=== PATIENT | female | born 1935 | race Caucasian/White ===

== ENCOUNTER → 2016-11-28 20:33 | Emergency (ER) | payer MEDICARE ==
[~2016-11-28 20:33] MED LIST: Magnesium Oxide TAB* 400 MG PO ONE; NS 0.9% 1000 ML* 1,000 ML IV SCH
[2016-11-28 21:28] LABS: Hematocrit 35 % (35-47); Hemoglobin 11.4 g/dl (12.0-16.0); Mean Corpuscular HGB Conc 33 g/dl (31-36); Mean Corpuscular Hemoglobin 29 pg (27-31); Mean Corpuscular Volume 90 fL (80-97); Mean Platelet Volume 9 um3 (7.4-10.4); Red Blood Count 3.89 10^6/ul (4.0-5.4); Red Cell Distribution Width 14 % (10.5-15); White Blood Count 6.7 10^3/ul (3.5-10.8)
[2016-11-28 21:39] LABS: ALT 11 U/L (7-52); AST 21 U/L (13-39); Albumin 3.7 g/dL (3.2-5.2); Alkaline Phosphatase 90 U/L (34-104); Anion Gap 8 mmol/L (2-11); BUN/Creatinine Ratio 13.1 (8-20); Blood Urea Nitrogen 11 mg/dL (6-24); C Reactive Protein < 1.00 mg/L (< 5.00); CO2 Carbon Dioxide 27 mmol/L (22-32); Calcium 8.7 mg/dL (8.6-10.3); Chloride 100 mmol/L (101-111); Creatine Kinase 112 U/L (10-223); EGFR African American 83.7 (>60); EGFR Non-African American 65.1 (>60); Globulin 2.8 g/dL (2-4); Glucose 109 mg/dL (70-100); Lipase 40 U/L (11.0-82.0); Magnesium 1.6 mg/dL (1.9-2.7); Potassium 3.4 mmol/L (3.5-5.0); Sodium 135 mmol/L (133-145); Total Protein 6.5 g/dL (6.4-8.9)
[2016-11-28 21:41] LABS: Troponin I 0.01 ng/mL (<0.04)
[2016-11-28 22:07] LABS: TSH (Thyroid Stimulating Horm) 0.61 mcIU/mL (0.34-5.60)
--- NOTE | 2016-11-28 22:07 | RAD ---
INDICATION: Syncopal episode COMPARISON: Most recent comparison chest x-rays dated February 09, 2013 TECHNIQUE: Single AP portable view of the chest was obtained. FINDINGS: Image quality is compromised due to the relative inferiority of a portable chest x-ray. Similar the previous chest x-ray there is mild cardiomegaly. There is faint atherosclerotic calcification overlying the arch of the aorta. The lungs are grossly clear. There is no evidence of a large pleural effusion. Visualized bones are normal for the patient's age. IMPRESSION: No radiographic evidence for acute cardiopulmonary abnormality on this portable chest x-ray.
--- NOTE | 2016-11-28 22:36 | ED ---
Yang Maya Billy, scribed for Tomás Perdomo MD on 11/28/16 at 2114 . Syncope/Near Syncope - HPI Summary HPI Summary: Patient is an 81 year-old female coming to [facility] for evaluation of a syncopal episode today while playing dominoes with her friends. She was seated at the table when her friends saw her eyes roll backwards, and then she slumped forward in her chair. Her friends tried to rouse her, but she was unresponsive for approximately 10 seconds. She denies any incidence of chest pain or palpitations. However, her friends, who are here in the ED with her tonight, state that she felt diaphoretic. Patient admits that she has not had much to each today, but she has not felt sick. Patient has an extensive cardiac history. - History Of Current Complaint Chief Complaint: EDSyncope Time Seen by Provider: 11/28/16 20:37 Hx Obtained From: Patient Onset/Duration: Sudden Onset, Resolved Timing: Seconds Context: Witnessed Activity At Onset: At Rest Associated Head Trauma: No Aggravating Factor(s): Nothing Alleviating Factor(s): Spontaneous Resolution Associated Signs And Symptoms: Diaphoresis - Allergies/Home Medications Allergies/Adverse Reactions: Allergies Allergy/AdvReac Type Severity Reaction Status Date / Time Atorvastatin [From Lipitor] Allergy Muscle Ache Verified 05/24/15 10:48 Pregabalin [From Lyrica] Allergy See Comment Verified 05/24/15 10:48 PMH/Surg Hx/FS Hx/Imm Hx Endocrine/Hematology History: Denies: Hx Diabetes Cardiovascular History: Reports: Hx Coronary Artery Disease, Hx Hypertension - ON DAILY MEDS, ; PAT BP 163/89, Hx Peripheral Vascular Disease - BILATERAL Denies: Hx Pacemaker/ICD Comment Only: Other Cardiovascular Problems/Disorders - DR PEREZ FOLLOWS GI History: Reports: Hx Irritable Bowel - Hx OF FREQUENT LOOSE BOWEL MOVEMENTS WITHOUT CONTROL History: Denies: Hx Renal Disease Musculoskeletal History: Reports: Hx Arthritis - BACK, WRISTS, FEET Denies: Hx Rheumatoid Arthritis, Hx Osteoporosis, Hx Scoliosis Sensory History: Reports: Hx Cataracts - BILATERAL, Hx Contacts or Glasses - GLASSES Denies: Hx Hearing Aid Opthamlomology History: Reports: Hx Cataracts - BILATERAL, Hx Contacts or Glasses - GLASSES Neurological History: Reports: Hx Migraine - Hx OF, NONE IN RECENT YEARS Denies: Hx Headaches Psychiatric History: Denies: Hx Panic Disorder - Surgical History Surgery Procedure, Year, and Place: 2003 LEFT LEG BYPASS/ANGIOPLASTY [facility] [place]. 1999 LUMBAR SURGERY - DECOMPRESSION [facility] [place]. BILATERAL CATARACT SURGERY Hx Anesthesia Reactions: No Infectious Disease History: No Infectious Disease History: Denies: Traveled Outside the [place] in Last 30 Days - Family History Known Family History: Positive: Cardiac Disease Family History: No family history of malignant hyperthermia and anesthesia reaction. - Social History Alcohol Use: None Substance Use Type: Reports: None Smoking Status (MU): Former Smoker Type: Cigarettes Amount Used/How Often: 1PPD 50+ YEARS Have You Smoked in the Last Year: No Review of Systems Positive: Skin Diaphoresis Negative: Palpitations, Chest Pain Positive: Syncope All Other Systems Reviewed And Are Negative: Yes Physical Exam Triage Information Reviewed: Yes Vital Signs On Initial Exam: Initial Vitals Temp Pulse Resp BP Pulse Ox 97.7 F 64 20 117/76 98 11/28/16 20:36 11/28/16 20:36 11/28/16 20:36 11/28/16 20:36 11/28/16 20:36 Vital Signs Reviewed: Yes Appearance: Positive: Well-Appearing, No Pain Distress Skin: Positive: Warm, Skin Color Reflects Adequate Perfusion, Dry Head/Face: Positive: Normal Head/Face Inspection Eyes: Positive: EOMI, JENNIFER ENT: Positive: Other - Dry oral mucosa. Neck: Positive: Supple, Nontender Respiratory/Lung Sounds: Positive: Clear to Auscultation, Breath Sounds Present Cardiovascular: Positive: RRR Abdomen Description: Positive: Nontender, Soft Musculoskeletal: Positive: Normal, Strength/ROM Intact Neurological: Positive: Normal, Sensory/Motor Intact, Alert, Oriented to Person Place, Time Psychiatric: Positive: Affect/Mood Appropriate Diagnostics - Vital Signs Vital Signs Temp Pulse Resp BP Pulse Ox 11/28/16 20:36 97.7 F 64 20 117/76 98 - Laboratory Lab Results: Lab Results 11/28/16 11/28/16 11/28/16 Range/Units 21:15 21:15 21:15 WBC 6.7 (3.5-10.8) 10^3/ul RBC 3.89 L (4.0-5.4) 10^6/ul Hgb 11.4 L (12.0-16.0) g/dl Hct 35 (35-47) % MCV 90 (80-97) fL MCH 29 (27-31) pg MCHC 33 (31-36) g/dl RDW 14 (10.5-15) % Plt Count 219 (150-450) 10^3/ul MPV 9 (7.4-10.4) um3 Neut % (Auto) 70.2 (38-83) % Lymph % (Auto) 13.2 L (25-47) % Schuyler % (Auto) 10.0 H (1-9) % Eos % (Auto) 4.2 (0-6) % Baso % (Auto) 2.4 H (0-2) % Absolute Neuts (auto) 4.7 (1.5-7.7) 10^3/ul Absolute Lymphs (auto) 0.9 L (1.0-4.8) 10^3/ul Absolute Monos (auto) 0.7 (0-0.8) 10^3/ul Absolute Eos (auto) 0.3 (0-0.6) 10^3/ul Absolute Basos (auto) 0.2 (0-0.2) 10^3/ul Absolute Nucleated RBC 0 10^3/ul Nucleated RBC % 0 INR (Anticoag Therapy) 1.01 (0.89-1.11) APTT 38.9 H (26.0-36.3) seconds Sodium 135 (133-145) mmol/L Potassium 3.4 L (3.5-5.0) mmol/L Chloride 100 L (101-111) mmol/L Carbon Dioxide 27 (22-32) mmol/L Anion Gap 8 (2-11) mmol/L BUN 11 (6-24) mg/dL Creatinine 0.84 (0.51-0.95) mg/dL Est GFR ( Amer) 83.7 (>60) Est GFR (Non-Af Amer) 65.1 (>60) BUN/Creatinine Ratio 13.1 (8-20) Glucose 109 H (70-100) mg/dL Lactic Acid (0.5-2.0) mmol/L Calcium 8.7 (8.6-10.3) mg/dL Magnesium 1.6 L (1.9-2.7) mg/dL Total Bilirubin 0.30 (0.2-1.0) mg/dL AST 21 (13-39) U/L ALT 11 (7-52) U/L Alkaline Phosphatase 90 (34-104) U/L Total Creatine Kinase 112 (10-223) U/L CK-MB (CK-2) 3.7 (0.6-6.3) ng/mL Troponin I 0.01 (<0.04) ng/mL C-Reactive Protein < 1.00 (< 5.00) mg/L B-Natriuretic Peptide ( - 100) pg/mL Total Protein 6.5 (6.4-8.9) g/dL Albumin 3.7 (3.2-5.2) g/dL Globulin 2.8 (2-4) g/dL Albumin/Globulin Ratio 1.3 (1-3) Lipase 40 (11.0-82.0) U/L TSH 0.61 (0.34-5.60) mcIU/mL 11/28/16 11/28/16 Range/Units 21:15 21:15 WBC (3.5-10.8) 10^3/ul RBC (4.0-5.4) 10^6/ul Hgb (12.0-16.0) g/dl Hct (35-47) % MCV (80-97) fL MCH (27-31) pg MCHC (31-36) g/dl RDW (10.5-15) % Plt Count (150-450) 10^3/ul MPV (7.4-10.4) um3 Neut % (Auto) (38-83) % Lymph % (Auto) (25-47) % Schuyler % (Auto) (1-9) % Eos % (Auto) (0-6) % Baso % (Auto) (0-2) % Absolute Neuts (auto) (1.5-7.7) 10^3/ul Absolute Lymphs (auto) (1.0-4.8) 10^3/ul Absolute Monos (auto) (0-0.8) 10^3/ul Absolute Eos (auto) (0-0.6) 10^3/ul Absolute Basos (auto) (0-0.2) 10^3/ul Absolute Nucleated RBC 10^3/ul Nucleated RBC % INR (Anticoag Therapy) (0.89-1.11) APTT (26.0-36.3) seconds Sodium (133-145) mmol/L Potassium (3.5-5.0) mmol/L Chloride (101-111) mmol/L Carbon Dioxide (22-32) mmol/L Anion Gap (2-11) mmol/L BUN (6-24) mg/dL Creatinine (0.51-0.95) mg/dL Est GFR ( Amer) (>60) Est GFR (Non-Af Amer) (>60) BUN/Creatinine Ratio (8-20) Glucose (70-100) mg/dL Lactic Acid 1.3 (0.5-2.0) mmol/L Calcium (8.6-10.3) mg/dL Magnesium (1.9-2.7) mg/dL Total Bilirubin (0.2-1.0) mg/dL AST (13-39) U/L ALT (7-52) U/L Alkaline Phosphatase (34-104) U/L Total Creatine Kinase (10-223) U/L CK-MB (CK-2) (0.6-6.3) ng/mL Troponin I (<0.04) ng/mL C-Reactive Protein (< 5.00) mg/L B-Natriuretic Peptide 115 H ( - 100) pg/mL Total Protein (6.4-8.9) g/dL Albumin (3.2-5.2) g/dL Globulin (2-4) g/dL Albumin/Globulin Ratio (1-3) Lipase (11.0-82.0) U/L TSH (0.34-5.60) mcIU/mL Result Diagrams: 11/28/16 21:15 11/28/16 21:15 Lab Statement: Any lab studies that have been ordered have been reviewed, and results considered in the medical decision making process. - EKG 2041 Cardiac Rate: Bradycardia - 59 bpm EKG Rhythm: Sinus Bradycardia ST Segment: Normal Ectopy: None Course/Dx Course Of Treatment: NO CRITICAL CARE TIME Assessment/Plan: WELL IN ED. DISCUSSED RESULTS WITH PATIENT/FAMILY/DR LOPEZ. PATIENT WISHES TO GO HOME. AMBULATED IN ED. SHE WILL F/U WITH DR LOPEZ WHO IS HER PMD. DISCHARGE HOME STABLE. - Diagnoses Provider Diagnoses: Syncope, Hypomagnesemia Discharge - Discharge Plan Condition: Stable Disposition: HOME Patient Education Materials: Syncope (ED), Hypomagnesemia (ED) Referrals: Jerrod Lopez MD [Primary Care Provider] - Additional Instructions: FOLLOW UP WITH YOUR DOCTOR. CALL DR LOPEZ'S OFFICE 11/30/16, TO HAVE AN OFFICE FOLLOW UP. RETURN TO THE EMERGENCY DEPARTMENT FOR ANY WORSENING OF YOUR CONDITION; YOU FEEL LIKE PASSING OUT, YOU PASS OUT, YOU FEEL ILL, CHEST PAIN, SHORTNESS OF BREATH OR QUESTIONS OR CONCERNS. The documentation as recorded by the Yang marks Billy accurately reflects the service I personally performed and the decisions made by me, Tomás Perdomo MD.
[2016-11-28 22:40] VITALS: BP 159/130
== END | disposition home or self-care (01) ==
LOC: ED 20:33
DX: R55 Syncope and collapse (principal); Z53.21 Procedure and treatment not carried out due to patient leaving prior to being seen by health care provider
CPT/HCPCS: 36415; 71010; 80053; 82550; 82553; 83605; 83690; 83735; 83880; 84443; 84484; 85025; 85610; 85730; 86140; 93005

== ENCOUNTER 2017-05-08 13:05 | Observation (INO) | payer MEDICARE ==
[2017-05-08] MEDS ORDERED: NS 0.9% 1000 ML* 1,000 ML IV ONE (13:14)
--- NOTE | 2017-05-08 13:39 | RAD ---
INDICATION: Expressive aphasia resolved. COMPARISON: There are no prior studies available for comparison. TECHNIQUE: Contiguous axial sections of the brain were obtained from the skull base to the vertex without contrast. FINDINGS: The ventricles, cisterns and sulci are enlarged consistent with age-related atrophy. There are small areas of decreased density in the subcortical and periventricular white matter suggestive of mild chronic small vessel ischemic changes. No other focal abnormality or mass effect is seen. There is no evidence for hemorrhage. No significant focal osseous abnormality is seen. The visualized portion of the paranasal sinuses and mastoid air cells appear clear. The results of this exam were called to referring clinician at 1333 hours IMPRESSION: NO EVIDENCE FOR GROSS ACUTE INFARCT, MASS EFFECT OR HEMORRHAGE.
[2017-05-08] MEDS ORDERED: Aspirin TAB* 325 MG PO ONE (13:44)
[2017-05-08 13:48] LABS: Hematocrit 33 % (35-47); Hemoglobin 10.7 g/dl (12.0-16.0); Mean Corpuscular HGB Conc 32 g/dl (31-36); Mean Corpuscular Hemoglobin 26 pg (27-31); Mean Corpuscular Volume 80 fL (80-97); Mean Platelet Volume 8 um3 (7.4-10.4); Red Blood Count 4.09 10^6/ul (4.0-5.4); Red Cell Distribution Width 16 % (10.5-15); White Blood Count 4.7 10^3/ul (3.5-10.8)
[2017-05-08 14:01] LABS: Albumin 3.9 g/dL (3.2-5.2); BUN/Creatinine Ratio 12.2 (8-20); Calcium 8.7 mg/dL (8.6-10.3); EGFR African American 85.8 (>60); EGFR Non-African American 66.7 (>60); Globulin 2.5 g/dL (2-4); HDL Cholesterol 70.3 mg/dL; Potassium 3.4 mmol/L (3.5-5.0); Total Bilirubin 0.5 mg/dL (0.2-1.0); Total Protein 6.4 g/dL (6.4-8.9)
[2017-05-08 14:02] LABS: Troponin I 0.01 ng/mL (<0.04)
--- NOTE | 2017-05-08 14:12 | RAD ---
INDICATION: Neurologic changes code [id number]. COMPARISON: Comparison is made with prior chest x-ray study from November 28, 2016. TECHNIQUE: A portable view of the chest was obtained. FINDINGS: Cardiac and mediastinal contours appear to be within normal limits. The lungs are clear. No pleural effusion is seen. IMPRESSION: NO EVIDENCE FOR ACUTE DISEASE.
[2017-05-08] MEDS ORDERED: Acetaminophen TAB* 325 MG PO PRN (15:53)
[2017-05-08] MEDS ORDERED: oxyCODONE/Acetamin 5/325 MG* TAB PO PRN (16:10)
[2017-05-08] MEDS ORDERED: tiZANidine TAB* 2 MG PO PRN (16:10)
[2017-05-08] MEDS ORDERED: Iohexol 350* (CONTRAST) 500 ML MDV IV ONE (16:25)
[2017-05-08] MEDS: Lisinopril TAB* 5 MG PO SCH (16:50)
--- NOTE | 2017-05-08 17:09 | RAD ---
INDICATION: TIA. COMPARISON: Comparison is made with a prior CT of the brain from May 08, 2017 and a prior carotid duplex ultrasound from June 30, 2016. TECHNIQUE: A CT angiogram of the head and neck was performed following intravenous injection of 80 ml of Omnipaque 350 nonionic contrast. Contiguous axial sections were obtained from the thoracic inlet through the skull vertex. Images were reconstructed in the coronal and sagittal planes and in a 3-D volume rendered format. The distal cervical internal carotid artery diameter is used as the denominator for stenosis measurement. There is motion artifact limiting the study. FINDINGS: RIGHT CAROTID: There is mild calcific plaque within the common proximal and distal internal carotid artery. No significant stenosis is present. LEFT CAROTID: There is mild calcific plaque within the left carotid bulb and distal internal carotid artery. No significant stenosis is present. VERTEBRALS: The vertebral arteries appear patent. CTA BRAIN: There is moderate calcific plaque within the petrous and cavernous portion of the internal carotid arteries. No high-grade stenosis or occlusion is seen. The anterior and middle cerebral arteries appear patent without evidence for high-grade stenosis or occlusion. The vertebral, basilar and posterior cerebral arteries appear patent without evidence for high-grade stenosis or occlusion. No gross focal perfusion abnormalities are seen. No aneurysm or vascular malformation is seen. NECK: No significant enlarged lymph nodes are seen within the neck. The thyroid, parotid and submandibular glands appear to be within normal limits. The lung apices appear clear. The sinuses are clear. IMPRESSION: 1. NO EVIDENCE FOR HEMODYNAMICALLY SIGNIFICANT CAROTID STENOSIS. 2. NO EVIDENCE FOR LARGE VESSEL INTRACRANIAL THROMBUS. 3. MILD TO MODERATE ATHEROSCLEROTIC CHANGES. CPT II Codes: 3100F
[2017-05-08] MEDS ORDERED: Magnesium Oxide TAB* 400 MG PO SCH (18:00)
[2017-05-08 18:18] LABS: Urine Bacteria Absent (Absent); Urine Bilirubin Negative (Negative); Urine Glucose Negative (Negative); Urine Nitrite Negative (Negative)
[2017-05-08] MEDS: Labetalol TAB* 200 MG PO SCH (20:18)
--- NOTE | 2017-05-08 20:50 | ED ---
Jeremias Maya Abhishek, scribed for Gian Quintero MD on 05/08/17 at 1403 . Neurological HPI - HPI Summary HPI Summary: This patient is a 82 year old M presenting to [facility] accompanied by male with a chief complaint of neurological deficit onset of noon today. The patient rates the pain 0/10 in severity. Symptoms aggravated by nothing. Symptoms alleviated by nothing. Patient reports confusion earlier this afternoon and difficulty with expressive speech for 15 to 30 minutes, funny feeling in the left frontal lobe. Patient states symptoms have been resolved. PMHx includes HTN; chronic back pain. - History of Current Complaint Chief Complaint: EDNeurologicalDeficit Stated Complaint: CONFUSION,HEADACHE Time Seen by Provider: 05/08/17 13:14 Hx Obtained From: Patient, Family/Web Retailer Onset/Duration: Sudden Onset - afternoon today., Started hours ago, Resolved Timing: Sudden Onset Headache Location: Frontal - pt states "funny feeling in the left frontal lobe" Pain Intensity: 0 Pain Scale Used: 0-10 Numeric Character: Unable To Describe, Impaired Speech - 15 to 30 minutes, Confusion Aggravating: Nothing Alleviating: Other Associated Signs and Symptoms: Positive: Confusion - Allergy/Home Medications Allergies/Adverse Reactions: Allergies Allergy/AdvReac Type Severity Reaction Status Date / Time Atorvastatin [From Lipitor] Allergy Muscle Ache Verified 04/15/17 13:48 Pregabalin [From Lyrica] Allergy See Comment Verified 04/15/17 13:48 PMH/Surg Hx/FS Hx/Imm Hx Endocrine/Hematology History: Denies: Hx Diabetes Cardiovascular History: Reports: Hx Coronary Artery Disease, Hx Hypertension - ON DAILY MEDS, Hx Peripheral Vascular Disease - BILATERAL Denies: Hx Pacemaker/ICD Comment Only: Other Cardiovascular Problems/Disorders - DR PEREZ FOLLOWS Respiratory History: Reports: Hx Pneumonia GI History: Reports: Hx Irritable Bowel - Hx OF FREQUENT LOOSE BOWEL MOVEMENTS WITHOUT CONTROL History: Denies: Hx Renal Disease Musculoskeletal History: Reports: Hx Arthritis - BACK, WRISTS, FEET Denies: Hx Rheumatoid Arthritis, Hx Osteoporosis, Hx Scoliosis Sensory History: Reports: Hx Cataracts - BILATERAL- removed, Hx Contacts or Glasses - GLASSES, 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 1999 LUMBAR SURGERY - DECOMPRESSION [facility] [place]. BILATERAL CATARACT SURGERY Hx Anesthesia Reactions: No Infectious Disease History: No Infectious Disease History: Denies: Traveled Outside the [place] in Last 30 Days - Family History Known Family History: Positive: Cardiac Disease Family History: No family history of malignant hyperthermia and anesthesia reaction. - Social History Alcohol Use: None Substance Use Type: Reports: None Smoking Status (MU): Former Smoker Type: Cigarettes Amount Used/How Often: 1PPD 50+ YEARS Have You Smoked in the Last Year: No Review of Systems Constitutional: Negative Eyes: Negative ENT: Negative Cardiovascular: Negative Respiratory: Negative Gastrointestinal: Negative Genitourinary: Negative Musculoskeletal: Negative Skin: Negative Neurological: Other - Confusion earlier this afternoon, "Funny feeling in the left frontal lobe" Positive: Slurred Speech - 15 min to 30 minutes Psychological: Normal All Other Systems Reviewed And Are Negative: Yes - Comments Additional Review of Systems Comments: Negative Fever, Chills Erythema (eyes) Sore throat Chest pain Shortness of Breath, Cough Abdominal pain, Vomiting, Nausea ~~~~~Dysuria, Hematuria Myalgia, Leg swelling Rash Dizziness Physical Exam - Summary Physical Exam Summary: Constitutional: Well-developed, Well-nourished, Alert. (-) Distressed Skin: Warm, Dry HENT: Normocephalic; Atraumatic Eyes: Conjunctiva normal Neck: Musculoskeletal ROM normal neck. (-) JVD, (-) Stridor, (-) Tracheal deviation Cardio: Rhythm regular, rate normal, Heart sounds normal; Intact distal pulses; The pedal pulses are 2+ and symmetric. Radial pulses are 2+ and symmetric. (-) Murmur Pulmonary/Chest wall: Effort normal. (-) Respiratory distress, (-) Wheezes, (-) Rales Abd: Soft, (-) Tenderness, (-) Distension, (-) Guarding, (-) Rebound Musculoskeletal: (-) Edema Lymph: (-) Cervical adenopathy Neuro: Alert, Oriented x3 Psych: Mood and affect Normal Constitutional: Well-developed, Well-nourished, Alert. (-) Distressed Skin: Warm, Dry HENT: Eyes: Conjunctiva normal Neck: Musculoskeletal ROM normal neck. (-) JVD, (-) Stridor, (-) Tracheal deviation Cardio: Rhythm regular, rate normal, Heart sounds normal; Intact distal pulses; The pedal pulses are 2+ and symmetric. Radial pulses are 2+ and symmetric. (-) Murmur Pulmonary/Chest wall: Effort normal. (-) Respiratory distress, (-) Wheezes, (-) Rales Abd: Soft. (-) Tenderness, ~(-) Distension, (-) Guarding, (-) Rebound Musculoskeletal: (-) Edema Lymph: (-) Cervical adenopathy Neuro: Alert, Oriented x3, Strength normal, Cranial nerves II-XII are grossly intact. (-) Dysmetria, (-) Nystagmus, (-) Ataxia by finger to nose testing, (-) Sensory deficit. Psych: Mood and affect Normal Triage Information Reviewed: Yes Vital Signs On Initial Exam: Initial Vitals Temp Pulse Resp BP Pulse Ox 98.1 F 75 20 176/125 100 05/08/17 13:08 05/08/17 13:08 05/08/17 13:08 05/08/17 13:08 05/08/17 13:08 Vital Signs Reviewed: Yes Diagnostics - Vital Signs Vital Signs Temp Pulse Resp BP Pulse Ox 05/08/17 13:08 98.1 F 75 20 176/125 100 - Laboratory Lab Results: Lab Results 05/08/17 05/08/17 05/08/17 Range/Units 13:29 13:34 13:34 WBC 4.7 (3.5-10.8) 10^3/ul RBC 4.09 (4.0-5.4) 10^6/ul Hgb 10.7 L (12.0-16.0) g/dl Hct 33 L (35-47) % MCV 80 (80-97) fL MCH 26 L (27-31) pg MCHC 32 (31-36) g/dl RDW 16 H (10.5-15) % Plt Count 233 (150-450) 10^3/ul MPV 8 (7.4-10.4) um3 Neut % (Auto) 56.7 (38-83) % Lymph % (Auto) 23.4 L (25-47) % Wake % (Auto) 13.5 H (1-9) % Eos % (Auto) 5.5 (0-6) % Baso % (Auto) 0.9 (0-2) % Absolute Neuts (auto) 2.7 (1.5-7.7) 10^3/ul Absolute Lymphs (auto) 1.1 (1.0-4.8) 10^3/ul Absolute Monos (auto) 0.6 (0-0.8) 10^3/ul Absolute Eos (auto) 0.3 (0-0.6) 10^3/ul Absolute Basos (auto) 0 (0-0.2) 10^3/ul Absolute Nucleated RBC 0 10^3/ul Nucleated RBC % 0 INR (Anticoag Therapy) 0.95 (0.89-1.11) APTT 41.7 H (26.0-36.3) seconds Sodium (133-145) mmol/L Potassium (3.5-5.0) mmol/L Chloride (101-111) mmol/L Carbon Dioxide (22-32) mmol/L Anion Gap (2-11) mmol/L BUN (6-24) mg/dL Creatinine (0.51-0.95) mg/dL Est GFR ( Amer) (>60) Est GFR (Non-Af Amer) (>60) BUN/Creatinine Ratio (8-20) Glucose (70-100) mg/dL POC Glucose (mg/dL) 122 H (70-100) mg/dL Lactic Acid (0.5-2.0) mmol/L Calcium (8.6-10.3) mg/dL Total Bilirubin (0.2-1.0) mg/dL AST (13-39) U/L ALT (7-52) U/L Alkaline Phosphatase (34-104) U/L Troponin I (<0.04) ng/mL Total Protein (6.4-8.9) g/dL Albumin (3.2-5.2) g/dL Globulin (2-4) g/dL Albumin/Globulin Ratio (1-3) Triglycerides mg/dL Cholesterol mg/dL LDL Cholesterol mg/dL HDL Cholesterol mg/dL Blood Type Antibody Screen 10/14/17 10/14/17 10/14/17 Range/Units 13:34 13:34 13:34 WBC (3.5-10.8) 10^3/ul RBC (4.0-5.4) 10^6/ul Hgb (12.0-16.0) g/dl Hct (35-47) % MCV (80-97) fL MCH (27-31) pg MCHC (31-36) g/dl RDW (10.5-15) % Plt Count (150-450) 10^3/ul MPV (7.4-10.4) um3 Neut % (Auto) (38-83) % Lymph % (Auto) (25-47) % Wake % (Auto) (1-9) % Eos % (Auto) (0-6) % Baso % (Auto) (0-2) % Absolute Neuts (auto) (1.5-7.7) 10^3/ul Absolute Lymphs (auto) (1.0-4.8) 10^3/ul Absolute Monos (auto) (0-0.8) 10^3/ul Absolute Eos (auto) (0-0.6) 10^3/ul Absolute Basos (auto) (0-0.2) 10^3/ul Absolute Nucleated RBC 10^3/ul Nucleated RBC % INR (Anticoag Therapy) (0.89-1.11) APTT (26.0-36.3) seconds Sodium 139 (133-145) mmol/L Potassium 3.4 L (3.5-5.0) mmol/L Chloride 104 (101-111) mmol/L Carbon Dioxide 29 (22-32) mmol/L Anion Gap 6 (2-11) mmol/L BUN 10 (6-24) mg/dL Creatinine 0.82 (0.51-0.95) mg/dL Est GFR ( Amer) 85.8 (>60) Est GFR (Non-Af Amer) 66.7 (>60) BUN/Creatinine Ratio 12.2 (8-20) Glucose 93 (70-100) mg/dL POC Glucose (mg/dL) (70-100) mg/dL Lactic Acid 1.6 (0.5-2.0) mmol/L Calcium 8.7 (8.6-10.3) mg/dL Total Bilirubin 0.50 (0.2-1.0) mg/dL AST 22 (13-39) U/L ALT 17 (7-52) U/L Alkaline Phosphatase 87 (34-104) U/L Troponin I 0.01 (<0.04) ng/mL Total Protein 6.4 (6.4-8.9) g/dL Albumin 3.9 (3.2-5.2) g/dL Globulin 2.5 (2-4) g/dL Albumin/Globulin Ratio 1.6 (1-3) Triglycerides 106 mg/dL Cholesterol 176 mg/dL LDL Cholesterol 85 mg/dL HDL Cholesterol 70.3 mg/dL Blood Type O Positive Antibody Screen Negative Result Diagrams: 05/08/17 13:34 05/08/17 13:34 Lab Statement: Any lab studies that have been ordered have been reviewed, and results considered in the medical decision making process. - CT CT Brain CT Interpretation: No Acute Changes - CT Brain reveals NO EVIDENCE FOR GROSS ACUTE INFARCT, MASS EFFECT OR HEMORRHAGE. ED physician has reviewed this radiology report and agrees. CT Interpretation Completed By: Radiologist NIH Scale - NIH Scale Level of Consciousness: Alert/Keenly Responsive Ask Patient the Month and His/Her Age: Both Correct Ask Pt to Open/Close Eyes and Spare Hand/Release Non-Paretic Hand: Both Correctly Best Gaze (Only Horizontal Eye Movement): Normal Visual Field Testing: No Visual Loss Facial Paresis-Pt to Smile & Close Eyes or Grimace Symmetry: Normal/Symmetrical Motor Function - Right Arm: No Drift-Holds 10 Seconds Motor Function - Left Arm: No Drift-Holds 10 Seconds Motor Function - Right Leg: No Drift-Holds 10 Seconds Motor Function - Left Leg: No Drift-Holds 10 Seconds Limb Ataxia-Must be out of Proportion to Weakness Present: Absent Sensory (Use Pinprick to Test Arms/Legs/Trunk/Face): Normal Best Language (Describe Picture, Name Items): No Aphasia Dysarthria (Read Several Words): Normal Extinction and Inattention: No Abnormality Total Score: 0 Course/Dx - Course Course Of Treatment: A 82 year-old (F) presents to the ED with a CC of neurological deficit in the afternoon today. Patient reports confusion earlier this afternoon and difficulty speaking for 15 to 30 minutes, funny feeling in the left frontal lobe. An EKG reveals HR of 68 bpm, Sinus rhythm, No ST, No ectopy at 1445. CXR reveals NO EVIDENCE FOR ACUTE DISEASE. CT Brain reveals NO EVIDENCE FOR GROSS ACUTE INFARCT, MASS EFFECT OR HEMORRHAGE. ED physician has reviewed this radiology report and agrees. Dx of TIA. We discussed patient care with Dr. Sanchez and Dr. Lizarraga ([id number]) and recommend full strength ASA and admit to hospital. Patient will be admitted. Pt is agreeable with this plan. - Diagnoses Provider Diagnoses: TIA (transient ischemic attack), Uncontrolled hypertension - Physician Notifications Discussed Care Of Patient With: Skyler Sanchez Discharge - Discharge Plan Condition: Good Disposition: ADMITTED TO [facility] [place] The documentation as recorded by the Jeremias marks Abhishek accurately reflects the service I personally performed and the decisions made by , Gian Quintero MD.
--- NOTE | 2017-05-08 20:54 | HP ---
CC: Jerrod Lopez MD; Drew Rogers MD * HISTORY AND PHYSICAL: DATE OF ADMISSION: 05/08/17 PRIMARY CARE PHYSICIAN: Jerrod Lopez MD RELIEF MASTER: Drew Rogers MD ATTENDING PHYSICIAN: Sergio Cano MD * (report dictated by Emma Winslow NP) . CHIEF COMPLAINT: Altered speech. HISTORY OF PRESENT ILLNESS: The patient is an 82-year-old female with past medical history significant for peripheral arterial disease, coronary artery disease, and hypertension, who had an episode starting today around 11:30 to 12 where she was speaking in phrases that did not make sense. The patient denies difficulty word finding and states that her speech was clear, yet she was speaking a string of words that was illogical. The patient states her daughter- in-law noticed this. The patient also reported a dull sensation on the left side of her head. She went home and told her son about this. At that time, she was still having difficulty saying phrases that made sense. At this point, her son recommended that she come to the emergency room for further evaluation. The patient states that her blood pressure has been running high. Her systolic pressure over the past couple of days on at least 4 occasions has been in the 170s/90 to 100s. The patient states she was recently restarted back on a very low dose of lisinopril by Dr. Rogers. She had been taken off her lisinopril historically due to a syncopal episode in November of this year. In the emergency room, a Code Montoya was called. The patient's symptoms had completely resolved and she was able to communicate logically and without difficulty. The patient had a CT of the brain that was negative and hospitalists were asked to evaluate this patient for admission. PAST MEDICAL HISTORY: Peripheral arterial disease, hypertension, coronary artery disease, spinal stenosis, depression. PAST SURGICAL HISTORY: Left renal artery bypass, left fem bypass, iliac stenting, left lower leg angioplasty, laminectomy. HOME MEDICATIONS: 1. Trazodone 200 mg oral at bedtime. 2. Percocet 1 tablet every 4 hours as needed by mouth. 3. Magnesium 400 mg oral at bedtime. 4. Pletal 50 mg oral daily. 5. Aspirin 81 mg oral daily. 6. Lovastatin 40 mg oral at bedtime. 7. Remeron 30 mg oral at bedtime. 8. Nitro patch 0.2 mg an hour daily. 9. Labetalol 200 mg oral 3 times daily. 10. Tizanidine 4 mg oral 3 times daily as needed for spasms. 11. Lisinopril 1.25 mg oral daily. ALLERGIES: ATORVASTATIN and LYRICA. FAMILY HISTORY: The patient's father from a heart attack at 45. She denies any other family history of diabetes or cancer. SOCIAL HISTORY: She smoked a pack a day for close to 50 to 60 years; she quit 10 years ago. She denies any alcohol or drug use. 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 She is . Her son, Dirk Saba, will be the surrogate decision maker in the event the patient cannot make decisions for herself. REVIEW OF SYSTEMS: I performed a 14-point review of systems. All the pertinent positives and negatives are mentioned in the history of present illness. The remaining review of systems are negative. PHYSICAL EXAMINATION GENERAL APPEARANCE: The patient is alert, pleasant, appeared to be in no apparent distress. VITAL SIGNS: Blood pressure 177/72, heart rate 70, temperature 98.1, respiratory rate 20, oxygen saturation 94%. HEAD, EYES, EARS, NOSE, and THROAT: Normocephalic/atraumatic. Pupils are equal and reactive to light. Extraocular movements were intact. NECK: Supple. There is no lymphadenopathy noted. RESPIRATORY: There was no accessory muscle use and lungs were clear to auscultation. CARDIAC: S1, S2 were crisp. There were no murmurs, rubs, or gallops heard. ABDOMEN: Soft, nontender, nondistended. There are bowel sounds x4. EXTREMITIES: There was no lower extremity edema. DP and PT pulses were 2+ and symmetric. MUSCULOSKELETAL: There is no clubbing or cyanosis noted. The patient exhibited equal strength in all extremities. NEURO: Cranial nerves II through XII were intact. The patient moves all extremities. Lower extremities were intact to light touch. PSYCH: The patient is alert and oriented x3. SKIN: There were no rashes or abnormalities seen. DIAGNOSTIC STUDIES/LAB DATA: Sodium 139, potassium 3.4, chloride 104, CO2 29, BUN 10, creatinine 0.82, glucose 93, lactic acid 1.6. Liver function tests within normal limits. Cholesterol 176, LDL 85, HDL 70. Troponin is 0.01. EKG shows sinus rhythm with a rate of 68. Chest x-ray performed today shows no evidence for acute disease. Head CT from today shows no evidence for acute infarct. IMPRESSION: This is an 82-year-old female with a past medical history of significant vascular disease as well as hypertension and spinal stenosis, who presented to the emergency room with a complaint of incomprehensible speech. The patient was placed on observation for transient ischemic attack. ASSESSMENT AND PLAN: 1. Transient ischemic attack. The patient will be placed on telemetry with q.2 hour neuro checks. I discussed the case with Neurology and the plan is for the following: CTA of the head and neck with contrast to evaluate for possible stenosis. MRI of the brain. We were unable to get an MRI of the brain. Tomorrow, we will get a repeat head CT. The patient had a recent echo at Dr. Rogers's office from 01/18/17. It shows normal ejection fraction with an enlarged left atrial cavity. We will not repeat the echo. The patient will be continued on aspirin. Fasting lipid profile will be checked in the morning as well as B12, folate, TSH, free T4, and homocysteine. Neurology will see the patient in the morning. The patient's statin will continue. 2. Hypertension. The patient's blood pressure is elevated in the emergency room and she states she did take her labetalol this morning. Lisinopril 2.5 mg will be given now and started on daily basis. This will be increased if her blood pressure remains high. Labetalol will be continued. 3. Coronary artery disease. Nitro patch as well as labetalol, statin, and aspirin will continue. 4. Peripheral arterial disease. Pletal, will continue. 5. Depression. Remeron and trazodone will continue. 6. Chronic back pain. P.r.n. oxycodone. 7. DVT prophylaxis. The patient is at moderate risk. She will have subcu heparin. 8. The patient's code status is full. TIME SPENT: Time for this admission was 60 minutes, and 30 minutes was spent with the patient discussing past medical history, medications, and events leading up to her arrival in the emergency room. Reviewed by EMMA WINSLOW NP 05/09/2017 1730 [id number]/[facility] #: [id number] DAISY
[2017-05-08] MEDS ORDERED: Mirtazapine TAB* 15 MG PO SCH (21:00)
[2017-05-08] MEDS ORDERED: traZODone TAB* 100 MG PO SCH (21:00)
[2017-05-08] MEDS ORDERED: Aspirin EC Low Dose* 81 MG TAB.EC PO SCH (21:00)
[2017-05-08] MEDS ORDERED: CMC:Lovastatin (NF) 10 MG TAB PO SCH (21:00)
[2017-05-08] MEDS: Heparin VIAL(*) 5000 UNITS/ML VIAL (FIVE THOUSAND) SUBCUT SCH (22:05)
[2017-05-09] MEDS: Heparin VIAL(*) 5000 UNITS/ML VIAL (FIVE THOUSAND) SUBCUT SCH (05:37)
[2017-05-09 05:54] LABS: HDL Cholesterol 60.5 mg/dL
[2017-05-09 06:33] LABS: TSH (Thyroid Stimulating Horm) 0.22 mcIU/mL (0.34-5.60)
[2017-05-09] MEDS: Labetalol TAB* 200 MG PO SCH (08:03)
[2017-05-09] MEDS: Lisinopril TAB* 5 MG PO SCH (08:04)
[2017-05-09] MEDS ORDERED: Nitroglycerin 0.2 MG/HR PATCH* (5 MG) TRANSDERM SCH (09:00)
[2017-05-09] MEDS ORDERED: Cilostazol TAB* 100 MG PO SCH (09:00)
--- NOTE | 2017-05-09 10:18 | RAD ---
INDICATION: TIA. COMPARISON: Comparison is made with a prior CT of the brain from May 08, 2017. TECHNIQUE: Contiguous axial sections of the brain were obtained from the skull base to the vertex without contrast. FINDINGS: The ventricles, cisterns and sulci are enlarged consistent with age-related atrophy. There are small areas of decreased density in the subcortical and periventricular white matter suggestive of mild chronic small vessel ischemic changes. There is no evidence for hemorrhage. No significant focal osseous abnormality is seen. The visualized portion of the paranasal sinuses and mastoid air cells appear clear. IMPRESSION: NO EVIDENCE FOR GROSS ACUTE INFARCT, MASS EFFECT OR HEMORRHAGE.
[2017-05-09] MEDS ORDERED: Cyanocobalamin INJ * 1,000 MCG/ML VIAL 1 ML VIAL IM ONE (11:30)
--- NOTE | 2017-05-09 12:04 | PN ---
Subjective Date of Service: 05/09/17 Interval History: Patient seen and examined at bedside. BP slightly better this AM after Lisinopril. Patient denies any further neurological symptoms. She confirms she was taking 1.25mg of lisinopril prior to admission. Family History: Unchanged from Admission Social History: Unchanged from Admission Past Medical History: Unchanged from Admission Objective Active Medications: Acetaminophen (Tylenol Tab*) 650 mg PO Q4H PRN Aspirin (Aspirin Ec Low Dose*) 81 mg PO BEDTIME TEJAS Cilostazol (Pletal Tab*) 50 mg PO DAILY TEJAS Heparin Sodium (Porcine) (Heparin Vial(*)) 5,000 units SUBCUT Q8HR TEJAS Labetalol HCl (Trandate Tab*) 200 mg PO BID TEJAS Lisinopril (Prinivil Tab*) 2.5 mg PO DAILY TEJAS Lovastatin (Mevacor (Nf)) 40 mg PO BEDTIME TEJAS Magnesium Oxide (Magox 400 Tab*) 400 mg PO QPM TEJAS Mirtazapine (Remeron Tab*) 30 mg PO BEDTIME TEJAS Nitroglycerin (Nitroglycerin 5 Mg Patch*) 1 patch TRANSDERM DAILY TEJAS Oxycodone/Acetaminophen (Percocet 5/325 Tab*) 1 tab PO Q4H PRN Tizanidine HCl (Zanaflex Tab*) 4 mg PO TID PRN Trazodone HCl (Desyrel Tab*) 200 mg PO BEDTIME [facility] 05/08/17 05/09/17 05/09/17 23:37 03:52 07:32 Temperature 97.9 F 98.5 F 98.5 F Pulse Rate 68 75 77 Respiratory 16 16 16 Rate Blood Pressure 161/65 167/76 170/73 (mmHg) O2 Sat by Pulse 95 97 98 Oximetry Appearance: laying in bed, NAD Eyes: No Scleral Icterus, PERRLA Ears/Nose/Mouth/Throat: NL Teeth, Lips, Gums, Mucous Membranes Moist Neck: NL Appearance and Movements; NL JVP Respiratory: Symmetrical Chest Expansion and Respiratory Effort, Clear to Auscultation Cardiovascular: No Edema, - - mid systolic click Extremities: No Edema Skin: No Rash or Ulcers Neurological: Alert and Oriented x 3, NL Muscle Strength and Tone Lines/Tubes/Other Access: Clean, Dry and Intact Peripheral IV Result Diagrams: 05/08/17 13:34 05/08/17 13:34 Assess/Plan/Problems-Billing Patient is an 82 y/o F w/ PMH significant for HTN, PAD, CAD who presented to the ED 05/08 w/ the c/o of speech difficulties. - Patient Problems (1) TIA (transient ischemic attack) (2) HTN (hypertension) (3) Back pain (4) PAD (peripheral artery disease) (5) CAD (coronary artery disease) (6) Depression (7) DVT prophylaxis (8) Full code status Status and Disposition: OBV. Stable to be discharged home.
[2017-05-09 13:42] VITALS: BP 166/53
[2017-05-09 13:42] LABS: Folate 8.64 ng/mL (>3.99)
--- NOTE | 2017-05-09 21:55 | CONS ---
CONSULTATION REPORT: DATE OF CONSULT: 05/09/17 CURRENT LOCATION: 439, bed 1. REASON FOR CONSULTATION: TIA like symptoms. HISTORY OF PRESENT ILLNESS: Ms. Saba is a very nice 82-year-old female with multiple stroke risk factors including coronary artery disease status post stenting, hyperlipidemia, hypertension, peripheral artery disease. She also has had bypass surgery, renal artery bypass, fem bypass, iliac stenting, and left lower leg angioplasty. She does take an aspirin at home. She has high blood pressure and has been working with her education managers regarding medication adjustments, recently was taken off of some medication and notes that her blood pressures have been elevated in the 170s over low 100s. She had a syncopal type episode and came to the hospital in November of 2016 was seen and discharged. She has had a recent echocardiogram done several months ago showed no major abnormalities. She was in her usual state of health when yesterday at around 11 o'clock, she was outside with her daughter and had trouble finding words. She states she knew it she wanted to say, but could not produce them. She denied any other symptoms at that time. No focal numbness, tingling, or weakness. No severe headache. No vision changes. No slurred speech. No facial droop. No recent fevers, chills, nausea, vomiting, or constipation. No palpitations or chest pain. No shortness of breath. This lasted for about 15 minutes and then resolved. She was brought to the ER. April Montoya was initially called, but by that time she had arrived to the hospital, her symptoms have completely resolved. I spoke with the ER doctor, he said her NIH was 0 at that time. She had a CT of the head, which was negative for any acute events. She subsequently had another CT of the head this morning, which showed no changes. She had a CT angiogram of the head and neck, which showed no evidence of carotid stenosis and no large vessel intracranial thrombosis with mild-to- moderate arthrosclerotic changes. Overnight, she has done very well. She has had no new issues. She wants to go home. She denies any symptoms at this time and feels well. PAST MEDICAL HISTORY: As above. She also has a history of spinal stenosis. PAST SURGICAL HISTORY: As above. HOME MEDICATIONS: Include: 1. Trazodone 200 mg at bedtime. 2. Percocet 1 tab every 4 hours as needed. 3. Magnesium 400 mg at bedtime. 4. Pletal 50 mg orally. 5. Aspirin 81 mg daily. 6. Lovastatin 40 mg at bedtime. 7. Remeron 30 mg at bedtime. 8. Nitro patch 0.2 mg an hour daily. 9. Labetalol 200 mg orally 3 times a day. 10. Tizanidine 4 mg 3 times a day as needed for spasms. 11. Lisinopril 1.25 mg daily. ALLERGIES: She is allergic to ATORVASTATIN and LYRICA. FAMILY HISTORY: Significant for MS in her father who at an early age of 45. SOCIAL HISTORY: She smoked, but quit about 15 years ago. She was a 50 to 60- year pack a day smoker. Denies any alcohol or drug use. She is , has multiple grandchildren and great grandchildren and lives near her family. REVIEW OF SYSTEMS: Review of systems in 14-organ systems as noted above, otherwise negative. PHYSICAL EXAM: Vital Signs: Temp of 98.5, pulse rate of 77, respiratory rate of 16, O2 sat of 98%, blood pressure 170/73, generally, she has been running in the 150s to 180s/60s to 80s overnight. In general, she is a well-nourished, well- developed female in no acute distress. She is lying in her hospital bed. She is pleasant, well dressed, well groomed. HEENT: She is normocephalic, atraumatic. Sclerae anicteric. Mucous membranes are moist. Oropharynx is clear. Nares are patent. Neck is supple. No thyromegaly. No carotid bruits. No meningismus. Chest: Clear to auscultation bilaterally. Cardiovascular is regular rate and rhythm with a 3/6 systolic ejection murmur. Abdomen is nontender, soft. Extremities: No clubbing, cyanosis, or edema. Her skin is warm and dry without lesions. Neurologic Exam: She is awake, alert and oriented x3. Her speech is fluent. There is no dysarthria. Repetition is intact. Recall of recent and remote events is intact. Vocabulary is intact. Her mood is euthymic. Affect is mood congruent. Cranial Nerves: II through XII. Pupils are equally round and reactive to light. Extraocular muscles are intact. Visual ortiz are full. Face is symmetric. Facial sensation is intact. Hearing is intact bilaterally. Tongue is midline. Palate raises symmetrically. Sternocleido-mastoid and trapezius are intact. Her motor exam is 5/5 throughout. No drift is apparent. DTRs are 1+ and symmetric in the upper and lower extremities bilaterally, equivocal Babinski. Sensation is intact in all modalities throughout with some mild paresthesias in the feet bilaterally. Lhjgpi-dz-hgej and rapid alternating movements were significant for mild bgqthy-yf-lsmj tremor, but otherwise intact. No dysdiadochokinesia or dysmetria. Gait: She has been ambulating without difficulty. DIAGNOSTIC STUDIES/LAB DATA: Lab work includes a CBC with diff with a hemoglobin of 10.7, hematocrit of 33, normal platelet count. INR of 0.95, PTT of 41.7. Her complete metabolic profile showed a potassium of 3.4 was otherwise normal. Her triglycerides of 134, cholesterol of 157, LDL of 70, HDL of 60.5, vitamin B12 of 170. TSH is 0.22, free T4 of 1.0. Imaging as above. ASSESSMENT AND PLAN: Ms. Saba is an 82-year-old female with multiple stroke risk factors, who presents to the hospital with an episode of word finding difficulties lasting approximately 15 minutes and resolved. She is currently completely nonfocal and doing much better. She has had some difficulty with hypertension in the last few weeks. Her medications have been adjusted and when she came into the hospital, she has had several days of elevated blood pressures for her in the 170s to 80s/100s. Since admission to the hospital, her blood pressures have been better, although her systolics remained high. She does take an aspirin at home and this has been continued in the hospital. At this point, her CT is negative x2. She had a recent echocardiogram showed no major abnormalities. CTA of the head and neck were both okay. I think it is okay for her to go home. She knows to return to the hospital immediately should she have any new symptoms. I will continue her on her aspirin at this point, as I suspect that this was likely more related to hypertensive urgency/ emergency and not necessarily a transient ischemic attack. Her lipids are good. LDL is 70, HDL is 60.5. She did have a very low B12 level and I would recommend supplementing this over the next several weeks. I am going to give her an injection of B12 today and I would recommend that she follow up with her primary care provider for B12 injections every week 1000 mcg for 4 weeks and then every month. This is something she can see her primary care doctor for. Her TSH was normal. I planned to see her back in 4 weeks in my clinic. She will return to the hospital with any new symptoms concerning for stroke. Thank you for the opportunity to participate in her care. [id number]/[facility] #: [id number] DAISY
--- NOTE | 2017-05-09 23:08 | DS ---
CC: Dr. Lopez; Dr. Rogers; Dr. Lizarraga * DISCHARGE SUMMARY: DATE OF ADMISSION: 05/08/17 DATE OF DISCHARGE: 05/09/17 PRIMARY CARE PROVIDER: Dr. Jerrod Lopez. SEARCH ENGINE MARKETING STRATEGIST: Dr. Rogers. ATTENDING PHYSICIAN: Dr. Sergio Cano * (report dictated by Emma Winslow NP) . PRIMARY DIAGNOSES: 1. Transient ischemic attack. 2. Uncontrolled hypertension. 3. Vitamin B12 deficiency. SECONDARY DIAGNOSES: 1. Peripheral arterial disease. 2. Coronary artery disease. 3. Spinal stenosis. 4. Depression. STUDIES WHILE IN THE HOSPITAL: 1. CT of the brain without contrast, 05/08/17. No evidence for gross or acute infarct, mass effect, or hemorrhage. 2. Chest x-ray portable, 05/08/17. No evidence for acute disease. 3. CTA of the head and neck. No evidence for hemodynamically significant carotid stenosis. No evidence for large vessel intracranial thrombus. Mild to moderate atherosclerotic changes that was 05/08/17. 4. CT of the brain without contrast, 05/09/17. No evidence for gross or acute infarct, mass effect, or hemorrhage. MEDICATIONS AT THE TIME OF DISCHARGE: Changed medication: 1. Lisinopril increased to 2.5 mg oral daily. The following medications are all medications that the patient came in on: 1. Aspirin 81 mg oral daily. 2. Remeron 30 mg oral at bedtime. 3. Nitro patch 0.2 mg per hour daily. 4. Percocet 5/325 one tablet oral every 4 hours as needed. 5. Lovastatin 40 mg oral at bedtime. 6. Trazodone 200 mg oral at bedtime. 7. Labetalol 200 mg oral twice daily. 8. Pletal 50 mg oral daily. 9. Tizanidine 4 mg oral 3 times daily as needed for spasms. 10. Magnesium 400 mg oral every evening. CONSULTATIONS WHILE IN THE HOSPITAL: Dr. Washington Lizarraga, Neurology. HISTORY OF PRESENT ILLNESS AND HOSPITAL COURSE: Ms. Saba is an 82-year-old female with past medical history significant for peripheral arterial disease, coronary artery disease, and hypertension who presented to the emergency room on 05/08/17 with the complaint of nonsensical speaking. In the emergency room, a code mireles was called. She had a negative CT of the brain. Hospitalists were asked to evaluate this patient for admission. The patient was placed on telemetry and had serial neurological checks. Her symptoms had resolved in the emergency room and she did not have any recurrence of her symptoms. There was no evidence of any arrhythmia seen on telemetry. She had a CTA of the head and neck that was negative for any hemodynamically significant stenosis. The patient had a recent echocardiogram in Dr. Rogers's office in December of 2016 which showed a normal EF and no significant valvular abnormalities. She was found to have a significantly decreased B12 level and was given an injection of vitamin B12. She was seen in consultation by Neurology. Recommendations from Neurology were to continue aspirin and statin. Her LDL was found to be less than 80 and cholesterol less than 200. In addition, Neurology recommended vitamin B12 injections. Recommendation is for these to be started by her primary care provider as an outpatient. Most likely , her episode was related to her hypertension. According to the patient, her lisinopril had gradually been decreased and then discontinued altogether when she had a syncopal episode back in November 2016. Clearly, at her last visit to Dr. Rogers's office, the plan was to start her on a very low dose of lisinopril of 1.25 mg daily. This is insufficient as her systolic even at home has been consistently greater than 170. Her lisinopril was increased to 2.5 mg oral daily. With this, her systolic is now under 170. I did not increase this any further as her diastolic pressure was in the 50s and 60s. I instructed the patient to keep track of her blood pressures on a daily basis and bring this to her followup appointment. On 05/09/17, vitals were as follows: Temperature 98.5 , heart rate 74, respiratory rate 16, blood pressure 166/52. At this point, she was stable for discharge. DISCHARGE PLANNING: The patient was discharged on a heart-healthy, low-salt diet. The patient is able to ambulate independently without assistance. The patient should follow up with her primary care provider, Dr. Lopez, within 4 to 7 days. In addition, she can also chose to follow up with her carpenter ship, who is following her blood pressure very closely. I reviewed all the instructions with the patient, she is agreeable with the discharge today. The patient should return to the hospital if she experiences any further neurological symptoms or systolic blood pressures greater than 200. This is a summarized report of complex medical history and hospital stay. For more details, please see the entire medical record. TIME SPENT: Time for discharge was 60 minutes and 30 minutes were spent with the patient discussing medications, discharge and followup instructions. CONDITION ON DISCHARGE: Stable. Reviewed by EMMA WINSLOW NP 05/12/2017 [id number] #: [id number] MTDD
== END 2017-05-09 13:35 | disposition home or self-care (01) ==
LOC: ED 13:05 → MEDTELE 15:53
PROVIDERS: ADMIT Internal Medicine; ATTEND Internal Medicine
DX: G45.9 Transient cerebral ischemic attack, unspecified (principal); I10 Essential (primary) hypertension; E53.8 Deficiency of other specified B group vitamins; I73.9 Peripheral vascular disease, unspecified; I25.10 Atherosclerotic heart disease of native coronary artery without angina pectoris; M48.00 Spinal stenosis, site unspecified; F32.9 Major depressive disorder, single episode, unspecified; I67.2 Cerebral atherosclerosis; Z79.899 Other long term (current) drug therapy; Z95.5 Presence of coronary angioplasty implant and graft; E78.5 Hyperlipidemia, unspecified; Z87.891 Personal history of nicotine dependence; M54.9 Dorsalgia, unspecified
CPT/HCPCS: 36415; 70450; 70496; 70498; 71010; 80053; 80061; 81003; 81015; 82607; 82746; 83090; 83605; 84439; 84443; 84484; 85025; 85610; 85730; 86850; 86900; 86901; 87086; 93005; 99284; A9270-GY; G0378; J1644; J3420; Q9967

== ENCOUNTER 2019-05-05 23:43 | Observation (INO) | payer MEDICARE ==
[2019-05-06] MEDS ORDERED: Nitroglycerin TAB 0.4 MG* 0.4 MG TAB SL ONE (00:04)
--- NOTE | 2019-05-06 00:05 | ED ---
Shortness of Breath - HPI Summary HPI Summary: This patient is an 84 year old female presenting to [facility] with a chief complaint of shortness of breath since this morning. She states she experienced chest discomfort earlier in the day but it has resolved. She denies pain anywhere else. She has a Hx of hypertension. - History of Current Complaint Time Seen by Provider: 05/05/19 23:46 Hx Obtained From: Patient Onset/Duration: Lasting Hours Dyspnea At: Rest - Allergy/Home Medications Allergies/Adverse Reactions: Allergies Allergy/AdvReac Type Severity Reaction Status Date / Time No Known Allergies Allergy Verified 05/06/19 02:15 Home Medications: Home Medications oxyCODONE SR TAB(*) [Oxycontin 10 mg (*)] 10 mg PO BID 05/06/19 [History Confirmed 05/06/19] PMH/Surg Hx/FS Hx/Imm Hx Endocrine/Hematology History: Reports: Other Endocrine/Hematological Disorders - anemia Denies: Hx Diabetes Cardiovascular History: Reports: Hx Coronary Artery Disease, Hx Hypercholesterolemia, Hx Hypertension - ON DAILY MEDS, Hx Peripheral Vascular Disease - BILATERAL Denies: Hx Angina, Hx Pacemaker/ICD Comment Only: Other Cardiovascular Problems/Disorders - DR PEREZ FOLLOWS Respiratory History: Reports: Hx Pneumonia Denies: Hx Asthma, Hx Chronic Obstructive Pulmonary Disease (COPD), Hx Pulmonary Embolism GI History: Reports: Hx Irritable Bowel - Hx OF FREQUENT LOOSE BOWEL MOVEMENTS WITHOUT CONTROL, Other GI Disorders - c-diff Denies: Hx Gastrointestinal Bleed History: Denies: Hx Chronic Renal Failure, Hx Renal Disease Musculoskeletal History: Reports: Hx Arthritis, Hx Back Problems Denies: Hx Rheumatoid Arthritis, Hx Osteoporosis, Hx Scoliosis Sensory History: Reports: Hx Cataracts - BILATERAL- removed, Hx Contacts or Glasses - GLASSES, 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 Denies: Hx Hearing Aid Opthamlomology History: Reports: Hx Cataracts - BILATERAL- removed, Hx Contacts or Glasses - GLASSES Neurological History: Reports: Hx Migraine, Hx Transient Ischemic Attacks (TIA) - possible 05/08/2017, Other Neuro Impairments/Disorders - PAIN CLINIC PATIENT Denies: Hx CVA, Hx Dementia, Hx Headaches, Hx Seizures, Hx Spinal Cord Injury Psychiatric History: Reports: Other Psychiatric Issues/Disorders - trazodone and remeron HS Denies: Hx Panic Disorder - Surgical History Surgery Procedure, Year, and Place: 2003 LEFT LEG BYPASS/ANGIOPLASTY [facility] [place]. 1999 LUMBAR SURGERY - DECOMPRESSION [facility] [place]. BILATERAL CATARACT SURGERY Hx Anesthesia Reactions: No Infectious Disease History: Reports: Hx Clostridium Difficile - Family History Known Family History: Positive: Cardiac Disease, Hypertension Family History: No family history of malignant hyperthermia and anesthesia reaction. - Social History Alcohol Use: None Substance Use Type: Reports: None Smoking Status (MU): Former Smoker Type: Cigarettes Amount Used/How Often: 1PPD 50+ YEARS Have You Smoked in the Last Year: No Review of Systems - ROS Summary Review of Systems Summary: Aspirin [Aspirin Adult Low Dose 81 MG] 81 mg PO QAM 05/17/15 [History Confirmed 02/08/19] Mirtazapine TAB* [Remeron TAB*] 30 mg PO BEDTIME 05/17/15 [History Confirmed ] Nitroglycerin 0.2 MG/HR PATCH* [Nitroglycerin 5 MG PATCH*] 1 patch TRANSDERM DAILY 05/17/15 [History Confirmed 02/08/19] Nitrostat 0.3 mg SL SEE INSTRUCTIONS PRN 05/17/15 [History Confirmed 02/08/19] oxyCODONE/Acetamin 5/325 MG* [Percocet 5/325 TAB*] 1 tab PO Q6H PRN 05/17/15 [ History Confirmed 02/08/19] traZODone TAB* [Desyrel TAB*] 4 - 5 tab PO BEDTIME 05/17/15 [History Confirmed 02/08/19] Labetalol TAB* [Trandate TAB*] 200 mg PO BID 12/15/16 [History Confirmed ] Magnesium Oxide 400 mg PO QPM 12/15/16 [History Confirmed 02/08/19] Lovastatin [Altoprev] 10 mg PO BEDTIME 01/27/19 [History Confirmed 02/08/19] Baclofen TAB* [Lioresal TAB*] 5 - 10 mg PO Q8H PRN 02/07/19 [History Confirmed 02/08/19] Lisinopril TAB* [Prinivil TAB 5 MG*] 2.5 mg PO DAILY 02/07/19 [History Confirmed 02/08/19] Losartan TAB* [Cozaar TAB*] 50 mg PO DAILY 02/08/19 [History Confirmed 02/08/19] Positive: Chest Pain Positive: Shortness Of Breath Positive: Other - denies pain All Other Systems Reviewed And Are Negative: Yes Physical Exam - Summary Physical Exam Summary: General: Well-developed, Well-nourished FEMALE. Appears in moderate respiratory distress. HEENT: Normocephalic, Atraumatic. Eyes: Conjuctiva normal, PERRL. Ears: TMs within normal limits. Nares: (-) discharge, (-) erythema. Oropharynx: Clear, mucous membranes moist, (-) exudates. Neck: Soft, FROM, (-) lymphadenopathy, (-) thyromegaly, (-) JVD. Cardiovascular: Normal sinus rhythm, (-) murmur. Lungs: Clear to auscultation bilaterally (+) wheezes, (+) rales, (-) rhonchi. Abdomen: Soft, non-tender, non-distended, (-) organomegaly, normal bowel sounds. Back: (-) CVA tenderness Extremities: No edema. Skin: Warm, dry, (-) rash. Neuro: Alert and oriented x3, no focal deficits. Psychiatric: Mood normal, affect normal. Triage Information Reviewed: Yes Vital Signs Reviewed: Yes Procedures - Sedation Patient Received Moderate/Deep Sedation with Procedure: No Diagnostics - Laboratory Result Diagrams: 05/05/19 01:11 05/05/19 01:11 Lab Statement: Any lab studies that have been ordered have been reviewed, and results considered in the medical decision making process. - Radiology CXR Radiology Interpretation Completed By: ED Physician Summary of Radiographic Findings: Increased interstitial edema consistent with CHF. No obvious infiltrate or pleural effusion. - EKG 2352 Cardiac Rate: Tachycardia - 104 BPM EKG Rhythm: Sinus Tachycardia Summary of EKG Findings: ST depressions in V5, V6. NO STEMI. ED Provider has reviewed and interpreted this report. Course/Dx - Course Course Of Treatment: This patient is an 84 year old female presenting to [facility] with a chief complaint of shortness of breath since this morning. First troponin is 0.05. Labs reveal BNP 703 H, INR 1.12 H and D-Dimer [address] Menjivar , Hospitalist, accepted the patient for admission. This plan was discussed with the patient and she was agreeable with this plan. - Diagnoses Provider Diagnoses: CHF (congestive heart failure), Elevated troponin Discharge ED - Sign-Out/Discharge Documenting (check all that apply): Patient Departure - Admission - Discharge Plan Condition: Stable Disposition: ADMITTED TO [facility] - Billing Disposition and Condition Condition: STABLE Disposition: Admitted to [facility] - Attestation Statements Document Initiated by Shahrzad: Yes Documenting Scribe: Neil Pino Provider For Whom Volodymyre is Documenting (Include Credential): Laura Mccartney MD Scribe Attestation: Neil Maya, scribed for Laura Mccartney MD on 05/06/19 at 0301. Scribe Documentation Reviewed: Yes Provider Attestation: The documentation as recorded by the scribeNeil accurately reflects the service I personally performed and the decisions made by me, Laura Mccartney MD Status of Scribe Document: Viewed
[2019-05-06] MEDS ORDERED: Albuterol/Ipratropium NEB.SOL* Albuterol 2.5 MG/Ipratropium 0.5 MG 3 ML INH ONE (00:29)
[2019-05-06] MEDS ORDERED: Furosemide IV* 10 MG/ML 10 ML VIAL (100 MG) IV ONE (00:31)
--- OUTSIDE RECORDS SUMMARY | 2019-05-06 01:15 | XMS REPORT | Continuity of Care Document ---
:1935 External Reference #:[id number] Author Name Марина Obando MD (transmitted by agent of provider Vivian Parmar) Address [address] [facility], [place] [address] Care Team Providers Name Role Phone Drew Rogers MD - Cardiovascular Care Team Information Adult Probation Officer [phone] Disease Chip Almendarez MD - Vascular Surgery Care Team Information Adult Probation Officer Nir Mcmahon MD - Care Team Information Adult Probation Officer [phone] Neurological Surgery Марина Obando M.D. - Family Medicine Care Team Information Adult Probation Officer Problems Active Problems Provider Date Spinal stenosis of lumbar region Jerrod Lopez M.D.,FACP Onset: 2007 Mitral valve regurgitation Jerrod Lopez M.D.,FACP Onset: 06/29/2014 Note: moderate Displacement of lumbar intervertebral Jerrod Lopez M.D.,FACP Onset: disc without myelopathy Sciatica Jerrod Lopez M.D.,FACP Onset: 08/23/2007 Benign essential hypertension Jerrod Lopez M.D.,FACP Onset: 08/23/2007 Impaired fasting glycaemia Jerrod Lopez M.D.,FACP Onset: 08/23/2007 Insomnia Jerrod Lopez M.D.,FACP Onset: 08/23/2007 Ischemic heart disease Jerrod Lopez M.D.,FACP Onset: 11/29/2007 Mixed hyperlipidemia Jerrod Lopez M.D.,FACP Onset: 02/29/2008 Coronary arteriosclerosis Jerrod Lopez M.D.,FACP Onset: 02/29/2008 Vitamin B12 deficiency (non anaemic) Jerrod Lopez M.D.,FACP Onset: Ex-smoker Jerrod Lopez M.D.,FACP Onset: 08/26/2017 Social History Type Date Description Comments Sex Unknown Tobacco Use Start: Unknown End: Former Cigarette Smoker for [50] years Unknown 1 Pack Daily ETOH Use 05/18/2017 Denies alcohol use Tobacco Use Start: Unknown End: Patient is a former 1ppd X 60 years. Unknown smoker Recreational Drug Use Denies Drug Use Smoking Status Reviewed: 04/24/19 Patient is a former 1ppd X 60 years. smoker Exercise Type/Frequency walks almost daily Allergies, Adverse Reactions, Alerts Active Allergies Reaction Severity Comments Date Lipitor myalgias at 40 , okay at 20 05/14/2003 Lyrica off balance 02/29/2008 Inactive Allergies NKDA 05/14/2003 Medications Active Medications SIG Qnty Indications Ordering Provider Date Oxycontin one by mouth 14tabs M48.062 Марина Obando MD 04/24/2019 10mg Tab ER 12H every 12 hours Abuse-Det Aspirin 81 1 by mouth 30tabs Марина Obando MD 04/10/[address] every day Nitroglycerin 1 sl q5 mins x3 25tabs I10 Drew Williamson 02/15/2019 0.4mg Tablets as needed for Anayeli Rogers Sub chest pain Roller Walker roller walker 1units R29.6 Марина [facility]. m48.062 M48.062 Oxycodone-Acetaminophen 1 by mouth 90tabs Марина Obando MD 11/10/2018 5-325mg Tablets every 6 hours as needed for pain Losartan Potassium take 1 tablet 90tabs I10 Марина Obando MD 11/08/2018 50mg Tablets by mouth once daily Ventolin HFA inhale 2 puffs 18units Марина Obando MD 10/03/2018 108(90Base) mcg/Act Aerosol by mouth four times a day as needed Lovastatin take 1 tablet 90tabs Drew Williamson 09/23/2017 10mg Tablets at bedtime Anayeli Rogres Magnesium-Oxide 1 by mouth 90tabs Марина Obando MD 12/01/2016 400(241.3mg) mg Tablets every evening Trazodone HCL take 4-5 every 270tabs Марина Obando MD 06/29/2014 50mg Tablets night at bedtime Nitroglycerin apply one 90units I25.2 Jerrod Allred 07/29/2012 0.2mg/HR Patches 24HR patch to the Anayeli Lopez,FACP skin once daily as directed, on in the morning and off in the evening Mirtazapine take one 90tabs Марина Obando MD 08/21/2011 30mg Tablets tablet by mouth daily at bedtime Labetalol HCL take one 180tabs Марина Obando MD 02/26/2011 200mg Tablets tablets by mouth once a day Medications Administered in Office Medication SIG Qnty Indications Ordering Provider Date B-12 Injection Jerrod Lopez, 08/26/2017 Injection Anayeli,ABI B-12 Injection Jerrod Lopez, 07/14/2017 Injection Anayeli,ABI Thompson-12 Injection Nurse Visit A 06/08/2017 Injection B-12 Injection Nurse Visit A 06/01/2017 Injection BMisa12 Injection Nurse Visit A 05/25/2017 Injection B-12 Injection Jerrod Lopez, 05/18/2017 Injection AnayeliFACAndree Inj, Regadenoson, 0.1 MG Memo Sanford M.D. 12/31/2016 Injection Technetium TC 99M Memo Sanford M.D. 12/31/2016 Tetrofosmin, Per Unit Dose Up To 40 Millicuries Injection Immunizations CPT Code Status Date Vaccine Lot # [id number] Given 06/27/2018 Influenza Virus Vaccine, Quadrivalent, Split, [id number] Preservative Free 89906 Given 05/18/2017 Influenza Virus Vaccine, Quadrivalent, Split, [id number] Preservative Free 26553 Given 07/08/2016 Influ Virus Vaccine, Quadrivalent, Split Virus, [id number] [address] Given 04/06/2015 Fluzone High Dose 25550 Given 12/28/2014 Pneumococcal Conjugate Vaccine 13 Valent For [id number] Intramuscular Use 45889 Given 04/25/2014 Fluzone High Dose [id number] Given 04/02/2013 Afluria Vaccine 92157 Given 06/03/2012 Tdap - Tetanus/Diptheria/Acellular Pertussis [id number] Q2035 Given 04/07/2012 Afluria Vaccine 62635 Given 07/03/2010 Zoster (Zostavax) [id number] 71834 Given 05/10/2010 Influenza Virus 3Yrs & Over 34427 Given 08/28/2009 Influenza Virus Vaccine, Pandemic Formulation [id number] 70221 Given 05/31/2008 Influenza Virus 3Yrs & Over 44585 Given 05/31/2008 Influenza Virus 3Yrs & Over 90078 08072 Given 05/16/2001 Pneumonia Vaccine Vital Signs Date Vital Result Comment 04/24/2019 2:25pm Height 64.5 inches 5'4.50" Weight 144.00 lb Heart Rate 59 /min BP Systolic Sitting 169 mmHg Lue reg cuff BP Diastolic Sitting 84 mmHg Lue reg cuff O2 % BldC Oximetry 98 % BMI (Body Mass Index) 24.3 kg/m2 04/10/2019 1:27pm Height 64.5 inches 5'4.50" Weight 143.25 lb with shoes Heart Rate 64 /min radial, regular BP Systolic Sitting 132 mmHg LA, reg cuff BP Diastolic Sitting 62 mmHg LA, reg cuff BP Systolic Standing 132 mmHg LA, reg cuff BP Diastolic Standing 64 mmHg LA, reg cuff BMI (Body Mass Index) 24.2 kg/m2 Ejection Fraction 65%-70% echo 02/16/19 Results Test Date Facility Test Result H/L Range Note Thyroid Panel 02/06/2019 [facility] Free T4 0.85 ng/dL Normal 0.61-1.[address] ([place] [address] Thyroxine) [phone] Thyroxine 7.86 g/dL Normal 6.09-12.23 TSH (Thyroid Stim Horm) 0.61 mcIU/mL Normal 0.34-5.60 Occult Blood,Stool 12/13/2018 [employer] In House Occult Blood POSITIVE X2 NEG (3 Spec) - Stool Laboratory test 12/07/2018 [facility] TSH (Thyroid 0.27 mcIU/mL Low 0.34-5. finding [address] Stim Horm) [address] [place] [address] [phone] Free T4 (Free Thyroxine) 0.82 ng/dL Normal 0.61-1.12 T3 Free 3.40 pg/mL Normal 2.5-3.9 CBC Auto 12/07/2018 [facility] White Blood 6.0 10^3/uL Normal 3.5-10.[address] [place] [address] [phone] Red Blood Count 4.33 10^6/uL Normal 3.70-4.87 Hemoglobin 12.4 g/dL Normal 12.0-16.0 Hematocrit 38 % Normal 35-47 Mean Corpuscular Volume 87 fL Normal 80-97 Mean Corpuscular Hemoglobin 29 pg Normal 27-31 Mean Corpuscular HGB Conc 33 g/dL Normal 31-36 Red Cell Distribution Width 16 % High 10.5-15 Platelet Count 209 10^3/uL Normal 150-450 Mean Platelet Volume 9.9 fL Normal 7.4-10.4 Abs Neutrophils 3.7 10^3/uL Normal 1.5-7.7 Abs Lymphocytes 1.4 10^3/uL Normal 1.0-4.8 Abs Monocytes 0.6 10^3/uL Normal 0-0.8 Abs Eosinophils 0.3 10^3/uL Normal 0-0.6 Abs Basophils 0.0 10^3/uL Normal 0-0.2 Abs Nucleated RBC 0.0 10^3/uL Granulocyte % 60.9 % Lymphocyte % 24.0 % Monocyte % 9.9 % Eosinophil % 4.8 % Basophil % 0.4 % Nucleated Red Blood Cells % 0.1 Drug Abuse 11/16/2018 [facility] Urine Presumptive Posi Abnormal [address] Amphetamine <SEE NOTE> ng/[place] [address] [phone] Urine Barbiturates Negative ng/mL 2 Urine Benzodiazepines Negative ng/mL 3 Urine Cocaine Negative ng/mL 4 Urine Phencyclidine Negative ng/mL Cutoff: 25 Urine Tetrahydrocannabinol Negative ng/mL Cutoff: 50 5 Creatinine, Urine 254.6 mg/dL Specific [place] 1.016 pH 5.8 Oxidants Negative 6 Adulterants Comment Normal Codeine, Ur Not Detected ng/mL Cutoff: 25 7 Nvsonsq-3-ewgd-glucuronide, Ur Not Detected ng/mL 8 Morphine, Ur Not Detected ng/mL Cutoff: 25 9 Xlziydit-8-fopr-glucuronide, U Not Detected ng/mL 10 6-monoacetylmorphine, Ur Not Detected ng/mL Cutoff: 25 11 Hydrocodone, Ur Not Detected ng/mL Cutoff: 25 12 Norhydrocodone, Ur Not Detected ng/mL Cutoff: 25 13 Dihydrocodeine, Ur Not Detected ng/mL Cutoff: 25 14 Hydromorphone, Ur Not Detected ng/mL Cutoff: 25 15 Hpnxkzgpznjat9kharywljajordhz Not Detected ng/mL 16 Oxycodone, Ur Present ng/mL Abnormal Cutoff: 25 17 Noroxycodone, Ur Present ng/mL Abnormal Cutoff: 25 18 Oxymorphone, Ur Not Detected ng/mL Cutoff: 25 19 Jncywwhlxmo-9-cxto-glucuronide Present ng/mL Abnormal 20 Noroxymorphone, Ur Present ng/mL Abnormal Cutoff: 25 21 Fentanyl, Ur Not Detected ng/mL Cutoff: 2 22 Norfentanyl, Ur Not Detected ng/mL Cutoff: 2 23 Meperidine, Ur Not Detected ng/mL Cutoff: 25 24 Normeperidine, Ur Not Detected ng/mL Cutoff: 25 25 Naloxone, Ur Not Detected ng/mL Cutoff: 25 26 Ipabrdwf-1-udom-glucuronide, U Not Detected ng/mL 27 Methadone, Ur Not Detected ng/mL Cutoff: 25 28 Eddp, Ur Not Detected ng/mL Cutoff: 25 29 Propoxyphene, Ur Not Detected ng/mL Cutoff: 25 30 Norpropoxyphene, Ur Not Detected ng/mL Cutoff: 25 31 Tramadol, Ur Not Detected ng/mL Cutoff: 25 32 O-desmethyltramadol, Ur Not Detected ng/mL Cutoff: 25 33 Tapentadol, Ur Not Detected ng/mL Cutoff: 25 34 N-desmethyltapentadol, Ur Not Detected ng/mL Cutoff: 50 35 Muhkdasesu-xpag-hzfehilnywu, U Not Detected ng/mL 36 Buprenorphine, Ur Not Detected ng/mL Cutoff: 5 37 Norbuprenorphine, Ur Not Detected ng/mL Cutoff: 5 38 Norbuprenorphine glucuronide Not Detected ng/mL Cutoff: 20 39 Opioid Interpretation See Comment 40 Urine 11/16/2018 [facility] Urine Negative Cutoff: [address] Amphetamine by ng/[place] [address] GC/MS [phone] Urine Methamphetamine by GC/MS Negative ng/mL Cutoff: 25 Phentermine-by GC/MS Negative ng/mL Cutoff: 25 Pseudoephedrine/Ephedr GC/MS Negative ng/mL Cutoff: 25 Mda(Ecstacy metabolite) GC/MS Negative ng/mL Cutoff: 25 Mdma(Ecstacy)-by GC/MS Negative ng/mL Cutoff: 25 Urine Amphetamines Interp Negative. 41 CBC Auto 10/25/2018 [facility] White Blood 7.4 10^3/uL Normal 3.5-10.[address] [place] [address] [phone] Red Blood Count 4.05 10^6/uL Normal 3.70-4.87 Hemoglobin 11.7 g/dL Low 12.0-16.0 Hematocrit 35 % Normal 33-41 Mean Corpuscular Volume 87 fL Normal 80-97 Mean Corpuscular Hemoglobin 29 pg Normal 27-31 Mean Corpuscular HGB Conc 33 g/dL Normal 31-36 Red Cell Distribution Width 16 % High 10.5-15 Platelet Count 271 10^3/uL Normal 150-450 Mean Platelet Volume 9.1 fL Normal 7.4-10.4 Abs Neutrophils 5.0 10^3/uL Normal 1.5-7.7 Abs Lymphocytes 1.3 10^3/uL Normal 1.0-4.8 Abs Monocytes 0.6 10^3/uL Normal 0-0.8 Abs Eosinophils 0.4 10^3/uL Normal 0-0.6 Abs Basophils 0 10^3/uL Normal 0-0.2 Abs Nucleated RBC 0 10^3/uL Granulocyte % 68.1 % Lymphocyte % 17.2 % Monocyte % 8.7 % Eosinophil % 5.5 % Basophil % 0.5 % Nucleated Red Blood Cells % 0 Laboratory 10/25/2018 [facility] TSH (Thyroid 0.31 Low 0.34- 5.[address] Stim Horm) mcIU/[place] [address] [phone] Comp Metabolic 10/25/2018 [facility] Sodium 140 mmol/L Normal 135-145 Panel [address] [place] [address] [phone] Potassium 4.0 mmol/L Normal 3.5-5.0 Chloride 103 mmol/L Normal 101-111 Co2 Carbon Dioxide 32 mmol/L Normal 22-32 Anion Gap 5 mmol/L Normal 2-11 Glucose 96 mg/dL Normal 70-100 Blood Urea Nitrogen 6 mg/dL Normal 6-24 Creatinine 0.67 mg/dL Normal 0.51-0.95 BUN/Creatinine Ratio 9.0 Normal 8-20 Calcium 8.6 mg/dL Normal 8.6-10.3 Total Protein 5.8 g/dL Low 6.4-8.9 Albumin 3.6 g/dL Normal 3.2-5.2 Globulin 2.2 g/dL Normal 2-4 Albumin/Globulin Ratio 1.6 Normal 1-3 Total Bilirubin 0.40 mg/dL Normal 0.2-1.0 Alkaline Phosphatase 117 U/L High 34-104 Alt 12 U/L Normal 7-52 Ast 20 U/L Normal 13-39 Egfr Non- 84.1 >60 Egfr 101.7 >60 42 1 Presumptive Positive Drug confirmation to follow. Presumptive Positive means that the screening method is positive, but the test needs to be run by a confirmatory method before being finalized. REFERENCE VALUE Cutoff: 500 2 REFERENCE VALUE Cutoff: 200 3 REFERENCE VALUE Cutoff: 100 4 REFERENCE VALUE Cutoff: 150 5 ADDITIONAL INFORMATION This report is intended for use in clinical monitoring or management of patients. It is not intended for use in employment-related testing. 6 REFERENCE VALUE Cutoff: 200 mg/L 7 Tylenol 3 8 Metabolite of codeine REFERENCE VALUE Cutoff: 100 9 Jessica Velásquez, Contin; Also a minor metabolite (10%) of codeine and can be seen in low concentrations (<2,000 ng/mL) with poppy seed ingestion. 10 Metabolite of morphine REFERENCE VALUE Cutoff: 100 11 Metabolite of heroin 12 Lortab, [place], Vicodin; Also a very minor metabolite of codeine and impurity (<1%) of oxycodone. 13 Metabolite of hydrocodone 14 Metabolite of hydrocodone 15 Dilaudid, Exalgo; Also a metabolite of hydrocodone and a minor (<5%) metabolite of morphine. 16 Metabolite of hydromorphone REFERENCE VALUE Cutoff: 100 17 Endocet, Percocet, Oxycontin 18 Metabolite of oxycodone 19 Numorphan, Opana; Also a metabolite of oxycodone. 20 Metabolite of oxymorphone REFERENCE VALUE Cutoff: 100 21 Metabolite of oxymorphone 22 Actiq, Duragesic, [place] 23 Metabolite of fentanyl 24 Demerol 25 Metabolite of meperidine 26 Narcan 27 Metabolite of naloxone REFERENCE VALUE Cutoff: 100 28 Dolophine 29 Metabolite of methadone 30 Darvon, Darvocet 31 Metabolite of propoxyphene 32 Tradol, Ultram, Ultracet 33 Metabolite of tramadol 34 Nucynta 35 Metabolite of tapentadol 36 Metabolite of tapentadol REFERENCE VALUE Cutoff: 100 37 Buprenex, Suboxone 38 Metabolite of buprenorphine 39 Metabolite of buprenorphine 40 Test detected the presence of oxycodone and several metabolites (noroxycodone, noroxymorphone, and dzqzyhhanez-9-fpmp-glucuronide). Suspect use of oxycodone and/or oxymorphone within the past three days. ADDITIONAL INFORMATION This test was developed and its performance characteristics determined by [facility] in a manner consistent with CLIA requirements. This test has not been cleared or approved by the U.S. Food and Drug Administration. Test Performed by: [facility] - [facility] [address] [place] [phone] ADDITIONAL INFORMATION This report is intended for use in clinical monitoring and management of patients. It is not intended for use in employment-related testing. This test was developed and its performance characteristics determined by [facility] in a manner consistent with CLIA requirements. This test has not been cleared or approved by the U.S. Food and Drug Administration. Test Performed by: [facility] - [facility] [address] [place] [id number] [phone] Because ethnic data is not always readily available, this report includes an eGFR for both -Americans and non- Americans. The National Kidney Disease Education Program (NKDEP) does not endorse the use of the MDRD equation for patients that are not between the ages of 18 and 70, are , have extremes of body size, muscle mass, or nutritional status, or are non- or non-. According to the National Kidney Foundation, irrespective of diagnosis, the stage of the disease is based on the level of kidney function: Stage Description GFR(mL/min/1.73 m(2)) 1 Kidney damage with normal or decreased GFR 90 2 Kidney damage with mild decrease in GFR 60-89 3 Moderate decrease in GFR 30-59 4 Severe decrease in GFR 15-29 5 Kidney failure <15 (or dialysis) Procedures Date Code Description Status 02/16/2019 75622 ECHO Transthoracic, Real-Time 2D With Doppler And Color Completed Flow 02/16/2019 90573 ECHO Transthoracic, Real-Time 2D With Doppler And Color Completed Flow 02/15/2019 83813 EKG Tracing & Interpretation Completed 02/08/2019 97311 Treadmill Interp/Report Only Completed 02/08/2019 49250 Stress Test Supervsn W/Out I/R Completed 07/14/2010 47864103 Colonoscopy Completed 06/17/2010 [id number] Mammogram Completed 05/23/2009 [id number] Mammogram Completed Medical Devices Description No Information Available Encounters Type Date Location Provider Dx Diagnosis Office Visit 04/10/2019 [facility] Emma Winslow, I34.0 Nonrheumatic mitral 1:30p N.P. (valve) insufficiency I10 Essential (primary) hypertension I25.10 [facility] heart disease of [place] coronary artery w/o ang pctrs Office Visit 02/15/2019 2:30p [facility] Drew Williamson I10 Essential (primary) Anayeli Rogers hypertension I25.10 Athscl heart disease of [place] coronary artery w/o ang pctrs M48.062 Spinal stenosis, lumbar region with neurogenic claudication I34.0 Nonrheumatic mitral (valve) insufficiency Office Visit 01/20/2019 2:20p [facility] Internal Марина Obando MD R79.89 Other specified Medicine - [facility] abnormal findings of blood chemistry D64.9 Anemia, unspecified M48.062 Spinal stenosis, lumbar region with neurogenic claudication I10 Essential (primary) hypertension Office Visit 12/07/2018 2:20p [facility] Марина Obando MD I10 Essential (primary) Medicine - [facility] hypertension M48.062 Spinal stenosis, lumbar region with neurogenic claudication R29.6 Repeated falls R63.4 Abnormal weight loss D64.9 Anemia, unspecified Office Visit 11/08/2018 2:00p [facility] Марина Obando MD R94.6 Abnormal results Medicine - [facility] of thyroid function studies M48.062 Spinal stenosis, lumbar region with neurogenic claudication 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 insufficiency 04/10/2019 I10 Essential (primary) hypertension Emma Winslow N.P. 04/10/2019 I25.10 Atherosclerotic heart disease of Emma Winslow N.PMiguel Ángel [place] coronary artery with 02/16/2019 I34.0 Nonrheumatic mitral (valve) Drew Rogers M.D. insufficiency 02/16/2019 I34.0 Nonrheumatic mitral (valve) [facility] ECHO Schedule insufficiency 02/15/2019 I10 Essential (primary) hypertension Drew Rogers M.D. 02/15/2019 I25.10 Atherosclerotic heart disease of Drew Rogers M.D. [place] coronary artery with 02/15/2019 M48.062 Spinal stenosis, lumbar region with Drew Rogers M.D. neurogenic claudication 02/15/2019 I34.0 Non-rheumatic mitral regurgitation Drew Rogers M.D. 02/08/2019 I10 Essential (primary) hypertension Jose Burgos M.D. 02/08/2019 I25.10 Atherosclerotic heart disease of Jose Burgos M.D. [place] coronary artery with 01/20/2019 R79.89 Other specified abnormal findings of Марина Obando MD blood chemistry 01/20/2019 D64.9 Anemia, unspecified Марина Obando MD 01/20/2019 M48.062 Spinal stenosis, lumbar region with Марина Obando MD neurogenic claudication 01/20/2019 I10 Essential (primary) hypertension Марина Obando MD 12/14/2018 D64.9 Anemia, unspecified Nurse Visit [facility] 12/14/2018 D64.9 Anemia, unspecified Nurse Visit A 12/13/2018 D64.9 Anemia, unspecified Марина Obando MD 12/13/2018 D64.9 Anemia, unspecified Nurse Visit A 12/07/2018 I10 Essential (primary) hypertension Марина Obando MD 12/07/2018 M48.062 Spinal stenosis, lumbar region with Марина Obando MD neurogenic claudication 12/07/2018 R29.6 Repeated falls Марина Obando MD 12/07/2018 R63.4 Abnormal weight loss Марина Obando MD 12/07/2018 D64.9 Anemia, unspecified Марина Obando MD 11/16/2018 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 at [facility]04/24/2019 - Марина Obando MDI10 Essential (primary) hypertensionComments:no change to medication todayFollow up:Medicare physical in [place].062 Spinal stenosis, lumbar region with neurogenic claudicationNew Medication:Oxycontin 10 mg - one by mouth every 12 hoursComments :I recommend a trial of long acting oxycodone 2x/day for one week. While on it, you make take the 5/325 tablets up to 2x/in a day.M25.551 Pain in right hip Functional Status Description No Information Available Mental Status Description No Information Available Referrals Refer to Reason for Referral Status Appt Date Evan Garcia MD progressive and limiting anderson with known pvd, cad, Closed 03/17/2019 [facility] nuclear (anterior and inferior ischemia) , and moderate to severe MR. last cath at [facility] 2002 with 100% rca. please perform cardiac cath. [address] [place] [address] [phone] Arthur Fall MD Patient with extensive past history of slow GI Closed bleeds, presents with mild anemia and positive Hemoccult x2 [address] [place] [address] [phone] Pain Clinic pt with spinal stenosis, recently worsening pain with Closed 00/ Right sided sciatic and falls [address] [place] [address] [phone]
--- OUTSIDE RECORDS SUMMARY | 2019-05-06 01:15 | XMS REPORT | Summary of Care ---
:1935 Author Organization [facility] Address [address] [place] [address] Care Team Providers Name Role Phone Stated, Not Primary Care Provider Unavailable Reason for Visit Reason Comments Cardiac Evaluation Abnormal Stress Test Coronary Artery Disease Encounter Details Date Type Department Care Team Description 03/17/2019 Office Visit [facility] Evan Garcia MD ASHD (arteriosclerotic heart disease) (Primary Dx); [address] Abnormal cardiovascular stress test; [place] [id number] [place] [id number] Mitral valve insufficiency, unspecified etiology; [phone] SOB (shortness of breath); [phone] PAD (peripheral artery disease) ([facility]) (Fax) Allergies No Known Allergiesdocumented as of this encounter (statuses as of 03/24/2019) Medications Medication Sig Dispensed Refills Start Date End Date Status Aspirin 81 MG Oral Tab Take 81 mg by 0 Active mouth DAILY. labetalol (NORMODYNE) Take 200 mg by 0 Active 200 MG Oral Tab mouth DAILY. losartan (COZAAR) 50 Take 50 mg by 0 Active MG Oral Tab mouth DAILY. lovastatin (MEVACOR) Take 1 Tab by 0 Active 10 MG Oral Tab mouth DAILY. magnesium oxide Take 400 mg by 0 Active (MAG-OX) 400 (241.3 mouth DAILY. Mg) MG Oral Tab mirtazapine (REMERON) Take 30 mg by 0 Active 30 MG Oral Tab mouth EVERY BEDTIME. nitroglycerin Place 0.4 mg under 0 Active (NITROSTAT) 0.4 MG tongue EVERY FIVE Sublingual SL Tab MINUTES NEEDED for chest pain. nitroglycerin Place 1 Patch onto 0 Active transdermal skin DAILY. patch-daily (NITRODUR) 0.2 MG/HR Transdermal PATCH 24 HR OXYcodone-acetaminophe Take 1 Tab by 0 Active n (PERCOCET) 5-325 MG mouth EVERY SIX Oral Tab HOURS NEEDED. trazodone (DESYREL) 50 Take 50 mg by 0 Active MG Oral Tab mouth EVERY BEDTIME. albuterol Take 2 Puffs by 0 Active (PROVENTIL,VENTOLIN) inhalation FOUR 90 mcg/act TIMES DAILY NEEDED. documented as of this encounter (statuses as of 03/24/2019) Active Problems Problem Noted Date ASHD (arteriosclerotic heart disease) 03/21/2019 Overview: Added automatically from request for surgery [id number] CAD (coronary artery disease) 03/16/2019 Overview: Catheterization 05/03/2003 Dr. Be CONCLUSION: 1. Three-vessel coronary disease with mild nonobstructive plaquing of the circumflex and left anterior descending, occlusion of the right coronary a rtery, excellent bjhi-[id number] collateral formation. As her coronary anatomy is stable, she is at reasonable risk for peripheral vascular surgery in terms of risk. 2. Normal left ventricular sy stolic function, therefore at low risk for reentrant ventricular tachycardia. 3. Systolic hypertension with elevated left ventricular diastolic pressure. 4. Left common femoral artery disease as above with presumed occlusion left superficial femoral artery origin, however, not imaged more distally. RECOMMENDATION: Medical therapy with increased dose of SUMMER inhibitor therapy and beta blockade. Nuclear Cardiac Stress Test 02/08/2019 ([facility]) Impression: moderate area of reversible change in the anterior wall. Area of reversible change in the inferior wall. Normal ejection fraction and wall motion. PVD (peripheral vascular disease) 03/16/2019 documented as of this encounter (statuses as of 03/24/2019) Social History Tobacco Use Types Packs/Day Years Used Date Former Smoker Smokeless Tobacco: Never Used Alcohol Use Drinks/Week oz/Week Comments Never Alcohol Habits Answer Date Recorded How often do you have a drink containing alcohol? Never 03/17/2019 How many drinks containing alcohol do you have on a typical Not asked day when you are drinking? How often do you have six or more drinks on one occasion? Not asked Sex Assigned at Date Recorded Not on file Job Start Date Occupation Industry Not on file Not on file Not on file Travel History Travel Start Travel End No recent travel history available. documented as of this encounter Last Filed Vital Signs Vital Sign Reading Time Taken Comments Blood Pressure 120/70 03/17/2019 11:08 AM EDT Pulse 64 03/17/2019 11:08 AM EDT Temperature - - Respiratory Rate - - Oxygen Saturation - - Inhaled Oxygen Concentration - - Weight 66.7 kg (147 lb) 03/17/2019 11:08 AM EDT Height 167.6 cm (5' 6") 03/17/2019 11:08 AM EDT Body Mass Index 23.73 03/17/2019 11:08 AM EDT documented in this encounter Progress Notes Evan Garcia MD - 03/17/2019 11:20 AM EDT PATIENT: Kasie Saba : 1935 DATE OF SERVICE: 03/17/2019 REFERRING PRACTITIONER: Javier PRIMARY CARE PROVIDER: Stated, Not CHIEF COMPLAINT: Chief Complaint Patient presents with Cardiac Evaluation Abnormal Stress Test Coronary Artery Disease Nursing Notes: Sonya Clemons RN 03/17/2019 12:15 PM Signed PATIENT: Kasie Saba : 1935 DATE OF SERVICE: 03/17/2019 CARDIOLOGY AMBULATORY NURSING INTAKE FORM HISTORY COLLECTED BY CLINICAL STAFF: Kasie Saba is a 84-y.o. female who presents for a new patient consultation. Referred by Dr. Rogers for evaluation of abnormal stress test. States has been having shortness of breath for awhile, states off and on. Will be short of breath with stairs, walking. Will have leg pain with walking from hip down her leg. Was evaluated for her back and this issue. Was recommended to MRI but needs to be not awake for the MRI. Had seen Dr. Rogers for clearance for this, and had stress test and echocardiogram. Denies any orthopnea or edema. Occasionally palpitations, states feels like hard heart beat. Evaluation to date: Catheterization 05/03/2003 Dr. Be CONCLUSION: 1. Three-vessel coronary disease with mild nonobstructive plaquing of the circumflex and left anterior descending, occlusion of the right coronary artery, excellent lxis-rj-hthwk collateral formation. As her coronary anatomy is stable, she is at reasonable risk for peripheral vascular surgery in terms of risk. 2. Normal left ventricular systolic function, therefore at low risk for reentrant ventricular tachycardia. 3. Systolic hypertension with elevated left ventricular diastolic pressure. 4. Left common femoral artery diseaseas above with presumed occlusion left superficial femoral artery origin, however, not imaged more distally. RECOMMENDATION: Medical therapy with increased dose of SUMMER inhibitor therapy and beta blockade. Nuclear Cardiac Stress Test 02/08/2019 ([facility]) Impression: moderate area of reversible change in the anterior wall. Area of reversible change in the inferior wall. Normal ejection fraction and wall motion. REVIEW OF SYSTEMS: GENERAL: Fever: no Weight loss/gain: yes - last years was up to 175 lbs, has not been trying to loose Fatigue: yes - states mainly because of her leg Recent febrile illness: no NEUROLOGIC: Headache: no Syncope: no CVA/TIA: yes - 2 years ago TIA affected the speech, lasted about 15 minutes Change in sensation: no CARDIOVASCULAR: Chest Pain: no Palpitations: yes - see above Orthopnea: no Rheumatic Fever (history of): yes - ? As baby Edema: no RESPIRATORY: Cough: yes - occasionally usually at night with laying down, occasionally white phleghm Shortness OfBreath: yes - see above Hemoptysis: no Underlying Lung Disease: no GASTROINTESTINAL: Nausea: no Vomiting: no Constipation: Occasionally Diarrhea: Occasionally Melena: no PUD (history of): no Hematemesis: no Gastrointestinal Disorder: yes - IBS GENITOURINARY: Hematuria: no Urinary Tract Infection(s): no Nocturia: yes - 1-2 x per night Prostate Problem(s): Not applicalbe HEMATOLOGIC: Easy bruising: yes - Bleeding: no MUSCULOSKELETAL/PERIPHERAL VASCULAR SYSTEM: Muscle Pain: yes - bilateral hips and legs Muscle Cramping: no Stiffness: no Muscle Weakness: yes - hips and legs, sciatica BEHAVIORAL/PSYCH: Depression: no ENDOCRINE: Tremors: no Heat or cold intolerance: Extremes bother her , otherwise no Author: Sonya Clemons RN 03/17/2019 10:43 I have reviewed the above history collected by clinical staff and review of systems. Remaining review of systems is negative. HISTORY OF PRESENT ILLNESS: She presents at the request of Dr. Drew Rogers, a outpatient case manager in [place]. The patient reports increasing dyspnea on exertion. She has had shortness of breath for a long time. It bothers her significantly when going upstairs. Lifting things will also cause symptoms. The patient also has back discomfort in association with this. The patient denies chest discomfort. She denies syncope and near syncope. The patient is due to get an MRI of her spine for possible neurosurgical intervention. To have thisstudy done, it has been told that she needs general anesthesia. Preprocedure evaluation by cardiology in [place] has led to this further evaluation due to abnormality on stress testing. The patient's past cardiac history includes in 2002 a heart catheterization here at [facility]. This revealed no significant coronary disease in the circumflex or left anterior descending coronary arteries, although they were not normal. The right coronary artery was occluded with excellent left-to- right collaterals. Its also noted that the left femoral artery was used for this procedure and this was found to be a relatively small artery with a presumed superficial femoral artery occlusion within a few millimeters of its origin. Beneath the sheath entry site and the profunda origin there was said to be diffuse up to 75% stenosis with ulceration. It should also be noted in her history that she had angioplasty of the left leg on September 20cc through the left brachial artery. This was a procedure reportedly complicated by a pseudoaneurysm of the left brachial artery. There is also a history of right leg revascularization in March 2006. No Known Allergies Current Outpatient Medications Medication Sig albuterol (PROVENTIL,VENTOLIN) 90 mcg/act Take 2 Puffs by inhalation FOUR TIMES DAILY NEEDED. Aspirin 81 MG Oral Tab Take 81 mg by mouth DAILY. labetalol (NORMODYNE) 200 MG Oral Tab Take 200 mg by mouth DAILY. losartan (COZAAR) 50 MG Oral Tab Take 50 mg by mouth DAILY. lovastatin (MEVACOR) 10 MG Oral Tab Take 1 Tab by mouth DAILY. magnesium oxide (MAG-OX) 400 (241.3 Mg) MG Oral Tab Take 400 mg by mouth DAILY. mirtazapine (REMERON) 30 MG Oral Tab Take 30 mg by mouth EVERY BEDTIME. nitroglycerin (NITROSTAT) 0.4 MG Sublingual SL Tab Place 0.4 mg under tongue EVERY FIVE MINUTES NEEDED for chest pain. nitroglycerin transdermal patch-daily (NITRODUR) 0.2 MG/HR Transdermal PATCH [address] 1 Patch onto skin DAILY. OXYcodone-acetaminophen (PERCOCET) 5-325 MG Oral Tab Take 1 Tab by mouth EVERY SIX HOURS NEEDED. trazodone (DESYREL) 50 MG Oral Tab Take 50 mg by mouth EVERY BEDTIME. No current facility-administered medications for this visit. Past Medical History: Diagnosis Date CAD (coronary artery disease) Carotid arterial disease (HCC) Dyslipidemia GI bleed Hemangioma Ischemic bowel disease (HCC) PVD (peripheral vascular disease) (HCC) Renal artery stenosis (HCC) TIA (transient ischemic attack) 05/13/2017 Past Surgical History: Procedure Laterality Date AORTA-RENAL BYPASS 2001 splenic artery to left renal artery CATARACT EXTRACTION NEC Bilateral 1996 HEMORRHOIDECTOMY 1994 LAMINECTOMY EXC. OF INTRASPINAL 1997 LEFT HEART CATH,RETROGGRADE,FRO 2002 PERIPHERAL ARTERY ANGIOPLASTY 10/2003 patch angioplasty left leg SVG graft PERIPHERAL ARTERY ANGIOPLASTY 09/20/2008 angioplasty of left leg, complicated by pseuodaneurysm of left brachial artery PERIPHERAL STENT PLACEMENT Left 2001 left leg LA BYPASS GRAFT OTHR,FEM-POP 2001;06/27 left leg SP VISUAL AND [employer]ATE ILIAC WITH STENT 10/2001 TONSILLECTOMY History reviewed. No pertinent family history. Social History Socioeconomic History Marital status: Spouse name: Not on file Number of children: Not on file Years of education: Not on file Highest education level: Not on file Occupational History Not on file Social Needs Financial resource strain: Not on file Food insecurity: Worry: Not on file Inability: Not on file Transportation needs: Medical: Not on file Non-medical: Not on file Tobacco Use Smoking status: Former Smoker Smokeless tobacco: Never Used Substance and Sexual Activity Alcohol use: Never Frequency: Never Drug use: Never Sexual activity: Not on file Lifestyle Physical activity: Days per week: Not on file Minutes per session: Not on file Stress: Not on file Relationships Social connections: Talks on phone: Not on file Gets together: Not on file Attends confucianist service: Not on file Active member of club or organization: Not on file Attends meetings of clubs or organizations: Not on file Relationship status: Not on file Intimate partner violence: Fear of current or ex partner: Not on file Emotionally abused: Not on file Physically abused: Not on file Forced sexual activity: Not on file Other Topics Concern Not on file Social History Narrative Not on file PHYSICAL EXAMINATION: BP 120/70 (BP Location: Left arm, Patient Position: Sitting) Pulse 64 Ht 5' 6 " (1.676 m) Wt 147 lb (66.7 kg) BMI 23.73 kg/m2 GENERAL: alert, oriented, no acute distress. SKIN: warm and dry. HEENT: head is atraumatic and normocephalic. NECK: supple, no carotid bruit and no jugular venous distention. LUNGS: clear to auscultation bilaterally, no rales, no wheezing, or ronchi. HEART: laying normal S1 and S2; no rubs. Grade 1/6 holosystolic murmur heard at the left lower sternal border. An S4 gallop is present. ABDOMEN: soft, non tender, without masses or organomegaly. EXTREMITIES: no clubbing, cyanosis, or edema. Pedal pulses decreased. NEUROLOGICAL: grossly intact. DIAGNOSTIC STUDIES: An electrocardiogram performed today reveals sinus rhythm at a rate of 64 with a premature atrial complex. There is moderate voltage criteria for left ventricular hypertrophy. An echocardiogram of February 16, 2019 reveals an ejection fraction of 65 to 70%. The left atrial cavity is severely dilated. Right atrial cavity is mildly to moderately dilated. There is felt to be at least moderate mitral regurgitation. There is moderate prolapse of the mitral valve leaflets, the posterior greater than the anterior. There is mild mitral valvular stenosis. A nuclear stress test of February 08, 2019 is reported to show moderate ischemia in the anterior wall with an area of reversible change in the inferior wall as well. Ejection fraction wall motion was saidto be normal. IMPRESSION/ PLAN: ICD-9-CM ICD-10-CM 1. ASHD (arteriosclerotic heart disease) 414.00 I25.10 BASIC METABOLIC PANEL CBC WITH DIFFERENTIAL 2. Abnormal cardiovascular stress test 794.39 R94.39 3. Mitral valve insufficiency, unspecified etiology 424.0 I34.0 4. SOB (shortness of breath) 786.05 R06.02 5. PAD (peripheral artery disease) ([facility]) 443.9 I73.9 I have had a long discussion with the patient and her daughter. Dr. Rogers has recommended that she have a heart catheterization and that it be done in a center where more aggressive back-up is present. I concur with this approach. I do have concerns about her peripheral arterial disease and access may be an issue. Potential procedures risks benefits and alternatives have been discussed in detail. All questions have been answered. The patient has given consent to proceed. Follow up: Cardiac catheterization Author: Evan Garcia MD, 03/24/2019, 08:15 documented in this encounter Plan of Treatment Date Type Specialty Care Team Description 03/24/2019 [facility] Cardiology Evan Garcia MD [address] [place] [address] [phone] Health Maintenance Due Date Last Done Comments MEDICARE ANNUAL WELLNESS VISIT 1935 DEPRESSION SCREENING 1947 HIV SCREENING 1950 ZOSTER IMMUNIZATION SERIES (1 1985 of 2) FALL RISK ASSESSMENT 2000 PNEUMOCOCCAL 65+YRS (1 of 2 - 2000 PCV13) INFLUENZA VACCINE (#1) 2019 06/27/2018, 05/18/2017, 07/08/2016 HPV IMMUNIZATION SERIES Aged Out No longer eligible based on patient's age to complete this topic MENINGOCOCCAL VACCINE IMM Aged Out No longer eligible based on patient's age to complete this topic documented as of this encounter Results CBC WITH DIFFERENTIAL (03/17/2019 12:34 PM EDT) WBC Count 7.63 3.98 - 10.04 K/uL [facility] RBC Count 3.97 3.93 - 5.22 M/UL [facility] Hemoglobin 10.5 (L) 11.2 - 15.7 g/dL [facility] Hematocrit 34.5 34.1 - 44.9 % [facility] MCV 86.9 79.4 - 94.8 FL [facility] MCH 26.4 25.6 - 32.2 PG [facility] MCHC 30.4 (L) 32.2 - 35.5 g/dL [facility] Platelet Count 238 182 - 369 K/uL [facility] MPV 11.1 9.4 - 12.3 FL [facility] RDW 14.7 (H) 11.7 - 14.4 % [facility] Neutrophil % 75.9 (H) 34.0 - 71.1 % [facility] Lymphocyte % 13.2 (L) 19.3 - 51.7 % [facility] Monocyte % 7.6 4.7 - 12.5 % [facility] Eosinophil % 2.5 0.7 - 5.8 % [facility] Basophil % 0.5 0.1 - 1.2 % [facility] nRBC % 0.0 0.0 - 0.2 % [facility] Neutrophil # 5.79 1.56 - 6.13 K/UL [facility] Lymphocyte # 1.01 (L) 1.18 - 3.74 K/UL [facility] Monocyte # 0.58 0.24 - 0.86 K/UL [facility] Eosinophil # 0.19 0.04 - 0.36 K/UL [facility] Basophil # 0.04 0.01 - 0.08 K/UL [facility] Immature Gran % 0.3 0.0 - 0.4 % [facility] Immature Gran # 0.02 0.00 - 0.03 K/uL [facility] NRBC # 0.00 0.00 - 0.12 K/uL [facility] Specimen Blood Performing Organization Address City/State/Zipcode Phone Number [facility] [address] [place] [address] BASIC METABOLIC PANEL (03/17/2019 12:34 PM EDT) Glucose 115 (H) 70 - 99 mg/dl [facility] BUN 9 7 - 17 mg/dl [facility] Creatinine 0.7 0.7 - 1.2 mg/dl [facility] Sodium 141 134 - 145 mmol/L [facility] Potassium 4.1 3.5 - 5.1 mmol/L [facility] Chloride 105 98 - 107 mmol/L [facility] CO2 30 22 - 30 mmol/L [facility] Calcium 8.6 8.3 - 10.1 mg/dl [facility] eGFR >60 See Interpretation [facility] Comment: Below ml/min/1.73ml [facility] Estimated GFR Interpretation: Above 60ml/min/1.73m2 = Normal Renal Function 30-59 ml/min/1.73m2 = Stage 3 Chronic Kidney Disease 15-29 ml/min/1.73m2 = Stage 4 Chronic Kidney Disease Less than 15 ml/min/1.73m2 = Stage 5 Chronic Kidney Disease The GFR value is calculated using the Modification of Diet in Renal Disease ( MDRD) Study Equation which can be found at: https://www.kidney.org/content/juzz-gombd-xluobcli BUN/Creatinine 13 6 - 22 RATIO [facility] Anion Gap 6 3 - 11 mmol/L [facility] Specimen Blood Performing Organization Address City/State/Zipcode Phone Number [facility] [address] [place] [id number] documented in this encounter Visit Diagnoses Diagnosis ASHD (arteriosclerotic heart disease) - Primary Coronary atherosclerosis of unspecified type of vessel, [place] or graft Abnormal cardiovascular stress test Other nonspecific abnormal cardiovascular system function study Mitral valve insufficiency, unspecified etiology SOB (shortness of breath) Shortness of breath PAD (peripheral artery disease) (HCC) Peripheral vascular disease, unspecified documented in this encounter Guarantor Name Account Type Relation to Date of Phone Billing Patient Address Kasie Saba Personal/Family 1935 [address] [phone] [place], [place] (Work) [id number] documented as of this encounter
--- OUTSIDE RECORDS SUMMARY | 2019-05-06 01:15 | XMS REPORT | Continuity of Care Document ---
:1935 External Reference #:[id number] Author Name Emma iWnslow N.PMiguel Ángel (transmitted by agent of provider Rica Barrios) Address [address] [place] [address] Care Team Providers Name Role Phone Drew Rogers MD - Cardiovascular Care Team Information Reimbursement Rep Disease Chip Almendarez MD - Vascular Surgery Care Team Information Reimbursement Rep Nir Mcmahon MD - Care Team Information Reimbursement Rep [phone] Neurological Surgery Марина Obando M.D. - Family Medicine Care Team Information Reimbursement Rep Problems Active Problems Provider Date Spinal stenosis [...] Use Denies Drug Use Smoking Status Reviewed: 04/10/19 Patient is a former 1ppd X 60 years. smoker Exercise Type/Frequency walks almost daily Allergies, Adverse Reactions, Alerts Active Allergies Reaction Severity Comments Date Lipitor myalgias at 40 , okay at 20 05/14/2003 Lyrica off balance 02/29/2008 Inactive Allergies NKDA 05/14/2003 Medications Active Medications SIG Qnty Indications Ordering Provider Date Aspirin 81 1 by mouth 30tabs Марина Obando MD 04/10/[address] every day Nitroglycerin 1 sl q5 mins x3 25tabs I10 Drew Williamson 02/15/2019 0.4mg Tablets as needed for Anayeli Rogers Sub chest pain Roller Walker roller walker 1units R29.6 Марина Obando MD 12/07/2018 [facility] [place] dx. m48.062 M48.062 Oxycodone-Acetaminophen 1 by mouth every 6 90tabs Марина Obando, 11/10/2018 5-325mg Tablets hours as needed for pain Losartan Potassium take 1 tablet by 90tabs I10 Марина Obando, 11/08/2018 50mg Tablets mouth once daily Ventolin HFA inhale 2 puffs by 18units Kate 10/03/2018 108(90Base) mcg/Act mouth four times a Anayeli Silva Aerosol day as needed Shingrix 0.5 milliliters 2units Jerrod Allred 06/27/2018 50mcg/0.5ML Suspension Rec intramuscular now [place], and 2-3 months M.DMiguel Ángel,FACP later repeat Lovastatin take 1 tablet at 90tabs Drew Williamson 09/23/2017 10mg Tablets bedtime Anayeli Rogers Magnesium-Oxide 1 by mouth every 90tabs Марина Obando, 12/01/2016 400(241.3mg) mg Tablets evening Trazodone HCL take 4-5 every 270tabs Марина Obando, 06/29/2014 50mg Tablets night at bedtime Nitroglycerin apply one patch to 90units I25.2 Jerrod Allred 07/29/2012 0.2mg/HR Patches 24HR the skin once daily John, as directed, on in M.D.,FACP the morning and off in the evening Mirtazapine take one tablet by 90tabs Марина Obando, 08/21/2011 30mg Tablets mouth daily at MD bedtime Labetalol HCL take one tablets by 180tabs Марина Obando, 02/26/2011 200mg Tablets mouth once a day History Medications Oxycodone-Acetaminophen one by mouth 90tabs Марина Obando, 10/11/2018 - 10-325mg Tablets every 6 hours 11/10/2018 as needed pain Medications Administered in Office Medication SIG Qnty Indications Ordering Provider Date B-12 Injection Jerrod Lopez, 08/26/2017 Injection Anayeli,FACP B-12 Injection Jerrod Lopez, 07/14/2017 Injection Anayeli,[facility] B-12 Injection Nurse Visit A 06/08/2017 Injection B-12 Injection Nurse Visit A 06/01/2017 Injection B-12 Injection Nurse Visit A 05/25/2017 Injection B-12 Injection Jerrod Lopez, 05/18/2017 Injection Anayeli,FACP Inj, Regadenoson, 0.1 MG Memo Sanford M.D. 12/31/2016 Injection Technetium TC 99M Memo Sanford M.D. 12/31/2016 Tetrofosmin, Per Unit Dose Up To 40 Millicuries Injection Immunizations CPT Code Status Date Vaccine Lot # [id number] Given 06/27/2018 Influenza Virus Vaccine, Quadrivalent, Split, [id number] Preservative Free 63478 Given 05/18/2017 Influenza Virus Vaccine, Quadrivalent, Split, [id number] Preservative Free 03758 Given 07/08/2016 Influ Virus Vaccine, Quadrivalent, Split Virus, [id number] [place] [address] Given 04/06/2015 Fluzone High Dose 80991 Given 12/28/2014 Pneumococcal Conjugate Vaccine 13 Valent For [id number] Intramuscular Use 98893 Given 04/25/2014 Fluzone High Dose [id number] Given 04/02/2013 Afluria Vaccine 23627 Given 06/03/2012 Tdap - Tetanus/Diptheria/Acellular Pertussis [id number] Q2035 Given 04/07/2012 Afluria Vaccine 89040 Given 07/03/2010 Zoster (Zostavax) [id number] 98819 Given 05/10/2010 Influenza Virus 3Yrs & Over 70248 Given 08/28/2009 Influenza Virus Vaccine, Pandemic Formulation [id number] 51219 Given 05/31/2008 Influenza Virus 3Yrs & Over 66202 Given 05/31/2008 Influenza Virus 3Yrs & Over [id number] 66096 Given 05/16/2001 Pneumonia Vaccine Vital Signs Date Vital Result Comment 04/10/2019 1:27pm Height 64.5 inches 5'4.50" Weight 143.25 lb with shoes Heart Rate 64 /min radial, regular BP Systolic Sitting 132 mmHg LA, reg cuff BP Diastolic Sitting 62 mmHg LA, reg cuff BP Systolic Standing 132 mmHg LA, reg cuff BP Diastolic Standing 64 mmHg LA, reg cuff BMI (Body Mass Index) 24.2 kg/m2 Ejection Fraction 65%-70% echo 02/16/19 02/15/2019 2:59pm Height 64.5 inches 5'4.50" Weight 146.50 lb with shoes Heart Rate 88 /min BP Systolic Sitting 142 mmHg Rue reg cuff BP Diastolic Sitting 62 mmHg Rue reg cuff BP Systolic Standing 144 mmHg Rue reg cuff BP Diastolic Standing 70 mmHg Rue reg cuff BP Systolic Lying Down 132 mmHg la repeat sitting BP Diastolic Lying Down 73 mmHg la repeat sitting BMI (Body Mass Index) 24.8 kg/m2 Results Test Date Facility Test Result H/L Range Note Thyroid Panel 02/06/2019 [facility] Free T4 0.85 ng/dL Normal 0.61-1.[address] ([place] [address] Thyroxine) [phone] Thyroxine 7.86 g/dL Normal 6.09-12.23 TSH (Thyroid Stim Horm) 0.61 mcIU/mL Normal 0.34-5.60 Occult Blood,Stool 12/13/2018 [facility] Occult Blood POSITIVE X2 NEG (3 Spec) - Stool Laboratory test 12/07/2018 [facility] TSH (Thyroid 0.27 mcIU/mL Low 0.34-5. finding [address] Stim Horm) [address] [place], [place] [id number] [phone] Free T4 (Free Thyroxine) 0.82 ng/dL Normal 0.61-1.12 T3 Free 3.40 pg/mL Normal 2.5-3.9 CBC Auto 12/07/2018 [facility] White Blood 6.0 10^3/uL Normal 3.5-10.[address] [place] [address] [phone] Red Blood Count 4.33 10^6/uL Normal 3.70-4.87 [...] Blood Cells % 0.1 Drug Abuse 11/16/2018 [facility] Urine Presumptive Posi Abnormal [address] Amphetamine <SEE NOTE> ng/[place] [address] [phone] Urine Barbiturates Negative ng/mL 2 Urine Benzodiazepines Negative ng/mL 3 Urine Cocaine Negative ng/mL 4 Urine Phencyclidine Negative ng/mL Cutoff: 25 Urine Tetrahydrocannabinol Negative ng/mL Cutoff: 50 5 Creatinine, Urine 254.6 mg/dL Specific [place] 1.016 pH 5.8 Oxidants Negative 6 Adulterants Comment Normal Codeine, Ur Not Detected ng/mL Cutoff: 25 7 Dibzcmx-5-opjo-glucuronide, Ur Not Detected ng/mL 8 Morphine, Ur Not Detected ng/mL Cutoff: 25 9 Ppeundud-2-plad-glucuronide, U Not Detected ng/mL 10 6-monoacetylmorphine, Ur Not Detected ng/mL Cutoff: 25 11 Hydrocodone, Ur Not Detected ng/mL Cutoff: 25 12 Norhydrocodone, Ur Not Detected ng/mL Cutoff: 25 13 Dihydrocodeine, Ur Not Detected ng/mL Cutoff: 25 14 Hydromorphone, Ur Not Detected ng/mL Cutoff: 25 15 Xaseqobfuisge7akjzndwnzewwoky Not Detected ng/mL 16 Oxycodone, Ur Present ng/mL Abnormal Cutoff: 25 17 Noroxycodone, Ur Present ng/mL Abnormal Cutoff: 25 18 Oxymorphone, Ur Not Detected ng/mL Cutoff: 25 19 Paqszwqrnyg-4-ydfj-glucuronide Present ng/mL Abnormal 20 Noroxymorphone, Ur Present ng/mL Abnormal Cutoff: 25 21 Fentanyl, Ur Not Detected ng/mL Cutoff: 2 22 Norfentanyl, Ur Not Detected ng/mL Cutoff: 2 23 Meperidine, Ur Not Detected ng/mL Cutoff: 25 24 Normeperidine, Ur Not Detected ng/mL Cutoff: 25 25 Naloxone, Ur Not Detected ng/mL Cutoff: 25 26 Sndepkan-9-dsyb-glucuronide, U Not Detected ng/mL 27 Methadone, Ur [...] Ur Not Detected ng/mL Cutoff: 50 35 Dljqbexmhb-hoib-svnmvqhvvhu, U Not Detected ng/mL 36 Buprenorphine, Ur Not Detected ng/mL Cutoff: 5 37 Norbuprenorphine, Ur Not Detected ng/mL Cutoff: 5 38 Norbuprenorphine glucuronide Not Detected ng/mL Cutoff: 20 39 Opioid Interpretation See Comment 40 Urine 11/16/2018 [facility] Urine Negative Cutoff: [address] Amphetamine by ng/[place] [address] GC/MS [phone] Urine Methamphetamine by GC/MS Negative ng/mL Cutoff: 25 Phentermine-by GC/MS Negative ng/mL Cutoff: 25 Pseudoephedrine/Ephedr GC/MS Negative ng/mL Cutoff: 25 Mda(Ecstacy metabolite) GC/MS Negative ng/mL Cutoff: 25 Mdma(Ecstacy)-by GC/MS Negative ng/mL Cutoff: 25 Urine Amphetamines Interp Negative. 41 CBC Auto 10/25/2018 [facility] White Blood 7.4 10^3/uL Normal 3.5-10.[address] [place] [address] [phone] Red Blood Count 4.05 10^6/uL Normal 3.70-4.87 [...] Red Blood Cells % 0 Laboratory 10/25/2018 [facility] TSH (Thyroid 0.31 Low 0.34- 5.60 test finding [address] Stim Horm) mcIU/[place] [address] [phone] Comp Metabolic 10/25/2018 [facility] Sodium 140 mmol/L Normal 135-[address] [place] [address] [phone] Potassium 4.0 mmol/L Normal 3.5-5.0 Chloride 103 [...] REFERENCE VALUE Cutoff: 100 9 Jessica Velásquez, MS Contin; Also a minor metabolite (10%) of codeine and can be seen in low concentrations (<2,000 ng/mL) with poppy seed ingestion. 10 Metabolite of morphine REFERENCE VALUE Cutoff: 100 11 Metabolite of heroin 12 Lortab, Maben, Vicodin; Also a very minor metabolite of [...] oxycodone and several metabolites (noroxycodone, noroxymorphone, and lzimzguyvrp-0-jbnv-glucuronide). Suspect use of oxycodone and/or oxymorphone within the past three days. ADDITIONAL INFORMATION This test was developed and its performance characteristics determined by [facility] in a manner consistent with CLIA requirements. This test has not been cleared or approved by the U.S. Food and Drug Administration. Test Performed by: [facility] [place] [facility] [address] [place] [address] ADDITIONAL INFORMATION This report is intended for use in clinical monitoring and management of patients. It is not intended for use in employment-related testing. This test was developed and its performance characteristics determined by [facility] in a manner consistent with CLIA requirements. This test has not been cleared or approved by the U.S. Food and Drug Administration. Test Performed by: [facility] [address] [place] [address] Because ethnic data is not always [...] dialysis) Procedures Date Code Description Status 02/16/2019 75114 ECHO Transthoracic, Real-Time 2D With Doppler And Color Completed Flow 02/16/2019 55386 ECHO Transthoracic, Real-Time 2D With Doppler And Color Completed Flow 02/15/2019 52169 EKG Tracing & Interpretation Completed 02/08/2019 30411 Treadmill Interp/Report Only Completed 02/08/2019 17136 Stress Test Supervsn W/Out I/R Completed 07/14/2010 [id number] Colonoscopy Completed 06/17/2010 [id number] Mammogram Completed 05/23/2009 [id number] Mammogram Completed Medical Devices Description No Information Available Encounters Type Date Location Provider Dx Diagnosis Office Visit 02/15/2019 [facility] Drew Williamson I10 Essential ( primary) 2:30p Anayeli Rogers hypertension I25.10 Athscl heart disease of [place] coronary artery w/o ang pctrs M48.062 Spinal stenosis, lumbar region with neurogenic claudication I34.0 Nonrheumatic mitral (valve) insufficiency Office Visit 01/20/2019 2:20p [facility] Марина Obando MD R79.89 Other specified Medicine - [facility] abnormal findings of blood chemistry D64.9 Anemia, unspecified M48.062 Spinal stenosis, lumbar region with neurogenic claudication I10 Essential (primary) hypertension Office Visit 12/07/2018 2:20p Ihsan Obando MD I10 Essential (primary) Medicine - [facility] hypertension M48.062 Spinal stenosis, lumbar region with neurogenic claudication R29.6 Repeated falls R63.4 Abnormal weight loss D64.9 Anemia, unspecified Office Visit 11/08/2018 2:00p Ihsan Obando MD R94.6 Abnormal results Medicine - [facility] of thyroid function studies M48.062 Spinal stenosis, lumbar region with neurogenic claudication Z79.891 long-term (current) use of opiate analgesic I10 Essential (primary) hypertension D64.9 Anemia, unspecified Office Visit 10/21/2018 DoNotUse [facility] Kory Obando, R19.7 Diarrhea, 11:00a Medicine-Tarik MITCHELL unspecified R63.4 Abnormal weight loss R05 Cough Assessments Date Code Description Provider 04/10/2019 I34.0 Nonrheumatic mitral (valve) Emma Winslow N.P. insufficiency 04/10/2019 I10 Essential (primary) hypertension Emma Winslow N.P. 04/10/2019 I25.10 Atherosclerotic heart disease of Emma Winslow N.P. [place] coronary artery with 02/16/2019 I34.0 Nonrheumatic mitral (valve) Drew Rogers M.D. insufficiency 02/16/2019 I34.0 Nonrheumatic mitral (valve) [facility] ECHO Schedule insufficiency 02/15/2019 I10 Essential (primary) hypertension Drew Rogers M.D. 02/15/2019 I25.10 Atherosclerotic heart disease of Drew Rogers M.D. [place] coronary artery with 02/15/2019 M48.062 Spinal stenosis, lumbar region with Drew Rogers M.D. neurogenic claudication 02/15/2019 I34.0 Non-rheumatic mitral regurgitation Drew Rogers M.D. 02/08/2019 I10 Essential (primary) hypertension Keenan MonteroD. 02/08/2019 I25.10 Atherosclerotic heart disease of Jose Burgos M.D. [place] coronary artery with 01/20/2019 R79.89 Other specified abnormal findings of Марина Obando MD blood chemistry 01/20/2019 D64.9 Anemia, unspecified Марина Obando MD 01/20/2019 M48.062 Spinal stenosis, lumbar region with Марина Obando MD neurogenic claudication 01/20/2019 I10 Essential (primary) hypertension Марина Obando MD 12/14/2018 D64.9 Anemia, unspecified Nurse Visit [place] 12/14/2018 D64.9 Anemia, unspecified Nurse Visit A [...] Anemia, unspecified Марина Obando MD 11/16/2018 Z79.891 medical terminologist (current) use of opiate Nurse Visit A analgesic 11/08/2018 R94.6 Abnormal results of thyroid function Марина Obando MD studies 11/08/2018 M48.062 Spinal stenosis, lumbar region with Марина Obando MD neurogenic claudication 11/08/2018 Z79.891 medical terminologist (current) use of opiate Марина Obando MD analgesic 11/08/2018 I10 Essential (primary) hypertension Марина Obando MD 11/08/2018 D64.9 Anemia, unspecified Марина Obando MD 10/21/2018 R19.7 Diarrhea, unspecified Марина Obando MD 10/21/2018 R63.4 Abnormal weight loss Марина Obando MD 10/21/2018 R05 Cough Марина Obando MD Plan of Treatment Future Appointment(s):06/27/2019 1:20 pm - Drew Rogers M.D. at [place] [facility]18/30/2019 2:00 pm - Марина Obando MD at [facility] Internal Medicine - Ccm04/10/2019 - Emma Winslow N.P.I34.0 Nonrheumatic mitral (valve) crmofzssjjajnM67 Essential (primary) hdyurzaeybrdU25.10 Atherosclerotic heart disease of [place] coronary artery withFollow up:obtain labs from [facility] from 2018 OV 06/2019Recommendations:I will ask Dr Rogers to contact Dr Garcia. Functional Status Description No Information Available Mental Status Description No Information Available Referrals Refer to Dr Reason for Referral Status Appt Date Evan Garcia MD progressive and limiting anderson with known pvd, cad, Closed 03/17/2019 abnl nuclear (anterior and inferior ischemia) , and moderate to severe MR. last cath at conception 2002 with 100% rca. please perform cardiac cath. [address] [place] [address] [phone] Arthur Fall MD Patient with extensive past history of slow GI Closed bleeds, presents with mild anemia and positive Hemoccult x2 [address] [place] [address] [phone] Pain Clinic pt with spinal stenosis, recently worsening pain with Closed Right sided sciatic and falls [address] [place] [phone]
[2019-05-06 01:27] LABS: ABS Eosinophils 0.3 10^3/ul (0-0.6); ABS Lymphocytes 0.5 10^3/ul (1.0-4.8); ABS Monocytes 0.4 10^3/ul (0-0.8); ABS Neutrophils 6.3 10^3/ul (1.5-7.7); Eosinophil % 3.6 %; Hematocrit 33 % (35-47); Hemoglobin 10.3 g/dL (12.0-16.0); Lymphocyte % 6.6 %; Mean Corpuscular HGB Conc 31 g/dL (31-36); Mean Corpuscular Hemoglobin 25 pg (27-31); Mean Corpuscular Volume 82 fL (80-97); Mean Platelet Volume 9.2 fL (7.4-10.4); Platelet Count 203 10^3/uL (150-450); Red Blood Count 4.08 10^6 /uL (3.70-4.87); Red Cell Distribution Width 16 % (10-15); White Blood Count 7.5 10^3/uL (3.5-10.8)
[2019-05-06 01:43] LABS: INR 1.12 (0.82-1.09)
[2019-05-06 01:47] LABS: ALT 23 U/L (7-52); AST 31 U/L (13-39); Albumin/Globulin Ratio 1.7 (1-3); Alkaline Phosphatase 130 U/L (34-104); Anion Gap 5 mmol/L (2-11); BUN/Creatinine Ratio 15.7 (8-20); Blood Urea Nitrogen 11 mg/dL (6-24); CO2 Carbon Dioxide 31 mmol/L (22-32); Calcium 8.6 mg/dL (8.6-10.3); Chloride 104 mmol/L (101-111); EGFR African American 96.5 (>60); EGFR Non-African American 79.7 (>60); Globulin 2.4 g/dL (2-4); Glucose 166 mg/dL (70-100); Potassium 3.9 mmol/L (3.5-5.0); Sodium 140 mmol/L (135-145); Total Protein 6.4 g/dL (6.4-8.9)
[2019-05-06 01:53] LABS: Troponin I 0.05 ng/mL (<0.04)
[2019-05-06] MEDS ORDERED: Al Hydrox/Mg Hydrox/Simet LIQ* 30 ML UDC PO PRN (02:19)
[2019-05-06] MEDS ORDERED: Acetaminophen TAB* 325 MG PO PRN (02:19)
[2019-05-06] MEDS ORDERED: Morphine INJ* 2 MG/ML 1 ML SYRINGE (TWO MG - NEW SYRINGE VERSION) IV PRN (02:19)
[2019-05-06] MEDS ORDERED: oxyCODONE/Acetamin 5/325 MG* TAB PO PRN (02:23)
[2019-05-06 02:38] LABS: Urine Appearance Clear; Urine Bilirubin Negative (Negative); Urine Blood Negative (Negative); Urine Color Colorless; Urine Glucose Negative (Negative); Urine Ketones Negative (Negative); Urine Nitrite Negative (Negative); Urine Protein Negative (Negative); Urine Specific Gravity 1.005 (1.010-1.030); Urine Urobilinogen Negative (Negative)
[2019-05-06 03:44] LABS: Troponin I 0.18 ng/mL (<0.04)
[2019-05-06 03:44] LABS: Total Iron Binding Capacity 469 mcg/dL (250-450); Transferrin 335 mg/dL (203-362)
[2019-05-06 04:10] LABS: Folate 3.53 ng/mL (>3.99)
[2019-05-06] MEDS ORDERED: Enoxaparin(*) 80 MG/0.8 ML SYR SUBCUT ONE (05:07)
[2019-05-06] MEDS ORDERED: Heparin VIAL(*) 5000 UNITS/ML VIAL (FIVE THOUSAND) SUBCUT SCH (06:00)
[2019-05-06 06:03] LABS: Total Iron Binding Capacity 440 mcg/dL (250-450); Transferrin 314 mg/dL (203-362)
--- NOTE | 2019-05-06 06:11 | HP ---
CC: Dr. Obando; Dr. Rogers; Dr. Garcia, Cardiology, [place]; Dr. Connor Almendarez * HISTORY AND PHYSICAL: DATE OF ADMISSION: 05/06/19 PRIMARY CARE PROVIDER: Dr. Obando. CHIEF COMPLAINT: Shortness of breath and chest pain. HISTORY OF PRESENT ILLNESS: Kasie Saba is an 84-year-old female with a history of coronary artery disease, severe peripheral vascular disease, who presented to the hospital complaining of chest pain and shortness of breath. The patient stated that she had been feeling poorly right after dinner on and had progressively got worse to the point that at 11 p.m., she called her family who lives next door, who after seeing the patient in respiratory distress called 911. The patient stated that she had been having discomfort in the left side of the chest and shortness of breath and they both increased in intensity over the course of approximately 2 to 3 hours to the point of being unbearable. When she was in the emergency room, she received nebulizer treatment as well as nitroglycerin sublingually and 80 of Lasix IV. This combination of medications relieved the patient's discomfort and pain. Currently, she is on oxygen, breathing comfortably, denies any pain. The patient stated that she had been somewhat more short of breath when climbing up the stairs, but otherwise she had not had "anything like that happen before." She is going to be placed on overnight observation with the diagnosis of congestive heart failure. Also, her troponin is 0.05. Please note that the patient has a history of chronic lower back pain, for which her paint spray tender recommended an MRI. The patient being claustrophobic, she required sedation for the MRI, and she was evaluated by the press operator assistant Dr. Rogers in regards of safety of sedation in this patient. At that point, Dr. Rogers recommended an echocardiogram and a stress test that was performed in January 2019. I do not have an access to the echocardiogram, but the stress test showed EF of 70%, but also intermediate risk with reversible area of ischemia. After that, the patient was referred to Dr. Garcia from Cardiology in [place], who initially planned to have a cardiac catheterization performed, but the patient stated that was rescheduled twice and now she is scheduled on for "an MRI." The family thinks it is likely an MRI of the heart, but they also questioned it because it all started with the patient needing sedation for MRI of her back. PAST MEDICAL HISTORY: 1. History of ischemic heart disease with cardiac catheterization performed in 2002 showing 100% RCA occlusion and 50% LAD stenosis. The RCA occlusion had good collaterals. 2. History of moderate mitral regurgitation. 3. Dyslipidemia. 4. History of impaired fasting glucose tolerance. 5. Hypertension. 6. Sciatica and spinal stenosis with chronic pain. 7. History of peripheral vascular disease, status post iliac stenting in the past as well as fem-pop bypass bilaterally. 8. History of cataract surgery bilaterally. 9. History of GI bleed in 2004 and in 2007. The GI bleed in 2004 was from unclear etiology. In 2007, the endoscopy showed antral erosions. 10. The patient has a history of laminectomy in 1997. 11. In 2004, she was diagnosed with liver hemangioma. 12. The patient has a history of being on Coumadin for her peripheral vascular disease that was discontinued in the early due to her GI bleed. 13. 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 MEDICATIONS: Include: 1. OxyContin 10 mg b.i.d. 2. Aspirin 81 mg daily. 3. Lovastatin 10 mg at bedtime. 4. Losartan 150 mg daily. 5. Labetalol 200 mg b.i.d. 6. Nitroglycerin patch 0.2% daily. 7. Remeron 30 mg at bedtime. 8. Magnesium oxide 400 mg a day. 9. Nitroglycerin sublingual on a p.r.n. basis. 10. Trazodone 250 mg at bedtime p.r.n. 11. Percocet 5/325 mg 1 tablet every 6 hours p.r.n. ALLERGIES: No known drug allergies. FAMILY HISTORY: Positive for father who of heart attack at the age of 45. SOCIAL HISTORY: The patient lives alone next door to her son who is her surrogate. His name is Rashi Saba. She has a history of 84-gbcx-phef smoking history, quit 12 years ago. She denies any alcohol or drug use. She is independent in her ADLs. REVIEW OF SYSTEMS: Please see history of present illness. All the remaining 12 systems were reviewed with the patient and were otherwise negative. PHYSICAL EXAMINATION GENERAL: The patient is a pleasant 84-year-old female who is in no acute distress. Alert and oriented x3. VITAL SIGNS: Blood pressure of 138/70, heart rate of 75 and regular, respiratory rate 22, oxygen saturation of 93% on 4 L of oxygen via nasal cannula , temperature of 96.6. HEENT: Head atraumatic, normocephalic. Eyes, pupils are equal and reactive to light and accommodation. Oropharynx clear. Mucosa moist. NECK: Supple, no JVD. No bruits bilaterally. RESPIRATORY: Rales at bilateral bases. CARDIOVASCULAR: Regular rate and rhythm with 2/6 systolic ejection murmur noted on auscultation of the apex. ABDOMEN: Soft and nontender. Bowel sounds present in all 4 quadrants. EXTREMITIES: Trace bilateral ankle pitting edema. Pulses are +2 bilaterally. There is no clubbing or cyanosis. SKIN: On evaluation of the skin, pallor noted that there is no cyanosis and no rashes. NEUROLOGIC: Speech clear. Cranial nerves II through XII grossly intact. Motor strength is 5/5 bilaterally. DIAGNOSTIC STUDIES/LABORATORY DATA: Showed white blood cell count of 7.5, hemoglobin 10.3, hematocrit 33, and platelets of 203. D-dimer was 553, corrected for the patient's age the D-dimer should be above 800. Sodium of 140, potassium 3.9, chloride 104, carbon dioxide 31, BUN 11, creatinine 0.7. Liver function tests showed elevated alkaline phosphatase of 130, which is chronic for this patient. Troponin is 0.05. Brain natriuretic peptide was 703. The patient's portable chest x-ray showed poor inspiration and vascular congestion. The patient's EKG showed sinus tachycardia with a heart rate of 104 beats per minute with ST depressions in leads V4 through V6, which are new. ASSESSMENT AND PLAN: 1. Chest pain and shortness of breath. At this point, it appears that the patient has symptoms of acute diastolic congestive heart failure. She was hypertensive when she came into the ED with systolic pressures in the 170s. She received a dose of 80 mg of Lasix IV and I will continue 20 Lasix IV on a daily basis. Intake and output summaries are going to be checked on a daily basis as well as the patient's weight. I will check the patient's transthoracic echocardiogram and ask Cardiology to see the patient in consultation in the morning. 2. In regards to the patient's elevated troponins and EKG changes, I suspect this is angina, likely due to congestive heart failure. I will follow up with further troponins and observe the patient on telemetry monitored bed. Due to the patient's mild anemia, I will not institute anticoagulation unless her troponins continue to climb. I suspect this is mostly demand ischemia due to congestive heart failure. 3. For her hypertension, her outpatient medications are going to be continued. 4. For her dyslipidemia, we do not have lovastatin on the hospital's formulary , and the patient is going to be placed on Lipitor. 5. For DVT prophylaxis, the patient has been placed on heparin subcutaneously. 6. For chronic pain, Roxicodone and Percocet are going to be continued as perviously ordered at home. 7. The patient's code status is full. Her surrogate is her son. 8. The patient has normocytic anemia. She denies any bright red blood per rectum or melanotic stools recently. I will check iron studies as well as folate and vitamin B12. TIME SPENT: Approximately 65 minutes was spent on admission of this patient, more than half that time was spent hgqv-uf-eunk with the patient during the interview and physical exam. [id number]/[facility] #: [id number] DAISY
[2019-05-06 06:13] LABS: % Iron Saturation 5 % (15-55); Iron < 20 ug/dL (50-212)
[2019-05-06 06:15] LABS: Troponin I 0.36 ng/mL (<0.04)
[2019-05-06] MEDS ORDERED: Aspirin EC TAB* 325 MG PO ONE (07:52)
[2019-05-06 07:57] LABS: Magnesium 1.8 mg/dL (1.9-2.7)
[2019-05-06] MEDS ORDERED: Losartan TAB* 25 MG PO SCH (09:00)
[2019-05-06] MEDS ORDERED: Docusate CAP* 100 MG PO SCH (09:00)
[2019-05-06] MEDS ORDERED: Aspirin EC TAB* 81 MG TAB.EC PO SCH (09:00)
[2019-05-06] MEDS ORDERED: Nitroglycerin 0.2 MG/HR PATCH* (5 MG) TRANSDERM SCH (09:00)
[2019-05-06] MEDS ORDERED: Labetalol TAB* 200 MG PO SCH (09:00)
[2019-05-06] MEDS ORDERED: oxyCODONE SR TAB(*) 10 MG TAB.SR PO SCH (09:00)
[2019-05-06] MEDS ORDERED: Magnesium Sulfate 2 GM IV* 2 GM/50 ML BAG IVPB ONE (10:58)
--- NOTE | 2019-05-06 11:41 | PN ---
Subjective Date of Service: 05/06/19 Interval History: HD 2 on 05/06/2019 84 y/o F with h/o CAD, severe PAD, HTN and chronic low back pain presented with acute onset of SOB and left sided chest pain. FOund to have NSTEMI and heart failure, possibly acute systolic. No acute overnight events VS stable; requiring 2L of oxygen Complains of mild leg pain in morning; not at present. No chest pain, sob or plapitation at present. No nausea or vomiting Objective Active Medications: Acetaminophen (Tylenol Tab*) 650 mg PO Q4H PRN PRN Reason: PAIN-MILD/TEMP >/= 100.4 Al Hydrox/Mg Hydrox/Simethicone (Maalox Plus*) 30 ml PO Q6H PRN PRN Reason: INDIGESTION Aspirin (Aspirin Ec Tab*) 81 mg PO QAM [facility] Atorvastatin Calcium (Lipitor*) 40 mg PO 1700 [facility] Docusate Sodium (Colace Cap*) 100 mg PO BID [facility] Last Admin: 05/06/19 08:34 Dose: 100 mg Furosemide (Lasix Iv*) 20 mg IV DAILY [facility] Last Admin: 05/06/19 11:31 Dose: 20 mg Magnesium Sulfate (Magnesium Sulfate 2 Gm Iv*) 2 gm in 50 mls @ 50 mls/hr IVPB ONCE ONE Stop: 05/06/19 11:57 Last Admin: 05/06/19 11:31 Dose: 50 mls/hr Labetalol HCl (Trandate Tab*) 200 mg PO BID [facility] Last Admin: 05/06/19 08:34 Dose: 200 mg Losartan Potassium (Cozaar Tab*) 50 mg PO DAILY [facility] Last Admin: 05/06/19 08:34 Dose: 50 mg Magnesium Oxide (Magox 400 Tab*) 400 mg PO QPM [facility] Mirtazapine (Remeron Tab*) 30 mg PO BEDTIME [facility] Morphine Sulfate (Morphine Inj (Syringe))*) 1 mg IV Q4H PRN PRN Reason: PAIN - SEVERE Nitroglycerin (Nitroglycerin 5 Mg Patch*) 1 patch TRANSDERM DAILY [facility] Last Admin: 05/06/19 08:34 Dose: 1 patch Oxycodone HCl (Oxycontin(*)) 10 mg PO BID [facility] Last Admin: 05/06/19 08:35 Dose: 10 mg Oxycodone/Acetaminophen (Percocet 5/325 Tab*) 1 tab PO Q6H PRN PRN Reason: Pain-moderate Vital Signs - 8 hr 05/06/19 05/06/19 05/06/19 03:48 07:30 08:35 Temperature 98.0 F 98.3 F Pulse Rate 78 77 Respiratory 18 16 16 Rate Blood Pressure 139/72 140/67 (mmHg) O2 Sat by Pulse 100 100 Oximetry 05/06/19 11:35 Temperature Pulse Rate Respiratory 18 Rate Blood Pressure (mmHg) O2 Sat by Pulse Oximetry Oxygen Devices in Use Now: Nasal Cannula Exam: Patient is lying on bed with no acute distress. HEENT: Normocephalic and atraumatic LUngs: CLear with no added sounds. Heart: S1/S2 heard with murmur on lower left sternal border. Abdomen: Soft, nondistended and nontender Extremeties: 1+ pitting edema Neuro: Alert, oriented and conscious. Result Diagrams: 05/05/19 01:11 05/05/19 01:11 Assess/Plan/Problems-Billing Assessment: 84 y/o F with h/o CAD, severe PAD, HTN and chronic low back pain presented with acute onset of SOB and left sided chest pain. FOund to have NSTEMI and heart failure, possibly acute systolic. - Patient Problems (1) NSTEMI (non-ST elevated myocardial infarction) Current Visit: Yes Status: Acute Code(s): I21.4 - NON-ST ELEVATION (NSTEMI) MYOCARDIAL INFARCTION SNOMED Code(s): 69520879 Comment: Had acute onset of chest pain and SOB. EKG sugestive of ischemia with st depression on II,V4, v5 and v6. elevated troponin had history of cardiac cath on 2002 with occlusion; managed medically. She is recently following Dr. Rogers and had stress test and was found to have positive. She is scheduled to have cardiac imaging (MRI) according to her in [place] in 05/17/2019. Received loading dose of aspirin and lovenox. She has a history of GI bleed in past. We will order echo and trend trops Dr. Sanford is aware of her and will come and she her today. (2) Heart failure Current Visit: Yes Status: Acute Code(s): I50.9 - HEART FAILURE, UNSPECIFIED SNOMED Code(s): 51909263 Comment: Her recent stress test shows normal EF of 70% with intermediate risk. Echo on 2007 showed normal EF with MR She had sob and crackles on presentation; though no crackles now. Has mild pitting edema on b/l LE. she received 80 mg of IV lasix yesterday and we will put her on 20 mg daily CXR suggestive of CHF We will obtain echo and measure i&O and weight (3) Depression Current Visit: No Status: Acute Code(s): F32.9 - MAJOR DEPRESSIVE DISORDER, SINGLE EPISODE, UNSPECIFIED SNOMED Code(s): 98115631 Comment: On mirtazapine (4) HTN (hypertension) Current Visit: No Status: Acute Code(s): I10 - ESSENTIAL (PRIMARY) HYPERTENSION SNOMED Code(s): 98196384 Comment: on labetalol and losartan (5) PAD (peripheral artery disease) Current Visit: No Status: Acute Code(s): I73.9 - PERIPHERAL VASCULAR DISEASE , UNSPECIFIED SNOMED Code(s): 598498222 Comment: hs severe PAD (6) Back pain Current Visit: No Status: Acute Code(s): M54.9 - DORSALGIA, UNSPECIFIED SNOMED Code(s): 083923556 Comment: hs chronic low back pain on percocet (7) DVT prophylaxis Current Visit: No Status: Acute Code(s): XBH5723 - SNOMED Code(s): 953987904 Comment: on lovenox (8) Full code status Current Visit: No Status: Acute Code(s): Z78.9 - OTHER SPECIFIED HEALTH STATUS SNOMED Code(s): 196819310 Status and Disposition: Inpatient; cardio following Attending: Tammy Barnes Attestation Documenting Resident: Annabella Wang Supervising Physician: Tammy Barnes Attestation: This service has been performed in part by a resident under the direction of a teaching physician.I, Tammy Barnes, performed the service, or was physically present during the critical, or gonzalez portions of the service, furnished by the resident. I participated in the management of the patient.
[2019-05-06] MEDS ORDERED: Furosemide IV* 10 MG/ML 2 ML VIAL (20 MG) IV SCH (12:00)
[2019-05-06 13:17] LABS: Troponin I 0.96 ng/mL (<0.04)
[2019-05-06] MEDS ORDERED: Heparin DRIP 25,000 UNITS(*) 25,000 UNITS/500 ML BAG IV SCH (15:30)
[2019-05-06] MEDS ORDERED: Famotidine TAB* 20 MG PO SCH (16:00)
--- NOTE | 2019-05-06 16:04 | PN ---
Hospitalist Progress Note Date of Service: 05/06/19 After discussion with cardiology, they recommended transfer to higher level of care based on prior anatomy. Transfer initiated and accepted by Dr. Magallon of [facility]. She has a bed and traansfer summary has been dictated. Cardiology at [facility] prefer Heparin gtt for AC in setting of NSTEMI and inititated
[2019-05-06] MEDS ORDERED: Atorvastatin* 40 MG TAB PO SCH (17:00)
[2019-05-06 17:06] LABS: Troponin I 0.82 ng/mL (<0.04)
--- NOTE | 2019-05-06 17:12 | TRS ---
CC: Марина Patton MD TRANSFER SUMMARY: DATE OF ADMISSION: 05/06/19 DATE OF TRANSFER: 05/06/19 DISPOSITION AT THE TIME OF TRANSFER: Stable on telemetry to be transferred to [facility] for tele floor for NSTEMI. PRIMARY DIAGNOSIS: 1. Non-ST elevation myocardial infarction. 2. Signs of volume overload and likely acute systolic heart failure. SECONDARY DIAGNOSES: 1. History of coronary artery disease with prior catheterization in 2002 showing 100% right coronary artery occlusion with excellent collaterals and 50% left anterior descending stenosis with no intervention at that time. 2. History moderate mitral regurgitation. 3. Hyperlipidemia. 4. Hypertension. 5. History of spinal stenosis and sciatica with chronic pain on chronic opiate pain medications. 6. History of peripheral arterial disease status post iliac stenting in the past, as well as a femoral popliteal bypass bilaterally. 7. History of peptic ulcer disease in 2004 and 2007 secondary to antral erosions, discontinuing Coumadin that she had been on for her peripheral vascular disease at that time. 8. History of benign liver hemangioma. PAST SURGICAL HISTORY: 1. History of laminectomy. 2. History of renal artery stenosis status post renal artery bypass in 2001. 3. History of cataract surgery bilaterally. 4. History of fem-pop bypass. 5. Cardiac catheterization in 2002. MEDICATIONS AT THE TIME OF DISCHARGE: 1. Acetaminophen 650 mg p.o. every 4 hours p.r.n. for pain or temperature. 2. Maalox 30 mL p.o. every 6 hours p.r.n. for indigestion. 3. Aspirin 81 mg p.o. daily last dose 05/06/19. 4. Atorvastatin 40 mg p.o. daily last dose 05/06/19. 5. Docusate 100 mg p.o. b.i.d. 6. Furosemide 20 mg IV daily last dose 05/06/19. 7. Labetalol 200 mg p.o. b.i.d. last dose 05/06/19 a.m. 8. Losartan 50 mg p.o. daily last dose 05/06/19. 9. Magnesium oxide 400 mg p.o. q.p.m. 10. Mirtazapine 30 mg p.o. q.h.s. 11. Nitroglycerin 1 patch transdermal daily 5 mg last placed on Wednesday at 8:34 a.m. 12. Oxycodone sustained release 10 mg p.o. b.i.d. This is a home medication. 13. Oxycodone/acetaminophen 5-325 one tab p.o. every 6 hours p.r.n. for breakthrough pain. 14. Heparin drip started 4:30 p.m. 05/06/19. 15. Famotidine 20mg PO daily last dose 05/06/19 HOME MEDICATIONS: 1. Trazodone 250 mg p.o. q.h.s. p.r.n. 2. Nitrostat 0.2 mg sublingual p.r.n. 3. Lovastatin 10 mg p.o. q.h.s. 4. Oxycodone 5-325 one tab p.o. every 6 hours. 5. OxyContin 10 mg p.o. b.i.d. standing. 6. Transdermal patch transdermal daily 0.2 mg per hour per patch. 7. Mirtazapine 30 mg p.o. q.h.s. 8. Magnesium oxide 400 mg p.o. q.p.m. 9. Losartan t0 mg p.o. daily. 10. Labetalol 200 mg p.o. b.i.d. 11. Aspirin 81 mg p.o. daily. MEDICATION CHANGES FROM HOME MEDICATIONS: Include: 1. The addition of heparin drip for NSTEMI. 2. Atorvastatin in place of lovastatin. PRIMARY CARE PHYSICIAN: Марина Patton MD HISTORY OF PRESENT ILLNESS AND HOSPITAL COURSE: This is an 84-year-old female, independent in ADLs and IADLs, who lives alone and close to family, who presented to the emergency room on 05/05/19 evening. She presented to the hospital complaining of chest pain and shortness of breath. She said that she had been feeling poorly after dinner and got progressively worse such that at 11 p.m. she called her family who lives next door. She reports that she had pain , discomfort and pressure on the left side of her chest that became associated with shortness of breath, that increased in intensity over the course of 2 to 3 hours to the point of being unbearable. When her family came to see her they said that she looked unwell, gotti and ashen, and they decided to call 911. When she arrived to the emergency room she was given nitroglycerin and 80 mg of Lasix as she was found to have bilateral crackles and pulmonary edema. She was placed on oxygen as her vital signs, while stable showed that she was desatting to 88% on room air. Otherwise her blood pressure, heart rate and respiratory rate were normal. She was also afebrile. She had an EKG that showed sinus tachycardia with ST depressions in V4 through V6 which were new compared to prior. She had a chest x-ray that showed interstitial edema. Labs were done in the emergency room that showed a troponin of 0.05 and a BNP of 703, otherwise mildly low hemoglobin at 10.3. Of note, this patient has had recent ongoing cardiac workup. She does have a history of chronic low back pain for which her painter helper sign had recommended an MRI. Being that the patient was claustrophobic she required sedation for the MRI and she was referred to a local neck band setter, Dr. Drew Rogers, here in [place] in regards to safety of sedation in this patient. At that point Dr. Rogers recommended echocardiogram and a stress test that was performed in January 2019. The stress test showed ejection fraction of 70%, but also showed an intermediate risk with reversible area of ischemia. After that the patient was referred to Dr. Garcia from Cardiology in [facility] who initially planned to have a cardiac catheterization performed, but the patient stated that she was actually rescheduled twice and is now scheduled actually for 05/17/19 for "some cardiac procedure" although they were unsure what it was. All of this started because of the patient needing sedation for the MRI of her back. Nonetheless she was admitted for NSTEMI and her hospital course by problems is as follows: 1. NSTEMI. Patient had no further chest pain after being admitted, although her troponins continued to elevate every 3 hours, at midnight 0.18, at 4 a.m. 0.36 and at noon today 0.96. A repeat EKG shows no longer ST depressions, but T wave inversion in V3, V4 and V6 showing progressive ischemia. She was given treatment dose Lovenox at 4 a.m. 05/06/19 and then a heparin drip was started at 4 p.m. 05/06/19 for anticoagulation in the setting of unstable angina/ NSTEMI. Explosive Operator Supervisor consulted with the patient and her family, and they felt that because she had difficult catheterization and significant peripheral arterial disease in the past, she may be better served at [facility]. In consultation with our Cariology Team, Norman Vargas, as well as the family they elected to be transferred. An echocardiogram was not performed secondary to being unable to have an seed laboratory technician over the weekend. Her MARIA VICTORIA score is 6 connotating high risk mortality which was shared with the family. 2. Likely new acute onset systolic heart failure, again an echocardiogram was not able to be performed secondary to having no echocardiogram associate technician. Echocardiogram that was done in 2019 showed a preserved ejection fraction, although it does not comment on any regional wall motion abnormalities and is not available for review as it is an outpatient record not incorporated into our medical record. She was given Lasix 80 mg in the emergency room and then another 20 mg of IV Lasix on 05/06/19 at noon with excellent diuresis. Her oxygen requirements have come down significantly. 3. History of known CAD as per before, she has a distant history of catheterization in 2002 which showed completely occluded RCA and a 50% lesion in the LAD. She was optimized with aspirin, lovastatin and labetalol as an outpatient. She has continued to receive beta chip, aspirin 325 mg which was given on 05/06/19, as well as atorvastatin. Lipids were not drawn on this hospitalization and can be for secondary prevention and further risk factor stratification at next hospitalization. A1c was also not drawn during this hospitalization, although she does have a history of impaired fasting glucose not on medications. In terms of risk factors she also has very strong family history positive for coronary artery disease with her father passing away from heart attack at age 45. 4. History of peripheral artery disease. She has history of fem-pop bypass. She was previously on anticoagulation in the early 1999s for her peripheral vascular disease, but this was discontinued in the setting of an antral gastric ulcer that bled. She has not had any further bleeds since 2007. She is on aspirin alone without any dual antiplatelet and currently not on cilostazol. 5. Chronic low back pain on chronic opiate pain medication. She follows with Pain Management closely in [place]. Her home medications were continued. She has no complaints of this at this time. 6. History of peptic ulcer disease with bleed in 2007. Patient is not on PPI at baseline, could be started on. Will initiate GI prophylaxis with famotidine secondary to starting heparin drip given history of bleed. She was given famotidine p.o. 20 mg daily starting 05/06/19. 7. Hypertension. Patient has been well controlled on losartan and labetalol. Continue to monitor. At time of transfer patient's vital signs are stable. Blood pressure is 133/ 62.. Heart rate 69. Respiratory rate 18. She is satting 99% on 1 liter of oxygen. Her temperature is 97.7. She is able to ambulate without chest pain, voiding freely and tolerating diet. Last meal 05/06/19. She understand risks and benefits of being transferred and proceeding with cardiac catheterization for NSTEMI. Her family and her are counseled extensively at the bedside and have demonstrated good teach back. ITEMS TO FOLLOWUP ON STATUS POST TRANSFER: 1. NSTEMI. The case was discussed with Dr. Magallon at [facility] who accepted the patient for admission and plans for cardiac catheterization on Wednesday. She should be placed n.p.o. He preferred that heparin be used for anticoagulation for the patient for this NSTEMI and the family was counseled on these precautions. 2. Likely systolic heart failure secondary to acute ischemic event. Patient will need an echocardiogram. 3. Anticoagulation as per above. Dr. Magallon preferred heparin for anticoagulation and her latest PTT will be included with transfer package to follow protocols as per nursing at your institution. TIME SPENT: 60 minutes were spent in planning of this transfer with over half of that spent directly at the bedside of the patient providing direct patient care and counseling her family. They have no further questions on the plan and understand that transfer could occur on 05/06/19 as soon as [facility] has a bed. She will plan to go by ambulance with ALS and heart monitoring, as well as heparin drip being infused per protocol at that time. This was reviewed with ambulance staff who were in agreement. If there are any questions about the care of this patient during this hospitalization or any specific required, please do not hesitate to reach out and contact the Hospitalist Team directly. My cellphone is and I can be reached at that number. This transfer summary is a distillation of many events that have occurred over the last 24 hours and further documentation will be found directly in the medical chart which can be provided upon request. [id number]/[facility] #: [id number] [facility]
[2019-05-06] MEDS ORDERED: Magnesium Oxide TAB* 400 MG PO SCH (18:00)
[2019-05-06 18:46] VITALS: BP 143/61
--- NOTE | 2019-05-06 19:47 | CONS ---
CC: Dr. Obando; Dr. Drew Rogers; Dr. Evan Garcia, [facility], [place], [place] CARDIOLOGY CONSULTATION: DATE OF CONSULT: 05/06/19 INDICATION FOR CONSULTATION: Coronary artery disease, chest pain, abnormal troponin. HISTORY OF PRESENT ILLNESS: The patient is an 84-year-old woman with a history of coronary artery di sease, history of peripheral vascular disease, hyperlipidemia, borderline diabetes, who [facility] because of chest pain and shortness of breath. The patient states that yesterday afternoon, she was at home, she had severe chest pain with shortness of breath. She had been having these episo nadege for the last couple of months. She said this one was particularly uncomfortable. The patient de cided to come to the emergency room. In the emergency room, her initial troponin level was 0.05. He r EKG demonstrated a normal sinus rhythm with ST depressions in leads V5 and V6 with premature atrial contractions. The patient was admitted to the hospital. She was given Lovenox, aspirin. When I spoke to her this morning, the patient was pain free. The patient does have a history of coronary artery disease. The patient had a cardiac catheterizatio n back in 2002. At that time, she had a 50% LAD stenosis and a 100% right coronary artery stenosis w ith left to right collaterals. The patient is on a medical therapy since then. The patient had a emical nuclear stress test this past summer with Dr. Rogers, which showed a moderate area of ischemia to her anterior wall. At that time, cardiac catheterization was recommended. The patient has been referred to Dr. Garcia for cardiac catheterization. Her last echocardiogram was on 02/16/19, which demonstrated normal LV size and systolic function, mod erate mitral regurgitation, moderate to severe tricuspid regurgitation, moderate pulmonary hypertensi on. PAST MEDICAL HISTORY: Other past medical history includes peripheral vascular disease including fem- pop bypass in 06/2003, history of angioplasty to the saphenous vein graft to the left leg in 2003, ca rotid artery disease, ischemic bowel, GI bleed in 2008. PAST SURGICAL HISTORY: Other surgeries include tonsillectomy, cataract removal, laminectomy, hemorrh oidectomy. OUTPATIENT MEDICATIONS: 1. Nitroglycerin as tolerated. 2. OxyContin as needed. 3. Losartan 50 mg a day. 4. Ventolin inhaler. 5. Lovastatin 10 mg a day. 6. Magnesium as directed. 7. Labetalol 200 mg a day. 8. Aspirin 81 mg a day. ALLERGIES: LIPITOR and LYRICA. FAMILY HISTORY: Father of myocardial infarction at 45. Mother of unknown causes. SOCIAL HISTORY: The patient is . She lives alone. She has 1 son. She is a previous smoker. She denies alcohol. Does not get any regular exercise. REVIEW OF SYSTEMS: Negative for fevers and chills. Negative for changes in bowel or bladder habits. Other 12-point review is unremarkable except for a cardiac history. PHYSICAL EXAM: Height is 5 feet 7 inches, weight is 151 pounds, temperature 97.7, heart rate is 70, blood pressure 133/62, respiratory rate is 18, oxygen saturation 99% on room air. Sclerae anicteric. Oropharynx is pink without erythema. Carotids are 2+ with soft bilateral bruits. JVD is normal. T hyroid is normal. Cardiac Exam: S1, S2 with a 1/6 systolic ejection murmur heard best at the right l ower sternal border. PMI is normal. Lungs are clear to auscultation bilaterally. There is no dullne ss to percussion. Abdomen is soft, nontender, nondistended with normoactive bowel sounds. Extremiti es show no edema. She has 2+ pulses throughout. The patient is awake, alert and oriented. She move s all 4 extremities equally. DIAGNOSTIC STUDIES/LAB DATA: Chemistries within normal limits. AST and ALT are normal. Peak tropon in level of 0.36. CBC within normal limits. Hemoglobin 10, hematocrit 33, and platelet count 203. IMPRESSION AND PLAN: This is an 84-year-old female with a history of coronary artery disease, periph eral vascular disease, hyperlipidemia, who is admitted to the hospital with chest pain. Again, the p atient had a recent cardiology workup and at that time, [facility] She was referred to Dr. Garcia for an outpatient cardiac catheterization. The patient is on Lovenox, aspirin, beta-chip. At this point, my recommendation is the patient be transferred to [facility] to Dr. Garcia 's service for cardiac catheterization as previously recommended. No other medication changes are ne cessary at this time. [id number]/[facility] #: [id number]
[2019-05-06] MEDS ORDERED: Mirtazapine TAB* 15 MG PO SCH (21:00)
[2019-05-07] MEDS ORDERED: Aspirin EC TAB* 81 MG TAB.EC PO SCH (09:00)
[2019-05-08] MEDS ORDERED: NS 0.9% 1000 ML** 1,000 ML IV SCH (00:01)
[2019-05-08] MEDS ORDERED: Diazepam TAB(*) 5 MG PO PRN (08:14)
[2019-05-08] MEDS ORDERED: diPHENhydraMINE PO* 25 MG PO PRN (08:14)
== END 2019-05-06 17:36 | disposition short-term general hospital (02) ==
LOC: ED 23:43 → MEDTELE 05-06 02:19
PROVIDERS: ADMIT Internal Medicine; ATTEND Internal Medicine
DX: I21.4 Non-ST elevation (NSTEMI) myocardial infarction (principal); R06.02 Shortness of breath; Z87.891 Personal history of nicotine dependence; R07.9 Chest pain, unspecified; I50.9 Heart failure, unspecified; R79.89 Other specified abnormal findings of blood chemistry; I25.10 Atherosclerotic heart disease of native coronary artery without angina pectoris; Z95.5 Presence of coronary angioplasty implant and graft; I34.0 Nonrheumatic mitral (valve) insufficiency; E78.5 Hyperlipidemia, unspecified; I10 Essential (primary) hypertension; M48.00 Spinal stenosis, site unspecified; I73.9 Peripheral vascular disease, unspecified; K27.9 Peptic ulcer, site unspecified, unspecified as acute or chronic, without hemorrhage or perforation; Z79.82 Long term (current) use of aspirin; Z79.899 Other long term (current) drug therapy
CPT/HCPCS: 36415; 71045; 80053; 81003; 82607; 82746; 83540; 83550; 83605; 83735; 83880; 84484; 85025; 85379; 85610; 85730; 93005; 96365; 96367; 96372; 96375; 99284; A9270-GY; G0378; J1650; J1940; J3475

== ENCOUNTER 2019-07-09 10:36 | Inpatient (IN) | payer MEDICARE ==
--- OUTSIDE RECORDS SUMMARY | 2019-07-09 10:54 | XMS REPORT | Continuity of Care Document ---
:1935 External Reference #:[id number] Author Name Naomy Deng MD (transmitted by agent of provider Vivian Parmar) Address [address] [place] [address] Care Team Providers Name Role Phone Drew Rogers MD - Cardiovascular Care Team Information Management Coordinator [phone] Disease Chip Almendarez MD - Vascular Surgery Care Team Information Management Coordinator Nir Mcmahon MD - Care Team Information Management Coordinator [phone] Neurological Surgery Марина Obando M.D. - Family Medicine Care Team Information Management Coordinator Problems Active Problems Provider Date Spinal stenosis [...] Use Denies Drug Use Smoking Status Reviewed: 07/07/19 Patient is a former 1ppd X 60 years. smoker Exercise Type/Frequency Does not exercise Allergies, Adverse Reactions, Alerts Active Allergies Reaction Severity Comments Date Lipitor myalgias at 40 , okay at 20 05/14/2003 Lyrica off balance 02/29/2008 Inactive Allergies NKDA 05/14/2003 Medications Active Medications SIG Qnty Indications Ordering Provider Date Amoxicillin/Clavulanate take 1 tab by 10tabs R05 Naomy Deng 2018 Potassium mouth every 12 875-125mg Tablets hours for 5 days Venofer 200 mg iv five 1000mg Drew Williamson 07/05/2019 20mg/ml Solution times over 14 Anayeli Rogers days Losartan Potassium 1 by mouth 90tabs I10 Drew Williamson 07/04/2019 25mg every other day Anayeli Rogers Tablets Ferrex 150 Forte 1 cap by mouth 30caps Adelina Jen, 07/03/2019 every day Anayeli, FACP 843-8-70cz-mg-mcg Capsules Torsemide 1 by mouth 30tabs Марина Obando MD 05/23/2019 20mg Tablets twice a week Aspirin 81 1 by mouth 30tabs Марина Obando MD 04/10/[address] every day Nitroglycerin 1 sl q5 mins x3 25tabs I10 rDew Williamson 02/15/2019 0.4mg Tablets as needed for Anayeli Rogers Sub chest pain Roller Walker roller walker 1units R29.6 Марина Obando MD 12/07/2018 [facility] with seat and brakes dx. m48.062 M48.062 Oxycodone-Acetaminophen 1 by mouth every 90tabs Naomy Deng, 2018 5-325mg Tablets 6 hours as MD needed for pain Ventolin HFA inhale 2 puffs 18units Марина Obando MD 10/03/2018 108(90Base) mcg/Act Aerosol by mouth four times a day as needed Magnesium-Oxide 1 by mouth every 90tabs Naomy Deng, 12/01/2016 400(241.3mg) mg Tablets evening Trazodone HCL take 4-5 every 270tabs Марина Obando MD 06/29/2014 50mg Tablets night at bedtime Mirtazapine take one tablet 90tabs Марина Obando MD 08/21/2011 30mg Tablets by mouth daily at bedtime Labetalol HCL take one tablets 180tabs Марина Obando MD 02/26/2011 200mg Tablets by mouth once a day Atorvastatin Calcium 1 by mouth every Unknown 40mg Tablets day Potassium Chloride Lucía ER take one Unknown 10Meq Tablets ER capsule/tablet daily by mouth Brilinta 1 tab by mouth Unknown 90mg Tablets twice a day History Medications Oxycontin one by mouth 14tabs M48.062 Марина Obando MD 04/24/2019 - 10mg Tab every 12 hours 05/11/2019 ER 12H Abuse-Det Medications Administered in Office Medication SIG Qnty Indications Ordering Provider Date B-12 Injection Jerrod Lopez, 08/26/2017 Injection Anayeli,FACP B-12 Injection Jerrod Lopez, 07/14/2017 Injection Anayeli,FACP BMisa12 Injection Nurse Visit A 06/08/2017 Injection B-12 Injection Nurse Visit A 06/01/2017 Injection B-12 Injection Nurse Visit A 05/25/2017 Injection B-12 Injection Jerrod Lopez, 05/18/2017 Injection Anayeli,FACP Inj, Regadenoson, 0.1 MG Memo Sanford M.D. 12/31/2016 Injection Technetium TC 99M Memo Sanford M.D. 12/31/2016 Tetrofosmin, Per Unit Dose Up To 40 Millicuries Injection Immunizations CPT Code Status Date Vaccine Reaction Lot # [id number] Given 05/23/2019 Influenza Virus Vaccine, pt. tolerated well. [id number] Quadrivalent ([id number]), Derived From Cell 69156 Given 06/27/2018 Influenza Virus Vaccine, [id number] Quadrivalent, Split, Preservative Free 59620 Given 05/18/2017 Influenza Virus Vaccine, [id number] Quadrivalent, Split, Preservative Free 75432 Given 07/08/2016 Influ Virus Vaccine, [id number] Quadrivalent, Split Virus, [place] [address] Given 04/06/2015 Fluzone High Dose 85928 Given 12/28/2014 Pneumococcal Conjugate [id number] Vaccine 13 Valent For Intramuscular Use 41179 Given 04/25/2014 Fluzone High Dose Q2035 Given 04/02/2013 Afluria Vaccine 40721 Given 06/03/2012 Tdap - [id number] Tetanus/Diptheria/Acellular Pertussis Q2035 Given 04/07/2012 Afluria Vaccine 22579 Given 07/03/2010 Zoster (Zostavax) [id number] 61666 Given 05/10/2010 Influenza Virus 3Yrs & Over 05323 Given 08/28/2009 Influenza Virus Vaccine, [id number] Pandemic Formulation 22933 Given 05/31/2008 Influenza Virus 3Yrs & Over 23788 Given 05/31/2008 Influenza Virus 3Yrs & Over 26472 98523 Given 05/16/2001 Pneumonia Vaccine Vital Signs Date Vital Result Comment 07/07/2019 2:09pm Height 64.5 inches 5'4.50" Weight 141.25 lb Heart Rate 83 /min BP Systolic 146 mmHg BP Diastolic 80 mmHg Body Temperature 96.8 F O2 % BldC Oximetry 99 % BMI (Body Mass Index) 23.9 kg/m2 07/04/2019 2:40pm Height 64.5 inches 5'4.50" Weight 141.00 lb with shoes Heart Rate 76 /min BP Systolic Sitting 128 mmHg Lue (Regular cuff) BP Diastolic Sitting 60 mmHg Lue (Regular cuff) BP Systolic Standing 120 mmHg BP Diastolic Standing 56 mmHg BP Systolic Lying Down 106 mmHg la repeat sitting BP Diastolic Lying Down 52 mmHg la repeat sitting O2 % BldC Oximetry 98 % room air BMI (Body Mass Index) 23.8 kg/m2 Ejection Fraction 65%-70% echocardiogram 02/16/2019 Results Test Acquired Facility Test Result H/L Range Note Date Order 07/07/2019 [facility] blood <pending> [address] [place] [address] protocol [phone] Laboratory test 07/04/2019 [facility] B-Type 780 pg/mL High <= [address] [place] [address] Peptide BNP [phone] CBC Auto Diff 07/04/2019 [facility] White Blood 5.1 Normal 3.5 -10.[address] Count 10^3/[place] [address] [phone] Red Blood Count 3.42 10^6/uL Low 3.70-4.87 Hemoglobin 7.9 g/dL Low 12.0-16.0 Hematocrit 25 % Low 35-47 Mean Corpuscular Volume 73 fL Low 80-97 Mean Corpuscular Hemoglobin 23 pg Low 27-31 Mean Corpuscular HGB Conc 32 g/dL Normal 31-36 Red Cell Distribution Width 18 % High 10-15 Platelet Count 281 10^3/uL Normal 150-450 Mean Platelet Volume 8.2 fL Normal 7.4-10.4 Abs Neutrophils 3.6 10^3/uL Normal 1.5-7.7 Abs Lymphocytes 0.7 10^3/uL Low 1.0-4.8 Abs Monocytes 0.5 10^3/uL Normal 0-0.8 Abs Eosinophils 0.2 10^3/uL Normal 0-0.6 Abs Basophils 0.0 10^3/uL Normal 0-0.2 Abs Nucleated RBC 0.0 10^3/uL Granulocyte % 71.3 % Lymphocyte % 13.9 % Monocyte % 10.6 % Eosinophil % 3.7 % Basophil % 0.5 % Nucleated Red Blood Cells % 0.1 Comp Metabolic 07/04/2019 [facility] Sodium 139 mmol/L Normal 135-[address] [place] [address] [phone] Potassium 3.8 mmol/L Normal 3.5-5.0 Chloride 105 mmol/L Normal 101-111 Co2 Carbon Dioxide 28 mmol/L Normal 22-32 Anion Gap 6 mmol/L Normal 2-11 Glucose 111 mg/dL High 70-100 Blood Urea Nitrogen 10 mg/dL Normal 6-24 Creatinine 0.81 mg/dL Normal 0.51-0.95 BUN/Creatinine Ratio 12.3 Normal 8-20 Calcium 8.4 mg/dL Low 8.6-10.3 Total Protein 6.2 g/dL Low 6.4-8.9 Albumin 3.8 g/dL Normal 3.2-5.2 Globulin 2.4 g/dL Normal 2-4 Albumin/Globulin Ratio 1.6 Normal 1-3 Total Bilirubin 0.50 mg/dL Normal 0.2-1.0 Alkaline Phosphatase 110 U/L High 34-104 Alt 10 U/L Normal 7-52 Ast 18 U/L Normal 13-39 Egfr Non- 67.4 >60 Egfr 81.5 >60 1 Iron & Iron 07/04/2019 [facility] Total Iron 451 g/dL High 250-450 [address] [place] [address] Capacity [phone] Transferrin 322 mg/dL Normal 203-362 Iron < 20 g/dL Low 50-212 Unsaturated Iron Binding < 436 g/dL % Iron Saturation 4 % Low 15-55 Vitamin B12 07/04/2019 [facility] Vitamin B12 200 pg/mL Normal 180-[address] [place] [address] [phone] Folic Acid (Folate) 5.61 ng/mL >3.99 Cell Morphology 07/04/2019 [facility] Microcytosis [address] [place] [address] [phone] Hypochromasia 2+ Polychromasia 1+ Schistocytes 1+ Elliptocyte 2+ Laboratory test 07/04/2019 [facility] Pathologist (SEE NOTE) [address] [place] [address] [phone] CBC Auto Diff 06/12/2019 [facility] White Blood 5.7 Normal 3.5 -[address] Count 10^3/uL 0.8 [place] [address] [phone] Red Blood Count 3.39 10^6/uL Low 3.70-4.87 Hemoglobin 8.5 g/dL Low 12.0-16.0 Hematocrit 27 % Low 35-47 Mean Corpuscular Volume 80 fL Normal 80-97 Mean Corpuscular Hemoglobin 25 pg Low 27-31 Mean Corpuscular HGB Conc 32 g/dL Normal 31-36 Red Cell Distribution Width 17 % High 10-15 Platelet Count 291 10^3/uL Normal 150-450 Mean Platelet Volume 8.7 fL Normal 7.4-10.4 Abs Neutrophils 3.6 10^3/uL Normal 1.5-7.7 Abs Lymphocytes 1.1 10^3/uL Normal 1.0-4.8 Abs Monocytes 0.6 10^3/uL Normal 0-0.8 Abs Eosinophils 0.3 10^3/uL Normal 0-0.6 Abs Basophils 0.1 10^3/uL Normal 0-0.2 Abs Nucleated RBC 0.0 10^3/uL Granulocyte % 63.0 % Lymphocyte % 19.6 % Monocyte % 11.3 % Eosinophil % 5.2 % Basophil % 0.9 % Nucleated Red Blood Cells % 0.1 Laboratory test 06/12/2019 [facility] Ferritin 9.4 ng/mL Low 11-[address] [place], [place] [id number] [phone] Urinalysis 05/06/2019 [facility] Urine Color Colorless Profile [address] [place] [address] [phone] Urine Appearance Clear Urine Specific [place] 1.005 Low 1.010-1.030 Urine pH 7.0 Normal 5-9 Urine Urobilinogen Negative Negative Urine Ketones Negative Negative Urine Protein Negative Negative Urine Leukocytes Negative Negative Urine Blood Negative Negative Urine Nitrite Negative Negative Urine Bilirubin Negative Negative Urine Glucose Negative Negative Laboratory test 05/05/2019 [facility] Folic Acid 3.53 ng/mL > 3.99 finding [address] ([place]olate) [place] [address] [phone] Vitamin B12 207 pg/mL Normal 180-914 4 Iron & Iron 05/05/2019 [facility] Total Iron 469 g/dL High 250-450 Binding [address] [address] Capacity [phone] Transferrin 335 mg/dL Normal 203-362 Iron TNP g/dL 50-212 5 % Iron Saturation TNP % 15-55 6 Laboratory test 05/05/2019 [facility] D Dimer 553 ng/mL High Less [address] Quantitative Than 230 [place], [place] [id number] [phone] Lactic Acid 1.2 mmol/L Normal 0.5-2.0 8 Inr/Protime 05/05/2019 [facility] Inr 1.12 High 0.82-1.[address] [place] [address] [phone] Laboratory test 05/05/2019 [facility] B-Type 703 High <=[address] Natriuretic pg/[place] [address] Peptide BNP [phone] CBC Auto Diff 05/05/2019 [facility] White Blood 7.5 Normal 3.5 -10.[address] Count 10^3/[place] [address] [phone] Red Blood Count 4.08 10^6/uL Normal 3.70-4.87 Hemoglobin 10.3 g/dL Low 12.0-16.0 Hematocrit 33 % Low 35-47 Mean Corpuscular Volume 82 fL Normal 80-97 Mean Corpuscular Hemoglobin 25 pg Low 27-31 Mean Corpuscular HGB Conc 31 g/dL Normal 31-36 Red Cell Distribution Width 16 % High 10-15 Platelet Count 203 10^3/uL Normal 150-450 Mean Platelet Volume 9.2 fL Normal 7.4-10.4 Abs Neutrophils 6.3 10^3/uL Normal 1.5-7.7 Abs Lymphocytes 0.5 10^3/uL Low 1.0-4.8 Abs Monocytes 0.4 10^3/uL Normal 0-0.8 Abs Eosinophils 0.3 10^3/uL Normal 0-0.6 Abs Basophils 0.0 10^3/uL Normal 0-0.2 Abs Nucleated RBC 0.0 10^3/uL Granulocyte % 84.0 % Lymphocyte % 6.6 % Monocyte % 5.2 % Eosinophil % 3.6 % Basophil % 0.6 % Nucleated Red Blood Cells % 0.0 Laboratory 05/05/2019 [facility] Troponin-I 0.05 Critical < 0.04 10 test finding [address] (TnI) ng/mL high [place], [place] [id number] [phone] Comp Metabolic 05/05/2019 [facility] Sodium 140 Normal 135- [address] mmol/[place] [address] [phone] Potassium 3.9 mmol/L Normal 3.5-5.0 Chloride 104 mmol/L Normal 101-111 Co2 Carbon Dioxide 31 mmol/L Normal 22-32 Anion Gap 5 mmol/L Normal 2-11 Glucose 166 mg/dL High 70-100 Blood Urea Nitrogen 11 mg/dL Normal 6-24 Creatinine 0.70 mg/dL Normal 0.51-0.95 BUN/Creatinine Ratio 15.7 Normal 8-20 Calcium 8.6 mg/dL Normal 8.6-10.3 Total Protein 6.4 g/dL Normal 6.4-8.9 Albumin 4.0 g/dL Normal 3.2-5.2 Globulin 2.4 g/dL Normal 2-4 Albumin/Globulin Ratio 1.7 Normal 1-3 Total Bilirubin 0.40 mg/dL Normal 0.2-1.0 Alkaline Phosphatase 130 U/L High 34-104 Alt 23 U/L Normal 7-52 Ast 31 U/L Normal 13-39 Egfr Non- 79.7 >60 Egfr 96.5 >60 11 Thyroid 02/06/2019 [facility] Free T4 (Free 0.85 Normal 0.61- 1.[address] Thyroxine) ng/dL [place], [place] [id number] [phone] Thyroxine 7.86 g/dL Normal 6.09-12.23 TSH (Thyroid Stim Horm) 0.61 mcIU/mL Normal 0.34-5.60 1 Because ethnic data is not always readily [...] 15-29 5 Kidney failure <15 (or dialysis) 2 Normal Range 180 to 914 Indeterminate Range 145 to 180 Deficient Range <145 3 Microcytic anemia with red cell indices suggestive of iron deficiency. Additional studies as clinically warranted. Reviewed by Dr. Ruiz 4 Normal Range 180 to 914 Indeterminate Range 145 to 180 Deficient Range <145 5 Unable to report test result due to hemolysis. 6 Unable to calculate due to hemolysis. 7 Please note: The following may produce a false positive D Dimer test: - Rheumatoid factor greater than 60 IU/ml - Plasma hemoglobin greater than 0.05 gm/dl - Bilirubin greater than 50 mg/dl - Lipids greater than 1000 mg/dl - FDP greater than 20 ug/ml 8 [facility] Severe Sepsis and Septic Shock Management Bundle Measure requires all lactic acids initially measuring >2.0 mmol/L be repeated. 9 Standard intensity warfarin therapeutic range: 2.0-3.0 High intensity warfarin therapeutic range: 2.5-3.5 10 Result TnIDx:0.05 Called to [id number] at: 01:51:07 by:[id number] Read back by: [id number] Troponin-I testing on Plasma Separator Tubes (PST) has a known false positive rate of 0.20-0.40%. All positive troponins reflex immediately to secondary confirmatory testing. Using the [employer] DxI 800 Access Immunoassay systems, the 99th percentile upper reference limit was demonstrated to be < 0.03 ng/mL. 11 Because ethnic data is not always readily [...] (or dialysis) Procedures Date Code Description Status 07/04/2019 36977 EKG Tracing & Interpretation Completed 05/06/2019 97803 EKG, Interpretation Only Completed 02/16/2019 96904 ECHO Transthoracic, Real-Time 2D With Doppler And Color Completed Flow 02/16/2019 72261 ECHO Transthoracic, Real-Time 2D With Doppler And Color Completed Flow 02/15/2019 63807 EKG Tracing & Interpretation Completed 02/08/2019 26367 Treadmill Interp/Report Only Completed 02/08/2019 32530 Stress Test Supervsn W/Out I/R Completed 07/14/2010 31664135 Colonoscopy Completed 06/17/2010 [id number] Mammogram Completed 05/23/2009 [id number] Mammogram Completed Medical Devices Description No Information Available Encounters Type Date Location Provider Dx Diagnosis Office Visit 07/07/2019 [facility] Naomy Deng, D64.9 Anemia, unspecified 2:20p Medicine - [facility] I10 Essential (primary) hypertension R53.81 Other malaise R05 Cough Office Visit 07/04/2019 2:40p [facility] Drew Williamson I10 Essential (primary) Anayeli Rogers hypertension D64.9 Anemia, unspecified 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 I21.4 Non-St elevation (Nstemi) myocardial infarction I73.9 Peripheral vascular disease, unspecified I50.9 Heart failure, unspecified I34.0 Nonrheumatic mitral (valve) insufficiency R06.02 Shortness of breath Office Visit 05/23/2019 9:40a [facility] Марина Obando MD I25.10 [facility] - [facility] disease of hoh coronary artery w/o ang pctrs I21.4 Non-St elevation (Nstemi) myocardial infarction Z23 Encounter for immunization A04.72 Enterocolitis d/t Clostridium difficile, not spcf as recur D64.9 Anemia, unspecified Office Visit 05/06/2019 11:55a [facility] Memo Allred R07.9 Chest pain, Of Ihsan Sanford M.D. 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 (congestive) Hospitalists heart failure I11.0 Hypertensive heart disease with heart failure E78.5 Hyperlipidemia, unspecified Office Visit 04/24/2019 2:00p [facility] Марина Obando MD I10 Essential (primary) Medicine - Ccmob hypertension M48.062 Spinal stenosis, lumbar region with neurogenic claudication M25.551 Pain in right hip Office Visit 04/10/2019 1:30p [facility] Emma S. I34.0 Nonrheumatic mitral Foster, N.P. 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, lumbar region with neurogenic claudication I34.0 Nonrheumatic mitral (valve) insufficiency Office Visit 01/20/2019 2:20p [facility] Марина Obando MD R79.89 Other specified Medicine - Ccmob abnormal findings of blood chemistry D64.9 Anemia, unspecified M48.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 07/04/2019 D64.9 Anemia, unspecified Drew Rogers M.D. 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 infarction 07/04/2019 I73.9 Peripheral vascular disease, Drew Rogers M.D. unspecified 07/04/2019 I50.9 Chronic congestive heart failure Drew Rogers M.D. 07/04/2019 I34.0 Non-rheumatic mitral regurgitation Drew Rogers M.D. 07/04/2019 R06.02 Dyspnea on exertion Drew Rogers M.D. 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 05/06/2019 R07.9 Chest pain, unspecified Memo Sanford M.D. 05/06/2019 I25.10 Atherosclerotic heart disease of Memo Sanford M.D. hoh coronary artery without angina pectoris 05/06/2019 I73.9 Peripheral vascular disease, Memo Sanford M.D. unspecified 05/06/2019 E78.5 Hyperlipidemia, unspecified Memo Sanford M.D. 05/06/2019 I50.31 Acute diastolic (congestive) heart Savita Menjivar M.D. failure 05/06/2019 I11.0 Hypertensive heart disease with heart Savita Menjivar M.D. failure 05/06/2019 E78.5 Hyperlipidemia, unspecified Savita Menjivar M.D. 04/24/2019 I10 Essential (primary) hypertension Марина Obando MD 04/24/2019 M48.062 Spinal stenosis, lumbar region with Марина Obando MD neurogenic claudication 04/24/2019 M25.551 Pain in right hip Марина Obando MD 04/10/2019 I34.0 Nonrheumatic mitral (valve) Emma Winslow N.P. insufficiency 04/10/2019 I10 Essential (primary) hypertension Emma Winslow N.P. 04/10/2019 I25.10 Atherosclerotic heart disease of Emma Winslow, N.PMiguel Ángel hoh coronary artery with 02/16/2019 I34.0 Nonrheumatic mitral (valve) Drew Rogers M.D. insufficiency 02/16/2019 I34.0 Nonrheumatic mitral (valve) [facility] Schedule insufficiency 02/15/2019 I10 Essential (primary) hypertension Drew Rogers M.D. 02/15/2019 I25.10 Atherosclerotic heart disease of Drew Rogers M.D. hoh coronary artery with 02/15/2019 M48.062 Spinal stenosis, lumbar region with Drew Rogers M.D. neurogenic claudication 02/15/2019 I34.0 Non-rheumatic mitral regurgitation Drew Rogers M.D. 02/08/2019 I10 Essential (primary) hypertension Jose Burgos M.D. 02/08/2019 I25.10 Atherosclerotic heart disease of Jose Burgos M.D. hoh coronary artery with 01/20/2019 R79.89 Other specified abnormal findings of Марина Obando MD blood chemistry 01/20/2019 D64.9 Anemia, unspecified Марина Obando MD 01/20/2019 M48.062 Spinal stenosis, lumbar region with Марина Obando MD neurogenic claudication 01/20/2019 I10 Essential (primary) hypertension Марина Obando MD Plan of Treatment Future Appointment(s):07/21/2019 1:00 pm - Adelina Li M.D., FACP at [facility] - [facility]09/05/2019 3:00 pm - Drew Rogers M.D. at [facility]08/15/2019 2:15 pm - [facility] ECHO Schedule at [facility]07/07/2019 - Naomy Ish, MDD64.9 Anemia, unspecifiedComments: Please reschedule annual We have ordered you to get a blood transfusionYou should be contacted earlynext weekPlease go to the ED if you are having worsening symptoms as they may be able to help facilitate the [id number] Essential (primary) uhtqnvunslrpQ95.81 Other [id number] CoughNew Medication: Amoxicillin/Clavulanate Potassium 875-125 mg - take 1 tab by mouth every 12 hours for 5 days Functional Status Description No Information Available Mental Status Description No Information Available Referrals Refer to Dr Reason for Referral Status Appt Date Evan Garcia MD progressive and limiting anderson with known pvd, cad, Closed 03/17/2019 [facility] nuclear (anterior and inferior ischemia) , and moderate to severe MR. last cath at [facility] 2002 with 100% rca. please perform cardiac cath. [address] [place] [id number] [phone]
--- OUTSIDE RECORDS SUMMARY | 2019-07-09 10:54 | XMS REPORT | Continuity of Care Document ---
:1935 External Reference #:[id number] Author Name Drew Rogers M.D. (transmitted by agent of provider Rica Barrios ) Address [address] [address] Care Team Providers Name Role Phone Drew Rogers MD - Cardiovascular Care Team Information Front Desk Specialist Disease Chip Almendarez MD - Vascular Surgery Care Team Information Front Desk Specialist Nir Mcmahon MD - Care Team Information Front Desk Specialist [phone] Neurological Surgery Марина Obando M.D. - Family Medicine Care Team Information Front Desk Specialist [phone] Problems Active Problems Provider Date Spinal stenosis [...] Use Denies Drug Use Smoking Status Reviewed: 07/04/19 Patient is a former 1ppd X 60 years. smoker Exercise Type/Frequency Does not exercise Allergies, Adverse Reactions, Alerts Active Allergies Reaction Severity Comments Date Lipitor myalgias at 40 , okay at 20 05/14/2003 Lyrica off balance 02/29/2008 Inactive Allergies NKDA 05/14/2003 Medications Active Medications SIG Qnty Indications Ordering Provider Date Losartan Potassium 1 by mouth 90tabs I10 Drew Williamson 07/04/2019 25mg every other day Anayeli Rogers Tablets Ferrex 150 Forte 1 cap by mouth 30caps Adelina Li, 07/03/2019 every day Anayeli, FACP 966-6-15fb-mg-mcg Capsules Torsemide 1 by mouth 30tabs Марина Obando MD 05/23/2019 20mg Tablets twice a week Aspirin 81 1 by mouth 30tabs Марина Obando MD 04/10/[address] every day Nitroglycerin 1 sl q5 mins x3 25tabs I10 Drew Williamson 02/15/2019 0.4mg Tablets as needed for Anayeli Rogers Sub chest pain Roller Walker roller walker 1units R29.6 Марина Obando MD 12/07/2018 Misc with seat and brakes dx. m48.062 M48.062 Oxycodone-Acetaminophen 1 by mouth every 90tabs Naomy Deng, 2018 5-325mg Tablets 6 hours as needed for pain Ventolin HFA inhale 2 puffs 18units Марина Obando MD 10/03/2018 108(90Base) mcg/Act Aerosol by mouth four times a day as needed Magnesium-Oxide 1 by mouth every 90tabs Naomy Deng 12/01/2016 400(241.3mg) mg Tablets evening Trazodone HCL [...] B-12 Injection Jerrod Lopez, 07/14/2017 Injection Anayeli,FACP B-12 Injection Nurse Visit A 06/08/2017 Injection B-12 Injection Nurse Visit A 06/01/2017 Injection B-12 Injection Nurse Visit A 05/25/2017 Injection B-12 Injection Jerrod Lopez, 05/18/2017 Injection Anayeli,FACP Inj, Regadenoson, 0.1 MG Memo Sanford M.D. 12/31/2016 Injection Technetium TC 99M Memo Sanford M.D. 12/31/2016 Tetrofosmin, Per Unit Dose Up To 40 Millicuries Injection Immunizations CPT Code Status Date Vaccine Reaction Lot # [id number] Given 05/23/2019 Influenza Virus Vaccine, pt. tolerated well. [id number] [id number] Quadrivalent ([id number]), Derived From Cell 51594 Given 06/27/2018 Influenza Virus Vaccine, [id number] Quadrivalent, Split, Preservative Free 58593 Given 05/18/2017 Influenza Virus Vaccine, [id number] Quadrivalent, Split, Preservative Free 01337 Given 07/08/2016 Influ Virus Vaccine, [id number] Quadrivalent, Split Virus, [place] [address] Given 04/06/2015 Fluzone High Dose 70018 Given 12/28/2014 Pneumococcal Conjugate [id number] Vaccine 13 Valent For Intramuscular Use 83266 Given 04/25/2014 Fluzone High Dose Q2035 Given 04/02/2013 Afluria Vaccine 19968 Given 06/03/2012 Tdap - [id number] Tetanus/Diptheria/Acellular Pertussis Q2035 Given 04/07/2012 Afluria Vaccine 80102 Given 07/03/2010 Zoster (Zostavax) [id number] 35078 Given 05/10/2010 Influenza Virus 3Yrs & Over 45227 Given 08/28/2009 Influenza Virus Vaccine, [id number] Pandemic Formulation 72219 Given 05/31/2008 Influenza Virus 3Yrs & Over 08488 Given 05/31/2008 Influenza Virus 3Yrs & Over 08811 87914 Given 05/16/2001 Pneumonia Vaccine Vital Signs Date Vital Result Comment 07/04/2019 2:40pm Height 64.5 inches 5'4.50" Weight 141.00 lb with shoes Heart Rate 76 /min BP Systolic Sitting 128 mmHg Lue (Regular cuff) BP Diastolic Sitting 60 mmHg Lue (Regular cuff) BP Systolic Standing 120 mmHg BP Diastolic Standing 56 mmHg O2 % BldC Oximetry 98 % room air BMI (Body Mass Index) 23.8 kg/m2 Ejection Fraction 65%-70% echocardiogram 02/16/2019 06/30/2019 3:28pm Height 64.5 inches 5'4.50" Weight 139.00 lb BP Systolic 107 mmHg BP Diastolic 58 mmHg Body Temperature 99.4 F BMI (Body Mass Index) 23.5 kg/m2 Results Test Acquired Date Facility Test Result H/L Range Note CBC Auto 06/12/2019 [facility] White Blood 5.7 10^3/uL Normal 3.5-10.[address] [place] [address] [phone] Red Blood Count 3.39 10^6/uL Low 3.70-4.87 [...] Blood Cells % 0.1 Laboratory test 06/12/2019 [facility] Ferritin 9.4 ng/mL Low 11-307 finding [address] [place] [address] [phone] Urinalysis 05/06/2019 [facility] Urine Color Colorless Profile [address] [place] [address] [phone] Urine Appearance Clear Urine Specific [place] 1.005 Low 1.010-1.030 Urine pH 7.0 Normal 5-9 Urine Urobilinogen Negative Negative Urine Ketones Negative Negative Urine Protein Negative Negative Urine Leukocytes Negative Negative Urine Blood Negative Negative Urine Nitrite Negative Negative Urine Bilirubin Negative Negative Urine Glucose Negative Negative Comp Metabolic 05/05/2019 [facility] Sodium 140 mmol/L Normal 135-145 Panel [address] [place] [address] [phone] Potassium 3.9 mmol/L Normal 3.5-5.0 Chloride 104 [...] Egfr Non- 79.7 >60 Egfr 96.5 >60 1 Laboratory 05/05/2019 [facility] Troponin-I 0.05 Critical < 0.04 2 test finding [address] (TnI) ng/mL high [place], [place] [id number] [phone] CBC Auto Diff 05/05/2019 [facility] White Blood 7.5 Normal 3.5 -10.[address] Count 10^3/uL [place], [place] [id number] [phone] Red Blood Count 4.08 10^6/uL Normal 3.70-4.87 [...] Nucleated Red Blood Cells % 0.0 Laboratory test 05/05/2019 [facility] B-Type 703 pg/mL High <= [address] [place] [address] Peptide BNP [phone] Inr/Protime 05/05/2019 [facility] Inr 1.12 High 0.82-1.[address] [place] [address] [phone] Laboratory test 05/05/2019 [facility] D Dimer 553 ng/mL High Less Than [address] Quantitative [address] [place], [place] [id number] [phone] Lactic Acid 1.2 mmol/L Normal 0.5-2.0 5 Iron & Iron 05/05/2019 [facility] Total Iron 469 g/dL High 250-[address] [place] [address] Capacity [phone] Transferrin 335 mg/dL Normal 203-362 Iron TNP g/dL 50-212 6 % Iron Saturation TNP % 15-55 7 Laboratory test 05/05/2019 [facility] Folic Acid 3.53 ng/mL > 3.[address] (Folate) [place], [place] [id number] [phone] Vitamin B12 207 pg/mL Normal 180-914 8 Thyroid 02/06/2019 [facility] Free T4 (Free 0.85 Normal 0.61- 1.[address] Thyroxine) ng/[place] [address] [phone] Thyroxine 7.86 g/dL Normal 6.09-12.23 TSH (Thyroid [...] 5 Kidney failure <15 (or dialysis) 2 Result TnIDx:0.05 Called to [id number] at: 01:51:07 by:[id number] Read back by: [id number] Troponin-I testing on Plasma Separator Tubes (PST) has a known false positive rate of 0.20-0.40%. All positive troponins reflex immediately to secondary confirmatory testing. Using the [employer] DxI 800 Access Immunoassay systems, the 99th percentile upper reference limit was demonstrated to be < 0.03 ng/mL. 3 Standard intensity warfarin therapeutic range: 2.0-3.0 High intensity warfarin therapeutic range: 2.5-3.5 4 Please note: The following may produce a false positive D Dimer test: - Rheumatoid factor greater than 60 IU/ml - Plasma hemoglobin greater than 0.05 gm/dl - Bilirubin greater than 50 mg/dl - Lipids greater than 1000 mg/dl - FDP greater than 20 ug/ml 5 [facility] Severe Sepsis and Septic Shock Management Bundle Measure requires all lactic acids initially measuring >2.0 mmol/L be repeated. 6 Unable to report test result due to hemolysis. 7 Unable to calculate due to hemolysis. 8 Normal Range 180 to 914 Indeterminate Range 145 to 180 Deficient Range <145 Procedures Date Code Description Status 07/04/2019 34372 EKG Tracing & Interpretation Completed 05/06/2019 70501 EKG, Interpretation Only Completed 02/16/2019 72085 ECHO Transthoracic, Real-Time 2D With Doppler And Color Completed Flow 02/16/2019 77298 ECHO Transthoracic, Real-Time 2D With Doppler And Color Completed Flow 02/15/2019 96945 EKG Tracing & Interpretation Completed 02/08/2019 31392 Treadmill Interp/Report Only Completed 02/08/2019 56901 Stress Test Supervsn W/Out I/R Completed 07/14/2010 29910348 Colonoscopy Completed 06/17/2010 90288402 Mammogram Completed 05/23/2009 [id number] Mammogram Completed Medical Devices Description No Information Available Encounters Type Date Location Provider Dx Diagnosis Office Visit 05/23/2019 [facility] Марина Obando MD I25.10 [facility] heart 9:40a Medicine - [facility] disease of [place] coronary artery w/o ang pctrs I21.4 Non-St elevation (Nstemi) myocardial infarction Z23 Encounter for immunization A04.72 Enterocolitis d/t Clostridium difficile, not spcf as recur D64.9 Anemia, unspecified Office Visit 05/06/2019 11:55a [facility] Memo Allred R07.9 Chest pain, Of Ihsan Sanford M.D. unspecified I25.10 Athscl heart disease of [place] coronary artery w/o ang pctrs I73.9 Peripheral vascular disease, unspecified E78.5 Hyperlipidemia, unspecified [facility]31 Acute diastolic 9:53a cecilia Vargas M.D. 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 07/04/2019 D64.9 Anemia, unspecified Drew Rogers M.D. 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 [place] coronary artery without angina pectoris 05/06/2019 I73.9 [...] MD 04/10/2019 I34.0 Nonrheumatic mitral (valve) Emma Winslow, N.P. insufficiency 04/10/2019 I10 Essential (primary) hypertension Emma Winslow, N.P. 04/10/2019 I25.10 Atherosclerotic heart disease of Emma Winslow, N.P. [place] coronary artery with 02/16/2019 I34.0 Nonrheumatic mitral (valve) Drew Rogers M.D. insufficiency 02/16/2019 I34.0 Nonrheumatic mitral (valve) [facility] insufficiency 02/15/2019 I10 Essential (primary) hypertension Drew Rogers M.D. 02/15/2019 I25.10 Atherosclerotic heart disease of Drew Rogers M.D. [place] coronary artery with 02/15/2019 M48.062 Spinal stenosis, lumbar region with Drew Rogers M.D. neurogenic claudication 02/15/2019 I34.0 Non-rheumatic mitral regurgitation Drew Rogers M.D. 02/08/2019 I10 Essential (primary) hypertension Jose Burgos M.D. 02/08/2019 I25.10 Atherosclerotic heart disease of Jose Burgos M.D. [place] coronary artery with 01/20/2019 R79.89 Other specified abnormal findings of Марина Obando MD blood chemistry 01/20/2019 D64.9 Anemia, unspecified Марина Obando MD 01/20/2019 M48.062 Spinal stenosis, lumbar region with Марина Obando MD neurogenic claudication 01/20/2019 I10 Essential (primary) hypertension Марина Obando MD Plan of Treatment Future Appointment(s):09/05/2019 3:00 pm - Drew Rogers M.D. at [facility]08/15/2019 2:15 pm - [place] [facility] Schedule at [facility]2018 2:00 pm - Magda Coello NP at [facility]07/07/2019 2:20 pm - Naomy Deng MD at [facility] Internal Medicine - [facility]07/04/2019 - Drew Rogers M.D.I10 Essential (primary) hypertensionNew Medication:Losartan Potassium 25 mg - 1 by mouth every other dayD64.9 Anemia, icjehlffzmjT66.10 Atherosclerotic heart disease of [place] coronary artery without angina cmxigyyxC72.4 Non-St elevation (Nstemi) myocardial woyvidhrtaP51.9 Peripheral vascular disease, uojuwejqxeqM73.9 Chronic congestive heart aywnmhfS26.0 Non- rheumatic mitral regurgitationNew Orders:Echocardiogram, Ordered: R06.02 Dyspnea on exertionFollow up:ov Emma 1 week ov JFM 2 mRecommendations: daily weights call if wt increases three pounds or more Functional Status Description No Information Available Mental Status Description No Information Available Referrals Refer to Dr Reason for Referral Status Appt Date Evan Garcia MD progressive and limiting [place]erson with known pvd, cad, Closed 03/17/2019 [facility] nuclear (anterior and inferior ischemia) , and moderate to severe MR. last cath at [facility] 2002 with 100% rca. please perform cardiac cath. [address] [place] [address] [phone]
--- OUTSIDE RECORDS SUMMARY | 2019-07-09 10:55 | XMS REPORT | Continuity of Care Document ---
:1935 External Reference #:[id number] Author Name Drew Rogers M.D. Address [address] [facility] [address] [place] [address] Care Team Providers Name Role Phone Drew Rogers MD - Cardiovascular Care Team Information Anthropology Faculty Member [phone] Disease Chip Almendarez MD - Vascular Surgery Care Team Information Anthropology Faculty Member Nir Mcmahon MD - Care Team Information Anthropology Faculty Member [phone] Neurological Surgery Марина Obando M.D. - Family Medicine Care Team Information Anthropology Faculty Member [phone] Problems Active Problems Provider Date Spinal stenosis [...] Adelina Li, 07/03/2019 every day Anayeli, FACP [id number]-mg-mcg Capsules Torsemide 1 by mouth 30tabs Марина [...] Date B-12 Injection Jerrod Lopez, 08/26/2017 [facility] Jerrod Lopez, 07/14/2017 Injection Anayeli,[facility] B-12 Injection Nurse Visit A 06/08/2017 Injection B-12 Injection Nurse Visit A 06/01/2017 Injection B-12 Injection Nurse Visit A 05/25/2017 Injection B-12 Injection Jerrod Lopez, 05/18/2017 Injection Anayeli,FACP Inj, Regadenoson, 0.1 MG Memo Sanford M.D. 12/31/2016 Injection Technetium TC 99M Memo Sanford M.D. 12/31/2016 Tetrofosmin, Per Unit Dose Up To 40 Millicuries Injection Immunizations CPT Code Status Date Vaccine Reaction Lot # [id number] Given 05/23/2019 Influenza Virus Vaccine, pt. tolerated well. [id number] Quadrivalent (Cciiv4), Derived From Cell 62615 Given 06/27/2018 Influenza Virus Vaccine, [id number] Quadrivalent, Split, Preservative Free 77427 Given 05/18/2017 Influenza Virus Vaccine, [id number] Quadrivalent, Split, Preservative Free 50945 Given 07/08/2016 Influ Virus Vaccine, [id number] Quadrivalent, Split Virus, [place] [address] Given 04/06/2015 Fluzone High Dose 19094 Given 12/28/2014 Pneumococcal Conjugate [id number] Vaccine 13 Valent For Intramuscular Use 67725 Given 04/25/2014 Fluzone High Dose Q2035 Given 04/02/2013 Afluria Vaccine 07723 Given 06/03/2012 Tdap - [id number] Tetanus/Diptheria/Acellular Pertussis Q2035 Given 04/07/2012 Afluria Vaccine 91604 Given 07/03/2010 Zoster (Zostavax) [id number] 99175 Given 05/10/2010 Influenza Virus 3Yrs & Over 30859 Given 08/28/2009 Influenza Virus Vaccine, [id number] Pandemic Formulation 45807 Given 05/31/2008 Influenza Virus 3Yrs & Over 65108 Given 05/31/2008 Influenza Virus 3Yrs & Over 02415 65105 Given 05/16/2001 Pneumonia Vaccine Vital Signs Date [...] Result H/L Range Note CBC Auto 06/12/2019 [facility] White Blood 5.7 10^3/uL Normal 3.5-10.[address] Count [place], [place] [id number] [phone] Red Blood Count 3.39 10^6/uL Low 3.70-4.87 [...] Blood Cells % 0.1 Laboratory test 06/12/2019 [facility] Ferritin 9.4 ng/mL Low 11-307 finding [address] [place] [address] [phone] Urinalysis 05/06/2019 [facility] Urine Color Colorless Profile [address] [place] [address] [phone] Urine Appearance Clear Urine Specific [place] 1.005 Low 1.010-1.030 Urine pH 7.0 Normal 5-9 Urine Urobilinogen Negative Negative Urine Ketones Negative Negative Urine Protein Negative Negative Urine Leukocytes Negative Negative Urine Blood Negative Negative Urine Nitrite Negative Negative Urine Bilirubin Negative Negative Urine Glucose Negative Negative Comp Metabolic 05/05/2019 [facility] Sodium 140 mmol/L Normal 135-145 Panel [address] [place] [address] [phone] Potassium 3.9 mmol/L Normal 3.5-5.0 Chloride 104 [...] >60 Egfr 96.5 >60 1 Laboratory 05/05/2019 [facility] Troponin-I 0.05 Critical < 0.04 2 test finding [address] (TnI) ng/mL high [place], [place] [address] [phone] CBC Auto Diff 05/05/2019 [facility] White Blood 7.5 Normal 3.5 -10.[address] Count 10^3/uL [place], [place] [address] [phone] Red Blood Count 4.08 10^6/uL Normal 3.70-4.87 [...] Blood Cells % 0.0 Laboratory test 05/05/2019 [facility] B-Type 703 pg/mL High <= [address] [place] [address] Peptide BNP [phone] Inr/Protime 05/05/2019 [facility] Inr 1.12 High 0.82-1.[address] [place] [address] [phone] Laboratory test 05/05/2019 [facility] D Dimer 553 ng/mL High Less Than [address] Quantitative [address] [place], [place] [address] [phone] Lactic Acid 1.2 mmol/L Normal 0.5-2.0 5 Iron & Iron 05/05/2019 [facility] Total Iron 469 g/dL High 250-[address] [place] [address] Capacity [phone] Transferrin 335 mg/dL Normal 203-362 Iron TNP g/dL 50-212 6 % Iron Saturation TNP % 15-55 7 Laboratory test 05/05/2019 [facility] Folic Acid 3.53 ng/mL > 3.[address] (Folate) [place], [place] [address] [phone] Vitamin B12 207 pg/mL Normal 180-914 8 Thyroid 02/06/2019 [facility] Free T4 (Free 0.85 Normal 0.61- 1.[address] Thyroxine) ng/dL [place], [place] [address] [phone] Thyroxine 7.86 g/dL Normal 6.09-12.23 TSH (Thyroid [...] (or dialysis) 2 Result TnIDx:0.05 Called to [id number] at: 01:51:07 by:[id number] Read back by: [id number] Troponin-I testing on Plasma Separator Tubes (PST) has a known false positive rate of 0.20-0.40%. All positive troponins reflex immediately to secondary confirmatory testing. Using the [employer] DxI 800 Access Immunoassay systems, the 99th [...] - FDP greater than 20 ug/ml 5 [facility] Severe Sepsis and Septic Shock Management Bundle Measure requires all lactic acids initially measuring >2.0 mmol/L be repeated. 6 Unable to report test result due to hemolysis. 7 Unable to calculate due to hemolysis. 8 Normal Range 180 to 914 Indeterminate Range 145 to 180 Deficient Range <145 Procedures Date Code Description Status 07/04/2019 86200 EKG Tracing & Interpretation Completed 05/06/2019 48624 EKG, Interpretation Only Completed 02/16/2019 96270 ECHO Transthoracic, Real-Time 2D With Doppler And Color Completed Flow 02/16/2019 35587 ECHO Transthoracic, Real-Time 2D With Doppler And Color Completed Flow 02/15/2019 30534 EKG Tracing & Interpretation Completed 02/08/2019 95650 Treadmill Interp/Report Only Completed 02/08/2019 59814 Stress Test Supervsn W/Out I/R Completed 07/14/2010 94449049 Colonoscopy Completed 06/17/2010 78987892 Mammogram Completed 05/23/2009 [id number] Mammogram Completed Medical Devices Description No Information Available Encounters Type Date Location Provider Dx Diagnosis Office Visit 05/23/2019 [facility] Марина Obando MD I25.10 Athscl heart 9:40a Medicine - Ccmob disease of [place] coronary artery w/o ang pctrs I21.4 Non-St elevation (Nstemi) myocardial infarction Z23 Encounter for immunization A04.72 Enterocolitis d/t Clostridium difficile, not spcf as recur D64.9 Anemia, unspecified Office Visit 05/06/2019 11:55a [facility] Memo Allred R07.9 Chest pain, Of Ihsan Sanford M.D. unspecified I25.10 Athscl heart disease of [place] coronary artery w/o ang pctrs I73.9 Peripheral vascular disease, unspecified E78.5 Hyperlipidemia, unspecified Office Visit 05/06/2019 [facility] Savita Hohn, I50.31 Acute diastolic 9:53a cecilia Vargas M.D. 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 (valve) insufficiency I10 Essential (primary) hypertension I25.10 Athscl heart disease of [place] coronary artery w/o ang pctrs Office Visit 02/15/2019 2:30p [facility] Drew Williamson I1Rosemary Essential (primary) Anayeli Rogers hypertension I25.10 Athscl heart disease of [place] coronary artery w/o [facility] pctrs M48.062 Spinal stenosis, lumbar region with neurogenic claudication I34.0 Nonrheumatic mitral (valve) insufficiency Office Visit 01/20/2019 2:20p [facility] Kory Obando MD R79.89 Other specified Medicine - Ccmob abnormal findings of blood chemistry D64.9 Anemia, unspecified M48.062 Spinal stenosis, lumbar region with neurogenic claudication I10 Essential (primary) hypertension Assessments Date Code Description Provider 07/04/2019 I10 Essential (primary) hypertension Drew Rogers M.D. 07/04/2019 D64.9 Anemia, unspecified Drew Rogers M.D. 07/04/2019 I25.10 Atherosclerotic heart disease of Drew Rogers M.D. [place] coronary artery without angina pectoris 07/04/2019 I21.4 [...] Atherosclerotic heart disease of Марина Obando MD [place] coronary artery without angina pectoris 05/23/2019 I21.4 [...] Atherosclerotic heart disease of Memo Sanford M.D. [place] coronary artery without angina pectoris 05/06/2019 I73.9 [...] heart disease of Emma Winslow, N.PMiguel Ángel [place] coronary artery with 02/16/2019 I34.0 Nonrheumatic mitral (valve) Drew Rogers M.D. insufficiency 02/16/2019 I34.0 Nonrheumatic mitral (valve) Ica ECHO Schedule insufficiency 02/15/2019 I10 Essential (primary) hypertension Drew Rogers M.D. 02/15/2019 I25.10 Atherosclerotic heart disease of Drew Rogers M.D. [place] coronary artery with 02/15/2019 M48.062 Spinal stenosis, lumbar region with Drew Rogers M.D. neurogenic claudication 02/15/2019 I34.0 Non-rheumatic mitral regurgitation Drew Rogers M.D. 02/08/2019 I10 Essential (primary) hypertension Jsoe Burgos M.D. 02/08/2019 I25.10 Atherosclerotic heart disease of Jose Burgos M.D. [place] coronary artery with 01/20/2019 R79.89 Other specified abnormal findings of Марина Obando MD blood chemistry 01/20/2019 D64.9 Anemia, unspecified Марина Obando MD 01/20/2019 M48.062 Spinal stenosis, lumbar region with Марина Obando MD neurogenic claudication 01/20/2019 I10 Essential (primary) hypertension Марина Obando MD Plan of Treatment Future Appointment(s):07/07/2019 2:20 pm - Na[facility] at [facility] - Drew Rogers M.D.I10 Essential (primary) hypertensionNew Medication:Losartan Potassium 25 mg - 1 by mouth every other dayD64.9 Anemia, rcvvhmvudjnQ07.10 Atherosclerotic heart disease of [place] coronary artery without angina larmsnkgV82.4 Non-St elevation (Nstemi) myocardial djjyfiamitY50.9 Peripheral vascular disease, uxhdqvhvoxyB46.9 Chronic congestive heart yykxgxcW40.0 Non-rheumatic mitral regurgitationNew Orders:Echocardiogram, Ordered: 07/04/19R06.02 Dyspnea on exertionFollow up:ov Emma 1 week ov HENRI 2 mRecommendations:daily weights call if wt increases three pounds [...] please perform cardiac cath. [address] [address] [phone]
--- OUTSIDE RECORDS SUMMARY | 2019-07-09 10:55 | XMS REPORT | Continuity of Care Document ---
:1935 External Reference #:[id number] Author Name Naomy Deng MD (transmitted by agent of provider Marge Lewis) Address [address] [facility] [place] [address] Care Team Providers Name Role Phone Drew Rogers MD - Cardiovascular Care Team Information Mail Deliverer Disease Chip Almendarez MD - Vascular Surgery Care Team Information Mail Deliverer Nir Mcmahon MD - Care Team Information Mail Deliverer [phone] Neurological Surgery Марина Obando M.D. - Family Medicine Care Team Information Mail Deliverer Problems Active Problems Provider Date Spinal stenosis [...] Use Denies Drug Use Smoking Status Reviewed: 06/30/19 Patient is a former 1ppd X 60 years. smoker Exercise Type/Frequency walks almost daily Allergies, Adverse Reactions, Alerts Active Allergies Reaction Severity Comments Date Lipitor myalgias at 40 , okay at 20 05/14/2003 Lyrica off balance 02/29/2008 Inactive Allergies NKDA 05/14/2003 Medications Active Medications SIG Qnty Indications Ordering Provider Date Torsemide 1 by mouth 30tabs Марина Obando MD 05/23/2019 20mg Tablets every other day Aspirin 81 1 by mouth 30tabs Марина Obando MD 04/10/[address] every day Nitroglycerin 1 sl q5 mins x3 25tabs I10 Drew Williamson 02/15/2019 0.4mg Tablets as needed for Anayeli Rogers Sub chest pain Roller Walker roller walker 1units R29.6 Марина [facility]band[facility] m48.062 M48.062 Oxycodone-Acetaminophen 1 by mouth 90tabs Naomy Deng 11/10/2018 5-325mg Tablets every 6 hours as needed for pain Losartan Potassium take 1 tablet 90tabs I10 Марина Obando MD 11/08/2018 50mg Tablets by mouth once daily Ventolin HFA inhale 2 puffs 18units Марина Obando MD 10/03/2018 108(90Base) mcg/Act Aerosol by mouth four times a day as needed Magnesium-Oxide 1 by mouth 90tabs Naomy Deng, 12/01/2016 400(241.3mg) mg Tablets every evening Trazodone HCL take 4-5 every 270tabs Марина Obando MD 06/29/2014 50mg Tablets night at bedtime Mirtazapine take one tablet 90tabs Марина Obando MD 08/21/2011 30mg Tablets by mouth daily at bedtime Labetalol HCL take one 180tabs Марина Obando MD 02/26/2011 200mg Tablets tablets by mouth once a day Atorvastatin Calcium 1 by mouth Unknown 40mg Tablets every day Potassium Chloride Lucía ER take one [...] Date B-12 Injection Jerrod Lopez, 08/26/2017 [facility] Jerrod Lopez, 07/14/2017 Injection Anayeli,ABI BMisa12 Injection Nurse Visit A 06/08/2017 Injection B-12 Injection Nurse Visit A 06/01/2017 Injection [id number] Injection Nurse Visit A 05/25/2017 Injection B-12 Injection Jerrod Lopez, 05/18/2017 Injection Anayeli,FACP Inj, Regadenoson, 0.1 MG Memo Sanford M.D. 12/31/2016 Injection Technetium TC 99M Memo Sanford M.D. 12/31/2016 Tetrofosmin, Per Unit Dose Up To 40 Millicuries Injection Immunizations CPT Code Status Date Vaccine Reaction Lot # [id number] Given 05/23/2019 Influenza Virus Vaccine, pt. tolerated well. [id number] Quadrivalent (Cciiv4), Derived From Cell 85296 Given 06/27/2018 Influenza Virus Vaccine, [id number] Quadrivalent, Split, Preservative Free 10183 Given 05/18/2017 Influenza Virus Vaccine, [id number] Quadrivalent, Split, Preservative Free 22305 Given 07/08/2016 Influ Virus Vaccine, [id number] Quadrivalent, Split Virus, [place] [address] Given 04/06/2015 Fluzone High Dose 50224 Given 12/28/2014 Pneumococcal Conjugate [id number] Vaccine 13 Valent For Intramuscular Use 60547 Given 04/25/2014 Fluzone High Dose Q2035 Given 04/02/2013 Afluria Vaccine 58827 Given 06/03/2012 Tdap - [id number] Tetanus/Diptheria/Acellular Pertussis Q2035 Given 04/07/2012 Afluria Vaccine 78390 Given 07/03/2010 Zoster (Zostavax) [id number] 42364 Given 05/10/2010 Influenza Virus 3Yrs & Over 84131 Given 08/28/2009 Influenza Virus Vaccine, [id number] Pandemic Formulation 24258 Given 05/31/2008 Influenza Virus 3Yrs & Over 16518 Given 05/31/2008 Influenza Virus 3Yrs & Over 44503 41203 Given 05/16/2001 Pneumonia Vaccine Vital Signs Date Vital Result Comment 06/30/2019 3:28pm Height 64.5 inches 5'4.50" Weight 139.00 lb BP Systolic 107 mmHg BP Diastolic 58 mmHg Body Temperature 99.4 F BMI (Body Mass Index) 23.5 kg/m2 05/23/2019 9:33am Height 64.5 inches 5'4.50" Weight 149.00 lb Heart Rate 80 /min BP Systolic Sitting 134 mmHg BP Diastolic Sitting 74 mmHg Body Temperature 97.3 F O2 % BldC Oximetry 96 % BMI (Body Mass Index) 25.2 kg/m2 Results Test Acquired Date Facility Test Result H/L Range Note CBC Auto 06/12/2019 [facility] White Blood 5.7 10^3/uL Normal 3.5-10.[address] [place] [address] [phone] Red Blood Count 3.39 10^6/uL Low 3.70-4.87 [...] Blood Cells % 0.1 Laboratory test 06/12/2019 [facility] Ferritin 9.4 ng/mL Low 11-[address] [place] [address] [phone] Urinalysis 05/06/2019 [facility] Urine Color Colorless Profile [address] [place] [address] [phone] Urine Appearance Clear Urine Specific [place] 1.005 Low 1.010-1.030 Urine pH 7.0 Normal 5-9 Urine Urobilinogen Negative Negative Urine Ketones Negative Negative Urine Protein Negative Negative Urine Leukocytes Negative Negative Urine Blood Negative Negative Urine Nitrite Negative Negative Urine Bilirubin Negative Negative Urine Glucose Negative Negative Comp Metabolic 05/05/2019 [facility] Sodium 140 mmol/L Normal 135-[address] [place] [address] [phone] Potassium 3.9 mmol/L Normal 3.5-5.0 Chloride 104 [...] >60 Egfr 96.5 >60 1 Laboratory 05/05/2019 [facility] Troponin-I 0.05 Critical < 0.04 2 test finding [address] (TnI) ng/[place] [address] [phone] CBC Auto Diff 05/05/2019 [facility] White Blood 7.5 Normal 3.5 -10.[address] Count 10^3/[place] [address] [phone] Red Blood Count 4.08 10^6/uL Normal 3.70-4.87 [...] Blood Cells % 0.0 Laboratory test 05/05/2019 [facility] B-Type 703 pg/mL High <= [address] [place] [address] Peptide BNP [phone] Inr/Protime 05/05/2019 [facility] Inr 1.12 High 0.82-1.[address] [place] [address] [phone] Laboratory test 05/05/2019 [facility] D Dimer 553 ng/mL High Less Than [address] Quantitative [address] [place] [address] [phone] Lactic Acid 1.2 mmol/L Normal 0.5-2.0 5 Iron & Iron 05/05/2019 [facility] Total Iron 469 g/dL High 250-[address] [place] [address] Capacity [phone] Transferrin 335 mg/dL Normal 203-362 Iron TNP g/dL 50-212 6 % Iron Saturation TNP % 15-55 7 Laboratory test 05/05/2019 [facility] Folic Acid 3.53 ng/mL > 3.[address] (Folate) [place] [address] [phone] Vitamin B12 207 pg/mL Normal 180-914 8 Thyroid 02/06/2019 [facility] Free T4 (Free 0.85 Normal 0.61- 1.[address] Thyroxine) ng/[place] [address] [phone] Thyroxine 7.86 g/dL Normal 6.09-12.23 TSH (Thyroid [...] (or dialysis) 2 Result TnIDx:0.05 Called to [id number] at: 01:51:07 by:[id number] Read back by: [id number] Troponin-I testing on Plasma Separator Tubes (PST) has a known false positive rate of 0.20-0.40%. All positive troponins reflex immediately to secondary confirmatory testing. Using the [employer] DxI 800 Access Immunoassay systems, the 99th [...] - FDP greater than 20 ug/ml 5 [facility] Severe Sepsis and Septic Shock Management Bundle Measure requires all lactic acids initially measuring >2.0 mmol/L be repeated. 6 Unable to report test result due to hemolysis. 7 Unable to calculate due to hemolysis. 8 Normal Range 180 to 914 Indeterminate Range 145 to 180 Deficient Range <145 Procedures Date Code Description Status 05/06/2019 23758 EKG, Interpretation Only Completed 02/16/2019 26977 ECHO Transthoracic, Real-Time 2D With Doppler And Color Completed Flow 02/16/2019 85849 ECHO Transthoracic, Real-Time 2D With Doppler And Color Completed Flow 02/15/2019 42526 EKG Tracing & Interpretation Completed 02/08/2019 05471 Treadmill Interp/Report Only Completed 02/08/2019 38708 Stress Test Supervsn W/Out I/R Completed 07/14/2010 85490016 Colonoscopy Completed 06/17/2010 [id number] Mammogram Completed 05/23/2009 [id number] Mammogram Completed Medical Devices Description No Information Available Encounters Type Date Location Provider Dx Diagnosis Office Visit 05/23/2019 [facility] Марина Obando MD I25.10 Athscl heart 9:40a Medicine - Ccmob disease of [place] coronary artery w/o ang pctrs I21.4 Non-St elevation (Nstemi) myocardial infarction Z23 Encounter for immunization A04.72 Enterocolitis d/t Clostridium difficile, not spcf as recur D64.9 Anemia, unspecified Office Visit 05/06/2019 11:55a [facility] Memo Allred R07.9 Chest pain, Of Ihsan Sanford M.D. unspecified I25.10 Athscl heart disease of [place] coronary artery w/o ang pctrs I73.9 Peripheral vascular disease, unspecified E78.5 Hyperlipidemia, unspecified Office Visit 05/06/2019 [facility] Savita Menjivar, I50.31 Acute diastolic 9:53a cecilia Vargas M.D. 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 stenosis, lumbar region with neurogenic claudication I34.0 Nonrheumatic mitral (valve) insufficiency Office Visit 01/20/2019 2:20p [facility] Internal Марина Obando MD R79.89 Other specified Medicine - Ccmob abnormal findings of blood chemistry D64.9 Anemia, unspecified M48.062 Spinal stenosis, lumbar region with neurogenic claudication I10 Essential (primary) hypertension Assessments Date Code Description Provider 06/30/2019 D64.9 Anemia, unspecified Naomy Deng MD 06/30/2019 I10 Essential (primary) hypertension Naomy Deng MD 05/23/2019 I25.10 Atherosclerotic heart disease of Марина Obando MD [place] coronary artery without angina pectoris 05/23/2019 I21.4 [...] Atherosclerotic heart disease of Memo Sanford M.D. [place] coronary artery without angina pectoris 05/06/2019 I73.9 [...] heart disease of Emma Winslow, N.PMiguel Ángel [place] coronary artery with 02/16/2019 I34.0 Nonrheumatic mitral (valve) Drew Rogers M.D. insufficiency 02/16/2019 I34.0 Nonrheumatic mitral (valve) Ica ECHO Schedule insufficiency 02/15/2019 I10 Essential (primary) hypertension Drew Rogers M.D. 02/15/2019 I25.10 Atherosclerotic heart disease of Drew Rogers M.D. [place] coronary artery with 02/15/2019 M48.062 Spinal stenosis, lumbar region with Drew Rogers M.D. neurogenic claudication 02/15/2019 I34.0 Non-rheumatic mitral regurgitation Drew Rogers M.D. 02/08/2019 I10 Essential (primary) hypertension Jose Burgos M.D. 02/08/2019 I25.10 Atherosclerotic heart disease of Jose Burgos M.D. [place] coronary artery with 01/20/2019 R79.89 Other specified abnormal findings of Марина Obando MD blood chemistry 01/20/2019 D64.9 Anemia, unspecified Марина Obando MD 01/20/2019 M48.062 Spinal stenosis, lumbar region with Марина Obando MD neurogenic claudication 01/20/2019 I10 Essential (primary) hypertension Марина Obando MD Plan of Treatment Future Appointment(s):07/07/2019 2:20 pm - Naomy Deng MD at [facility] Internal Medicine - [facility]07/04/2019 2:40 pm - Drew Rogers M.D. at [facility]06/30/2019 - Naomy Deng, MDD64.9 Anemia, [id number] Essential (primary) hypertension Functional Status Description No Information Available Mental Status Description No Information Available Referrals Refer to Dr Reason for Referral Status Appt Date Evan Garcia MD progressive and limiting andesron with known pvd, cad, Closed 03/17/2019 [facility] nuclear (anterior and inferior ischemia) , and moderate to severe MR. last cath at [facility] 2002 with 100% rca. please perform cardiac cath. [address] [address] [phone]
--- OUTSIDE RECORDS SUMMARY | 2019-07-09 10:55 | XMS REPORT | Summary of Care ---
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 labetalol Take 200 mg by 0 Active (NORMODYNE) 200 MG mouth DAILY. Oral Tab losartan (COZAAR) Take 50 mg by 0 Active 50 MG Oral Tab mouth DAILY. magnesium oxide Take 400 mg by 0 Active (MAG-OX) 400 mouth DAILY. (241.3 Mg) MG Oral Tab mirtazapine Take 30 mg by 0 Active (REMERON) 30 MG mouth EVERY Oral Tab BEDTIME. nitroglycerin Place 0.4 mg 0 Active (NITROSTAT) 0.4 MG under tongue Sublingual SL Tab EVERY FIVE MINUTES NEEDED for chest pain. OXYcodone-acetamin Take 1 Tab by 0 Active ophen (PERCOCET) mouth EVERY SIX 5-325 MG Oral Tab HOURS NEEDED. trazodone Take 50 mg by 0 Active (DESYREL) 50 MG mouth EVERY Oral Tab BEDTIME. albuterol Take 2 Puffs by 0 Active (PROVENTIL,VENTOLI inhalation FOUR N) 90 mcg/act TIMES DAILY NEEDED. vancomycin Take 1 Cap by 40 Cap 0 05/10/2019 Active (VANCOCIN) 125 MG mouth FOUR Oral Cap TIMES DAILY. potassium chloride TAKE 1 TABLET 90 Tab 3 05/10/2019 Active (K-DUR) 10 MEQ BY MOUTH DAILY Oral Tab CR torsemide TAKE 1 TABLET 90 Tab 3 05/10/2019 Active (DEMADEX) 20 MG BY MOUTH DAILY Oral Tab atorvastatin TAKE 1 TABLET 90 Tab 11 05/10/2019 Active (LIPITOR) 40 MG BY MOUTH EVERY Oral Tab NIGHT AT BEDTIME ticagrelor Take 1 Tab by 180 Tab 3 05/16/2019 Active (BRILINTA) 90 MG mouth TWICE Oral Tab DAILY. ticagrelor Take 1 Tab by 60 Tab 11 05/09/2019 05/16/20 Discontinued (BRILINTA) 90 MG mouth TWICE 19 (Reorder) Oral Tab DAILY. documented as of this encounter (statuses as of 05/17/2019) Active Problems Problem Noted Date NSTEMI (non-ST elevated myocardial infarction) 05/06/2019 ASHD (arteriosclerotic heart disease) 03/21/2019 Overview: Added automatically from request for surgery [id number] CAD (coronary artery disease) 03/16/2019 Overview: Catheterization 05/03/2003 Dr. Be CONCLUSION: 1. Three-vessel coronary disease with mild nonobstructive plaquing of the circumflex and left anterior descending, occlusion of the right coronary a rtery, excellent [id number]-[id number] collateral formation. As her coronary anatomy is [...] beta blockade. Nuclear Cardiac Stress Test 02/08/2019 ([facility]) Impression: moderate area of reversible change in the anterior wall. Area of reversible change in the inferior wall. Normal ejection fraction and wall motion. PVD (peripheral vascular disease) 03/16/2019 documented as of this encounter (statuses as of 05/17/2019) Social History Tobacco Use Types Packs/Day Years Used Date Former Smoker 1 20 Quit: 05/06/1978 Smokeless Tobacco: Never Used Alcohol Use Drinks/Week oz/Week Comments Never Alcohol Habits Answer Date Recorded How often do you have a drink containing alcohol? Never 03/17/2019 How many drinks containing alcohol do you have on a typical Not asked day when you are drinking? How often do you have six or more drinks on one occasion? Not asked Financial Resource Strain Answer Date Recorded How hard is it for you to pay for the very basics like Not hard at all 2018 food, housing, medical care, and heating? Transportation Needs Answer Date Recorded In the past 12 months, has lack of transportation kept you No 05/06/2019 from medical appointments or from getting medications? In the past 12 months, has lack of transportation kept you Not asked from meetings, work, or getting things needed for daily living? Sex Assigned at Date Recorded Not on file Job Start Date Occupation Industry Not on file Not on file Not on file Travel History Travel Start Travel End No recent travel history available. documented as of this encounter Last Filed Vital Signs Vital Sign Reading Time Taken Comments Blood Pressure 124/62 05/16/2019 2:06 PM EDT Pulse 82 05/16/2019 2:06 PM EDT Temperature - - Respiratory Rate - - Oxygen Saturation 95% 05/16/2019 2:06 PM EDT Inhaled Oxygen Concentration - - Weight 63.3 kg (139 lb 9.6 oz) 05/16/2019 2:06 PM EDT Height 165.1 cm (5' 5") 05/16/2019 2:06 PM EDT Body Mass Index 23.23 05/16/2019 2:06 PM EDT documented in this encounter Patient Instructions Patient InstructionsDinorah Price CRNP - 05/16/2019 1:40 PM EDT Lab Results Component Value Date WBC 8.58 05/16/2019 HGB 10.9 (L) 05/16/2019 HCT 35.8 05/16/2019 PLAT 276 05/16/2019 Lab Results Component Value Date NA 135 05/16/2019 K 4.3 05/16/2019 CL 98 05/16/2019 CO2 27 05/16/2019 GLUCOSE 117 (H) 05/16/2019 BUN 10 05/16/2019 CREATININE 1.1 05/16/2019 CALCIUM 9.3 05/16/2019 EGFR 47 05/16/2019 Would decrease torsemide to 10 mg a day as needed Need to continue with low salt, low fat diet, No more then 2 grams of salt per day, fluid restriction of 2 liters of fluids a day. Restaurant foods, frozen foods, soups, deli meats, etc. have salt already in them do not add extra salt and try to avoid if possible. yourself. Need to check weight dailyin the morning without clothes on prior to eating, and call if weight should go up 3 lbs over night,increased shortness of breath or unable to lay flat due to shortness of breath. Follow up with and us as needed documented in this encounter Plan of Treatment Date Type Specialty Care Team Description 05/18/2019 Appointment Radiology 05/18/2019 Hospital Encounter Radiology Outpatient Health Maintenance Due Date Last Done Comments MEDICARE ANNUAL WELLNESS VISIT 1935 DEPRESSION SCREENING 1947 HIV SCREENING 1950 ZOSTER IMMUNIZATION SERIES (1 of 2) 1985 FALL RISK ASSESSMENT 2000 PNEUMOCOCCAL 65+YRS (1 of 2 - 2000 PCV13) INFLUENZA VACCINE (#1) 2019 HPV IMMUNIZATION SERIES Aged Out No longer eligible based on patient's age to complete this topic MENINGOCOCCAL VACCINE IMM Aged Out No longer eligible based on patient's age to complete this topic documented as of this encounter Implants Implanted Type Area Repeat Photocomposing Machine Operator Device Shelf Model / Identifier Expiration Serial / Date Lot 3.0/12 Synergy Stent - [id number] N/A: KAILYN RON [id number] / Implanted: Qty: 1 on 05/09/2019 by Evan Garcia MD at [facility] / [id number] documented as of this encounter Results Not on filedocumented in this encounter Visit Diagnoses Diagnosis ASHD (arteriosclerotic heart disease) - Primary Coronary atherosclerosis of unspecified type of vessel, [place] or graft Mitral valve insufficiency, unspecified etiology PAD (peripheral artery disease) (HCC) Peripheral vascular disease, unspecified Diastolic congestive heart failure due to valvular disease (HCC) documented in this encounter Additional Health Concerns Infection Noted Time Resolved Time C Diff 05/09/2019 7:20 PM EDT documented as of this encounter Guarantor Name Account Type Relation to Date of Phone Billing Patient Address Kasie Saba Personal/Family 1935 [address] [phone] [place], [place] (Work) [address] documented as of this encounter Advance Directives Code Status Date Activated Date Inactivated Comments Full Code 05/06/2019 7:04 PM Does the patient have decision making Yes capacity? Order was discussed with: Patient I discussed all options and Unable to determine at this time (full patient/surrogate requested and agreed to: code until choice is made and new order placed)
--- OUTSIDE RECORDS SUMMARY | 2019-07-09 10:55 | XMS REPORT | Continuity of Care Document ---
:1935 External Reference #:[id number] Author Name Марина Obando MD (transmitted by agent of provider Vivian Paramr) Address [address], [place] [address] Care Team Providers Name Role Phone Drew Rogers MD - Cardiovascular Care Team Information Supervisor [employer] [phone] Disease Chip Almendarez MD - Vascular Surgery Care Team Information Supervisor [employer] Nir Mcmahon MD - Care Team Information Supervisor [employer] [phone] Neurological Surgery Марина Obando M.D. - Family Medicine Care Team Information Supervisor [employer] Problems Active Problems Provider Date Spinal stenosis [...] Use Denies Drug Use Smoking Status Reviewed: 05/23/19 Patient is a former 1ppd X 60 [...] walker 1units R29.6 Марина Obando [facility]. m48.062 M48.062 [...] as needed Magnesium-Oxide 1 by mouth 90tabs Марина Obando, MD 12/01/2016 400(241.3mg) mg Tablets every evening [...] Date B-12 Injection Jerrod Lopez, 08/26/2017 [facility] Jerrod Lopez, 07/14/2017 [facility] Injection Nurse Visit A 06/08/2017 Injection B-12 Injection Nurse Visit A 06/01/2017 Injection B-12 Injection Nurse Visit A 05/25/2017 Injection B-12 Injection Jerrod Lopez, 05/18/2017 Injection Anayeli,[facility]AC[facility]ree Inj, Regadenoson, 0.1 MG Memo Sanford M.D. 12/31/2016 Injection Technetium TC 99M Memo Sanford M.D. 12/31/2016 Tetrofosmin, Per Unit Dose Up To 40 Millicuries Injection Immunizations CPT Code Status Date Vaccine Reaction Lot # [id number] Given 05/23/2019 Influ Virus Vaccine, pt. tolerated well. [id number] Quadrivalent, Split Virus, [place] [address] Given 06/27/2018 Influenza Virus Vaccine, [id number] Quadrivalent, Split, Preservative Free 65077 Given 05/18/2017 Influenza Virus Vaccine, [id number] Quadrivalent, Split, Preservative Free 04241 Given 07/08/2016 Influ Virus Vaccine, [id number] Quadrivalent, Split Virus, [place] [address] Given 04/06/2015 Fluzone High Dose 41293 Given 12/28/2014 Pneumococcal Conjugate [id number] Vaccine 13 Valent For Intramuscular Use 07363 Given 04/25/2014 Fluzone High Dose Q2035 Given 04/02/2013 Afluria Vaccine 52444 Given 06/03/2012 Tdap - [id number] Tetanus/Diptheria/Acellular Pertussis Q2035 Given 04/07/2012 Afluria Vaccine 23546 Given 07/03/2010 Zoster (Zostavax) [id number] 43388 Given 05/10/2010 Influenza Virus 3Yrs & Over 90212 Given 08/28/2009 Influenza Virus Vaccine, [id number] Pandemic Formulation 99739 Given 05/31/2008 Influenza Virus 3Yrs & Over 53305 Given 05/31/2008 Influenza Virus 3Yrs & Over 60180 01969 Given 05/16/2001 Pneumonia Vaccine Vital Signs Date Vital Result Comment 05/23/2019 9:33am Height 64.5 inches 5'4.50" Weight 149.00 lb Heart Rate 80 /min BP Systolic Sitting 134 mmHg BP Diastolic Sitting 74 mmHg Body Temperature 97.3 F O2 % BldC Oximetry 96 % BMI (Body Mass Index) 25.2 kg/m2 04/24/2019 2:25pm Height 64.5 inches 5'4.50" Weight 144.00 lb Heart Rate 59 /min BP Systolic Sitting 169 mmHg Lue reg cuff BP Diastolic Sitting 84 mmHg Lue reg cuff O2 % BldC Oximetry 98 % BMI (Body Mass Index) 24.3 kg/m2 Results Test Date Facility Test Result H/L Range Note Urinalysis Profile 05/06/2019 [facility] Urine Color Colorless [address] [place] [address] [phone] Urine Appearance Clear Urine Specific [place] 1.005 Low 1.010-1.030 Urine pH 7.0 Normal 5-9 Urine Urobilinogen Negative Negative Urine Ketones Negative Negative Urine Protein Negative Negative Urine Leukocytes Negative Negative Urine Blood Negative Negative Urine Nitrite Negative Negative Urine Bilirubin Negative Negative Urine Glucose Negative Negative Comp Metabolic 05/05/2019 [facility] Sodium 140 mmol/L Normal 135-[address] [place] [address] [phone] Potassium 3.9 mmol/L Normal 3.5-5.0 Chloride 104 [...] >60 Egfr 96.5 >60 1 Laboratory 05/05/2019 [facility] Troponin-I 0.05 Critical < 0.04 2 test finding [address] (TnI) ng/[place] [address] [phone] CBC Auto Diff 05/05/2019 [facility] White Blood 7.5 Normal 3.5 -10.[address] Count 10^3/[place] [address] [phone] Red Blood Count 4.08 10^6/uL Normal 3.70-4.87 [...] Blood Cells % 0.0 Laboratory test 05/05/2019 [facility] B-Type 703 pg/mL High <= [address] [place] [address] Peptide BNP [phone] Inr/Protime 05/05/2019 [facility] Inr 1.12 High 0.82-1.[address] [place] [address] [phone] Laboratory test 05/05/2019 [facility] D Dimer 553 ng/mL High Less Than [address] Quantitative [address] [place] [address] [phone] Lactic Acid 1.2 mmol/L Normal 0.5-2.0 5 Iron & Iron 05/05/2019 [facility] Total Iron 469 g/dL High 250-[address] [place] [address] Capacity [phone] Transferrin 335 mg/dL Normal 203-362 Iron TNP g/dL 50-212 6 % Iron Saturation TNP % 15-55 7 Laboratory test 05/05/2019 [facility] Folic Acid 3.53 ng/mL > 3.[address] (Folate) [place] [address] [phone] Vitamin B12 207 pg/mL Normal 180-914 8 Thyroid 02/06/2019 [facility] Free T4 (Free 0.85 Normal 0.61- 1.[address] Thyroxine) ng/[place] [address] [phone] Thyroxine 7.86 g/dL Normal 6.09-12.23 TSH (Thyroid Stim Horm) 0.61 mcIU/mL Normal 0.34-5.60 Occult Blood,Stool 12/13/2018 [facility] Occult Blood POSITIVE X2 NEG (3 Spec) - Stool Laboratory test 12/07/2018 [facility] TSH (Thyroid 0.27 mcIU/mL Low 0.34-5. finding [address] Stim Horm) 60 [place], [place] [id number] [phone] Free T4 (Free Thyroxine) 0.82 ng/dL Normal 0.61-1.12 T3 Free 3.40 pg/mL Normal 2.5-3.9 CBC Auto 12/07/2018 [facility] White Blood 6.0 10^3/uL Normal 3.5-10.[address] [place] [address] [phone] Red Blood Count 4.33 10^6/uL Normal 3.70-4.87 [...] % Nucleated Red Blood Cells % 0.1 1 Because ethnic data is not always [...] (or dialysis) 2 Result TnIDx:0.05 Called to [id number] at: 01:51:07 by:[id number] Read back by: [id number] Troponin-I testing on Plasma Separator Tubes (PST) has a known false positive rate of 0.20-0.40%. All positive troponins reflex immediately to secondary confirmatory testing. Using the [employer] DxI 800 Access Immunoassay systems, the 99th [...] - FDP greater than 20 ug/ml 5 [facility] Severe Sepsis and Septic Shock Management Bundle Measure requires all lactic acids initially measuring >2.0 mmol/L be repeated. 6 Unable to report test result due to hemolysis. 7 Unable to calculate due to hemolysis. 8 Normal Range 180 to 914 Indeterminate Range 145 to 180 Deficient Range <145 Procedures Date Code Description Status 02/16/2019 03417 ECHO Transthoracic, Real-Time 2D With Doppler And Color Completed Flow 02/16/2019 70770 ECHO Transthoracic, Real-Time 2D With Doppler And Color Completed Flow 02/15/2019 82987 EKG Tracing & Interpretation Completed 02/08/2019 70599 Treadmill Interp/Report Only Completed 02/08/2019 79479 Stress Test Supervsn W/Out I/R Completed 07/14/2010 [id number] Colonoscopy Completed 06/17/2010 [id number] Mammogram Completed 05/23/2009 [id number] Mammogram Completed Medical Devices Description No Information Available Encounters Type Date Location Provider Dx Diagnosis Office Visit 05/06/2019 [facility] Memo Allred R07.9 Chest pain, 11:55a Of Ihsan Sanford M.D. unspecified I25.10 Athscl heart disease of [place] coronary artery w/o ang pctrs I73.9 Peripheral vascular disease, unspecified E78.5 Hyperlipidemia, unspecified Office Visit 05/06/2019 [facility] Savita Menjivar, I50.31 Acute diastolic 9:53a cecilia Vargas M.D. (congestive) Hospitalists heart failure I11.0 Hypertensive heart disease with heart failure E78.5 Hyperlipidemia, unspecified Office Visit 04/24/2019 2:00p [facility] Kory Obando MD I10 Essential (primary) Medicine - [facility] hypertension M48.062 Spinal stenosis, lumbar region with neurogenic claudication M25.551 Pain in right hip Office Visit 04/10/2019 1:30p [facility] Emma SMiguel Ángel I34.0 Nonrheumatic mitral Foster, N.P. (valve) insufficiency I10 Essential (primary) hypertension I25.10 Athscl heart disease of [place] coronary artery w/o ang pctrs Office Visit 02/15/2019 2:30p [facility] Drew Williamson I10 Essential (primary) Anayeli Rogers hypertension I25.10 Athscl heart disease of [place] coronary artery w/o ang pctrs M48.062 Spinal stenosis, lumbar region with neurogenic claudication I34.0 Nonrheumatic mitral (valve) insufficiency Office Visit 01/20/2019 2:20p Ihsan Obando MD R79.89 Other specified Medicine - [facility] abnormal findings of blood chemistry D64.9 Anemia, unspecified M48.062 Spinal stenosis, lumbar region with neurogenic claudication I10 Essential (primary) hypertension Office Visit 12/07/2018 2:20p Ihsan Obando MD I10 Essential (primary) Medicine - [facility] hypertension M48.062 Spinal stenosis, lumbar region with neurogenic claudication R29.6 Repeated falls R63.4 Abnormal weight loss D64.9 Anemia, unspecified Assessments Date Code Description Provider 05/23/2019 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 05/06/2019 I25.10 Atherosclerotic heart disease of Memo Sanford M.D. [place] coronary artery without angina pectoris 05/06/2019 I73.9 [...] heart disease of Emma Winslow N.PMiguel Ángel [place] coronary artery with 02/16/2019 I34.0 Nonrheumatic mitral (valve) Drew Rogers M.D. insufficiency 02/16/2019 I34.0 Nonrheumatic mitral (valve) Ica ECHO Schedule insufficiency 02/15/2019 I10 Essential (primary) hypertension Drew Rogers M.D. 02/15/2019 I25.10 Atherosclerotic heart disease of Drew Rogers M.D. [place] coronary artery with 02/15/2019 M48.062 Spinal stenosis, lumbar region with Drew Rogers M.D. neurogenic claudication 02/15/2019 I34.0 Non-rheumatic mitral regurgitation Drew Rogers M.D. 02/08/2019 I10 Essential (primary) hypertension Jose Burgos M.D. 02/08/2019 I25.10 Atherosclerotic heart disease of Jose Burgos M.D. [place] coronary artery with 01/20/2019 R79.89 Other specified abnormal findings of Марина Obando MD blood chemistry 01/20/2019 D64.9 Anemia, unspecified Марина Obando MD 01/20/2019 M48.062 Spinal stenosis, lumbar region with Марина Obando MD neurogenic claudication 01/20/2019 I10 Essential (primary) hypertension Марина Obando MD 12/14/2018 D64.9 Anemia, unspecified Nurse Visit [facility] 12/14/2018 D64.9 Anemia, unspecified Nurse Visit A 12/13/2018 D64.9 Anemia, unspecified аМрина Obando MD 12/13/2018 D64.9 Anemia, unspecified Nurse Visit A 12/07/2018 I10 Essential (primary) hypertension Марина Obando MD 12/07/2018 M48.062 Spinal stenosis, lumbar region with Марина Obando MD neurogenic claudication 12/07/2018 R29.6 Repeated falls Марина Obando MD 12/07/2018 R63.4 Abnormal weight loss Марина Obando MD 12/07/2018 D64.9 Anemia, unspecified Марина Obando MD Plan of Treatment Future Appointment(s):07/11/2019 4:00 pm - Марина Obando MD at [facility] Internal Medicine - [facility]07/04/2019 2:40 pm - Drew Rogers M.D. at [facility]19/29/2019 - Марина Obando MDI25.10 Atherosclerotic heart disease of [place] coronary artery without angina pectorisComments:continue current medications, follow up with Dr. Rogers, go straight to the hospital if you experience any palpitations, dizziness, shortness of breath, chest pain.I21.4 Non-St elevation (Nstemi) myocardial [id number] Encounter for immunizationImmunizations/Injections:Influenza Virus Vaccine, Quadrivalent ( Cciiv4), Derived From CellA04.72 Enterocolitis due to Clostridium difficile, not specified as recurrentComments:RESOLVED. Call us if you have more than 6 watery stools in a day or develop any abdominal pain or kzgsrdG50.9 Anemia, unspecified Functional Status Description No Information Available Mental Status Description No Information Available Referrals Refer to Dr Reason for Referral Status Appt Date Evan Garcia MD progressive and limiting anderson with known pvd, cad, Closed 03/17/2019 abnl nuclear (anterior and inferior ischemia) , and moderate to severe MR. last cath at [facility] 2002 with 100% rca. please perform cardiac cath. [address] [place] [address] [phone] Arthur Fall MD Patient with extensive past history of slow GI Closed bleeds, presents with mild anemia and positive Hemoccult x2 [address] [place] [address] [phone] Pain Clinic pt with spinal stenosis, recently worsening pain with Closed Right sided sciatic and [place] [address] [place] [address] [phone]
--- OUTSIDE RECORDS SUMMARY | 2019-07-09 10:55 | XMS REPORT | Continuity of Care Document ---
:1935 External Reference #:[id number] Author Name Naomy Deng MD (transmitted by agent of provider Sol Chan) Address [address] [place] [address] Care Team Providers Name Role Phone Drew Rogers MD - Cardiovascular Care Team Information [employer] Worker [phone] Disease Chip Almendarez MD - Vascular Surgery Care Team Information [employer] Worker Nir Mcmahon MD - Care Team Information [employer] Worker [phone] Neurological Surgery Марина Obando M.D. - Family Medicine Care Team Information [employer] Worker Problems Active Problems Provider Date Spinal stenosis [...] walker 1units R29.6 Марина Obando [place] 12/07/2018 [facility] [place]. m48.062 M48.062 [...] as needed Magnesium-Oxide 1 by mouth 90tabs Naomytiffanie Deng, 12/01/2016 400(241.3mg) mg Tablets every evening [...] Date B-12 Injection Jerrod Lopez, 08/26/2017 Injection Anayeli,[facility] B-12 Injection Jerrod Lopez, 07/14/2017 Injection Anayeli,[facility] B-12 Injection Nurse Visit A 06/08/2017 Injection B-12 Injection Nurse Visit A 06/01/2017 Injection [id number] Injection Nurse Visit A 05/25/2017 Injection B-12 Injection Jerrod Lopez, 05/18/2017 Injection Anayeli,FACP Inj, Regadenoson, 0.1 MG Memo Sanford M.D. 12/31/2016 Injection Technetium TC 99M Memo Sanford M.D. 12/31/2016 Tetrofosmin, Per Unit Dose Up To 40 Millicuries Injection Immunizations CPT Code Status Date Vaccine Reaction Lot # 65512 Given 05/23/2019 Influenza Virus Vaccine, pt. tolerated well. dg [id number] Quadrivalent ([id number]), Derived From Cell 92417 Given 06/27/2018 Influenza Virus Vaccine, [id number] Quadrivalent, Split, Preservative Free 41486 Given 05/18/2017 Influenza Virus Vaccine, [id number] Quadrivalent, Split, Preservative Free 17451 Given 07/08/2016 Influ Virus Vaccine, [id number] Quadrivalent, Split Virus, [place] [address] Given 04/06/2015 Fluzone High Dose 98101 Given 12/28/2014 Pneumococcal Conjugate [id number] Vaccine 13 Valent For Intramuscular Use 64260 Given 04/25/2014 Fluzone High Dose Q2035 Given 04/02/2013 Afluria Vaccine 89611 Given 06/03/2012 Tdap - [id number] Tetanus/Diptheria/Acellular Pertussis Q2035 Given 04/07/2012 Afluria Vaccine 29847 Given 07/03/2010 Zoster (Zostavax) [id number] 42120 Given 05/10/2010 Influenza Virus 3Yrs & Over 90195 Given 08/28/2009 Influenza Virus Vaccine, [id number] Pandemic Formulation 47165 Given 05/31/2008 Influenza Virus 3Yrs & Over 40830 Given 05/31/2008 Influenza Virus 3Yrs & Over [id number] 29523 Given 05/16/2001 Pneumonia Vaccine Vital Signs Date [...] Result H/L Range Note CBC Auto 06/12/2019 [facility] White Blood 5.7 10^3/uL Normal 3.5-10.[address] [place] [address] [phone] Red Blood Count 3.39 10^6/uL Low 3.70-4.87 [...] Blood Cells % 0.1 Laboratory test 06/12/2019 [facility] Ferritin 9.4 ng/mL Low 11-307 finding [address] [place] [address] [phone] Urinalysis 05/06/2019 [facility] Urine Color Colorless Profile [address] [place] [address] [phone] Urine Appearance Clear Urine Specific [place] 1.005 Low 1.010-1.030 Urine pH 7.0 Normal 5-9 Urine Urobilinogen Negative Negative Urine Ketones Negative Negative Urine Protein Negative Negative Urine Leukocytes Negative Negative Urine Blood Negative Negative Urine Nitrite Negative Negative Urine Bilirubin Negative Negative Urine Glucose Negative Negative Comp Metabolic 05/05/2019 [facility] Sodium 140 mmol/L Normal 135-145 Panel [address] [place] [address] [phone] Potassium 3.9 mmol/L Normal 3.5-5.0 Chloride 104 [...] >60 Egfr 96.5 >60 1 Laboratory 05/05/2019 [facility] Troponin-I 0.05 Critical < 0.04 2 test finding [address] (TnI) ng/[place] [address] [phone] CBC Auto Diff 05/05/2019 [facility] White Blood 7.5 Normal 3.5 -10.[address] Count 10^3/[place] [address] [phone] Red Blood Count 4.08 10^6/uL Normal 3.70-4.87 [...] Blood Cells % 0.0 Laboratory test 05/05/2019 [facility] B-Type 703 pg/mL High <= [address] [place] [address] Peptide BNP [phone] Inr/Protime 05/05/2019 [facility] Inr 1.12 High 0.82-1.[address] [place] [address] [phone] Laboratory test 05/05/2019 [facility] D Dimer 553 ng/mL High Less Than [address] Quantitative [address] [place] [address] [phone] Lactic Acid 1.2 mmol/L Normal 0.5-2.0 5 Iron & Iron 05/05/2019 [facility] Total Iron 469 g/dL High 250-[address] [place] [address] Capacity [phone] Transferrin 335 mg/dL Normal 203-362 Iron TNP g/dL 50-212 6 % Iron Saturation TNP % 15-55 7 Laboratory test 05/05/2019 [facility] Folic Acid 3.53 ng/mL > 3.[address] (Folate) [place] [address] [phone] Vitamin B12 207 pg/mL Normal 180-914 8 Thyroid 02/06/2019 [facility] Free T4 (Free 0.85 Normal 0.61- 1.[address] Thyroxine) ng/[place] [address] [phone] Thyroxine 7.86 g/dL Normal 6.09-12.23 TSH (Thyroid [...] (or dialysis) 2 Result TnIDx:0.05 Called to [id number] at: 01:51:07 by:[id number] Read back by: ADAIR Troponin-I testing on Plasma Separator Tubes (PST) has a known false positive rate of 0.20-0.40%. All positive troponins reflex immediately to secondary confirmatory testing. Using the [employer] DxI 800 Access Immunoassay systems, the 99th [...] - FDP greater than 20 ug/ml 5 [facility] Severe Sepsis and Septic Shock Management Bundle Measure requires all lactic acids initially measuring >2.0 mmol/L be repeated. 6 Unable to report test result due to hemolysis. 7 Unable to calculate due to hemolysis. 8 Normal Range 180 to 914 Indeterminate Range 145 to 180 Deficient Range <145 Procedures Date Code Description Status 05/06/2019 58713 EKG, Interpretation Only Completed 02/16/2019 32858 ECHO Transthoracic, Real-Time 2D With Doppler And Color Completed Flow 02/16/2019 65679 ECHO Transthoracic, Real-Time 2D With Doppler And Color Completed Flow 02/15/2019 36906 EKG Tracing & Interpretation Completed 02/08/2019 56250 Treadmill Interp/Report Only Completed 02/08/2019 26735 Stress Test Supervsn W/Out I/R Completed 07/14/2010 76788390 Colonoscopy Completed 06/17/2010 [id number] Mammogram Completed 05/23/2009 [id number] Mammogram Completed Medical Devices Description No Information Available Encounters Type Date Location Provider Dx Diagnosis Office Visit 05/23/2019 [facility] [address] Internal Марина Obando MD I25.10 Athscl heart 9:40a Medicine - Ccmob disease of [place] coronary artery w/o ang pctrs I21.4 Non-St elevation (Nstemi) myocardial infarction Z23 Encounter for immunization A04.72 Enterocolitis d/t Clostridium difficile, not spcf as recur D64.9 Anemia, unspecified Office Visit 05/06/2019 11:55a [facility] Memo Allred R07.9 Chest pain, Of Ihsan Sanford M.D. unspecified I25.10 Athscl heart disease of [place] coronary artery w/o ang pctrs I73.9 Peripheral vascular disease, unspecified E78.5 Hyperlipidemia, unspecified Office Visit 05/06/2019 [facility] Savita Menjivar, I50.31 Acute diastolic 9:53a cecilia Vargas M.D. (congestive) Hospitalists heart failure I11.0 Hypertensive heart disease with heart failure E78.5 Hyperlipidemia, unspecified Office Visit 04/24/2019 2:00p [facility] [address] Internal Марина Obando MD I10 Essential (primary) Medicine - Ccmob hypertension M48.062 Spinal stenosis, lumbar region with neurogenic claudication M25.551 Pain in right hip Office Visit 04/10/2019 1:30p [facility] Emma SMiguel Ángel I34.0 Nonrheumatic mitral Foster, N.P. 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 stenosis, lumbar region with neurogenic claudication I34.0 Nonrheumatic mitral (valve) insufficiency Office Visit 01/20/2019 2:20p [facility] [address] Internal Марина Obando MD R79.89 Other specified Medicine - Ccmob abnormal findings of blood chemistry D64.9 Anemia, unspecified M48.062 Spinal stenosis, lumbar region with neurogenic claudication I10 Essential (primary) hypertension Assessments Date Code Description Provider 06/30/2019 D64.9 Anemia, unspecified Naomy Deng MD 06/30/2019 I10 Essential (primary) hypertension Naomy Deng MD 05/23/2019 I25.10 Atherosclerotic heart disease of Марина Obando MD [place] coronary artery without angina pectoris 05/23/2019 I21.4 [...] Atherosclerotic heart disease of Memo Sanford M.D. [place] coronary artery without angina pectoris 05/06/2019 I73.9 [...] heart disease of Emma Winslow N.PMiguel Ángel [place] coronary artery with 02/16/2019 I34.0 Nonrheumatic mitral (valve) Drew Rogers M.D. insufficiency 02/16/2019 I34.0 Nonrheumatic mitral (valve) Ica ECHO Schedule insufficiency 02/15/2019 I10 Essential (primary) hypertension Drew Rogers M.D. 02/15/2019 I25.10 Atherosclerotic heart disease of Drew Rogers M.D. [place] coronary artery with 02/15/2019 M48.062 Spinal stenosis, lumbar region with Drew Rogers M.D. neurogenic claudication 02/15/2019 I34.0 Non-rheumatic mitral regurgitation Drew Rogers M.D. 02/08/2019 I10 Essential (primary) hypertension Jose Burgos M.D. 02/08/2019 I25.10 Atherosclerotic heart disease of Jose Burgos M.D. [place] coronary artery with 01/20/2019 R79.89 Other specified abnormal findings of Марина Obando MD blood chemistry 01/20/2019 D64.9 Anemia, unspecified Марина Obando MD 01/20/2019 M48.062 Spinal stenosis, lumbar region with Марина Obando MD neurogenic claudication 01/20/2019 I10 Essential (primary) hypertension Марина Obando MD Plan of Treatment Future Appointment(s):07/07/2019 2:20 pm - Naomy Deng MD at [facility] [address] Internal Medicine - [facility]07/04/2019 2:40 pm - Drew Rogers M.D. at [facility]06/30/2019 - Naomy Deng, MDD64.9 Anemia, [id number] Essential (primary) hypertension Functional Status Description No [...] please perform cardiac cath. [address] [place] [address] [phone]
[2019-07-09] MEDS ORDERED: NS 0.9% 1000 ML** 1,000 ML IV ONE (11:15)
[2019-07-09] MEDS ORDERED: Pantoprazole IV* 40 MG IV ONE (11:15)
--- NOTE | 2019-07-09 11:15 | ED ---
Complex/Multi-Sys Presentation - HPI Summary HPI Summary: Patient is an 84 y/o F presenting to [facility] with complaints of dark and tarry diarrhea and chest discomfort that onset this morning, 07/09/19. Daughter reports that the patient had previously been worked up for anemia. The patient saw PCP two days ago to discuss blood transfusion. In the room, patient states that she feels "sicker" today and has a decreased appetite. Daughter notes that the patient had a similar episode of dark stool a month ago and is scheduled to follow up with GI this week. Patient was started on iron supplements two days ago as well. On triage, pain is rated 4/10. Nothing is noted to aggravate/ alleviate Sx. NKDA reported. PMHx of mitral valve prolapse, CAD, HLD, HTN, PNA noted. PSHx of left leg bypass/angioplasty 2003, lumbar surgery 1999, and bilateral cataract surgery noted. FMHx of cardiac disease and HTN is endorsed. Patient is a former smoker, alcohol and substance usage is denied. Home medications and allergies are reviewed. - History Of Current Complaint Chief Complaint: EDChestPainROMI Time Seen by Provider: 07/09/19 11:02 Hx Obtained From: Patient Onset/Duration: Lasting Hours, Still Present Timing: Constant Severity Currently: Moderate Location: Pain At: - chest Aggravating Factor(s): nothing Alleviating Factor(s): nothing Associated Signs And Symptoms: Positive: Chest Pain, Diarrhea - dark and tarry, Other - positive - decreased appetite, feels "sicker" - Allergies/Home Medications Allergies/Adverse Reactions: Allergies Allergy/AdvReac Type Severity Reaction Status Date / Time No Known Allergies Allergy Verified 05/06/19 02:15 PMH/Surg Hx/FS Hx/Imm Hx Endocrine/Hematology History: Reports: Other Endocrine/Hematological Disorders - anemia Denies: Hx Diabetes Cardiovascular History: Reports: Hx Coronary Artery Disease, Hx Hypercholesterolemia, Hx Hypertension - ON DAILY MEDS, Hx Peripheral Vascular Disease - BILATERAL Denies: Hx Angina, Hx Pacemaker/ICD Comment Only: Other Cardiovascular Problems/Disorders - DR PEREZ FOLLOWS Respiratory History: Reports: Hx Pneumonia Denies: Hx Asthma, Hx Chronic Obstructive Pulmonary Disease (COPD), Hx Pulmonary Embolism GI History: Reports: Hx Irritable Bowel - Hx OF FREQUENT LOOSE BOWEL MOVEMENTS WITHOUT CONTROL, Other GI Disorders - c-diff Denies: Hx Gastrointestinal Bleed History: Denies: Hx Chronic Renal Failure, Hx Renal Disease Musculoskeletal History: Reports: Hx Arthritis, Hx Back Problems Denies: Hx Rheumatoid Arthritis, Hx Osteoporosis, Hx Scoliosis Sensory History: Reports: Hx Cataracts - BILATERAL- removed, Hx Contacts or Glasses - GLASSES, 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 Denies: Hx Hearing Aid Opthamlomology History: Reports: Hx Cataracts - BILATERAL- removed, Hx Contacts or Glasses - GLASSES Neurological History: Reports: Hx Migraine, Hx Transient Ischemic Attacks (TIA) - possible 05/08/2017, Other Neuro Impairments/Disorders - PAIN CLINIC PATIENT Denies: Hx CVA, Hx Dementia, Hx Headaches, Hx Seizures, Hx Spinal Cord Injury Psychiatric History: Reports: Other Psychiatric Issues/Disorders - trazodone and remeron HS Denies: Hx Panic Disorder - Surgical History Surgery Procedure, Year, and Place: 2003 [place] [facility] [place] [facility] [place] BILATERAL CATARACT SURGERY Hx Anesthesia Reactions: No Infectious Disease History: No Infectious Disease History: Reports: Hx Clostridium Difficile Denies: Traveled Outside the [place] in Last 30 Days - Family History Known Family History: Positive: Cardiac Disease, Hypertension Family History: No family history of malignant hyperthermia and anesthesia reaction. - Social History Alcohol Use: None Substance Use Type: Reports: None Smoking Status (MU): Former Smoker Type: Cigarettes Amount Used/How Often: 1PPD 50+ YEARS Have You Smoked in the Last Year: No Review of Systems Constitutional: Other - patient states that she feels "sicker" Positive: Chest Pain Gastrointestinal: Other - positive - decreased appetite Positive: Diarrhea All Other Systems Reviewed And Are Negative: Yes Physical Exam - Summary Physical Exam Summary: Appearance: The patient is well-nourished in no acute distress and in no acute pain. Skin: The skin is warm and dry, and skin color reflects adequate perfusion. HEENT: The head is normocephalic and atraumatic. The pupils are equal and reactive. The conjunctivae are pale and without drainage. Nares are patent and without drainage. Mouth reveals dry mucous membranes, and the throat is without erythema and exudate. The external ears are intact. The ear canals are patent and without drainage. The tympanic membranes are intact. Neck: The neck is supple with full range of motion and non-tender. There are no carotid bruits. There is no neck vein distension. Respiratory: Chest is non-tender. Lungs are clear to auscultation and breath sounds are symmetrical and equal. Cardiovascular: Heart is regular rate and rhythm. There is no murmur or rub auscultated. There is no peripheral edema and pulses are symmetrical and equal. Abdomen: The abdomen is soft and non-tender. There are normal bowel sounds heard in all four quadrants and there is no organomegaly palpated. Musculoskeletal: There is no back tenderness noted. Extremities are non-tender with full range of motion. There is good capillary refill. There is no peripheral edema or calf tenderness elicited. Neurological: Patient is alert and oriented to person, place and time. The patient has symmetrical motor strength in all four extremities. Cranial nerves are grossly intact. Deep tendon reflexes are symmetrical and equal in all four extremities. Psychiatric: The patient has an appropriate affect and does not exhibit any anxiety or depression. Triage Information Reviewed: Yes Vital Signs On Initial Exam: Initial Vitals Temp Pulse Resp BP Pulse Ox 98.8 F 78 14 162/77 98 07/09/19 10:38 07/09/19 10:38 07/09/19 10:38 07/09/19 10:38 07/09/19 10:38 Vital Signs Reviewed: Yes Procedures - Sedation Patient Received Moderate/Deep Sedation with Procedure: No Diagnostics - Vital Signs Vital Signs Temp Pulse Resp BP Pulse Ox 07/09/19 10:38 98.8 F 78 14 162/77 98 - Laboratory Result Diagrams: 07/09/19 11:01 07/09/19 11:01 Lab Statement: Any lab studies that have been ordered have been reviewed, and results considered in the medical decision making process. - EKG 1101 Cardiac Rate: NL - rate of 72 BPM EKG Rhythm: Sinus Rhythm EKG Comparison: No Significant Change - non-specific T waves that are unchanged compared to 05/06/19 EKG. Summary of EKG Findings: EKG showed NSR with rate of 72 BPM, non-specific T waves that are unchanged compared to 05/06/19 EKG. ED physician has reviewed and interpreted this EKG. Complex Multi-Symp Course/Dx - Diagnoses Provider Diagnoses: Microcytic anemia - Physician Notifications Discussed Care Of Patient With: Ciara Dang Time Discussed With Above Provider: 11:57 Instructed by Provider To: Other - Patient's case was discussed with Dr. Dang , Dr. Dang accepts for admission Discharge ED - Sign-Out/Discharge Documenting (check all that apply): Patient Departure - admit - Discharge Plan Condition: Stable Disposition: ADMITTED TO [facility] Referrals: Марина Obando MD [Primary Care Provider] - - Attestation Statements Document Initiated by Scribe: Yes Documenting Scribe: COLE CARRERA Provider For Whom Scribe is Documenting (Include Credential): CLAUDINE LUCIANO MD Scribe Attestation: ICOLE, scribed for CLAUDINE LUCIANO MD on 07/09/19 at 1207. Status of Scribe Document: Ready
[2019-07-09 11:25] LABS: ABS Eosinophils 0.2 10^3/ul (0-0.6); ABS Lymphocytes 0.5 10^3/ul (1.0-4.8); ABS Monocytes 0.8 10^3/ul (0-0.8); ABS Neutrophils 5.1 10^3/ul (1.5-7.7); Eosinophil % 3.2 %; Hematocrit 24 % (35-47); Hemoglobin 7.5 g/dL (12.0-16.0); Lymphocyte % 7.7 %; Mean Corpuscular HGB Conc 32 g/dL (31-36); Mean Corpuscular Hemoglobin 23 pg (27-31); Mean Corpuscular Volume 72 fL (80-97); Nucleated Red Blood Cells % 0.1; Platelet Count 296 10^3/uL (150-450); Red Blood Count 3.25 10^6 /uL (3.70-4.87); Red Cell Distribution Width 18 % (10-15); White Blood Count 6.7 10^3/uL (3.5-10.8)
[2019-07-09 11:28] LABS: INR 1.21 (0.82-1.09)
[2019-07-09 11:38] LABS: Albumin 3.6 g/dL (3.2-5.2); Albumin/Globulin Ratio 1.4 (1-3); BUN/Creatinine Ratio 13.3 (8-20); Calcium 8.5 mg/dL (8.6-10.3); EGFR African American 89.1 (>60); EGFR Non-African American 73.6 (>60); Globulin 2.6 g/dL (2-4); Potassium 3.5 mmol/L (3.5-5.0); Total Bilirubin 0.5 mg/dL (0.2-1.0); Total Protein 6.2 g/dL (6.4-8.9)
[2019-07-09 11:39] LABS: Troponin I 0.01 ng/mL (<0.03)
[2019-07-09] MEDS ORDERED: Al Hydrox/Mg Hydrox/Simet LIQ* 30 ML UDC PO PRN (14:01)
[2019-07-09] MEDS ORDERED: Acetaminophen TAB* 325 MG PO PRN (14:01)
[2019-07-09] MEDS ORDERED: Albuterol/Ipratropium NEB.SOL* Albuterol 2.5 MG/Ipratropium 0.5 MG 3 ML INH PRN (14:47)
[2019-07-09] MEDS: Pantoprazole* 80 mg IN NS 80 MG/250 ML BAG IV SCH (15:06)
--- NOTE | 2019-07-09 16:36 | HP ---
CC: Dr. Obando; Dr. Rogers * HOSPITAL MEDICINE HISTORY AND PHYSICAL: DATE OF ADMISSION: 07/09/19 PRIMARY CARE PHYSICIAN: Dr. Obando. RECLAMATION ENGINEER: Dr. Rogers. ATTENDING PHYSICIAN: Dr. Ciara Sawant * (dictation provided by Lily Echevarria NP ). CHIEF COMPLAINT: Dark tarry stool, anemia. HISTORY OF PRESENT ILLNESS: Ms. Saba is an 84-year-old female with a past medical history of coronary artery disease with drug eluting stent placement to LAD April 2019 at [facility] as well as peripheral vascular disease with renal artery stenosis and fem pop bypass. She also has a history of hypertension, hyperlipidemia, and peptic ulcer disease with antral erosions noted in 2004 and 2007, who presents today to the hospital with concern for ongoing anemia outpatient with poor appetite and black tarry stool. Ms. Saba provides information today which is corroborated by her son and [id number]-ujh who are at the bedside. Per the report, Ms. Saba did not let her family know, but she had started having dark tarry stool early in May. The patient has ultimately been seen in followup by her primary care physician and her waiter/waitress third class, who have noted that she has anemia. Her hemoglobin on 06/12/19 was 8.5, on 07/04/19 it was 7.9. For this, the plan had been for the patient to follow up with outpatient iron and then to see Gastroenterology for evaluation. The patient's last visit with Dr. Rogers's team was on 07/04/19. It was recommended at that time that the patient consider a mitral clip for mitral regurgitation, but the patient decided to defer. He recommended IV iron and a repeat echo. He recommended that her blood pressure medication be decreased by cutting back losartan 25 mg every other day and the consideration was made for resuming torsemide if her volume status would tolerate it. A second appointment was made with Gastroenterology with SAHIL Galindo, for 07/13/19, but the patient was also told that she should come to the emergency room if she was feeling unwell. Ms. Saba states that she has been having poor oral intake, she has been burping up bile. She has also had a cough , which has been nonproductive, for which Dr. Obando's team has started Augmentin 2 days ago; however, her cough is unchanged. She has had no fever. The patient last night had a really difficult time sleeping. She woke up this morning and had more significant black stool and therefore decided to come into the emergency room for evaluation. She does report intermittent chest pain. There has been no change to the pattern for this. It has not been increasing or worsening. It is not associated with any other symptoms. It does not happen with activity and seems to be random. In the emergency room, Ms. Saba had labs, which showed a hemoglobin of 7.5. She had troponin of 0.01 x2. EKG showed no evidence of ischemia. PAST MEDICAL HISTORY: 1. Coronary artery disease with stent to LAD in April 2019, on Brilinta. 2. Episodes of cdiff x 2, most recently treated with Vancomycin after her stent was placed at [facility]. 2. History of GI bleed with noted antral erosions in 2004 and 2007. 3. History of moderate mitral regurgitation. 4. Hyperlipidemia. 5. Hypertension. 6. Spinal stenosis and sciatica with chronic pain, on chronic opioid pain medications currently. 7. History of peripheral arterial disease, status post iliac stenting as well as fem-pop bypass bilaterally. 8. History of benign liver hemangioma. 9. History of laminectomy. 10. History of renal artery stenosis, status post renal artery bypass in 2001. 11. History of cataract surgery bilaterally. 12. Cardiac catheterization in 2002 as well as 2018. MEDICATIONS OUTPATIENT: 1. Potassium chloride 10 mEq p.o. daily. 2. Docusate 100 mg p.o. as needed. 3. Maalox Plus 30 mL p.o. q.6 hours p.r.n. 4. Tylenol 650 mg p.o. q.4 hours p.r.n. 5. Trazodone 50 mg p.o. at bedtime. 6. Nitroglycerin p.r.n. 7. Labetalol 200 mg p.o. daily. 8. Poly-Iron 150 Forte 1 cap p.o. daily. 9. Furosemide 20 mg on Tuesdays and . 10. Augmentin 875 p.o. b.i.d. 11. Oxycodone with acetaminophen 5/325 one tab p.o. q.6 hours p.r.n. 12. Brilinta 90 mg p.o. b.i.d. 13. Magnesium oxide 400 mg p.o. q.p.m. 14. Aspirin 81 mg p.o. q.a.m. 15. Losartan 25 mg p.o. every other day. 16. Mirtazapine 30 mg p.o. at bedtime. 17. Atorvastatin 40 mg p.o. daily. ALLERGIES: No known drug allergies. FAMILY HISTORY: Mother of old age. Dad related to heart attack at age 45. SOCIAL HISTORY: No report of alcohol, tobacco, or drug use. The patient lives alone, but her daughter and son-in-law live next door. REVIEW OF SYSTEMS: A 14-point review of systems was completed with Ms. Saba and all those not mentioned above were negative. PHYSICAL EXAMINATION GENERAL: Ms. Saba is sitting up in the bed. She is in no acute distress. Her family is at the bedside. VITAL SIGNS: Temperature 98.8, pulse rate 72, respiratory rate 22, O2 saturation 97% on room air, blood pressure 157/69. LUNGS: Have some expiratory wheezing bilaterally, which is minimal. Harsh nonproductive cough noted. Good aeration. No accessory muscle use. HEART: S1, S2. No murmur, rub, or gallop and regular. ABDOMEN: Soft, nontender with bowel sounds positive x4. EXTREMITIES: No cyanosis or edema. NEURO: She is alert. She is oriented x3. She moves all extremities equally. There is no facial asymmetry or focal weakness. Extraocular movements are intact. SKIN: Intact. DIAGNOSTIC STUDIES/LAB DATA: Sodium 138, potassium 3.5, chloride 104, serum bicarbonate 27, BUN 10, creatinine 0.75, glucose 116. Troponin 0.01 followed by 0.01. WBC 6.7, hemoglobin 7.5, hematocrit 24, platelet count 296. INR 1.21. Again, the EKG shows sinus rhythm. No evidence of ischemia. ASSESSMENT AND PLAN: Ms. Saba is an 84-year-old female with past medical history of coronary artery disease with stent to LAD, known history of gastrointestinal bleed in 2004 and 2007, and peripheral vascular disease with history of iliac stenting and fem-pop bypass and renal artery stenting, who presents today to the hospital with concern for ongoing anemia since April with a new aristeo hemoglobin 7.5 with iron deficiency and black stool suggestive of gastrointestinal bleed. Our plans are for observation in the hospital for the followin. Anemia. I suspect this is secondary to gastrointestinal bleeding based on her symptoms and history. She has black tarry stool and anemia and noted iron deficiency. She does not have an elevated BUN. Plan to start pantoprazole IV. Plan for 2 units packed red blood cells now. Plan for GI consultation. Dr. Pacheco has been updated thoroughly on her case. The patient is anemic, but we will need to continue Brilinta for recent stent. 2. Coronary artery disease with stent to LAD. The patient had drug-eluting stent placed to her LAD in April of 2019 at [facility]. She will need to continue on her Brilinta for coronary artery perfusion despite the fact that she is having some mild gastrointestinal bleeding. If her gastrointestinal bleeding becomes more heavy, we will consider discontinuing Brilinta in consultation with GI and Cardiology. 3. Hypertension. Plan to continue labetalol. Plan to hold losartan in the short term. 4. Bronchitis. The patient has a normal chest x-ray. She has no leukocytosis , no fever. I do not plan to continue antibiotics for simple bronchitis, but we will continue with DuoNeb nebulizers and guaifenesin. 5. Diet: Clear liquid, n.p.o. after midnight. Consideration of upper endoscopy tomorrow. 6. Code status is DNR. TIME SPENT: Approximately 60 minutes was spent on the admission of this patient , more than half the time was spent with the patient at the bedside reviewing the events leading up to this hospitalization, performing the physical examination, and reviewing my plan of care. LILY ECHEVARRIA NP [id number]/[facility] #: [id number] DAISY
--- NOTE | 2019-07-09 18:39 | CONS ---
GASTROENTEROLOGY CONSULT: DATE OF CONSULT: 07/09/19 CONSULTING PHYSICIANS: Ciara Sawant, Марина Obando. REASON FOR CONSULT: Progressive anemia in a woman recently placed on Brilinta after drug eluting stent placed at [facility] for critical LAD stenosis 05/11/19 HISTORY: This 84-year-old vasculopath with a history of coronary disease and peripheral vascular disease, status post numerous surgeries, recently presented with signs of CHF and elevated troponin. She was sent to [facility] and had an LAD stent. Her antiplatelet therapy was escalated from low-dose aspirin to Brilinta and low-dose aspirin. She was mildly anemic at the time she presented with the acute coronary syndrome, hemoglobin 10.3 on 05/05/19 and it has progressively gone down. She was placed on iron a week ago and her stools turned dark. She has not had any overt red blood in the stool. She has been feeling weak. Hemoglobin has fallen to 8.5, 7.9 and then today 5 days after the last check 7.5. She was also complaining of a cough productive of green sputum and had a chest x - ray 2 days ago, which showed no acute infiltrate and resolution of pulmonary edema. There was no acute infiltrate. She was however placed on Augmentin. She was placed on a 2-week treatment (presumably vancomycin) after her cardiac stent at [facility] as she was said to have been C. diff positive then. She had C. diff in July 2015 on outpatient testing here at [facility]. Her family does not remember any antibiotics earlier in the fall or over the summer. PAST MEDICAL HISTORY: 1. COPD - seen on chest x-ray. 2. Ex-smoker - quitting early . 3. Peripheral vascular disease - status post numerous surgeries and she had seen Dr. King over ten yrs ago while here. 4. Low back surgery many yrs ago 5. GI bleeding with anemia - she had endoscopies by Dr. Rodriguez in [address] Hall in 2010 with significant gastritis seen, but no focal ulcer. The family does not recall any particular hemorrhage event She did have some transfusions in 2004 and in [address] Hall' 2011 upper endoscopy comments that a PPI should be taken indefinitely, though it appears it has not been taken for the last several years based on her complex set of factors. 6. Coronary disease - 100% right coronary occlusion in 2002 and 50% LAD stenosis at that time. There were good collaterals. 7. Mitral regurgitation - she had a transesophageal echocardiogram in April 2019 at [facility]. 8. History of liver hemangioma - asymptomatic, documented in 2004. 9. Renal artery stenosis - splenic artery bypass in 2001, discussed from Dr. Rodriguez's old notes. 10. 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 MEDICATIONS: As an outpatient of GI relevance: Potassium chloride 10 mEq; docusate 100; Poly-Iron 150 - x1 week; Augmentin 875 b.i.d. x3 days; Brilinta 90 b.i.d.; aspirin 81 mg; atorvastatin 40; Remeron 30 h.s. ALLERGIES: She has no known drug allergies. REVIEW OF SYSTEMS: She does not take any Advil, Aleve, or other NSAIDs and her beyaiser-of-bbi and son confirmed that. They live next door. There is no history of palpitations, symptomatic arrhythmias, syncope, hemoptysis, hepatitis , or overt rectal bleeding. 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 It appears her last colonoscopy was at least 10 years ago. No history of joint replacement surgery. She did have a visit in the gastroenterology office about 6 months ago and her epsyzpys-ug-qrs attended and comments that she had "a full spectrum of complaints," saying there was an upset stomach, diarrhea, constipation and she recalls having MiraLAX recommended with f/u discretionary per DIL EXAM: She is a pale, elderly woman, speaking clearly though saying she does not know most of the history and deferring to her ohhquqhy-hn-xuq in all ways. Temp 98.2, pulse 80, blood pressure 149/50. HEENT exam shows no icterus. She has no adenopathy. Breath sounds are diminished and there are squeaks and whistles and very poor breath sounds bilaterally. She is not overtly short of breath and over the half an hour did not cough until that was pointed out. Heart sounds are regular. Breast and pelvic exams deferred. Her abdomen is slightly protuberant and rounded, but soft and without any tenderness. Extremities show no edema. There are no joint deformities. Neurologic is nonfocal with symmetric cranial nerves and movement of all 4 extremities and mentation. LABS: Hemoglobin 7.5, hematocrit 24, MCV 72, platelets 296. Sodium 138, potassium 3.5, BUN 10, creatinine 0.75, and 5 days ago iron saturation was 4%, 20/451, ferritin 9.4, BNP 780, and B12 200. IMPRESSION: This 84-year-old woman, vasculopath with chronic obstructive pulmonary disease, has had a recent drug-eluting stent placed. Her hemoglobin has fallen slowly, but progressively and she will be getting 2 units transfusion , PPI drip and continue her Brilinta. She had overt signs of congestive heart failure clinically and on chest x-ray 2 months ago. Her BNP was quite elevated 5 days ago. If she achieves cardiac clearance, she could have upper endoscopy tomorrow or potentially the next day. It appears most likely that an oral PPI should be started and maintained indefinitely. There is a question of C. diff. It apparently was picked up at [facility] in testing 2 months ago though what her symptoms were is unclear.. The patient had not presented with progressive diarrhea or an elevated white count. She had C. diff 4 years ago. She may be a carrier. This does, however, complicate decision making regarding treating exacerbations of chronic obstructive pulmonary disease or bronchitis. [id number]/[facility] #: [id number] DAISY
[2019-07-09] MEDS: Magnesium Oxide TAB* 400 MG PO SCH (19:26)
[2019-07-09] MEDS: Atorvastatin* 40 MG TAB PO SCH (19:26)
[2019-07-09] MEDS: traZODone TAB* 50 MG TAB PO SCH (20:40)
[2019-07-09] MEDS: guaiFENesin ER TAB 600 MG PO SCH (20:40)
[2019-07-09] MEDS: Mirtazapine TAB* 15 MG PO SCH (20:40)
[2019-07-09] MEDS: Ticagrelor* 90 MG TAB PO SCH (20:40)
[2019-07-09] MEDS: oxyCODONE/Acetamin 5/325 MG* TAB PO PRN (20:47)
[2019-07-09] MEDS ORDERED: Amoxicillin/Clavulanate TAB* 875 MG PO SCH (21:00)
[2019-07-10] MEDS: Pantoprazole* 80 mg IN NS 80 MG/250 ML BAG IV SCH ×2 (01:55→12:20)
[2019-07-10] MEDS: oxyCODONE/Acetamin 5/325 MG* TAB PO PRN ×2 (03:16→22:08)
[2019-07-10 05:52] LABS: ABS Eosinophils 0.2 10^3/ul (0-0.6); ABS Lymphocytes 0.6 10^3/ul (1.0-4.8); ABS Monocytes 0.9 10^3/ul (0-0.8); ABS Neutrophils 5.8 10^3/ul (1.5-7.7); Eosinophil % 2.4 %; Hematocrit 28 % (35-47); Hemoglobin 9.2 g/dL (12.0-16.0); Lymphocyte % 8.3 %; Mean Corpuscular HGB Conc 33 g/dL (31-36); Mean Corpuscular Hemoglobin 25 pg (27-31); Mean Corpuscular Volume 76 fL (80-97); Mean Platelet Volume 8.2 fL (7.4-10.4); Nucleated Red Blood Cells % 0.1; Platelet Count 250 10^3/uL (150-450); Red Blood Count 3.64 10^6 /uL (3.70-4.87); Red Cell Distribution Width 19 % (10-15); White Blood Count 7.6 10^3/uL (3.5-10.8)
[2019-07-10 06:07] LABS: BUN/Creatinine Ratio 10.3 (8-20); Calcium 8.1 mg/dL (8.6-10.3); EGFR African American 99.7 (>60); EGFR Non-African American 82.4 (>60); Potassium 3.6 mmol/L (3.5-5.0)
[2019-07-10] MEDS: Labetalol TAB* 200 MG PO SCH (09:31)
[2019-07-10] MEDS: Ticagrelor* 90 MG TAB PO SCH (09:31)
[2019-07-10] MEDS ORDERED: Potassium Chlor TAB* 20 MEQ TAB.ER PO ONE (10:41)
[2019-07-10] MEDS: Potassium Chlor TAB* 10 MEQ TAB.ER PO SCH (11:09)
[2019-07-10] MEDS: guaiFENesin ER TAB 600 MG PO SCH ×2 (11:09→22:04)
[2019-07-10] MEDS: Aspirin 81 mg CHEW TAB* 81 MG TAB.CHEW PO SCH (11:10)
--- NOTE | 2019-07-10 12:56 | CONS ---
CC: Dr. Drew Rogers * CONSULTATION REPORT: DATE OF CONSULT: 07/10/19 ATTENDING PHYSICIAN: Dr. Memo Sanford.* (DICTATED BY LISA SEQUEIRA NP) PRIMARY MIDDLE STITCHER: Dr. Drew Rogers. CHIEF COMPLAINT: Melena, anemia. HISTORY OF PRESENT ILLNESS: This is a pleasant 84-year-old female patient who follows Dr. Rogers of our practice due to a notable history of coronary artery disease, status post RONEN to proximal LAD due to NSTEMI 05/09/19 in addition to severe mitral regurgitation, peripheral vascular disease, carotid artery disease , renal artery stenosis, peptic ulcer disease, hyperlipidemia. The patient presented to [facility] on 07/09/19 due to complaints of melena and anemia. According to the emergency record, she has been noticing intermittent melena since May and recently opted to inform her family members of episode. Apparently, on 07/08/19, she was feeling "sicker" with decreased oral intake, thus she was taken to [facility] for further evaluation. While being evaluated in the emergency department, basic blood work was obtained. Hemoglobin was 7.5. She was given packed red blood cells and we were asked to see the patient in consultation for surgical risk stratification for tentative upper endoscopy. The patient denies chest pain. Reports chronic dyspnea on exertion. Denies edema, denies orthopnea. Denies dizziness, syncope, palpitations, or sensation of heart racing. She states otherwise she has been feeling well. She does admit to difficulty recalling information due to "confusion." Last echocardiogram according to our outpatient medical records was transesophageal echo done at [facility], official report not available to our EHR; however, it has been requested. Per discharge summary from that time, SHAI showed posterior mitral valve prolapse with chordal flail and severe anteriorly directed mitral regurgitation. Last ischemic evaluation via left heart catheterization 05/09/[address] [facility], report has been requested through our outpatient medical records. However, according to a discharge summary from [facility], she had a very short or absent left main, 95% proximal LAD, RCA known total occlusion with collaterals. At that time, she underwent PCI/RONEN to proximal LAD with 3.0 x 12 mm Synergy drug- eluting stent. PAST MEDICAL HISTORY: 1. Coronary artery disease. 2. Severe mitral regurgitation. 3. Peripheral vascular disease. 4. Carotid artery stenosis. 5. Renal artery stenosis. 6. Peptic ulcer disease. 7. C. diff. 8. Hyperlipidemia. 9. Diabetes. PAST SURGICAL HISTORY: 1. Tonsillectomy. 2. Cataract repair. 3. Laminectomy. 4. Fem-pop bypass. 5. Renal artery bypass 2001. 6. Iliac stenting. 7. RONEN to proximal LAD 05/09/19. HOME MEDICATIONS: According to admission med rec: 1. Losartan 25 mg every other day. 2. Lipitor 40 mg a day. 3. K-Dur 10 mEq p.o. daily. 4. Labetalol 200 mg a day. 5. Torsemide 20 mg on Wednesday and . 6. Brilinta 90 mg p.o. b.i.d. 7. Aspirin 81 mg a day. 8. Magnesium oxide 400 mg a day. 9. Augmentin 875 mg p.o. b.i.d. 10. Nitroglycerin as needed. 11. Trazodone 50 mg p.o. at bedtime p.r.n. 12. Tylenol 650 mg p.o. q.4h. p.r.n. 13. . ALLERGIES: No known drug allergies. FAMILY HISTORY: Noncontributory. SOCIAL HISTORY: The patient is . Resides at home alone. Is listed as a DNR. Denies tobacco or alcohol abuse. REVIEW OF SYSTEMS: All systems have been reviewed and otherwise negative except as mentioned in the HPI. PHYSICAL EXAM: Temperature 98.4, pulse 81, respirations 20, oxygenation 95% on room air, blood pressure 155/70. General: The patient is lying upright in bed , appears in no apparent distress. She is cooperative with examination. news operations manager was in room upon entering. Offers no complaints. HEENT: Head is atraumatic and normocephalic. Oral mucosa is moist. Tongue is midline. Neck: Supple. Soft, bilateral carotid bruits noted. Cardiac: Normal S1 and S2, regular rate and rhythm. Grade 3/5 mitral murmur auscultated underneath the left axilla. No gallop or rub. Lungs are auscultated posteriorly. No adventitious breath sounds. Respirations are limited. /GI: Abdomen is soft and nontender. Normoactive bowel sounds x4. No hepatomegaly to palpation. Skin : Positive pallor. No rashes, ecchymosis, or jaundice appreciated. Peripheral vascular: 3+ brachial pulse palpated bilaterally and symmetrically; 3+ dorsalis pedis pulse palpated bilaterally and symmetrically. No pedal edema. DIAGNOSTIC STUDIES/LAB DATA: Blood work obtained 07/10/19, white count 7.6, hemoglobin 9.2, hematocrit 28, platelets 250,000. Sodium 140, potassium 3.6, chloride 109, carbon-dioxide 26, BUN 7, creatinine 0.68, troponin negative x3. Alk phos 127. INR 1.21. ECG from 07/09/19 reviewed. Sinus rhythm rate 72 with known lateral T-wave flattening compared to April 2019 ECG. Otherwise, no ST segment or depression appreciated. Telemetry reviewed. The patient has been sinus rhythm with PVCs, rates 70. No VT appreciated. Chest x-ray 07/07/19: Per radiology report, cardiomegaly without evidence of pulmonary edema, elevated lung volumes considering for COPD. ASSESSMENT AND PLAN: 1. Ongoing complaints of melena with anemia; GI following. The patient is status post packed red blood cell transfusion. Hemoglobin improving, currently 9.2. Upon review, it appears that anemia has been progressive since she was placed on dual antiplatelet therapy status post proximal LAD stenting on . She is currently asymptomatic. We will defer to primary team and GI. 2. Status post [id number] myocardial infarction April of 2019 that resulted in 3.0 x 12 mm Synergy drug-eluting stent to proximal LAD; given it has been 2 months since PCI and the patient presented with gastrointestinal bleed, would recommend discontinuing Brilinta therapy, continuing aspirin 81 mg a day. She is on statin and beta-blockade therapy. Denies any recurrent complaints of chest pain or shortness of breath which was her anginal equivalent in April of 2019. Of course, if the patient is able to tolerate dual antiplatelet therapy in the future, we would recommend resuming Brilinta 90 mg p.o. b.i.d. The patient has an outpatient followup appointment on . Recommend she follow up at that time. 3. History of severe mitral regurgitation with posterior mitral prolapse with chordal flail and severe anteriorly directed mitral regurgitation. She is compensated on physical examination due to volume contraction with gastrointestinal blood loss, would not increase torsemide at this time. We will follow as outpatient to reevaluate. She is on ARB and beta-blockade therapy. 4. History of transient ischemic attack. Historically on aspirin therapy, which will be resumed. 5. Disposition. Pending course. The patient is DNR. Would discontinue Brilinta at this time. Resume aspirin 81 mg a day. Keep outpatient appointment on 07/14/19. I personally spoke to Gastroenterology, Dr. Arthur Fall, who seems to be favoring a more conservative approach in regards to the patient's medical management at this time given hemoglobin is improving. The patient denies any recurrent episodes of melena. We will follow closely. Any future questions or concerns, please do not hesitate to contact our practice. Dr. Memo Sanford has personally seen and examined the patient and agrees with the above assessment and plan. LISA SEQUEIRA, JUAN [id number]/[facility] #: [id number] DAISY
--- NOTE | 2019-07-10 15:46 | PN ---
Progress Note - Progress Note Date of Service: 07/10/19 Note: GI fu doing well, dark stools VSS nad, alert +bs, soft, nt/nd Hgb up from PRBC per Cardiology, stopping AC anemia.....opting for conservative tx; stopping AC, anticipate increase in Hgb, continue ASA no EGD for now Arthur Akbar MD
[2019-07-10] MEDS: Atorvastatin* 40 MG TAB PO SCH (17:11)
[2019-07-10] MEDS: Magnesium Oxide TAB* 400 MG PO SCH (17:11)
--- NOTE | 2019-07-10 19:13 | PN ---
Subjective Date of Service: 07/10/19 Interval History: No acute events overnight, hemodynamically stable. Hgb up to 9.2 from 7.5 after 2u pRBC. Cardiology rec to stop Brilinta. They cleared for an EGD. Pt complains of cough and warmth with wheezy breath sounds. No hematochezia. Does not remember talk of recommendation to consider mitral valve clip/surgery with Dr. Rogers. Does not know that she could handle another surgery. does not walk much - feet burn and some BELTRAN. wants to eat/drink. Objective Active Medications: Acetaminophen (Tylenol Tab*) 650 mg PO Q4H PRN PRN Reason: PAIN-MILD/TEMP >/= 100.4 Al Hydrox/Mg Hydrox/Simethicone (Maalox Plus*) 30 ml PO Q6H PRN PRN Reason: INDIGESTION Albuterol/Ipratropium (Duoneb (Albuterol 2.5 Mg/Ipratropium 0.5 Mg)) 1 neb INH Q4H PRN PRN Reason: SOB/WHEEZING Aspirin (Aspirin 81 Mg Chew Tab*) 81 mg PO DAILY [facility] Last Admin: 07/10/19 11:10 Dose: 81 mg Atorvastatin Calcium (Lipitor*) 40 mg PO 1700 [facility] Last Admin: 07/10/19 17:11 Dose: 40 mg Guaifenesin (Mucinex*) 600 mg PO BID [facility] Last Admin: 07/10/19 11:09 Dose: Not Given Pantoprazole Sodium (Protonix Iv Bag*) 80 mg in 250 mls @ 25 mls/hr IV Q10H [facility] Last Admin: 07/10/19 12:20 Dose: 25 mls/hr Labetalol HCl (Trandate Tab*) 200 mg PO DAILY [facility] Last Admin: 07/10/19 09:31 Dose: 200 mg Magnesium Oxide (Magox 400 Tab*) 400 mg PO QPM [facility] Last Admin: 07/10/19 17:11 Dose: 400 mg Mirtazapine (Remeron Tab*) 30 mg PO BEDTIME [facility] Last Admin: 07/09/19 20:40 Dose: 30 mg Oxycodone/Acetaminophen (Percocet 5/325 Tab*) 1 tab PO Q6H PRN PRN Reason: PAIN Last Admin: 07/10/19 03:16 Dose: 1 tab Potassium Chloride (Klor Con Er Tab*) 10 meq PO DAILY [facility] Last Admin: 07/10/19 11:09 Dose: Not Given Trazodone HCl (Desyrel Tab*) 50 mg PO BEDTIME [facility] Last Admin: 07/09/19 20:40 Dose: 50 mg Vital Signs - 8 hr 07/10/19 07/10/19 11:15 15:14 Temperature 97.7 F 99 F Pulse Rate 73 79 Respiratory 20 17 Rate Blood Pressure 155/61 144/43 (mmHg) O2 Sat by Pulse 96 98 Oximetry Oxygen Devices in Use Now: None Appearance: NAD Ears/Nose/Mouth/Throat: NL Teeth, Lips, Gums Neck: NL Appearance and Movements; NL JVP Respiratory: Symmetrical Chest Expansion and Respiratory Effort, Clear to Auscultation Cardiovascular: NL Sounds; No Murmurs; No JVD, RRR Abdominal: NL Sounds; No Tenderness; No Distention Lymphatic: No Cervical Adenopathy Extremities: No Edema Skin: No Rash or Ulcers Neurological: Alert and Oriented x 3 Nutrition: Taking PO's Result Diagrams: 07/10/19 05:20 07/10/19 05:21 Additional Lab and Data: Laboratory Results - last 24 hr 07/09/19 07/09/19 07/10/19 11:01 19:07 05:20 WBC 7.6 RBC 3.64 L Hgb 9.2 L Hct 28 L MCV 76 L MCH 25 L MCHC 33 RDW 19 H Plt Count 250 MPV 8.2 Neut % (Auto) 76.9 Lymph % (Auto) 8.3 [place] % (Auto) 12.1 Eos % (Auto) 2.4 Baso % (Auto) 0.3 Absolute Neuts (auto) 5.8 Absolute Lymphs (auto) 0.6 L Absolute Monos (auto) 0.9 H Absolute Eos (auto) 0.2 Absolute Basos (auto) 0.0 Absolute Nucleated RBC 0.0 Nucleated RBC % 0.1 Sodium Potassium Chloride Carbon Dioxide Anion Gap BUN Creatinine Est GFR ( Amer) Est GFR (Non-Af Amer) BUN/Creatinine Ratio Glucose Calcium Blood Type O Positive Antibody Screen Negative Crossmatch See Detail Transfusion React Rpt Donor Unit # [id number] Post-Trans Blood Type O Positive Post-Trans PAUL Negative 07/10/19 05:21 WBC RBC Hgb Hct MCV MCH MCHC RDW Plt Count MPV Neut % (Auto) Lymph % (Auto) [place] % (Auto) Eos % (Auto) Baso % (Auto) Absolute Neuts (auto) Absolute Lymphs (auto) Absolute Monos (auto) Absolute Eos (auto) Absolute Basos (auto) Absolute Nucleated RBC Nucleated RBC % Sodium 140 Potassium 3.6 Chloride 109 Carbon Dioxide 26 Anion Gap 5 BUN 7 Creatinine 0.68 Est GFR ( Amer) 99.7 Est GFR (Non-Af Amer) 82.4 BUN/Creatinine Ratio 10.3 Glucose 97 Calcium 8.1 L Blood Type Antibody Screen Crossmatch Transfusion React Rpt Donor Unit # Post-Trans Blood Type Post-Trans PAUL Microbiology and Other Data: Microbiology 07/09/19 18:56 Transfusion Reaction Culture - Preliminary Blood Bag Culture Under Incubation Transfusion Reaction Gram Stain - Final Assess/Plan/Problems-Billing Assessment: 84 yo female PMH CAD w/ recent LAD RONEN on 05/11/19 on DAPT, peptic ulcer disease , PVD, severe mitral regurg with flail leaflet p/w worsening anemia on DAPT. s/ p 2u pRBC. Brilinta now stopped. - Patient Problems (1) Anemia Current Visit: Yes Status: Acute Code(s): D64.9 - ANEMIA, UNSPECIFIED SNOMED Code(s): 269869017 Comment: slow downtrend since April. On iron supplements (07/04 Iron <20, Iron Sat 4%, Ferritin low, RDW 19, MCV 76). Hx of antral erosions s/p 2 u pRBC appreciate GI recs, deferring EGD for now. Brilinta was rec held by cardiology, she is 2 months out from RONEN. Continue aspirin. CBC daily. ppi (2) Mitral valve failure Current Visit: Yes Status: Acute Comment: She was recommended to consider mitral valve clip but does not remember that converstation. flail leaflet with severe regurg likely contributing to BELTRAN. (3) CAD (coronary artery disease) Current Visit: No Status: Acute Code(s): I25.10 - ATHSCL HEART DISEASE OF [place] CORONARY ARTERY W/O ANG PCTRS SNOMED Code(s): 95120846 Comment: continue aspirin, statin, BB. cardiology rec of stop brilinta. (4) Back pain Current Visit: No Status: Acute Code(s): M54.9 - DORSALGIA, UNSPECIFIED SNOMED Code(s): 037052121 Comment: hs chronic low back pain on percocet (5) DVT prophylaxis Current Visit: No Status: Acute Code(s): LUK9280 - SNOMED Code(s): 944857370 Comment: SCDs in setting of severe transfusion dependent anemia. (6) Depression Current Visit: No Status: Acute Code(s): F32.9 - MAJOR DEPRESSIVE DISORDER, SINGLE EPISODE, UNSPECIFIED SNOMED Code(s): 68387735 Comment: On mirtazapine (7) HTN (hypertension) Current Visit: No Status: Acute Code(s): I10 - ESSENTIAL (PRIMARY) HYPERTENSION SNOMED Code(s): 73432828 Comment: on labetalol and losartan (8) PAD (peripheral artery disease) Current Visit: No Status: Acute Code(s): I73.9 - PERIPHERAL VASCULAR DISEASE , UNSPECIFIED SNOMED Code(s): 400236565 Comment: has severe PAD Status and Disposition: medicine inpatient
[2019-07-10] MEDS: traZODone TAB* 50 MG TAB PO SCH (22:04)
[2019-07-10] MEDS: Mirtazapine TAB* 15 MG PO SCH (22:04)
[2019-07-11] MEDS: Pantoprazole* 80 mg IN NS 80 MG/250 ML BAG IV SCH ×2 (02:18→15:32)
[2019-07-11 06:25] LABS: ABS Eosinophils 0.1 10^3/ul (0-0.6); ABS Lymphocytes 0.5 10^3/ul (1.0-4.8); ABS Monocytes 1.2 10^3/ul (0-0.8); ABS Neutrophils 6.6 10^3/ul (1.5-7.7); Eosinophil % 1.3 %; Hematocrit 27 % (35-47); Hemoglobin 9.1 g/dL (12.0-16.0); Lymphocyte % 5.6 %; Mean Corpuscular HGB Conc 33 g/dL (31-36); Mean Corpuscular Hemoglobin 25 pg (27-31); Mean Corpuscular Volume 76 fL (80-97); Mean Platelet Volume 8.1 fL (7.4-10.4); Nucleated Red Blood Cells % 0.1; Platelet Count 246 10^3/uL (150-450); Red Blood Count 3.62 10^6 /uL (3.70-4.87); Red Cell Distribution Width 19 % (10-15); White Blood Count 8.4 10^3/uL (3.5-10.8)
[2019-07-11] MEDS: guaiFENesin ER TAB 600 MG PO SCH (10:27)
[2019-07-11] MEDS: Labetalol TAB* 200 MG PO SCH (10:27)
[2019-07-11] MEDS: Potassium Chlor TAB* 10 MEQ TAB.ER PO SCH (10:27)
[2019-07-11] MEDS: Aspirin 81 mg CHEW TAB* 81 MG TAB.CHEW PO SCH (10:27)
[2019-07-11 16:37] VITALS: BP 142/52
[2019-07-11] MEDS: Magnesium Oxide TAB* 400 MG PO SCH (17:37)
[2019-07-11] MEDS: Atorvastatin* 40 MG TAB PO SCH (17:37)
--- NOTE | 2019-07-12 06:09 | DS ---
DISCHARGE SUMMARY: DATE OF ADMISSION: 07/10/19. DATE OF DISCHARGE: 07/11/19. ADMITTING PROVIDER: Lily Echevarria NP. ATTENDING PHYSICIAN ON THE DAY OF DISCHARGE: Jono Cowart M.D. PRIMARY CARE PROVIDER: Dr. Obando. OUTPATIENT POWER PLANT MECHANIC: Dr. Rogers. CONSULTING CARDIOLOGISTS WHILE IN THE HOSPITAL: Dr. Sanford and Magda Coello NP. OUTPATIENT HIGH SPEED WARPER TENDER: Dr. Fall, who consulted inpatient along with Dr. Pacheco. CHIEF COMPLAINT: Dark tarry stools and cough. PRINCIPAL DIAGNOSES: Severe anemia with suspected, likely slow, upper gastrointestinal bleed in the setting of dual antiplatelet therapy, status post 2 units packed red blood cell transfusion. HISTORY OF PRESENT ILLNESS AND HOSPITAL COURSE: Kasie Saba is an 84-year- old female with past medical history of coronary artery disease with recent drug - eluting stents in mid April at [facility]; peripheral vascular disease with renal artery stenosis; fem-pop bypass; hypertension; hyperlipidemia ; peptic ulcer disease with antral erosions in 2004 and 2007; a recent progressive anemia as an outpatient since April. Please see [facility] for full details, but briefly, the patient has had a close followup as an outpatient with both Cardiology and Gastroenterology. Was started on iron as an outpatient. Her hemoglobin had dropped from 8.5 on 06/12/19 to 7.9 on 07/04/19 , and on day of admission, was 7.5. She had complained of a cough and had started Augmentin 2 days prior to admission, but denies fevers. She had had more significant black stool.She got 2 units of packed red blood cells on admission and both Gastroenterology and Cardiology consulted on the case. Dr. Pacheco requested a cardiology clearance before EGD given her elevated BNP close to around 700 on 07/04/19 and on review of outpatient echocardiograms there was note of a flail mitral valve leaflet and severe mitral valve regurgitation. Cardiology tentatively cleared her for EGD, but Dr. Fall felt that more conservative management would be appropriate. Cardiology also recommended holding her Brilinta while continuing her aspirin. Of note, she is exactly 2 months out from her drug-eluting stent to LAD. Her hemoglobin's after transfusion have been 9.1, 9.2, and 8.8. She is recommended to be closely followed with Dr. Dr. Eufemia Rogers and her primary care physician. She was started on Protonix drip during the hospital stay and will be continued on protonix po as an outpatient. If anemia stabilizes off the Brilinta and on Protonix could consider either EGD as an outpatient or empirically trial of dual antiplatelet therapy if benefits outweigh the risks. DISCHARGE MEDICATIONS: Include: 1. Acetaminophen 650 mg p.o. q.4 hours p.r.n. 2. Maalox 30 mL p.o. q.6 hours p.r.n. 3. Atorvastatin 40 mg p.o. at 1700. 4. Labetalol 200 mg p.o. daily. 5. Mucinex 600 mg tablet extended release b.i.d. 6. Magnesium oxide 400 mg p.o. q.p.m. 7. Mirtazapine 30 mg p.o. at bedtime. 8. Percocet 1 tab p.o. q.6 hours p.r.n. 9. Potassium chloride 10 mEq p.o. daily. 10. Trazodone 50 mg p.o. at bedtime. 11. Augmentin 875 p.o. b.i.d. 12. Aspirin 81 mg daily. 13. Docusate 100 mg p.o. p.r.n. constipation. 14. Lasix 20 mg on Tuesdays and . 15. Iron, B12, folic acid capsule daily. 16. Losartan 25 mg p.o. every other day. 17. Nitroglycerin 0.4 mg sublingual p.r.n. for chest pain. 18. Protonix 40 mg p.o. daily (new). Of note, her Brilinta was stopped. FOLLOWUP: Please follow up with Dr. Rogers, Dr. Fall, and Dr. Obando. Of note, the patient denied knowledge of potential need for or suggestion for mitral valve clip or other mitral valve surgery. This should be again discussed with the cardiology team as an outpatient. She is obviously at high risk of in-stent thrombosis while off the Brilinta and that risk must be balanced with the symptomatic, transfusion dependent anemia with suspected slow upper GI bleeding that developed on the dual antiplatelet therapy. The balance of risk and benefits may shift after adequate therapy with proton pump inhibitor , which she was not on prior to this admission. DIET: heart healthy. DISPOSITION: Home. CONDITION: Guarded. TIME SPENT ON DISCHARGE: 45 minutes. [id number]/CPS #: [id number] DAISY
== END 2019-07-11 20:01 | disposition home or self-care (01) | DRG 812 ==
LOC: ED 10:36 → MEDTELE 13:55 → OBSVTOIN 07-10 11:00
PROVIDERS: ADMIT Internal Medicine; ATTEND Internal Medicine
PROC: 30233N1 Transfusion of Nonautologous Red Blood Cells into Peripheral Vein, Percutaneous Approach (ICD-10-PCS; principal; 2019-07-10)
DX: D64.9 Anemia, unspecified (principal); K92.1 Melena; Z28.21 Immunization not carried out because of patient refusal; I25.10 Atherosclerotic heart disease of native coronary artery without angina pectoris; I73.9 Peripheral vascular disease, unspecified; J44.9 Chronic obstructive pulmonary disease, unspecified; I34.0 Nonrheumatic mitral (valve) insufficiency; E78.5 Hyperlipidemia, unspecified; Z66 Do not resuscitate; F32.9 Major depressive disorder, single episode, unspecified; I10 Essential (primary) hypertension; E78.00 Pure hypercholesterolemia, unspecified; K58.9 Irritable bowel syndrome, unspecified; M19.90 Unspecified osteoarthritis, unspecified site; G43.909 Migraine, unspecified, not intractable, without status migrainosus; G89.29 Other chronic pain; M54.30 Sciatica, unspecified side; M48.00 Spinal stenosis, site unspecified; J40 Bronchitis, not specified as acute or chronic; Z87.891 Personal history of nicotine dependence; Z95.5 Presence of coronary angioplasty implant and graft; I25.2 Old myocardial infarction; Z87.11 Personal history of peptic ulcer disease; Z86.73 Personal history of transient ischemic attack (TIA), and cerebral infarction without residual deficits; Z79.82 Long term (current) use of aspirin; Z79.899 Other long term (current) drug therapy
CPT/HCPCS: 36415; 71046; 80048; 80053; 84484; 85025; 85610; 86078; 86850; 86900; 86901; 86922; 93005; 96361; 96374; 96375; 99284; A9270-GY; G0378; G8978-GP-CJ; G8979-GP-CJ; G8980-GP-CJ; P9040

== ENCOUNTER 2019-07-28 16:13 | Emergency (ER) | payer MEDICARE ==
--- OUTSIDE RECORDS SUMMARY | 2019-07-28 16:30 | XMS REPORT | Continuity of Care Document ---
:1935 External Reference #:[id number] Author Name Magda Coello NP (transmitted by agent of provider Rebecca Durán) Address [address] [place] [address] Care Team Providers Name Role Phone Drew Rogers MD - Cardiovascular Care Team Information Manager Post Disease Chip Almendarez MD - Vascular Surgery Care Team Information Manager Post Nir Mcmahon MD - Care Team Information Manager Post [phone] Neurological Surgery Марина Obando M.D. - Family Medicine Care Team Information Manager Post Problems Active Problems Provider Date Spinal stenosis [...] Use Denies Drug Use Smoking Status Reviewed: 07/24/19 Patient is a former 1ppd X 60 years. smoker Exercise Type/Frequency Does not exercise Allergies, Adverse Reactions, Alerts Active Allergies Reaction Severity Comments Date Lipitor myalgias at 40 , okay at 20 05/14/2003 Lyrica off balance 02/29/2008 Inactive Allergies NKDA 05/14/2003 Medications Active Medications SIG Qnty Indications Ordering Provider Date Pantoprazole Sodium 1 by mouth 30tabs Adelina Li, 07/21/2019 40mg daily Anayeli, FACP Tablets Losartan Potassium 1 by mouth 90tabs I10 Drew Williamson 07/04/2019 25mg every other day Anayeli Rogers Tablets Ferrex 150 Forte 1 cap by mouth 30caps Adelina Li, 07/03/2019 every day Anayeli, FACP 884-6-36yw-mg-mcg Capsules Torsemide 1 by mouth 30tabs Марина [...] with seat and brakes dx. m48.062 M48.062 Ventolin HFA inhale 2 puffs by 18units Марина Obando MD 10/03/2018 108(90Base) mouth four times a mcg/Act Aerosol day as needed Magnesium-Oxide 1 by mouth every 90tabs Naomy Deng MD 12/01/2016 400(241.3mg) mg evening Tablets Trazodone HCL take 4-5 every 270tabs Марина Obando MD 06/29/2014 50mg Tablets night at bedtime Labetalol HCL take one tablets by 180tabs Марина Obando MD 02/26/2011 200mg Tablets mouth once a day Atorvastatin Calcium 1 by mouth every Unknown 40mg day Tablets Potassium Chloride Lucía take one Unknown ER capsule/tablet 10Meq Tablets ER daily by mouth Oxycodone-Acetaminophen 1 tab PO tid Unknown 5-325mg Tablets History Medications Feraheme feraheme infusion 2doses Drew Williamson 07/13/2019 - 510mg/17ML 510 mg 2 doses Anayeli Rogers 07/23/2019 Solution total first infusion followed by a second infusion in a week Amoxicillin/Clavula take 1 tab by 10tabs R05 Naomy Deng 07/07/2019 - guillermina Potassium mouth every 12 07/23/2019 hours for 5 days 875-125mg Tablets Venofer 200 mg iv five 1000mg Drew Williamson 07/05/2019 - 20mg/ml times over 14 Anayeli Rogers 07/13/2019 Solution days Oxycontin one by mouth 14tabs M48.062 Марина Obando MD 04/24/2019 - 10mg Tab every 12 hours 05/11/2019 ER 12H Abuse-Det Medications Administered in Office Medication SIG Qnty Indications Ordering Provider Date B-12 Injection Jerrod Lopez, 08/26/2017 ABI Alegria M.D. Injection Jerrod Lopez, 07/14/2017 Airam Guadalupe,ABI Delcid Injection Nurse Visit A 06/08/2017 Injection Jay-Justin Injection Nurse Visit A 06/01/2017 Injection Bhavin Injection Nurse Visit A 05/25/2017 Injection Jay-Justin Injection Jerrod Lopez, 05/18/2017 Injection Anayeli,FACP Inj, Regadenoson, 0.1 MG Memo Sanford M.D. 12/31/2016 Injection Technetium TC 99M Memo Sanford M.D. 12/31/2016 Tetrofosmin, Per Unit Dose Up To 40 Millicuries Injection Immunizations CPT Code Status Date Vaccine Reaction Lot # [id number] Given 05/23/2019 Influenza Virus Vaccine, pt. tolerated well. [id number] Quadrivalent ([id number]), Derived From Cell 70524 Given 06/27/2018 Influenza Virus Vaccine, [id number] Quadrivalent, Split, Preservative Free 94919 Given 05/18/2017 Influenza Virus Vaccine, [id number] Quadrivalent, Split, Preservative Free 65122 Given 07/08/2016 Influ Virus Vaccine, [id number] Quadrivalent, Split Virus, [place] [address] Given 04/06/2015 Fluzone High Dose 53266 Given 12/28/2014 Pneumococcal Conjugate [id number] Vaccine 13 Valent For Intramuscular Use 21438 Given 04/25/2014 Fluzone High Dose Q2035 Given 04/02/2013 Afluria Vaccine 61022 Given 06/03/2012 Tdap - [id number] Tetanus/Diptheria/Acellular Pertussis Q2035 Given 04/07/2012 Afluria Vaccine 17150 Given 07/03/2010 Zoster (Zostavax) [id number] 76403 Given 05/10/2010 Influenza Virus 3Yrs & Over 73149 Given 08/28/2009 Influenza Virus Vaccine, [id number] Pandemic Formulation 37169 Given 05/31/2008 Influenza Virus 3Yrs & Over 30417 Given 05/31/2008 Influenza Virus 3Yrs & Over 97368 66900 Given 05/16/2001 Pneumonia Vaccine Vital Signs Date Vital Result Comment 07/24/2019 3:02pm Height 64.5 inches 5'4.50" Weight 135.00 lb with shoes Heart Rate 68 /min left radial BP Systolic Sitting 126 mmHg Rue, reg cuff BP Diastolic Sitting 64 mmHg Rue, reg cuff BP Systolic Standing 116 mmHg Rue, reg cuff BP Diastolic Standing 60 mmHg Rue, reg cuff BMI (Body Mass Index) 22.8 kg/m2 Ejection Fraction 55%-60% 05/07/19 echocardiogram 07/21/2019 1:04pm Height 64.5 inches 5'4.50" Weight 135.38 lb Heart Rate 70 /min BP Systolic Sitting 125 mmHg BP Diastolic Sitting 69 mmHg O2 % BldC Oximetry 97 % BMI (Body Mass Index) 22.9 kg/m2 Results Test Acquired Date Facility Test Result H/L Range Note Laboratory test 07/09/2019 [facility] Troponin-I 0.01 ng/mL < 0.03 1 finding 101 (TnI) [place] [address] [phone] CBC Auto Diff 07/09/2019 [facility] White 6.7 10^3/uL Normal 3.5-10.8 [place] [address] Count [phone] Red Blood Count 3.25 10^6/uL Low 3.70-4.87 Hemoglobin 7.5 g/dL Low 12.0-16.0 Hematocrit 24 % Low 35-47 Mean Corpuscular Volume 72 fL Low 80-97 2 Mean Corpuscular Hemoglobin 23 pg Low 27-31 Mean Corpuscular HGB Conc 32 g/dL Normal 31-36 Red Cell Distribution Width 18 % High 10-15 Platelet Count 296 10^3/uL Normal 150-450 Mean Platelet Volume 8.0 fL Normal 7.4-10.4 Abs Neutrophils 5.1 10^3/uL Normal 1.5-7.7 Abs Lymphocytes 0.5 10^3/uL Low 1.0-4.8 Abs Monocytes 0.8 10^3/uL Normal 0-0.8 Abs Eosinophils 0.2 10^3/uL Normal 0-0.6 Abs Basophils 0.0 10^3/uL Normal 0-0.2 Abs Nucleated RBC 0.0 10^3/uL Granulocyte % 76.8 % Lymphocyte % 7.7 % Monocyte % 11.9 % Eosinophil % 3.2 % Basophil % 0.4 % Nucleated Red Blood Cells % 0.1 Inr/Protime 07/09/2019 [facility] Inr 1.21 High 0.82-1.[address] [place], [place] [address] [phone] Comp Metabolic 07/09/2019 [facility] Sodium 138 mmol/L Normal 135-145 Panel [place], [place] [id number] [phone] Potassium 3.5 mmol/L Normal 3.5-5.0 Chloride 104 mmol/L Normal 101-111 Co2 Carbon Dioxide 27 mmol/L Normal 22-32 Anion Gap 7 mmol/L Normal 2-11 Glucose 116 mg/dL High 70-100 Blood Urea Nitrogen 10 mg/dL Normal 6-24 Creatinine 0.75 mg/dL Normal 0.51-0.95 BUN/Creatinine Ratio 13.3 Normal 8-20 Calcium 8.5 mg/dL Low 8.6-10.3 Total Protein 6.2 g/dL Low 6.4-8.9 Albumin 3.6 g/dL Normal 3.2-5.2 Globulin 2.6 g/dL Normal 2-4 Albumin/Globulin Ratio 1.4 Normal 1-3 Total Bilirubin 0.50 mg/dL Normal 0.2-1.0 Alkaline Phosphatase 127 U/L High 34-104 Alt 9 U/L Normal 7-52 Ast 16 U/L Normal 13-39 Egfr Non- 73.6 >60 Egfr 89.1 >60 4 Laboratory test 07/09/2019 [facility] Troponin-I (TnI) 0.01 ng/ mL <0.[address] [place] [address] [phone] Type & Screen 07/09/2019 [facility] Patient Blood O Positive [address] [place] [address] [phone] Antibody Screen NEGATIVE Laboratory test 07/09/2019 [facility] Packed Cells SEE RESULTS [address] [place]O <[place] [address] NOTE> [phone] Order 07/07/2019 [facility] blood <pending> [address] [place] [address] protocol [phone] Iron & Iron 07/04/2019 [facility] Total Iron 451 g/dL High 250-[address] Binding Capacity [address] [place] [address] [phone] Transferrin 322 mg/dL Normal 203-362 Iron < 20 g/dL Low 50-212 Unsaturated Iron Binding < 436 g/dL % Iron Saturation 4 % Low 15-55 Vitamin B12 07/04/2019 [facility] Vitamin B12 200 pg/mL Normal 180-9[address] [place] [address] [phone] Folic Acid (Folate) 5.61 ng/mL >3.99 Cell Morphology 07/04/2019 [facility] Microcytosis 2+ [address] [place] [address] [phone] Hypochromasia 2+ Polychromasia 1+ Schistocytes 1+ Elliptocyte 2+ Laboratory test 07/04/2019 [facility] Pathologist (SEE NOTE) [address] [place] [address] [phone] Comp Metabolic 07/04/2019 [facility] Sodium 139 mmol/L Normal 135-[address] [place] [address] [phone] Potassium 3.8 mmol/L Normal 3.5-5.0 Chloride 105 [...] Egfr Non- 67.4 >60 Egfr 81.5 >60 9 CBC Auto 07/04/2019 [facility] White Blood 5.1 10^3/uL Normal 3.5-10.[address] [place] [address] [phone] Red Blood Count 3.42 10^6/uL Low 3.70-4.87 [...] Nucleated Red Blood Cells % 0.1 Laboratory 07/04/2019 [facility] B-Type 780 pg/mL High <=100 test finding [address] [place] [address] Peptide BNP [phone] CBC Auto Diff 06/12/2019 [facility] White Blood 5.7 Normal 3.5 -10.[address] Count 10^3/[place] [address] [phone] Red Blood Count 3.39 10^6/uL Low 3.70-4.87 [...] System Ferritin 9.4 ng/mL Low 11-[address] [place] [address] [phone] Urinalysis 05/06/2019 [facility] Urine Color Colorless Profile [address] [place] [address] [phone] Urine Appearance Clear Urine Specific Beatty 1.005 Low 1.010-1.030 Urine pH 7.0 Normal 5-9 Urine Urobilinogen Negative Negative Urine Ketones Negative Negative Urine Protein Negative Negative Urine Leukocytes Negative Negative Urine Blood Negative Negative Urine Nitrite Negative Negative Urine Bilirubin Negative Negative Urine Glucose Negative Negative Laboratory 05/05/2019 [facility] B-Type 703 pg/mL High <=100 test finding [address] [place] [address] Peptide BNP [phone] Inr/Protime 05/05/2019 [facility] Inr 1.12 High 0.82-1.[address] [place] [address] [phone] Laboratory 05/05/2019 [facility] D Dimer 553 ng/mL High Less Than 11 test finding [address] Quantitative [address] [place] [address] [phone] Lactic Acid 1.2 mmol/L Normal 0.5-2.0 12 Iron & Iron 05/05/2019 [facility] Total Iron 469 g/dL High 250-450 Binding [address] [place] [address] Capacity [phone] Transferrin 335 mg/dL Normal 203-362 Iron TNP g/dL 50-212 13 % Iron Saturation TNP % 15-55 14 Laboratory test 05/05/2019 [facility] Folic Acid 3.53 ng/mL > 3.99 finding 101 (Folate) [place] [address] [phone] Vitamin B12 207 pg/mL Normal 180-914 15 CBC Auto 05/05/2019 [facility] White Blood 7.5 10^3/uL Normal 3.5-10.8 Diff [address] [place] [address] [phone] Red Blood Count 4.08 10^6/uL Normal 3.70-4.87 [...] Red Blood Cells % 0.0 Laboratory 05/05/2019 [facility] Troponin-I 0.05 Critical < 0.04 16 test finding [address] (TnI) ng/[place] [address] [phone] Comp Metabolic 05/05/2019 [facility] Sodium 140 Normal 135- [address] mmol/[place] [address] [phone] Potassium 3.9 mmol/L Normal 3.5-5.0 Chloride 104 [...] Egfr Non- 79.7 >60 Egfr 96.5 >60 17 Thyroid 02/06/2019 [facility] Free T4 (Free 0.85 Normal 0.61- 1.[address] Thyroxine) ng/[place] [address] [phone] Thyroxine 7.86 g/dL Normal 6.09-12.23 TSH (Thyroid Stim Horm) 0.61 mcIU/mL Normal 0.34-5.60 1 Troponin-I testing on Plasma Separator Tubes (PST) has a known false positive rate of 0.20-0.40%. All positive troponins reflex immediately to secondary confirmatory testing. Using the [employer] DxI 800 Access Immunoassay systems, the 99th percentile upper reference limit was demonstrated to be < 0.03 ng/mL. 2 Consistent with Previous Results Reported on 07/04/19 3 Standard intensity warfarin therapeutic range: 2.0-3.0 High intensity warfarin therapeutic range: 2.5-3.5 4 Because ethnic data is not always readily [...] 15-29 5 Kidney failure <15 (or dialysis) 5 Troponin-I testing on Plasma Separator Tubes (PST) has a known false positive rate of 0.20-0.40%. All positive troponins reflex immediately to secondary confirmatory testing. Using the [employer] DxI 800 Access Immunoassay systems, the 99th percentile upper reference limit was demonstrated to be < 0.03 ng/mL. 6 SEE RESULTS BELOW [id number] OP PC TRANSFUSED 07/09/19 1950 [id number] OP PC TRANSFUSED 07/09/19 1810 [id number] OP PC TRANSFUSED 07/09/19 2323 7 Normal Range 180 to 914 Indeterminate Range 145 to 180 Deficient Range <145 8 Microcytic anemia with red cell indices suggestive of iron deficiency. Additional studies as clinically warranted. Reviewed by Dr. Ruiz 9 Because ethnic data is not always readily [...] 15-29 5 Kidney failure <15 (or dialysis) 10 Standard intensity warfarin therapeutic range: 2.0-3.0 High intensity warfarin therapeutic range: 2.5-3.5 11 Please note: The following may produce a false positive D Dimer test: - Rheumatoid factor greater than 60 IU/ml - Plasma hemoglobin greater than 0.05 gm/dl - Bilirubin greater than 50 mg/dl - Lipids greater than 1000 mg/dl - FDP greater than 20 ug/ml 12 [facility] Severe Sepsis and Septic Shock Management Bundle Measure requires all lactic acids initially measuring >2.0 mmol/L be repeated. 13 Unable to report test result due to hemolysis. 14 Unable to calculate due to hemolysis. 15 Normal Range 180 to 914 Indeterminate Range 145 to 180 Deficient Range <145 16 Result TnIDx:0.05 Called to [id number] at: 01:51:07 by:[id number] Read back by: [id number] Troponin-I testing on Plasma Separator Tubes (PST) has a known false positive rate of 0.20-0.40%. All positive troponins reflex immediately to secondary confirmatory testing. Using the [employer] DxI 800 Access Immunoassay systems, the 99th percentile upper reference limit was demonstrated to be < 0.03 ng/mL. 17 Because ethnic data is not always readily [...] (or dialysis) Procedures Date Code Description Status 07/21/2019 47357 EKG Tracing & Interpretation Completed 07/04/2019 72782 EKG Tracing & Interpretation Completed 05/06/2019 91392 EKG, Interpretation Only Completed 02/16/2019 36608 ECHO Transthoracic, Real-Time 2D With Doppler And Color Completed Flow 02/16/2019 45462 ECHO Transthoracic, Real-Time 2D With Doppler And Color Completed Flow 02/15/2019 65486 EKG Tracing & Interpretation Completed 02/08/2019 92125 Treadmill Interp/Report Only Completed 02/08/2019 13523 Stress Test Supervsn W/Out I/R Completed 07/14/2010 [id number] Colonoscopy Completed 06/17/2010 36824015 Mammogram Completed 05/23/2009 [id number] Mammogram Completed Medical Devices Description No Information Available Encounters Type Date Location Provider Dx Diagnosis Office Visit 07/10/2019 [facility] Memo Allred I25.10 [facility] heart 3:16p Of Ihsan Sanford M.D. disease of [place] coronary artery w/o ang pctrs I25.2 Old myocardial infarction I34.0 Nonrheumatic mitral (valve) insufficiency Z86.73 Prsnl hx of TIA (TIA), and cereb infrc w/o resid deficits Z98.61 Coronary angioplasty status Office Visit 07/10/2019 9:25a [facility] Jonomami Cowart, D64.9 Anemia, Assoccecilia MD unspecified Hospitalists I34.9 Nonrheumatic mitral valve disorder, unspecified I25.10 Athscl heart disease of [place] coronary artery w/o ang pctrs I10 Essential (primary) hypertension M54.9 Dorsalgia, unspecified I73.9 Peripheral vascular disease, unspecified Office Visit 07/09/2019 9:25a [facility] Assfranco,Surekha Yeboah.Vee K92.1 [facility] Hospitalists D64.9 Anemia, unspecified D50.9 Iron deficiency anemia, unspecified Office Visit 07/04/2019 2:40p [facility] Drew Williamson I10 Essential (primary) Anayeli Rogers hypertension D64.9 Anemia, unspecified I25.10 Athscl heart disease of [place] coronary artery w/o ang pctrs I21.4 Non-St elevation (Nstemi) myocardial infarction I73.9 Peripheral vascular disease, unspecified I50.9 Heart failure, unspecified I34.0 Nonrheumatic mitral (valve) insufficiency R06.02 Shortness of breath Office Visit 06/30/2019 3:30p [facility] Internal Naomy D64.9 Anemia, Medicine - MD Ish unspecified Ccmob I10 Essential (primary) hypertension Office Visit 05/23/2019 9:40a [facility] Internal Марина Obando MD I25.10 Aths[facility] heart Medicine - Ccmob disease of [place] coronary artery w/o ang pctrs I21.4 Non-St elevation (Nstemi) myocardial infarction Z23 Encounter for immunization A04.72 Enterocolitis d/t Clostridium difficile, not spcf as recur D64.9 Anemia, unspecified Office Visit 05/06/2019 11:55a [facility] Memo Allred R07.9 Chest pain, Of Ihsan Sanford M.D. unspecified I25.10 Athscl heart disease of [place] coronary artery w/o ang pctrs I73.9 Peripheral vascular disease, unspecified E78.5 Hyperlipidemia, unspecified Office Visit 05/06/2019 [facility] Savita Menjivar, I50.31 Acute diastolic 9:53a Assoccecilia M.D. (congestive) Hospitalists heart failure I11.0 Hypertensive heart disease with heart failure E78.5 Hyperlipidemia, unspecified Office Visit 04/24/2019 2:00p [facility] Internal Марина Obando MD I10 Essential (primary[facility] M48.062 Spinal stenosis, lumbar region with neurogenic claudication M25.551 Pain in right hip Office Visit 04/10/2019 1:30p [facility] Emma Lee I34.0 Nonrheumatic mitral Foster, N.P. 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 stenosis, lumbar region with neurogenic claudication I34.0 Nonrheumatic mitral (valve) insufficiency Assessments Date Code Description Provider 07/24/2019 D64.9 Anemia, unspecified Magda Coello MILLINERY SALESPERSON 07/24/2019 I34.9 Nonrheumatic mitral valve disorder, Magda Coello MILLINERY SALESPERSON unspecified 07/24/2019 I25.10 Atherosclerotic heart disease of Magda WoodsJUAN irwin [place] coronary artery without angina pectoris 07/24/2019 I42.9 Cardiomyopathy, unspecified Magda Thdc, MILLINERY SALESPERSON 07/24/2019 M79.10 Myalgia, unspecified site Magda Coello NP 07/21/2019 Z00.00 Encounter for general adult medical Adelina Li M.D., FACP examination without abnormal findings 07/21/2019 I25.10 Atherosclerotic heart disease of Adelina Li M.D., FACP [place] coronary artery without angina pectoris 07/21/2019 K92.1 Belen Li M.D., FACP 07/21/2019 I34.9 Nonrheumatic mitral valve disorder, Adelina Li M.D., FACP unspecified 07/21/2019 M54.5 Low back pain Adelina Li M.D., FACP 07/21/2019 D64.9 Anemia, unspecified Adelina Li M.D., FACP 07/11/2019 D64.9 Anemia, unspecified Jono Cowart MD 07/11/2019 K92.1 Belen Cowart MD 07/10/2019 I25.10 Atherosclerotic heart disease of Memo Sanford M.D. [place] coronary artery without angina pectoris 07/10/2019 I25.2 Old myocardial infarction Memo Sanford M.D. 07/10/2019 I34.0 Nonrheumatic mitral (valve) Memo Sanford M.D. insufficiency 07/10/2019 Z86.73 Personal history of transient ischemic Memo Sanford M.D. attack (TIA), and cerebral infarction without residual deficits 07/10/2019 Z98.61 Coronary angioplasty status Memo Sanford M.D. 07/10/2019 D64.9 Anemia, unspecified Jono Cowart MD 07/10/2019 I34.9 Nonrheumatic mitral valve disorder, Jono Cowart MD unspecified 07/10/2019 I25.10 Atherosclerotic heart disease of Jono Cowart MD [place] coronary artery without angina pectoris 07/10/2019 I10 Essential (primary) hypertension Jono Cowart MD 07/10/2019 M54.9 Dorsalgia, unspecified Jono Cowart MD 07/10/2019 I73.9 Peripheral vascular disease, Jono Cowart MD unspecified 07/09/2019 K92.1 Belen Echevarria, N.P. 07/09/2019 D64.9 Anemia, unspecified Lily Echevarria, N.P. 07/09/2019 D50.9 Iron deficiency anemia, unspecified Lily Echevarria, N.P. 07/07/2019 D64.9 Anemia, unspecified Naomy Deng MD 07/07/2019 I10 Essential (primary) hypertension Naomy Deng MD 07/07/2019 R53.81 Other malaise Naomy Deng MD 07/07/2019 R05 Cough Naomy Deng MD 07/04/2019 I10 Essential (primary) hypertension Drew Rogers M.D. 07/04/2019 D64.9 Anemia, unspecified Drew Rogers M.D. 07/04/2019 I25.10 Atherosclerotic heart disease of Drew Rogers M.D. [place] coronary artery without angina pectoris 07/04/2019 I21.4 [...] Atherosclerotic heart disease of Марина Obando MD [place] coronary artery without angina pectoris 05/23/2019 I21.4 [...] 05/06/2019 I25.10 Atherosclerotic heart disease of Memo Sanfodr M.D. [place] coronary artery without angina pectoris 05/06/2019 I73.9 [...] heart disease of Emma Winslow, N.PMiguel Ángel [place] coronary artery with 02/16/2019 I34.0 Nonrheumatic mitral (valve) Drew Rogers M.D. insufficiency 02/16/2019 I34.0 Nonrheumatic mitral (valve) [facility] Schedule insufficiency 02/15/2019 I10 Essential (primary) hypertension Drew Rogers M.D. 02/15/2019 I25.10 Atherosclerotic heart disease of Drew Rogers M.D. [place] coronary artery with 02/15/2019 M48.062 Spinal stenosis, lumbar region with Drew Rogers M.D. neurogenic claudication 02/15/2019 I34.0 Non-rheumatic mitral regurgitation Drew Rogers M.D. 02/08/2019 I10 Essential (primary) hypertension Jose Burgos M.D. 02/08/2019 I25.10 Atherosclerotic heart disease of Jose Burgos M.D. [place] coronary artery with Plan of Treatment Future Appointment(s):09/05/2019 3:00 pm - Drew Rogers M.D. at [facility]08/15/2019 2:15 pm - [place] [facility] at [facility]2018 - Magda Coello, NPD64.9 Anemia, dzlvswlcmkvK53.9 Nonrheumatic mitral valve disorder, bqezsoqfqmyS16.10 Atherosclerotic heart disease of [place] coronary artery without angina pectorisFollow up:follow up with Dr. Rogers on 05/2019 as dtqstkrS41.9 Cardiomyopathy, gsdpzodwnqoT30.10 Myalgia, unspecified siteRecommendations:Stop Atorvastatin We will re assess your symptoms off of medication and if needed consider changing your medication Functional Status Description No Information Available Mental Status Description No Information Available Referrals Refer to Reason for Referral Status Appt Date Created Evan Garcia MD progressive and limiting anderson with known pvd, cad, Closed 03/17/2019 [facility] nuclear (anterior and inferior ischemia) , and moderate to severe MR. last cath at [facility] 2002 with 100% rca. please perform cardiac cath. [address] [place] [address] [phone]
--- OUTSIDE RECORDS SUMMARY | 2019-07-28 16:31 | XMS REPORT | Continuity of Care Document ---
:1935 External Reference #:[id number] Author Name Adelina Li M.D., FACP (transmitted by agent of provider Vivian Parmar) Address [address] [facility], [place] [address] Care Team Providers Name Role Phone Drew Rogers MD - Cardiovascular Care Team Information Harness Puller Disease Chip Almendarez MD - Vascular Surgery Care Team Information Harness Puller Nir Mcmahon MD - Care Team Information Harness Puller [phone] Neurological Surgery Марина Obando M.D. - Family Medicine Care Team Information Harness Puller [phone] Problems Active Problems Provider Date Spinal stenosis [...] Use Denies Drug Use Smoking Status Reviewed: 07/21/19 Patient is a former 1ppd X 60 years. smoker Exercise Type/Frequency Does not exercise Allergies, Adverse Reactions, Alerts Active Allergies Reaction Severity Comments Date Lipitor myalgias at 40 , okay at 20 05/14/2003 Lyrica off balance 02/29/2008 Inactive Allergies NKDA 05/14/2003 Medications Active Medications SIG Qnty Indications Ordering Date Provider Pantoprazole Sodium 1 by mouth daily 30tabs Adelina Li, 07/21/2019 40mg Anayeli, FACP Tablets DR Brenda abernathy infusion 2doses Drew Williamson 07/13/2019 510mg/17ML 510 mg 2 doses Anayeli Rogers Solution total first infusion followed by a second infusion in a week Amoxicillin/Clavulanat take 1 tab by 10tabs R05 Naomy Deng, 2018 e Potassium mouth every 12 875-125mg hours for 5 days Tablets Losartan Potassium 1 by mouth every 90tabs I10 Drew Williamson 07/04/2019 25mg other day Anayeli Rogers Tablets Ferrex 150 Forte 1 cap by mouth 30caps Adelina Li, 07/03/2019 every day M.DMiguel Ángel, FACP 168-3-05ye-mg-mcg Capsules Torsemide 1 by mouth twice 30tabs Марина Obando MD 05/23/2019 20mg Tablets a week Aspirin 81 1 by mouth every 30tabs Марина Obando MD 04/10/[address] Mercedesdre 1 sl q5 mins x3 25tabs I10 Drew Williamson 02/15/2019 0.4mg as needed for Anayeli Rogers Tablets Sub chest pain Roller Walker roller walker 1units R29.6 Марина Obando MD 12/07/2018 Misc with seat and brakes dx. m48.062 M48.062 Oxycodone-Acetaminophen 1 by mouth every 90tabs Adelina Li, 11/10/2018 5-325mg Tablets 6 hours as Anayeli, FACP needed for pain Ventolin HFA inhale 2 [...] 10Meq Tablets ER capsule/tablet daily by mouth History Medications Venofer 200 mg iv five 1000mg Drew [...] Code Status Date Vaccine Reaction Lot # 13287 Given 05/23/2019 Influenza Virus Vaccine, pt. tolerated well. [id number] Quadrivalent ([id number]), Derived From Cell 04672 Given 06/27/2018 Influenza Virus Vaccine, [id number] Quadrivalent, Split, Preservative Free 67496 Given 05/18/2017 Influenza Virus Vaccine, [id number] Quadrivalent, Split, Preservative Free 44196 Given 07/08/2016 Influ Virus Vaccine, [id number] Quadrivalent, Split Virus, [place] [address] Given 04/06/2015 Fluzone High Dose 72556 Given 12/28/2014 Pneumococcal Conjugate [id number] Vaccine 13 Valent For Intramuscular Use 65037 Given 04/25/2014 Fluzone High Dose Q2035 Given 04/02/2013 Afluria Vaccine 63804 Given 06/03/2012 Tdap - [id number] Tetanus/Diptheria/Acellular Pertussis Q2035 Given 04/07/2012 Afluria Vaccine 79986 Given 07/03/2010 Zoster (Zostavax) [id number] 47565 Given 05/10/2010 Influenza Virus 3Yrs & Over 03194 Given 08/28/2009 Influenza Virus Vaccine, [id number] Pandemic Formulation 57165 Given 05/31/2008 Influenza Virus 3Yrs & Over 09823 Given 05/31/2008 Influenza Virus 3Yrs & Over 01540 88690 Given 05/16/2001 Pneumonia Vaccine Vital Signs Date Vital Result Comment 07/21/2019 1:04pm Height 64.5 inches 5'4.50" Weight 135.38 lb Heart Rate 70 /min BP Systolic Sitting 125 mmHg BP Diastolic Sitting 69 mmHg O2 % BldC Oximetry 97 % BMI (Body Mass Index) 22.9 kg/m2 07/07/2019 2:09pm Height 64.5 inches 5'4.50" Weight 141.25 lb Heart Rate 83 /min BP Systolic 146 mmHg BP Diastolic 80 mmHg Body Temperature 96.8 F O2 % BldC Oximetry 99 % BMI (Body Mass Index) 23.9 kg/m2 Results Test Acquired Date Facility Test Result H/L Range Note Laboratory test 07/09/2019 [facility] Troponin-I 0.01 ng/mL < 0.[address] (TnI) [place] [address] [phone] CBC Auto Diff 07/09/2019 [facility] White 6.7 10^3/uL Normal 3.5-10.[address] [place] [address] Count [phone] Red Blood Count 3.25 10^6/uL Low 3.70-4.87 [...] Red Blood Cells % 0.1 Inr/Protime 07/09/2019 [facility] Inr 1.21 High 0.82-1.[address] [place] [address] [phone] Comp Metabolic 07/09/2019 [facility] Sodium 138 mmol/L Normal 135-145 Panel [address] [place], [place] [id number] [phone] Potassium 3.5 mmol/L Normal 3.5-5.0 Chloride 104 [...] Egfr 89.1 >60 4 Laboratory test 07/09/2019 [facility] Troponin-I (TnI) 0.01 ng/ mL <0.[address] [place] [id number] [phone] Type & Screen 07/09/2019 [facility] Patient Blood O Positive [address] [place] [address] [phone] Antibody Screen NEGATIVE Laboratory test 07/09/2019 [facility] Packed Cells SEE RESULTS [address] BELO <[place] [address] NOTE> [phone] Order 07/07/2019 [facility] blood <pending> [address] [place] [address] protocol [phone] Iron & Iron 07/04/2019 [facility] Total Iron 451 g/dL High 250-[address] Binding Capacity [address] [place] [address] [phone] Transferrin 322 mg/dL Normal 203-362 Iron < 20 g/dL Low 50-212 Unsaturated Iron Binding < 436 g/dL % Iron Saturation 4 % Low 15-55 Vitamin B12 07/04/2019 [facility] Vitamin B12 200 pg/mL Normal 180-9[address] [place] [address] [phone] Folic Acid (Folate) 5.61 ng/mL >3.99 Cell Morphology 07/04/2019 [facility] Microcytosis 2+ [address] [place] [address] [phone] Hypochromasia 2+ Polychromasia 1+ Schistocytes 1+ Elliptocyte 2+ Laboratory test 07/04/2019 [facility] Pathologist (SEE NOTE) [address] [place] [address] [phone] Comp Metabolic 07/04/2019 [facility] Sodium 139 mmol/L Normal 135-[address] [place] [address] [phone] Potassium 3.8 mmol/L Normal 3.5-5.0 Chloride 105 [...] Egfr 81.5 >60 9 CBC Auto 07/04/2019 [facility] White Blood 5.1 10^3/uL Normal 3.5-10.[address] [place] [address] [phone] Red Blood Count 3.42 10^6/uL Low 3.70-4.87 [...] Red Blood Cells % 0.1 Laboratory 07/04/2019 [facility] B-Type 780 pg/mL High <=100 test finding [address] [place] [address] Peptide BNP [phone] CBC Auto Diff 06/12/2019 [facility] White Blood 5.7 Normal 3.5 -10.[address] Count 10^3/[place] [address] [phone] Red Blood Count 3.39 10^6/uL Low 3.70-4.87 [...] Blood Cells % 0.1 Laboratory test 06/12/2019 [facility] Ferritin 9.4 ng/mL Low 11-[address] [place] [address] [phone] Urinalysis 05/06/2019 [facility] Urine Color Colorless Profile [address] [place], [place] [address] [phone] Urine Appearance Clear Urine Specific [place] 1.005 Low 1.010-1.030 Urine pH 7.0 Normal 5-9 Urine Urobilinogen Negative Negative Urine Ketones Negative Negative Urine Protein Negative Negative Urine Leukocytes Negative Negative Urine Blood Negative Negative Urine Nitrite Negative Negative Urine Bilirubin Negative Negative Urine Glucose Negative Negative Laboratory 05/05/2019 [facility] B-Type 703 pg/mL High <=[address] [place] [address] Peptide BNP [phone] Inr/Protime 05/05/2019 [facility] Inr 1.12 High 0.82-1.[address] [place] [address] [phone] Laboratory 05/05/2019 [facility] D Dimer 553 ng/mL High Less Than 11 test finding [address] [place] [address] [phone] Lactic Acid 1.2 mmol/L Normal 0.5-2.0 12 Iron & Iron 05/05/2019 [facility] Total Iron 469 g/dL High 250-450 Binding [address] [place] [address] Capacity [phone] Transferrin 335 mg/dL Normal 203-362 Iron TNP g/dL 50-212 13 % Iron Saturation TNP % 15-55 14 Laboratory test 05/05/2019 [facility] Folic Acid 3.53 ng/mL > 3.99 finding 101 (Folate) [place] [address] [phone] Vitamin B12 207 pg/mL Normal 180-914 15 CBC Auto 05/05/2019 [facility] White Blood 7.5 10^3/uL Normal 3.5-10.8 Diff [address] [place] [address] [phone] Red Blood Count 4.08 10^6/uL Normal 3.70-4.87 [...] Red Blood Cells % 0.0 Laboratory 05/05/2019 [facility] Troponin-I 0.05 Critical < 0.04 16 test finding [address] (TnI) ng/mL high [place], [place] [address] [phone] Comp Metabolic 05/05/2019 [facility] Sodium 140 Normal 135- [address] mmol/L [place], [place] [address] [phone] Potassium 3.9 mmol/L Normal 3.5-5.0 Chloride 104 [...] >60 Egfr 96.5 >60 17 Thyroid 02/06/2019 [facility] Free T4 (Free 0.85 Normal 0.61- 1.[address] Thyroxine) ng/[place] [address] [phone] Thyroxine 7.86 g/dL Normal 6.09-12.23 TSH (Thyroid Stim Horm) 0.61 mcIU/mL Normal 0.34-5.60 1 Troponin-I testing on Plasma Separator Tubes (PST) has a known false positive rate of 0.20-0.40%. All positive troponins reflex immediately to secondary confirmatory testing. Using the [employer] DxI 800 Access Immunoassay systems, the 99th [...] immediately to secondary confirmatory testing. Using the [employer] DxI 800 Access Immunoassay systems, the 99th percentile upper reference limit was demonstrated to be < 0.03 ng/mL. 6 SEE RESULTS BELOW [id number] OP PC TRANSFUSED 07/09/19 1950 [id number] OP PC TRANSFUSED 07/09/19 1810 [id number] OP PC TRANSFUSED 07/09/19 1323 7 Normal Range 180 to 914 Indeterminate [...] - FDP greater than 20 ug/ml 12 [facility] Severe Sepsis and Septic Shock Management Bundle Measure requires all lactic acids initially measuring >2.0 mmol/L be repeated. 13 Unable to report test result due to hemolysis. 14 Unable to calculate due to hemolysis. 15 Normal Range 180 to 914 Indeterminate Range 145 to 180 Deficient Range <145 16 Result TnIDx:0.05 Called to [id number] at: 01:51:07 by:[id number] Read back by: [id number] Troponin-I testing on Plasma Separator Tubes (PST) has a known false positive rate of 0.20-0.40%. All positive troponins reflex immediately to secondary confirmatory testing. Using the [employer] 800 Access Immunoassay systems, the 99th percentile [...] dialysis) Procedures Date Code Description Status 07/21/2019 76135 EKG Tracing & Interpretation Completed 07/04/2019 45566 EKG Tracing & Interpretation Completed 05/06/2019 27535 EKG, Interpretation Only Completed 02/16/2019 29667 ECHO Transthoracic, Real-Time 2D With Doppler And Color Completed Flow 02/16/2019 10411 ECHO Transthoracic, Real-Time 2D With Doppler And Color Completed Flow 02/15/2019 63633 EKG Tracing & Interpretation Completed 02/08/2019 45572 Treadmill Interp/Report Only Completed 02/08/2019 82790 Stress Test Supervsn W/Out I/R Completed 07/14/2010 80002486 Colonoscopy Completed 06/17/2010 [id number] Mammogram Completed 05/23/2009 [id number] Mammogram Completed Medical Devices Description No Information Available Encounters Type Date Location Provider Dx Diagnosis Office Visit 07/21/2019 [facility] Adelina Li, Z00.00 Encntr for general 1:00p Medicine - Ccmob M.D., FACP adult medical exam w/o abnormal findings 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 I21.4 Non-St elevation (Nstemi) myocardial infarction I73.9 Peripheral vascular disease, unspecified I50.9 Heart failure, unspecified I34.0 Nonrheumatic mitral (valve) insufficiency R06.02 Shortness of breath Office Visit 05/23/2019 9:40a [facility] Kory Obando MD I25.10 Athscl heart Medicine - Ccmob disease of ute coronary artery w/o ang pctrs I21.4 Non-St elevation (Nstemi) myocardial infarction Z23 Encounter for immunization A04.72 Enterocolitis d/t Clostridium difficile, not spcf as recur D64.9 Anemia, unspecified Office Visit 05/06/2019 11:55a [facility] Memo Allred R07.9 Chest pain, Of Ihsan Sanford M.D. 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 I34.0 Nonrheumatic mitral Foster, N.P. 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 stenosis, lumbar region with neurogenic claudication I34.0 Nonrheumatic mitral (valve) insufficiency Office Visit 01/20/2019 2:20p [facility] Internal Марина Obando MD R79.89 Other specified Medicine - Ccmob abnormal findings of blood chemistry D64.9 Anemia, unspecified M48.062 Spinal stenosis, lumbar region with neurogenic claudication I10 Essential (primary) hypertension Assessments Date Code Description Provider 07/21/2019 Z00.00 Encounter for general adult medical Adelina Li M.D., FACP examination without abnormal findings 07/21/2019 I25.10 Atherosclerotic heart disease of Adelina Li M.D., FACP ute coronary artery without angina pectoris 07/21/2019 K92.1 Belen Li M.D., FACP 07/21/2019 I34.9 Nonrheumatic mitral valve disorder, Adelina Li M.D., FACP unspecified 07/21/2019 M54.5 Low back pain Adelina Li M.D., FACP 07/11/2019 D64.9 Anemia, unspecified Jono Cowart MD 07/11/2019 K92.1 Belen Cowart MD 07/10/2019 D64.9 Anemia, unspecified Jono Cowart MD 07/10/2019 I34.9 Nonrheumatic mitral valve disorder, Jono Cowart MD unspecified 07/10/2019 I25.10 Atherosclerotic heart disease of Jono Cowart MD ute coronary artery without angina pectoris 07/10/2019 I10 Essential (primary) hypertension Jono Cowart MD 07/10/2019 M54.9 Dorsalgia, unspecified Jono Cowart MD 07/10/2019 I73.9 Peripheral vascular disease, Jono Cowart MD unspecified 07/09/2019 K92.1 Melena Lily Echevarria, N.P. 07/09/2019 D64.9 Anemia, unspecified Lily [...] Atherosclerotic heart disease of Drew Rogers M.D. ute coronary artery without angina pectoris 07/04/2019 I21.4 [...] Atherosclerotic heart disease of Марина Obando MD ute coronary artery without angina pectoris 05/23/2019 I21.4 Non-St elevation (Nstemi) myocardial Марина Obando MD infarction 05/23/2019 Z23 Encounter for immunization Марина Obando MD 05/23/2019 A04.72 Enterocolitis due to Clostridium Марина Obando MD difficile, not specified as recurrent 05/23/2019 D64.9 Anemia, unspecified Марина bOando MD 05/06/2019 R94.31 Abnormal electrocardiogram [ECG] [EKG] Memo Sanford M.D. 05/06/2019 R07.9 Chest pain, unspecified Memo Sanford M.D. 05/06/2019 I25.10 Atherosclerotic heart disease of Memo Sanford M.D. ute coronary artery without angina pectoris 05/06/2019 I73.9 [...] heart disease of Emma Winslow N.PMiguel Ángel ute coronary artery with 02/16/2019 I34.0 Nonrheumatic mitral (valve) Drew Rogers M.D. insufficiency 02/16/2019 I34.0 Nonrheumatic mitral (valve) [facility] Schedule insufficiency 02/15/2019 I10 Essential (primary) hypertension Drew Rogers M.D. 02/15/2019 I25.10 Atherosclerotic heart disease of Drew Rogers M.D. ute coronary artery with 02/15/2019 M48.062 Spinal stenosis, lumbar region with Drew Rogers M.D. neurogenic claudication 02/15/2019 I34.0 Non-rheumatic mitral regurgitation Drew Rogers M.D. 02/08/2019 I10 Essential (primary) hypertension Jose Burgos M.D. 02/08/2019 I25.10 Atherosclerotic heart disease of Jose Burgos M.D. ute coronary artery with 01/20/2019 R79.89 Other specified abnormal findings of Марина Obando MD blood chemistry 01/20/2019 D64.9 Anemia, unspecified Марина Obando MD 01/20/2019 M48.062 Spinal stenosis, lumbar region with Марина Obando MD neurogenic claudication 01/20/2019 I10 Essential (primary) hypertension Марина Obando MD Plan of Treatment Future Appointment(s):09/05/2019 3:00 pm - Drew Rogers M.D. at [facility]08/15/2019 2:15 pm - [facility]CHO Schedule at [facility]2018 - Adelina Li M.D., FACPZ00.00 Encounter for general adult medical examination without abnormal findingsComments:GENERAL PHYSICAL EXAM:You are up to date with your vaccinations. I do not have a record of your lasttetanus/ pertussis booster. You had a Pneumonia shot in 04/25 and a booster in 01/07.We discussed theshingles vaccine today.Although you received a Zostavax in 07/04 there is data to suggest that the newer vaccine (Shingrix) is more effective and that reimmunization is beneficial.Your last colonoscopywas in 07/04. A follow up colonoscopy is not necessary. You completed a MOLST form in the hospital. Please bring this with you to your other medical appointments.I think that it is a good idea to have an Advance Directive on file here.We reviewed healthy lifestyle practices, specifically, strategies to maintain a durable ideal body weight and an aerobic exercise routine.Immunizations/ Injections:Shingrix pharmacy [id number] Atherosclerotic heart disease of ute coronary artery without angina pectorisNew Orders:EKG, Ordered: Comments:CORONARY ARTERY DISEASE:You had cardiac stents placed in 05/13.I understand that you are followed also by Dr. Rogers.Your blood pressures have been well controlled on your current regimen.We should recheck your fasting lipid profile in the near future.K92.1 MelenaComments:BLOOD IN STOOL:Today's test was positive, but it is possible that it is a reflection of the oral iron supplementation. I recommend that you continue the pantoprazole. I understand that you have an appointment with Dr. Fall next month. If you note recurrence of black tarry stools, please go to the Emergency Department.I34.9 Nonrheumatic mitral valve disorder, unspecifiedComments:FLAIL MITRAL VALVE LEAFLET:Today we talked about the procedure to repair this condition. The concern is that if left untreated, your heart will be under more strain. I respect your decision not to pursue intervention at this time. I recommend that you discuss this further at your visit with Dr. Rogers.M54.5 Low back painNew Therapy:Physical TherapyComments:LOW BACK PAIN:I am sorry that this condition causes you so much disability. You state that in the past you had been seen the Pain Clinic.I think that there may be a component of spasm involved. I think that I would explore more PT modalities such as therapeutic ultrasound, a TENS unit and core strengthening exercise.Referral:No Doctor Selected Functional Status Description No Information Available Mental Status Description No Information Available Referrals Refer to Reason for Referral Status Appt Date Created Evan Garcia MD progressive and limiting anderson with known pvd, cad, Closed 03/17/2019 [facility] nuclear (anterior and inferior ischemia) , and moderate to severe MR. last cath at [facility] 2002 with 100% rca. please perform cardiac cath. [address] [place] [id number] [phone]
--- OUTSIDE RECORDS SUMMARY | 2019-07-28 16:31 | XMS REPORT | Continuity of Care Document ---
:1935 External Reference #:[id number] Author Name Luke Diaz Care Team Providers Name Role Phone Drew Rogers MD - Cardiovascular Care Team Information Sticker On [phone] Disease Chip Almendarez MD - Vascular Surgery Care Team Information Sticker On Nir Mcmahon MD - Care Team Information Sticker On [phone] Neurological Surgery Марина Obando M.D. - Family Medicine Care Team Information Sticker On Problems Active Problems Provider Date Spinal stenosis [...] mouth 30caps Adelina Li, 07/03/2019 every day Anayeli FACP 627-5-78ly-mg-mcg Capsules Torsemide 1 by mouth 30tabs Марина [...] Date B-12 Injection Jerrod Lopez, 08/26/2017 [facility] Jerrod Lopez, 07/14/2017 Injection Anayeli,[facility] B-12 Injection Nurse Visit A 06/08/2017 Injection B-12 Injection Nurse Visit A 06/01/2017 Injection B-12 Injection Nurse Visit A 05/25/2017 Injection B-12 Injection Jerrod Lopez, 05/18/2017 Injection Anayeli,FACP Inj, Regadenoson, 0.1 MG Memo Sanford M.D. 12/31/2016 Injection Technetium TC 99M Memo Sanford M.D. 12/31/2016 Tetrofosmin, Per Unit Dose Up To 40 Millicuries Injection Immunizations CPT Code Status Date Vaccine Reaction Lot # [id number] Given 05/23/2019 Influenza Virus Vaccine, pt. tolerated well. [id number] Quadrivalent ([id number]), Derived From Cell 26710 Given 06/27/2018 Influenza Virus Vaccine, [id number] Quadrivalent, Split, Preservative Free 18248 Given 05/18/2017 Influenza Virus Vaccine, [id number] Quadrivalent, Split, Preservative Free 72253 Given 07/08/2016 Influ Virus Vaccine, [id number] Quadrivalent, Split Virus, [place] [address] Given 04/06/2015 Fluzone High Dose 56787 Given 12/28/2014 Pneumococcal Conjugate [id number] Vaccine 13 Valent For Intramuscular Use 85268 Given 04/25/2014 Fluzone High Dose Q2035 Given 04/02/2013 Afluria Vaccine 86916 Given 06/03/2012 Tdap - [id number] Tetanus/Diptheria/Acellular Pertussis Q2035 Given 04/07/2012 Afluria Vaccine 93842 Given 07/03/2010 Zoster (Zostavax) [id number] 99445 Given 05/10/2010 Influenza Virus 3Yrs & Over 62157 Given 08/28/2009 Influenza Virus Vaccine, [id number] Pandemic Formulation 43677 Given 05/31/2008 Influenza Virus 3Yrs & Over 07503 Given 05/31/2008 Influenza Virus 3Yrs & Over 12236 12282 Given 05/16/2001 Pneumonia Vaccine Vital Signs Date [...] Fraction 65%-70% echocardiogram 02/16/2019 Results Test Acquired Date Facility Test Result H/L Range Note Laboratory test 07/09/2019 [facility] Troponin-I 0.01 ng/mL < 0.03 1 finding 101 (TnI) [place] [address] [phone] CBC Auto Diff 07/09/2019 [facility] White 6.7 10^3/uL Normal 3.5-10.8 [address] [place] [address] Count [phone] Red Blood Count 3.25 10^6/uL Low 3.70-4.87 [...] Red Blood Cells % 0.1 Inr/Protime 07/09/2019 [facility] Inr 1.21 High 0.82-1.[address] [place] [address] [phone] Comp Metabolic 07/09/2019 [facility] Sodium 138 mmol/L Normal 135-145 Panel [address] [place] [address] [phone] Potassium 3.5 mmol/L Normal 3.5-5.0 Chloride 104 [...] Egfr 89.1 >60 4 Laboratory test 07/09/2019 [facility] Troponin-I (TnI) 0.01 ng/ mL <0.03 [address] [place] [address] [phone] Type & Screen 07/09/2019 [facility] Patient Blood O Positive [address] [place] [address] [phone] Antibody Screen NEGATIVE Laboratory test 07/09/2019 [facility] Packed Cells SEE RESULTS [address] BELO <[place] [address] NOTE> [phone] Order 07/07/2019 [facility] blood <pending> [address] [place] [address] protocol [phone] Comp Metabolic 07/04/2019 [facility] Sodium 139 mmol/L Normal 135- Panel [address] [place] [address] [phone] Potassium 3.8 mmol/L Normal 3.5-5.0 Chloride 105 [...] Egfr Non- 67.4 >60 Egfr 81.5 >60 7 Iron & Iron 07/04/2019 [facility] Total Iron 451 g/dL High 250-[address] [place] [address] Capacity [phone] Transferrin 322 mg/dL Normal 203-362 Iron < 20 g/dL Low 50-212 Unsaturated Iron Binding < 436 g/dL % Iron Saturation 4 % Low 15-55 Vitamin B12 07/04/2019 [facility] Vitamin B12 200 pg/mL Normal 180-914 8 And Folate [address] [place] [address] [phone] Folic Acid (Folate) 5.61 ng/mL >3.99 Cell Morphology 07/04/2019 [facility] Microcytosis 2+ [address] [place] [address] [phone] Hypochromasia 2+ Polychromasia 1+ Schistocytes 1+ Elliptocyte 2+ Laboratory test 07/04/2019 [facility] Pathologist (SEE NOTE) [address] [place] [place] [address] [phone] CBC Auto Diff 07/04/2019 [facility] White Blood 5.1 Normal 3.5 -[address] Count 10^3/uL 0.8 [place] [address] [phone] Red Blood Count 3.42 10^6/uL Low 3.70-4.87 [...] Red Blood Cells % 0.1 Laboratory 07/04/2019 [facility] B-Type 780 pg/mL High <=100 test finding [address] [place] [address] Peptide BNP [phone] Laboratory 06/12/2019 [facility] Ferritin 9.4 ng/mL Low 11- 307 test finding [address] [place] [address] [phone] CBC Auto Diff 06/12/2019 [facility] White Blood 5.7 Normal 3.5 -10.[address] Count 10^3/[place] [address] [phone] Red Blood Count 3.39 10^6/uL Low 3.70-4.87 [...] % Nucleated Red Blood Cells % 0.1 Urinalysis Profile 05/06/2019 [facility] Urine Color Colorless [address] [place] [address] [phone] Urine Appearance Clear Urine Specific [place] 1.005 Low 1.010-1.030 Urine pH 7.0 Normal 5-9 Urine Urobilinogen Negative Negative Urine Ketones Negative Negative Urine Protein Negative Negative Urine Leukocytes Negative Negative Urine Blood Negative Negative Urine Nitrite Negative Negative Urine Bilirubin Negative Negative Urine Glucose Negative Negative Comp Metabolic 05/05/2019 [facility] Sodium 140 mmol/L Normal 135-[address] [place] [address] [phone] Potassium 3.9 mmol/L Normal 3.5-5.0 Chloride 104 [...] Egfr Non- 79.7 >60 Egfr 96.5 >60 10 Laboratory 05/05/2019 [facility] Troponin-I 0.05 Critical < 0.04 11 test finding 101 (TnI) ng/[place] [address] [phone] CBC Auto Diff 05/05/2019 [facility] White Blood 7.5 Normal 3.5 -10.[address] Count 10^3/[place] [address] [phone] Red Blood Count 4.08 10^6/uL Normal 3.70-4.87 [...] Red Blood Cells % 0.0 Laboratory 05/05/2019 [facility] B-Type 703 pg/mL High <=100 test finding [address] [place] [address] Peptide BNP [phone] Inr/Protime 05/05/2019 [facility] Inr 1.12 High 0.82-1.[address] [place] [address] [phone] Laboratory 05/05/2019 [facility] D Dimer 553 ng/mL High Less Than [address] Quantitative [address] [place] [address] [phone] Lactic Acid 1.2 mmol/L Normal 0.5-2.0 14 Iron & Iron 05/05/2019 [facility] Total Iron 469 g/dL High 250-[address] [place] [address] Capacity [phone] Transferrin 335 mg/dL Normal 203-362 Iron TNP g/dL 50-212 15 % Iron Saturation TNP % 15-55 16 Laboratory test 05/05/2019 [facility] Folic Acid 3.53 ng/mL > 3.[address] (Folate) [place] [address] [phone] Vitamin B12 207 pg/mL Normal 180-914 17 Thyroid 02/06/2019 [facility] Free T4 (Free 0.85 Normal 0.61- 1.[address] Thyroxine) ng/[place] [address] [phone] Thyroxine 7.86 g/dL Normal 6.09-12.23 TSH (Thyroid Stim Horm) 0.61 mcIU/mL Normal 0.34-5.60 1 Troponin-I testing on Plasma Separator Tubes (PST) has a known false positive rate of 0.20-0.40%. All positive troponins reflex immediately to secondary confirmatory testing. Using the [employer] DxI 800 Access Immunoassay systems, the 99th [...] immediately to secondary confirmatory testing. Using the [employer] DxI 800 Access Immunoassay systems, the 99th percentile upper reference limit was demonstrated to be < 0.03 ng/mL. 6 SEE RESULTS BELOW [id number] OP PC TRANSFUSED 07/09/19 1950 [id number] OP PC TRANSFUSED 07/09/19 1810 [id number] OP PC TRANSFUSED 07/09/19 2323 7 Because ethnic data is not always readily [...] 15-29 5 Kidney failure <15 (or dialysis) 8 Normal Range 180 to 914 Indeterminate Range 145 to 180 Deficient Range <145 9 Microcytic anemia with red cell indices suggestive of iron deficiency. Additional studies as clinically warranted. Reviewed by Dr. Ruiz 10 Because ethnic data is not always readily [...] 15-29 5 Kidney failure <15 (or dialysis) 11 Result TnIDx:0.05 Called to [id number] at: 01:51:07 by:[id number] Read back by: [id number] Troponin-I testing on Plasma Separator Tubes (PST) has a known false positive rate of 0.20-0.40%. All positive troponins reflex immediately to secondary confirmatory testing. Using the [employer] DxI 800 Access Immunoassay systems, the 99th percentile upper reference limit was demonstrated to be < 0.03 ng/mL. 12 Standard intensity warfarin therapeutic range: 2.0-3.0 High intensity warfarin therapeutic range: 2.5-3.5 13 Please note: The following may produce a false positive D Dimer test: - Rheumatoid factor greater than 60 IU/ml - Plasma hemoglobin greater than 0.05 gm/dl - Bilirubin greater than 50 mg/dl - Lipids greater than 1000 mg/dl - FDP greater than 20 ug/ml 14 [facility] Severe Sepsis and Septic Shock Management Bundle Measure requires all lactic acids initially measuring >2.0 mmol/L be repeated. 15 Unable to report test result due to hemolysis. 16 Unable to calculate due to hemolysis. 17 Normal Range 180 to 914 Indeterminate Range 145 to 180 Deficient Range <145 Procedures Date Code Description Status 07/04/2019 75537 EKG Tracing & Interpretation Completed 05/06/2019 70989 EKG, Interpretation Only Completed 02/16/2019 96478 ECHO Transthoracic, Real-Time 2D With Doppler And Color Completed Flow 02/16/2019 63814 ECHO Transthoracic, Real-Time 2D With Doppler And Color Completed Flow 02/15/2019 42905 EKG Tracing & Interpretation Completed 02/08/2019 76872 Treadmill Interp/Report Only Completed 02/08/2019 63639 Stress Test Supervsn W/Out I/R Completed 07/14/2010 [id number] Colonoscopy Completed 06/17/2010 [id number] Mammogram Completed 05/23/2009 [id number] Mammogram Completed Medical Devices Description No Information Available Encounters Type Date Location Provider Dx Diagnosis Office Visit 07/04/2019 [facility] Drew Williamson I10 Essential ( primary) 2:40p Anayeli Rogers hypertension D64.9 Anemia, unspecified I25.10 [facility] 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 I21.4 Non-St elevation (Nstemi) myocardial infarction I73.9 Peripheral vascular disease, unspecified I50.9 Heart failure, unspecified I34.0 Nonrheumatic mitral (valve) insufficiency R06.02 Shortness of breath Office Visit 05/23/2019 9:40a Ear Nose Throat Surgeon Internal Марина Obando MD I25.10 [facility] disease of three affiliated coronary artery w/o ang pctrs I21.4 Non-St elevation (Nstemi) myocardial infarction Z23 Encounter for immunization A04.72 Enterocolitis d/t Clostridium difficile, not spcf as recur D64.9 Anemia, unspecified Office Visit 05/06/2019 11:55a [facility] Memo Allred R07.9 Chest pain, Of Ihsan Sanford M.D. 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 Savita Menjivar, I50.31 Acute diastolic 9:53a cecilia Vargas M.D. (congestive) Hospitalists heart failure I11.0 Hypertensive heart disease with heart failure E78.5 Hyperlipidemia, unspecified Office Visit 04/24/2019 2:00p [facility] Kory Obando MD I10 Essential (primary) Medicine - [facility] hypertension M48.062 Spinal stenosis, lumbar region with neurogenic claudication M25.551 Pain in right hip Office Visit 04/10/2019 1:30p [facility] Emma SMiguel Ángel I34.0 Nonrheumatic mitral Foster, N.P. 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 three affiliated coronary artery without angina pectoris 07/04/2019 I21.4 [...] Atherosclerotic heart disease of Марина Obando MD three affiliated coronary artery without angina pectoris 05/23/2019 I21.4 [...] Atherosclerotic heart disease of Memo Sanford M.D. three affiliated coronary artery without angina pectoris 05/06/2019 I73.9 [...] heart disease of Emma Winslow, N.PMiguel Ángel three affiliated coronary artery with 02/16/2019 I34.0 Nonrheumatic mitral (valve) Drew Rogers M.D. insufficiency 02/16/2019 I34.0 Nonrheumatic mitral (valve) [facility] Schedule insufficiency 02/15/2019 I10 Essential (primary) hypertension Drew Rogers M.D. 02/15/2019 I25.10 Atherosclerotic heart disease of Drew Rogers M.D. three affiliated coronary artery with 02/15/2019 M48.062 Spinal stenosis, lumbar region with Drew Rogers M.D. neurogenic claudication 02/15/2019 I34.0 Non-rheumatic mitral regurgitation Drew Rogers M.D. 02/08/2019 I10 Essential (primary) hypertension Jose Burgos M.D. 02/08/2019 I25.10 Atherosclerotic heart disease of Jose Burgos M.D. three affiliated coronary artery with 01/20/2019 R79.89 Other specified abnormal findings of Марина Obando MD blood chemistry 01/20/2019 D64.9 Anemia, unspecified Марина Obando MD 01/20/2019 M48.062 Spinal stenosis, lumbar region with Марина Obando MD neurogenic claudication 01/20/2019 I10 Essential (primary) hypertension Марина Obando MD Plan of Treatment Future Appointment(s):07/21/2019 1:00 pm - Adelina Li M.D., FACP at [facility] Internal Medicine - [facility]09/05/2019 3:00 pm - Drew Rogers M.D. at [facility]08/15/2019 2:15 pm - [place] ECHO Schedule at [facility]07/07/2019 - Naomy Deng, MDD64.9 Anemia, unspecifiedComments: Please reschedule annual We have ordered you to get a blood transfusionYou should be contacted earlynext weekPlease go to the ED if you are having worsening symptoms as they may be able to help facilitate the [id number] Essential (primary) [id number] Other [id number] CoughNew Medication: Amoxicillin/Clavulanate Potassium 875-125 mg - [...] please perform cardiac cath. [address] [place] [address] [phone]
[2019-07-28] MEDS ORDERED: Morphine 4 MG/ML VIAL (1 ml) 4 MG/ML VIAL IV ONE (16:33)
--- NOTE | 2019-07-28 16:33 | ED ---
Adult Trauma - HPI Summary HPI Summary: The patient is an 84 y/o F arriving by ambulance to [facility] accompanied by son with a chief complaint traumatic fall this afternoon. She reports that she tripped over a rug and fell onto her face, causing her to break her dentures in half. She is now also suffering from sharp pain in both arms worst at the thumbs and with movement of the arms. She denies any LOC, neck pain, or headache. She does not have any new numbness in her extremities. Pain is currently rated 4/10 in severity. Not taking any anticoagulants. PMHx: anemia, CAD, HLD, HTN, PVD, arthritis, TIA. Former smoker, no EtOH, no substance use. Medications reviewed. Allergies noted. - History of Current Complaint Stated Complaint: FALL PER EMS Time Seen by Provider: 07/28/19 16:24 Hx Obtained From: Patient Mechanism of Injury: Fall Loss of Consciousness: no loss of consciousness Onset/Duration: Started Minutes Ago, Still Present Onset of Pain: Immediate Onset Severity: Moderate Current Severity: Moderate Pain Intensity: 4 Pain Scale Used: 0-10 Numeric Location: Extremities - BUE Aggravating Factor(s): Movement Alleviating Factor(s): Rest Associated Signs & Symptoms: Negative: Loss of Consciousness, Numbness/Weakness , Other: - neck pain, headache - Additional Pertinent History Primary Care Physician: AVIVA - Allergy/Home Medications Allergies/Adverse Reactions: Allergies Allergy/AdvReac Type Severity Reaction Status Date / Time No Known Allergies Allergy Verified 07/09/19 13:16 PMH/Surg Hx/FS Hx/Imm Hx Endocrine/Hematology History: Reports: Hx Anemia Denies: Hx Diabetes Cardiovascular History: Reports: Hx Coronary Artery Disease, Hx Hypercholesterolemia, Hx Hypertension - ON DAILY MEDS, Hx Peripheral Vascular Disease - BILATERAL Denies: Hx Angina, Hx Pacemaker/ICD Comment Only: Other Cardiovascular Problems/Disorders - DR PEREZ FOLLOWS Respiratory History: Reports: Hx Pneumonia Denies: Hx Asthma, Hx Chronic Obstructive Pulmonary Disease (COPD), Hx Pulmonary Embolism GI History: Reports: Hx Irritable Bowel - Hx OF FREQUENT LOOSE BOWEL MOVEMENTS WITHOUT CONTROL, Other GI Disorders - c-diff Denies: Hx Gastrointestinal Bleed History: Denies: Hx Chronic Renal Failure, Hx Renal Disease Musculoskeletal History: Reports: Hx Arthritis, Hx Back Problems Denies: Hx Rheumatoid Arthritis, Hx Osteoporosis, Hx Scoliosis Sensory History: Reports: Hx Cataracts - BILATERAL- removed, Hx Contacts or Glasses, 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 Denies: Hx Hearing Aid Opthamlomology History: Reports: Hx Cataracts - BILATERAL- removed, Hx Contacts or Glasses Neurological History: Reports: Hx Migraine, Hx Transient Ischemic Attacks (TIA) - possible 05/08/2017, Other Neuro Impairments/Disorders - PAIN CLINIC PATIENT Denies: Hx CVA, Hx Dementia, Hx Headaches, Hx Seizures, Hx Spinal Cord Injury Psychiatric History: Reports: Other Psychiatric Issues/Disorders - trazodone and remeron HS Denies: Hx Panic Disorder - Surgical History Surgical History: Yes Surgery Procedure, Year, and Place: 2003 LEFT LEG BYPASS/ANGIOPLASTY [facility] [place]. 1999 LUMBAR SURGERY - DECOMPRESSION [facility] [place]. BILATERAL CATARACT SURGERY Hx Anesthesia Reactions: No Infectious Disease History: No Infectious Disease History: Reports: Hx Clostridium Difficile Denies: Traveled Outside the [place] in Last 30 Days - Family History Known Family History: Positive: Cardiac Disease, Hypertension Family History: No family history of malignant hyperthermia and anesthesia reaction. - Social History Alcohol Use: None Hx Substance Use: No Substance Use Type: Reports: None Hx Tobacco Use: Yes Smoking Status (MU): Former Smoker Type: Cigarettes Amount Used/How Often: 1PPD 50+ YEARS Have You Smoked in the Last Year: No Review of Systems Positive: Other - pain in BUE; Negative: pain in neck Neurological: Other - Negative: LOC Negative: Headache, Weakness All Other Systems Reviewed And Are Negative: Yes Physical Exam - Summary Physical Exam Summary: Constitutional: Well-developed, Well-nourished, Alert. (-) Distressed Skin: Warm, Dry HENT: Normocephalic; Dried blood on lips, Upper teeth missing Eyes: Conjunctiva normal Neck: Musculoskeletal ROM normal neck. (-) JVD, (-) Stridor, (-) Tracheal deviation Cardio: Rhythm regular, rate normal, Heart sounds normal; Intact distal pulses; Radial pulses are 2+ and symmetric. (-) Murmur Pulmonary/Chest wall: Effort normal. (-) Respiratory distress, (-) Wheezes, (-) Rales Abd: Soft, (-) tenderness, (-) Distension, (-) Guarding, (-) Rebound Musculoskeletal: (-) Edema, Severe sensitivity to the bilateral lateral wrists unable to move past 90 degrees secondary to pain Lymph: (-) Cervical adenopathy Neuro: Alert, Oriented x3 Psych: Mood and affect Normal Triage Information Reviewed: Yes Vital Signs On Initial Exam: Initial Vitals Temp Pulse Resp BP Pulse Ox 98.2 F 69 16 142/60 99 07/28/19 16:18 07/28/19 16:18 07/28/19 16:18 07/28/19 16:18 07/28/19 16:18 Vital Signs Reviewed: Yes - [place] Coma Scale Best Eye Response: 4 - Spontaneous Best Motor Response: 6 - Obeys Commands Best Verbal Response: 5 - Oriented Coma Scale Total: 15 Procedures - Sedation Patient Received Moderate/Deep Sedation with Procedure: No Diagnostics - Vital Signs Vital Signs Temp Pulse Resp BP Pulse Ox 07/28/19 16:18 98.2 F 69 16 142/60 99 - Laboratory Result Diagrams: 07/28/19 17:21 07/28/19 17:21 Lab Statement: Any lab studies that have been ordered have been reviewed, and results considered in the medical decision making process. - Radiology Bilateral Wrist XR Radiology Interpretation Completed By: Radiologist Summary of Radiographic Findings: Impression: Osteopenia, no evidence for fracture, if the patient's symptoms persist recommend follow-up imaging. ED physician has reviewed this report. - CT Brain CT CT Interpretation Completed By: Radiologist Summary of CT Findings: Impression: No evidence for acute intracranial abnormality. ED physician has reviewed this report. Cervical Neck CT CT Interpretation Completed By: Radiologist Summary of CT Findings: Impression: 1. Straightening of the cervical spine, no evidence for fracture or subluxation. 2. Moderate to severe cervical spondylosis as described. ED physician has reviewed this report. Re-Evaluation - Re-Evaluation First Eval Re-Evaluation Time: 17:25 Comment: Patient refuses to wear cervical collar. We discussed the risks and benefits of wearing the collar, and she understands but still disagrees with wearing it. Adult Trauma Course/Dx - Course Course Of Treatment: Patient is here after falling. Patient tripped on a rug and hit her forehead on the ground. Patient has an obvious hematoma to her forehead and dried blood around her lips. There is no identifiable laceration intraorally but she did break her upper dentures in this fall. Patient complains of severe pain in her bilateral upper extremities that is shooting- like in nature. Patient had a negative CT brain for any injury. Patient had negative bilateral wrist x-ray. Given patient's bilateral upper extremity symptoms in her hyperextension of her neck, a CT cervical spine was performed. Patient has no fractures but does have a narrowed spinal canal with lots of calcification. Given patient's symptoms and CT results, a MRI of her cervical spine was obtained to evaluate for central cord. Patient was signed out to Dr. Mccartney pending MRI results. - Diagnoses Provider Diagnoses: Fall, Traumatic hematoma of forehead, Paresthesia and pain of both upper extremities - Physician Notifications Discussed Care Of Patient With: Cipriano Fritz - radiology Time Discussed With Above Provider: 15:10 Instructed by Provider To: Other - Dr. Fritz recommends Cervical Spine MRI. I spoke with MRI, and the patient will have MRI at 1930. Discharge ED - Sign-Out/Discharge Documenting (check all that apply): Sign-Out Patient Signing out patient TO: Laura Mccartney - Patient is a sign-out to Dr. Laura Mccartney MD, at 1900 on 07/28/2019, pending C-Spine MRI and disposition. - Discharge Plan Condition: Stable Referrals: Марина Obando MD [Primary Care Provider] - - Billing Disposition and Condition Condition: STABLE - Attestation Statements Document Initiated by Shahrzad: Yes Documenting Scribe: Kaley Huang Provider For Whom Shahrzad is Documenting (Include Credential): Dr. Naun Ramires MD Scribe Attestation: Kaley Maya, scribed for Dr. Naun Ramires MD on 07/28/19 at 1842. Scribe Documentation Reviewed: Yes Provider Attestation: The documentation as recorded by the Kaley marks accurately reflects the service I personally performed and the decisions made by me, Dr. Naun Ramires MD Status of Scribe Document: Viewed
[2019-07-28 17:34] LABS: ABS Basophils 0.1 10^3/ul (0-0.2); ABS Eosinophils 0.1 10^3/ul (0-0.6); ABS Monocytes 0.9 10^3/ul (0-0.8); ABS Neutrophils 4.2 10^3/ul (1.5-7.7); Eosinophil % 1.7 %; Hematocrit 30 % (35-47); Hemoglobin 9.9 g/dL (12.0-16.0); Lymphocyte % 15.4 %; Mean Corpuscular HGB Conc 33 g/dL (31-36); Mean Corpuscular Hemoglobin 25 pg (27-31); Mean Corpuscular Volume 77 fL (80-97); Mean Platelet Volume 8.9 fL (7.4-10.4); Platelet Count 212 10^3/uL (150-450); Red Blood Count 3.94 10^6 /uL (3.70-4.87); Red Cell Distribution Width 26 % (10-15); White Blood Count 6.2 10^3/uL (3.5-10.8)
[2019-07-28 17:38] LABS: INR 1.33 (0.82-1.09)
[2019-07-28 17:46] LABS: Albumin 3.5 g/dL (3.2-5.2); Albumin/Globulin Ratio 1.5 (1-3); Calcium 8.5 mg/dL (8.6-10.3); EGFR African American 70.4 (>60); EGFR Non-African American 58.2 (>60); Globulin 2.4 g/dL (2-4); Total Bilirubin 1.1 mg/dL (0.2-1.0); Total Protein 5.9 g/dL (6.4-8.9)
[2019-07-28] MEDS ORDERED: LORazepam INJ* 2 MG/ML 1 ML VIAL IV PUSH ONE (18:53)
[2019-07-28] MEDS ORDERED: Lorazepam PYXIS KEY PRN (18:53)
[2019-07-28] MEDS ORDERED: Lorazepam PYXIS KEY ONE (19:01)
--- NOTE | 2019-07-28 19:52 | ED ---
Progress - Progress Note Progress Note: Receiving sign-out from Dr. Ramires at shift change 1900 pending MRI Cervical Spine and disposition. MRI Cervical Spine Impression: 1. Examination is minimally limited by excessive patient motion. No gross acute abnormality to the degree visualized. 3. 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 ED Provider has reviewed this report. Plan for discharge was discussed with the patient and she was agreeable with this plan. Re-Evaluation - Re-Evaluation First Eval Re-Evaluation Time: 17:25 Comment: Patient refuses to wear cervical collar. We discussed the risks and benefits of wearing the collar, and she understands but still disagrees with wearing it. Course/Dx - Course Course Of Treatment: Receiving sign-out from Dr. Ramires at shift change 1900 pending MRI Cervical Spine and disposition. MRI Cervical Spine Impression: 1. Examination is minimally limited by excessive patient motion. No gross acute abnormality to the degree visualized. 3. Degenerative findings greatest at C4- C5 and C5-C6 where there is likely moderate to severe central canal stenosis. ED Provider has reviewed this report. Plan for discharge was discussed with the patient and she was agreeable with this plan. - Diagnoses Provider Diagnoses: Fall, Traumatic hematoma of forehead, Paresthesia and pain of both upper extremities - Provider Notifications Time Discussed With Above Provider: 15:10 Instructed by Provider To: Other - Dr. Fritz recommends Cervical Spine MRI. I spoke with MRI, and the patient will have MRI at 1930. Discharge ED - Sign-Out/Discharge Documenting (check all that apply): Patient Departure - Discharge - Discharge Plan Condition: Stable Disposition: HOME Patient Education Materials: Fall Prevention (ED) Referrals: Марина Obando MD [Primary Care Provider] - Additional Instructions: Apply localized ice for your injuries at home. Return to ED with new or worsening symptoms. - Billing Disposition and Condition Condition: STABLE Disposition: Home - Attestation Statements Document Initiated by Shahrzad: Yes Documenting Scribe: Neil Pino Provider For Whom Shahrzad is Documenting (Include Credential): Laura Mccartney MD Scribe Attestation: Neil Maya, scribed for Laura Mccartney MD on 07/28/19 at 2335. Scribe Documentation Reviewed: Yes Provider Attestation: The documentation as recorded by the scribe, Neil Pino accurately reflects the service I personally performed and the decisions made by me, Laura Mccartney MD Status of Shahrzad Document: Viewed
[2019-07-28 22:03] VITALS: BP 123/48
== END 2019-07-28 22:02 | disposition home or self-care (01) ==
LOC: ED 16:13
DX: S00.83XA Contusion of other part of head, initial encounter (principal); W18.09XA Striking against other object with subsequent fall, initial encounter; Y92.9 Unspecified place or not applicable; R20.2 Paresthesia of skin; M79.602 Pain in left arm; M79.601 Pain in right arm; M50.322 Other cervical disc degeneration at C5-C6 level; M85.832 Other specified disorders of bone density and structure, left forearm; M85.831 Other specified disorders of bone density and structure, right forearm; M47.812 Spondylosis without myelopathy or radiculopathy, cervical region; I10 Essential (primary) hypertension; I73.9 Peripheral vascular disease, unspecified; Z79.82 Long term (current) use of aspirin; Z86.73 Personal history of transient ischemic attack (TIA), and cerebral infarction without residual deficits; Z87.891 Personal history of nicotine dependence
CPT/HCPCS: 36415; 70450; 72125; 72141; 80053; 85025; 85610; 96374; 96375; 99283; J2060; J2270

== ENCOUNTER 2019-08-06 10:40 | Emergency (ER) | payer MEDICARE ==
[2019-08-06 11:18] LABS: Hematocrit 36 % (35-47); Hemoglobin 11.4 g/dL (12.0-16.0); Mean Corpuscular HGB Conc 32 g/dL (31-36); Mean Corpuscular Hemoglobin 26 pg (27-31); Mean Corpuscular Volume 81 fL (80-97); Mean Platelet Volume 9.2 fL (7.4-10.4); Platelet Count 165 10^3/uL (150-450); Red Blood Count 4.38 10^6 /uL (3.70-4.87); Red Cell Distribution Width 28 % (10-15); White Blood Count 14.5 10^3/uL (3.5-10.8)
[2019-08-06] MEDS ORDERED: NS 0.9% 500 ML* 500 ML IV ONE (11:24)
[2019-08-06 11:25] LABS: Activated Partial Thrombo Time 28.5 seconds (26.0-38.0); INR 1.12 (0.82-1.09)
[2019-08-06 11:28] LABS: Albumin 3.8 g/dL (3.2-5.2); Albumin/Globulin Ratio 1.5 (1-3); BUN/Creatinine Ratio 9.2 (8-20); EGFR African American 65.4 (>60); EGFR Non-African American 54.1 (>60); Globulin 2.5 g/dL (2-4); Potassium 4.2 mmol/L (3.5-5.0); Total Bilirubin 0.7 mg/dL (0.2-1.0); Total Protein 6.3 g/dL (6.4-8.9)
--- NOTE | 2019-08-06 11:29 | ED ---
GI/ HPI - HPI Summary HPI Summary: Pt is an 84 y/o F presenting to the ED with a chief complaint of GI issues. Pt s daughter in law states shes been having melena for about 2 days, with the last episode being this morning at 0800. Dr. Fall recommended coming into the ED to do bloodwork to see if her counts were stable, as the pt is anemic and has had GI bleeds before. Hx of blood and iron infusions. Pt has complained of lower abd cramping. Notes she fell about 1 week ago and has bruising on her forehead. She denies fever, vomiting, lightheadedness, dizziness, CP, hematochezia, and SOB. - History of Current Complaint Chief Complaint: EDGIBleed Time Seen by Provider: 08/06/19 10:51 Stated Complaint: ABDOMINAL PAIN AND BLACK TARRY STOOL PER DAUGHTER Hx Obtained From: Patient, Family/Manager Safe Onset/Duration: Started Days Ago, Still Present Timing: Constant, Lasting Days Severity: Moderate Current Severity: Moderate Pain Intensity: 3 Location of Pain: Suprapubic Pain Characteristics: Cramping Associated Signs and Symptoms: Positive: Black Tarry Stool, Abdominal Pain, Melena. Negative: Dizziness, Vomiting, Bright Red Blood w/Stool, Fever, Lightheadedness, Chest Pain Aggravating Factor(s): Nothing Alleviating Factor(s): Nothing - Additional Pertinent History Primary Care Physician: AVIVA - Allergy/Home Medications Allergies/Adverse Reactions: Allergies Allergy/AdvReac Type Severity Reaction Status Date / Time No Known Allergies Allergy Verified 08/06/19 10:50 PMH/Surg Hx/FS Hx/Imm Hx Previously Healthy: Yes Endocrine/Hematology History: Reports: Hx Anemia, Other Endocrine/Hematological Disorders - anemia Denies: Hx Diabetes Cardiovascular History: Reports: Hx Coronary Artery Disease, Hx Hypercholesterolemia, Hx Hypertension - ON DAILY MEDS, Hx Peripheral Vascular Disease - BILATERAL Denies: Hx Angina, Hx Pacemaker/ICD Comment Only: Other Cardiovascular Problems/Disorders - DR PEREZ FOLLOWS Respiratory History: Reports: Hx Pneumonia Denies: Hx Asthma, Hx Chronic Obstructive Pulmonary Disease (COPD), Hx Pulmonary Embolism GI History: Reports: Hx Irritable Bowel - Hx OF FREQUENT LOOSE BOWEL MOVEMENTS WITHOUT CONTROL, Other GI Disorders - c-diff Denies: Hx Gastrointestinal Bleed History: Denies: Hx Chronic Renal Failure, Hx Renal Disease Musculoskeletal History: Reports: Hx Arthritis, Hx Back Problems Denies: Hx Rheumatoid Arthritis, Hx Osteoporosis, Hx Scoliosis Sensory History: Reports: Hx Cataracts - BILATERAL- removed, Hx Contacts or Glasses, 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 Denies: Hx Hearing Aid Opthamlomology History: Reports: Hx Cataracts - BILATERAL- removed, Hx Contacts or Glasses Neurological History: Reports: Hx Migraine, Hx Transient Ischemic Attacks (TIA) - possible 05/08/2017, Other Neuro Impairments/Disorders - PAIN CLINIC PATIENT Denies: Hx CVA, Hx Dementia, Hx Headaches, Hx Seizures, Hx Spinal Cord Injury Psychiatric History: Reports: Other Psychiatric Issues/Disorders - trazodone and remeron HS Denies: Hx Panic Disorder - Surgical History Surgery Procedure, Year, and Place: [id number] LEFT LEG BYPASS/[facility] [place]( multiple stents placed- 3 palmaz stent- ok to 1.5, 2 [facility] renal-ok to 1.5 or 3 T)([place] [facility] [place] - [facility] [place]. BILATERAL CATARACT SURGERY. cardiac stent placed 05/14/19 Hx Anesthesia Reactions: No Infectious Disease History: No Infectious Disease History: Reports: Hx Clostridium Difficile Denies: Traveled Outside the [place] in Last 30 Days - Family History Known Family History: Positive: Cardiac Disease, Hypertension Family History: No family history of malignant hyperthermia and anesthesia reaction. - Social History Alcohol Use: None Hx Substance Use: No Substance Use Type: Reports: None Hx Tobacco Use: Yes Smoking Status (MU): Former Smoker Type: Cigarettes Amount Used/How Often: 1PPD 50+ YEARS Have You Smoked in the Last Year: No Review of Systems Negative: Fever Negative: Chest Pain Negative: Shortness Of Breath Gastrointestinal: Negative - hematochezia Positive: Abdominal Pain, Other - melena. Negative: Vomiting Positive: Bruising - forehead Neurological: Negative - lightheadedness, dizziness All Other Systems Reviewed And Are Negative: Yes Physical Exam - Summary Physical Exam Summary: Constitutional: Well-developed, Well-nourished, Alert. (-) Distressed Skin: Warm, Dry. Pale, forehead contusion noted (subacute) HENT: Normocephalic; Atraumatic Eyes: Conjunctiva normal Neck: Musculoskeletal ROM normal neck. (-) JVD, (-) Stridor, (-) Tracheal deviation Cardio: Rhythm irregular, rate normal, Heart sounds normal; Intact distal pulses ; The pedal pulses are 2+ and symmetric. Radial pulses are 2+ and symmetric. (- ) Murmur Pulmonary/Chest wall: Effort normal. (-) Respiratory distress, (-) Wheezes, (-) Rales Abd: Soft, (-) tenderness, (-) Distension, (-) Guarding, (-) Rebound Musculoskeletal: (-) Edema Lymph: (-) Cervical adenopathy Neuro: Alert, Oriented x3 Psych: Mood and affect Normal Rectal: Dark stool noted, no gross bleeding. Triage Information Reviewed: Yes Vital Signs On Initial Exam: Initial Vitals Temp Pulse Resp BP Pulse Ox 98.6 F 69 15 108/40 98 08/06/19 10:47 08/06/19 10:47 08/06/19 10:47 08/06/19 10:47 08/06/19 10:47 Vital Signs Reviewed: Yes Procedures - Sedation Patient Received Moderate/Deep Sedation with Procedure: No Diagnostics - Vital Signs Vital Signs Temp Pulse Resp BP Pulse Ox 08/06/19 10:47 98.6 F 69 15 108/40 98 - Laboratory Lab Results: Lab Results 08/06/19 08/06/19 Range/Units 11:03 11:03 WBC 14.5 H (3.5-10.8) 10^3/uL RBC 4.38 (3.70-4.87) 10^6 /uL Hgb 11.4 L (12.0-16.0) g/dL Hct 36 (35-47) % MCV 81 (80-97) fL MCH 26 L (27-31) pg MCHC 32 (31-36) g/dL RDW 28 H (10-15) % Plt Count 165 (150-450) 10^3/uL MPV 9.2 (7.4-10.4) fL Neut % (Auto) Pending Lymph % (Auto) Pending Swisher % (Auto) Pending Eos % (Auto) Pending Baso % (Auto) Pending Absolute Neuts (auto) Pending Absolute Lymphs (auto) Pending Absolute Monos (auto) Pending Absolute Eos (auto) Pending Absolute Basos (auto) Pending Absolute Nucleated RBC Pending Nucleated RBC % Pending Blood Type O Positive Antibody Screen Pending Result Diagrams: 08/06/19 11:03 08/06/19 11:03 Lab Statement: Any lab studies that have been ordered have been reviewed, and results considered in the medical decision making process. GIGU Course/Dx - Course Course Of Treatment: Pt is an 84 y/o F presenting to the ED with a chief complaint of GI issues. Pt reports melena and lower abd cramping. She notes recent fall for which she has some bruising on her forehead. She denies fever, vomiting, lightheadedness, dizziness, CP, and SOB. On exam, pt is pale and subacute forehead contusion is noted. Heart rhythm is irregular but rate is nml. On rectal, dark stool is noted, no gross bleeding. Pt's stool positive for blood. Pt will be d/c'ed with dx of upper GI bleed. Instructed to call GI office tomorrow to make an appointment. Pt agreeable with this plan. - Diagnoses Provider Diagnoses: Upper GI bleed Discharge ED - Sign-Out/Discharge Documenting (check all that apply): Patient Departure - Discharge Plan Condition: Stable Disposition: HOME Patient Education Materials: Gastrointestinal Bleeding (ED) Referrals: Arthur Fall MD [Medical Doctor] - 1 Day Марина Obando MD [Primary Care Provider] - Additional Instructions: Please call Dr. Fall's office tomorrow morning to schedule a follow-up appointment. Return to the emergency department with any new or worsening symptoms. - Billing Disposition and Condition Condition: STABLE Disposition: Home - Attestation Statements Document Initiated by Shahrzad: Yes Documenting Scribe: Rukhsana Vera Provider For Whom Shahrzad is Documenting (Include Credential): Washington Erwin DO. Scribe Attestation: Rukhsana Maya scribed for Washington Erwin DO. on 08/06/19 at 1350. Scribe Documentation Reviewed: Yes Provider Attestation: The documentation as recorded by the Rukhsana marks accurately reflects the service I personally performed and the decisions made by Washington reed DO. Status of Scribe Document: Viewed
[2019-08-06 11:40] LABS: ABS Basophils 0.1 10^3/ul (0-0.2); ABS Eosinophils 0.1 10^3/ul (0-0.6); ABS Lymphocytes 0.7 10^3/ul (1.0-4.8); ABS Monocytes 0.7 10^3/ul (0-0.8); ABS Neutrophils 12.9 10^3/ul (1.5-7.7); Lymphocyte % 4.6 %; Nucleated Red Blood Cells % 0.1
[2019-08-06 13:08] VITALS: BP 117/60
== END 2019-08-06 13:07 | disposition home or self-care (01) ==
LOC: ED 10:40
DX: K92.2 Gastrointestinal hemorrhage, unspecified (principal); D64.9 Anemia, unspecified; I25.10 Atherosclerotic heart disease of native coronary artery without angina pectoris; E78.00 Pure hypercholesterolemia, unspecified; I10 Essential (primary) hypertension; I73.9 Peripheral vascular disease, unspecified; Z86.73 Personal history of transient ischemic attack (TIA), and cerebral infarction without residual deficits; Z95.5 Presence of coronary angioplasty implant and graft; Z87.891 Personal history of nicotine dependence; Z79.899 Other long term (current) drug therapy
CPT/HCPCS: 36415; 80053; 82270; 85025; 85610; 85730; 86850; 86870; 86880; 86900; 86901; 99283

== ENCOUNTER 2019-09-17 17:17 | Inpatient (IN) | payer MEDICARE ==
[2019-09-17] MEDS ORDERED: NS 0.9% 1000 ML** 1,000 ML IV ONE (17:26)
--- OUTSIDE RECORDS SUMMARY | 2019-09-17 17:41 | XMS REPORT | Continuity of Care Document ---
:1935 External Reference #:[id number] Author Name Drew Roegrs M.D. (transmitted by agent of provider Rica Barrios ) Address [address] [address] Care Team Providers Name Role Phone Drew Rogers MD - Cardiovascular Care Team Information Chaser Apprentice Disease Chip Almendarez MD - Vascular Surgery Care Team Information Chaser Apprentice Nir Mcmahon MD - Care Team Information Chaser Apprentice [phone] Neurological Surgery Charu Hilliard M.D. - Family Medicine Care Team Information Chaser Apprentice Problems Active Problems Provider Date Spinal stenosis of lumbar region Jerrod Lopez M.D.,FACP Onset: 2007 Mitral valve regurgitation Jerrod Lopez M.D.,FACP Onset: 06/29/2014 Note: moderate Displacement of lumbar intervertebral Jerrod Lopez M.D.,FACP Onset: disc without myelopathy Sciatica Jerrod Lopez M.D.,FACP Onset: 08/23/2007 Benign essential hypertension Jerrod Lopez M.D.,FACP Onset: 08/23/2007 Impaired fasting glycaemia Jerrod Loepz M.D.,FACP Onset: 08/23/2007 Insomnia Jerrod Lopez M.D.,FACP [...] Use Denies Drug Use Smoking Status Reviewed: 09/05/19 Patient is a former 1ppd X 60 years. smoker Exercise Type/Frequency Does not exercise Allergies, Adverse Reactions, Alerts Active Allergies Reaction Severity Comments Date Lipitor myalgias at 40 , okay at 20 05/14/2003 Lyrica off balance 02/29/2008 Inactive Allergies NKDA 05/14/2003 Medications Active Medications SIG Qnty Indications Ordering Provider Date Pantoprazole Sodium Take 1 Tablet 30tabs Jono Cowart MD 07/21/2019 40mg By Mouth Daily Tablets Aspirin 81 1 by mouth 30tabs Charu Hilliard MD 04/10/[address] every day Nitroglycerin 1 sl q5 mins x3 25tabs I10 Drew Williamson 02/15/2019 0.4mg Tablets as needed for Anayeli Rogers Sub chest pain Roller Walker roller walker 1units R29.6 Charu Hilliard MD 12/07/2018 [facility] [place] dx. m48.062 M48.062 Oxycodone-Acetaminophen 1 by mouth every 90tabs Adelina Li 11/10/2018 5-325mg Tablets 6 hours as MYousuf, FACP needed for pain Ventolin HFA inhale 2 puffs 18units Charu Hilliard MD 10/03/2018 108(90Base) mcg/Act Aerosol by mouth four times a day as needed Magnesium-Oxide 1 by mouth every 90tabs Naomy Deng, 12/01/2016 400(241.3mg) mg Tablets evening Trazodone HCL take 4-5 every 270tabs Charu Hilliard MD 06/29/2014 50mg Tablets night at bedtime Labetalol HCL take one half 180tabs Charu Hilliard MD 02/26/2011 200mg Tablets tablet by mouth once a day Potassium Chloride Lucía ER take one 30tabs Charu Hilliard, 10Meq Tablets ER capsule/tablet Sulma.DMiguel Ángel daily by mouth History Medications Feraheme feraheme infusion 2doses Drew Williamson 07/13/2019 - 510mg/17ML 510 mg 2 doses Anayeli Rogers 07/23/2019 Solution total first infusion followed by a second infusion in a week Amoxicillin/Clavula take 1 tab by 10tabs R05 Naomy Deng, 07/07/2019 - guillermina Potassium mouth every 12 07/23/2019 hours for 5 days 875-125mg Tablets Venofer 200 mg iv five 1000mg Drew Williamson 07/05/2019 - 20mg/ml times over 14 Anayeli Rogers 07/13/2019 Solution days Losartan Potassium 1 by mouth every 90tabs I10 Drew Williamson 07/04/2019 - other day Anayeli Rogers 09/05/2019 25mg Tablets Ferrex 150 Forte 1 cap by mouth 30caps Adelina Li, 07/03/2019 - every day Anayeli, FACP 09/04/2019 773-6-77nj-mg-mcg Capsules Torsemide 1 by mouth twice 30tabs Magda Coello, 05/23/2019 - 20mg a week [employer] 09/04/2019 Tablets Oxycontin one by mouth 14tabs M48.062 Charu Hilliard MD 04/24/2019 - 10mg Tab every 12 hours 05/11/2019 ER 12H Abuse-Det Medications Administered in Office Medication SIG Qnty Indications Ordering Provider Date B-12 Injection Jerrod Lopez, 08/26/2017 Injection Anayeli,FACP B-12 Injection Jerrod Lopez, 07/14/2017 Injection [facility]eli[facility]-12 Injection Nurse Visit A 06/08/2017 Injection B-12 Injection Nurse Visit A 06/01/2017 Injection B-12 Injection Nurse Visit A 05/25/2017 Injection B-12 Injection Jerrod Lopez, 05/18/2017 Injection Anayeli,FACP Inj, Regadenoson, 0.1 MG Memo Sanford M.D. 12/31/2016 Injection Technetium TC 99M Memo Sanford M.D. 12/31/2016 Tetrofosmin, Per Unit Dose Up To 40 Millicuries Injection Immunizations CPT Code Status Date Vaccine Reaction Lot # [id number] Given 05/23/2019 Influenza Virus Vaccine, pt. tolerated well. [id number] Quadrivalent ([id number]), Derived From Cell 10754 Given 06/27/2018 Influenza Virus Vaccine, [id number] Quadrivalent, Split, Preservative Free 69942 Given 05/18/2017 Influenza Virus Vaccine, [id number] Quadrivalent, Split, Preservative Free 57090 Given 07/08/2016 Influ Virus Vaccine, [id number] Quadrivalent, Split Virus, [place] [address] Given 04/06/2015 Fluzone High Dose 87620 Given 12/28/2014 Pneumococcal Conjugate [id number] Vaccine 13 Valent For Intramuscular Use 31623 Given 04/25/2014 Fluzone High Dose Q2035 Given 04/02/2013 Afluria Vaccine 75958 Given 06/03/2012 Tdap - [id number] Tetanus/Diptheria/Acellular Pertussis Q2035 Given 04/07/2012 Afluria Vaccine 09371 Given 07/03/2010 Zoster (Zostavax) [id number] 87084 Given 05/10/2010 Influenza Virus 3Yrs & Over 92134 Given 08/28/2009 Influenza Virus Vaccine, [id number] Pandemic Formulation 14081 Given 05/31/2008 Influenza Virus 3Yrs & Over 61362 Given 05/31/2008 Influenza Virus 3Yrs & Over 33068 99631 Given 05/16/2001 Pneumonia Vaccine Vital Signs Date Vital Result Comment 09/05/2019 3:20pm Height 64.5 inches 5'4.50" Weight 121.00 lb with shoes/coat Heart Rate 68 /min radial BP Systolic Sitting 108 mmHg LA, reg cuff BP Diastolic Sitting 56 mmHg LA, reg cuff BP Systolic Lying Down 82 mmHg la sitting BP Diastolic Lying Down 51 mmHg la sitting BMI (Body Mass Index) 20.4 kg/m2 Ejection Fraction 60%-65% Echo 08/15/19 07/24/2019 3:02pm Height 64.5 inches 5'4.50" Weight 135.00 lb with shoes Heart Rate 68 /min left radial BP Systolic Sitting 126 mmHg Rue, reg cuff BP Diastolic Sitting 64 mmHg Rue, reg cuff BP Systolic Standing 116 mmHg Rue, reg cuff BP Diastolic Standing 60 mmHg Rue, reg cuff BMI (Body Mass Index) 22.8 kg/m2 Ejection Fraction 55%-60% 05/07/19 echocardiogram Results Test Acquired Date Facility Test Result H/L Range Note Stool Occult 08/06/2019 [facility] Stool Occult SEE RESULT 1 Blood, Screen [address] Blood, [place] [address] Screen [phone] CBC Auto Diff 08/06/2019 [facility] White Blood 14.5 10^3/uL High 3.5-10.[address] Count [place], [place] [id number] [phone] Red Blood Count 4.38 10^6/uL Normal 3.70-4.87 Hemoglobin 11.4 g/dL Low 12.0-16.0 Hematocrit 36 % Normal 35-47 Mean Corpuscular Volume 81 fL Normal 80-97 Mean Corpuscular Hemoglobin 26 pg Low 27-31 Mean Corpuscular HGB Conc 32 g/dL Normal 31-36 Red Cell Distribution Width 28 % High 10-15 3 Platelet Count 165 10^3/uL Normal 150-450 Mean Platelet Volume 9.2 fL Normal 7.4-10.4 Abs Neutrophils 12.9 10^3/uL High 1.5-7.7 Abs Lymphocytes 0.7 10^3/uL Low 1.0-4.8 Abs Monocytes 0.7 10^3/uL Normal 0-0.8 Abs Eosinophils 0.1 10^3/uL Normal 0-0.6 Abs Basophils 0.1 10^3/uL Normal 0-0.2 Abs Nucleated RBC 0.0 10^3/uL Granulocyte % 89.1 % Lymphocyte % 4.6 % Monocyte % 4.8 % Eosinophil % 1.0 % Basophil % 0.5 % Nucleated Red Blood Cells % 0.1 Type & Screen 08/06/2019 [facility] Patient Blood Type O Positive [address] [place], [place] [id number] [phone] Antibody Screen POSITIVE Inr/Protime 08/06/2019 [facility] Inr 1.12 High 0.82-1.[address] [place] [address] [phone] Laboratory test 08/06/2019 [facility] Partial 28.5 Normal 26.0 -38.[address] [address] Time PTT [phone] Comp Metabolic 08/06/2019 [facility] Sodium 134 mmol/L Low 135 -[address] [place] [address] [phone] Potassium 4.2 mmol/L Normal 3.5-5.0 Chloride 99 mmol/L Low 101-111 Co2 Carbon Dioxide 29 mmol/L Normal 22-32 Anion Gap 6 mmol/L Normal 2-11 Glucose 115 mg/dL High 70-100 Blood Urea Nitrogen 9 mg/dL Normal 6-24 Creatinine 0.98 mg/dL High 0.51-0.95 BUN/Creatinine Ratio 9.2 Normal 8-20 Calcium 9.0 mg/dL Normal 8.6-10.3 Total Protein 6.3 g/dL Low 6.4-8.9 Albumin 3.8 g/dL Normal 3.2-5.2 Globulin 2.5 g/dL Normal 2-4 Albumin/Globulin Ratio 1.5 Normal 1-3 Total Bilirubin 0.70 mg/dL Normal 0.2-1.0 Alkaline Phosphatase 94 U/L Normal 34-104 Alt 9 U/L Normal 7-52 Ast 17 U/L Normal 13-39 Egfr Non- 54.1 >60 Egfr 65.4 >60 5 Laboratory test 08/06/2019 [facility] Antibody SEE RESULTS [address] Identification BELO <[place] [address] NOTE> [phone] Antibody Id Autocontrol 0 Direct Lashonda NEGATIVE Laboratory test 07/28/2019 [facility] Pathologist Review (SEE NOTE) [address] [place], [place] [id number] [phone] Cell Morphology 07/28/2019 [facility] Microcytosis [address] [place] [address] [phone] Hypochromasia 1+ Anisocytosis 2+ Elliptocyte 1+ Laboratory test 07/28/2019 [facility] Creatine 39 U/L Normal 10-223 [address] Kinase(CK) [place] [address] [phone] Lipid Profile 07/28/2019 [facility] Triglycerides 117 9 (Trig/Chol/HDL) [address] mg/[place] [address] [phone] Cholesterol 116 mg/dL 10 HDL Cholesterol 45.5 mg/dL 11 LDL Cholesterol 47 mg/dL 12 Comp Metabolic 07/28/2019 [facility] Sodium 139 mmol/L Normal 135-[address] [place] [address] [phone] Potassium 4.1 mmol/L Normal 3.5-5.0 Chloride 98 mmol/L Low 101-111 Co2 Carbon Dioxide 33 mmol/L High 22-32 Anion Gap 8 mmol/L Normal 2-11 Glucose 113 mg/dL High 70-100 Blood Urea Nitrogen 11 mg/dL Normal 6-24 Creatinine 0.97 mg/dL High 0.51-0.95 BUN/Creatinine Ratio 11.3 Normal 8-20 Calcium 9.1 mg/dL Normal 8.6-10.3 Total Protein 6.2 g/dL Low 6.4-8.9 Albumin 3.8 g/dL Normal 3.2-5.2 Globulin 2.4 g/dL Normal 2-4 Albumin/Globulin Ratio 1.6 Normal 1-3 Total Bilirubin 1.20 mg/dL High 0.2-1.0 Alkaline Phosphatase 104 U/L Normal 34-104 Alt 11 U/L Normal 7-52 Ast 24 U/L Normal 13-39 Egfr Non- 54.7 >60 Egfr 66.2 >60 13 CBC Auto 07/28/2019 [facility] White Blood 5.7 10^3/uL Normal 3.5-10.[address] [place] [address] [phone] Red Blood Count 4.25 10^6/uL Normal 3.70-4.87 Hemoglobin 10.6 g/dL Low 12.0-16.0 Hematocrit 33 % Low 35-47 Mean Corpuscular Volume 77 fL Low 80-97 Mean Corpuscular Hemoglobin 25 pg Low 27-31 Mean Corpuscular HGB Conc 32 g/dL Normal 31-36 Red Cell Distribution Width 26 % High 10-15 Platelet Count 210 10^3/uL Normal 150-450 Mean Platelet Volume 9.7 fL Normal 7.4-10.4 Abs Neutrophils 3.6 10^3/uL Normal 1.5-7.7 Abs Lymphocytes 1.1 10^3/uL Normal 1.0-4.8 Abs Monocytes 0.8 10^3/uL Normal 0-0.8 Abs Eosinophils 0.1 10^3/uL Normal 0-0.6 Abs Basophils 0.0 10^3/uL Normal 0-0.2 Abs Nucleated RBC 0.0 10^3/uL Granulocyte % 63.6 % Lymphocyte % 19.6 % Monocyte % 13.7 % Eosinophil % 2.3 % Basophil % 0.8 % Nucleated Red Blood Cells % 0.1 Comp Metabolic 07/28/2019 [facility] Sodium 135 mmol/L Normal 135-[address] [place] [address] [phone] Potassium 4.0 mmol/L Normal 3.5-5.0 Chloride 98 mmol/L Low 101-111 Co2 Carbon Dioxide 33 mmol/L High 22-32 Anion Gap 4 mmol/L Normal 2-11 Glucose 103 mg/dL High 70-100 Blood Urea Nitrogen 11 mg/dL Normal 6-24 Creatinine 0.92 mg/dL Normal 0.51-0.95 BUN/Creatinine Ratio 12.0 Normal 8-20 Calcium 8.5 mg/dL Low 8.6-10.3 Total Protein 5.9 g/dL Low 6.4-8.9 Albumin 3.5 g/dL Normal 3.2-5.2 Globulin 2.4 g/dL Normal 2-4 Albumin/Globulin Ratio 1.5 Normal 1-3 Total Bilirubin 1.10 mg/dL High 0.2-1.0 Alkaline Phosphatase 92 U/L Normal 34-104 Alt 10 U/L Normal 7-52 Ast 22 U/L Normal 13-39 Egfr Non- 58.2 >60 Egfr 70.4 >60 14 CBC Auto 07/28/2019 [facility] White Blood 6.2 10^3/uL Normal 3.5-10.[address] [place] [address] [phone] Red Blood Count 3.94 10^6/uL Normal 3.70-4.87 Hemoglobin 9.9 g/dL Low 12.0-16.0 Hematocrit 30 % Low 35-47 Mean Corpuscular Volume 77 fL Low 80-97 Mean Corpuscular Hemoglobin 25 pg Low 27-31 Mean Corpuscular HGB Conc 33 g/dL Normal 31-36 Red Cell Distribution Width 26 % High 10-15 15 Platelet Count 212 10^3/uL Normal 150-450 Mean Platelet Volume 8.9 fL Normal 7.4-10.4 Abs Neutrophils 4.2 10^3/uL Normal 1.5-7.7 Abs Lymphocytes 1.0 10^3/uL Normal 1.0-4.8 Abs Monocytes 0.9 10^3/uL High 0-0.8 Abs Eosinophils 0.1 10^3/uL Normal 0-0.6 Abs Basophils 0.1 10^3/uL Normal 0-0.2 Abs Nucleated RBC 0.0 10^3/uL Granulocyte % 67.9 % Lymphocyte % 15.4 % Monocyte % 14.2 % Eosinophil % 1.7 % Basophil % 0.8 % Nucleated Red Blood Cells % 0.0 Inr/Protime 07/28/2019 [facility] Inr 1.33 High 0.82-1.[address] [place] [address] [phone] Laboratory test 07/09/2019 [facility] Packed SEE RESULTS [address] Cells BELO <[place] [address] NOTE> [phone] Type & Screen 07/09/2019 [facility] Patient O Positive [address] [place] [address] [phone] Antibody Screen NEGATIVE Laboratory test 07/09/2019 [facility] Troponin-I 0.01 <0.03 [address] (TnI) ng/[place] [address] [phone] Comp Metabolic 07/09/2019 [facility] Sodium 138 Normal 135- [address] mmol/[place] [address] [phone] Potassium 3.5 mmol/L Normal 3.5-5.0 Chloride 104 [...] Egfr Non- 73.6 >60 Egfr 89.1 >60 19 Inr/Protime 07/09/2019 [facility] Inr 1.21 High 0.82-1.[address] [place] [address] [phone] CBC Auto Diff 07/09/2019 [facility] White Blood 6.7 Normal 3.5 -10.[address] Count 10^3/uL [place], [place] [address] [phone] Red Blood Count 3.25 10^6/uL Low 3.70-4.87 Hemoglobin 7.5 g/dL Low 12.0-16.0 Hematocrit 24 % Low 35-47 Mean Corpuscular Volume 72 fL Low 80-97 21 Mean Corpuscular Hemoglobin 23 pg Low 27-31 [...] Nucleated Red Blood Cells % 0.1 Laboratory 07/09/2019 [facility] Troponin-I 0.01 <0.03 22 test finding [address] (TnI) ng/[place] [address] [phone] Order 07/07/2019 [facility] blood <pending> [address] transfusion per [place] [id number] protocol [phone] Laboratory 07/04/2019 [facility] B-Type 780 pg/mL High <=100 test finding [address] [place] [address] Peptide BNP [phone] CBC Auto Diff 07/04/2019 [facility] White Blood 5.1 Normal 3.5 -10.[address] Count 10^3/[place] [address] [phone] Red Blood Count 3.42 10^6/uL Low 3.70-4.87 [...] Blood Cells % 0.1 Comp Metabolic 07/04/2019 [facility] Sodium 139 mmol/L Normal 135-[address] [place] [address] [phone] Potassium 3.8 mmol/L Normal 3.5-5.0 Chloride 105 [...] Egfr Non- 67.4 >60 Egfr 81.5 >60 23 Iron & Iron 07/04/2019 [facility] Total Iron 451 g/dL High 250-[address] [place] [address] Capacity [phone] Transferrin 322 mg/dL Normal 203-362 Iron < 20 g/dL Low 50-212 Unsaturated Iron Binding < 436 g/dL % Iron Saturation 4 % Low 15-55 Vitamin B12 07/04/2019 [facility] Vitamin B12 200 pg/mL Normal 180-914 24 [address] Folate [address] [place] [address] [phone] Folic Acid (Folate) 5.61 ng/mL >3.99 Cell Morphology 07/04/2019 [facility] Microcytosis 2+ [address] [place] [address] [phone] Hypochromasia 2+ Polychromasia 1+ Schistocytes 1+ Elliptocyte 2+ Laboratory test 07/04/2019 [facility] Pathologist (SEE NOTE) [address] [place] [address] [phone] Laboratory test 06/12/2019 [facility] Ferritin 9.4 ng/mL Low 11-[address] 07 [place] [address] [phone] CBC Auto Diff 06/12/2019 [facility] White Blood 5.7 Normal 3.5 - [address] Count 10^3/uL 10.8 [place] [address] [phone] Red Blood Count 3.39 10^6/uL Low 3.70-4.87 [...] Blood Cells % 0.1 Urinalysis Profile 05/06/2019 [facility] Urine Color Colorless [address] [place] [address] [phone] Urine Appearance Clear Urine Specific [place]cock 1.005 Low 1.010-1.030 Urine pH 7.0 Normal 5-9 Urine Urobilinogen Negative Negative Urine Ketones Negative Negative Urine Protein Negative Negative Urine Leukocytes Negative Negative Urine Blood Negative Negative Urine Nitrite Negative Negative Urine Bilirubin Negative Negative Urine Glucose Negative Negative CBC Auto 05/05/2019 [facility] White Blood 7.5 10^3/uL Normal 3.5-10.[address] [place] [address] [phone] Red Blood Count 4.08 10^6/uL Normal 3.70-4.87 [...] Red Blood Cells % 0.0 Laboratory 05/05/2019 [facility] B-Type 703 pg/mL High <=100 test finding [address] [employer] [place] [address] Peptide BNP [phone] Inr/Protime 05/05/2019 [facility] Inr 1.12 High 0.82-1.09 [address] [place] [address] [phone] Laboratory 05/05/2019 [facility] D Dimer 553 ng/mL High Less Than 27 test finding [address] Quantitative [address] [place] [address] [phone] Lactic Acid 1.2 mmol/L Normal 0.5-2.0 28 Iron & Iron 05/05/2019 [facility] Total Iron 469 g/dL High 250-450 Binding [address] [place] [address] Capacity [phone] Transferrin 335 mg/dL Normal 203-362 Iron TNP g/dL 50-212 29 % Iron Saturation TNP % 15-55 30 Laboratory test 05/05/2019 [facility] Folic Acid 3.53 ng/mL > 3.99 finding [address] [employer] (Folate) [place] [address] [phone] Vitamin B12 207 pg/mL Normal 180-914 31 Laboratory 05/05/2019 [facility] Troponin-I 0.05 Critical < 0.04 32 test finding [address] (TnI) ng/[place] [address] [phone] Comp Metabolic 05/05/2019 [facility] Sodium 140 Normal 135- [address] mmol/L [place] [address] [phone] Potassium 3.9 mmol/L Normal 3.5-5.0 Chloride 104 [...] Egfr Non- 79.7 >60 Egfr 96.5 >60 33 1 SEE RESULT BELOW Name: TESSIEESAU R : [address]: Washington Guardado Acct: [id number] Unit: [id number] AGE: 84 Location: ED Re08/06/19 SEX: F Status: REG ER SPEC: [id number] KATHERINE: 08/06/19-[address]: Washington Erwin DO REQ: [id number] RECD: 08/06/19 STATUS: COMP OTHR DR: Charu Hilliard MD _ SOURCE: STOOL SPDESC: ORDERED: Occult Bl, Scn Procedure Result Reported Site Stool Occult Blood (1) Final 08/06/19- 1234 ML Stool Occult Blood Positive * ML - Main Lab . END OF REPORT DEPARTMENT OF PATHOLOGY, [address] [place] [address] Evan Ruiz M.D. Director [facility] # [id number] 2 ABDOMINAL PAIN AND BLACK TARRY STOOL PER DAUGHTER 3 Consistent with Previous Results Reported on 07/28/19 4 Standard intensity warfarin therapeutic range: 2.0-3.0 High intensity warfarin therapeutic range: 2.5-3.5 5 Because ethnic data is not always readily [...] 15-29 5 Kidney failure <15 (or dialysis) 6 SEE RESULTS BELOW E K 7 Microcytic anemia. Reviewed by Mora Traore M.D. 8 Copy Result to: CHARU HILLIARD ([id number]) 9 Desirable: <150 Borderline High: 150-199 High: 200-499 Very High: >500 10 Desirable: <200 Borderline High: 200-239 High: >239 11 Low: <40 Desirable: 40-60 High: >60 12 Desirable: <100 Near Optimal: 100-129 Borderline High: 130-159 High: 160-189 Very High: >189 13 Because ethnic data is not always readily [...] 15-29 5 Kidney failure <15 (or dialysis) 14 Because ethnic data is not always readily [...] 15-29 5 Kidney failure <15 (or dialysis) 15 Consistent with Previous Results Reported on 07/28/2019. 16 Standard intensity warfarin therapeutic range: 2.0-3.0 High intensity warfarin therapeutic range: 2.5-3.5 17 SEE RESULTS BELOW [id number] OP PC TRANSFUSED 07/09/19 1950 [id number] OP PC TRANSFUSED 07/09/19 1810 [id number] OP PC TRANSFUSED 07/09/19 2323 18 Troponin-I testing on Plasma Separator Tubes (PST) has a known false positive rate of 0.20-0.40%. All positive troponins reflex immediately to secondary confirmatory testing. Using the [employer] Access Immunoassay systems, the 99th percentile upper reference limit was demonstrated to be < 0.03 ng/mL. 19 Because ethnic data is not always readily [...] 15-29 5 Kidney failure <15 (or dialysis) 20 Standard intensity warfarin therapeutic range: 2.0-3.0 High intensity warfarin therapeutic range: 2.5-3.5 21 Consistent with Previous Results Reported on 07/04/19 22 Troponin-I testing on Plasma Separator Tubes (PST) has a known false positive rate of 0.20-0.40%. All positive troponins reflex immediately to secondary confirmatory testing. Using the [employer] DxI 800 Access Immunoassay systems, the 99th percentile upper reference limit was demonstrated to be < 0.03 ng/mL. 23 Because ethnic data is not always readily [...] 15-29 5 Kidney failure <15 (or dialysis) 24 Normal Range 180 to 914 Indeterminate Range 145 to 180 Deficient Range <145 25 Microcytic anemia with red cell indices suggestive of iron deficiency. Additional studies as clinically warranted. Reviewed by Dr. Ruiz 26 Standard intensity warfarin therapeutic range: 2.0-3.0 High intensity warfarin therapeutic range: 2.5-3.5 27 Please note: The following may produce a false positive D Dimer test: - Rheumatoid factor greater than 60 IU/ml - Plasma hemoglobin greater than 0.05 gm/dl - Bilirubin greater than 50 mg/dl - Lipids greater than 1000 mg/dl - FDP greater than 20 ug/ml 28 [facility] Severe Sepsis and Septic Shock Management Bundle Measure requires all lactic acids initially measuring >2.0 mmol/L be repeated. 29 Unable to report test result due to hemolysis. 30 Unable to calculate due to hemolysis. 31 Normal Range 180 to 914 Indeterminate Range 145 to 180 Deficient Range <145 32 Result TnIDx:0.05 Called to [id number] at: 01:51:07 by:[id number] Read back by: [id number] Troponin-I testing on Plasma Separator Tubes (PST) has a known false positive rate of 0.20-0.40%. All positive troponins reflex immediately to secondary confirmatory testing. Using the [employer] DxI 800 Access Immunoassay systems, the 99th percentile upper reference limit was demonstrated to be < 0.03 ng/mL. 33 Because ethnic data is not always readily [...] (or dialysis) Procedures Date Code Description Status 09/05/2019 50951 EKG Tracing & Interpretation Completed 08/15/2019 81472 ECHO Transthoracic, Real-Time 2D With Doppler And Color Completed Flow 08/15/2019 51526 ECHO Transthoracic, Real-Time 2D With Doppler And Color Completed Flow 07/21/2019 79630 EKG Tracing & Interpretation Completed 07/04/2019 30086 EKG Tracing & Interpretation Completed 05/06/2019 74100 EKG, Interpretation Only Completed 07/14/2010 [id number] Colonoscopy Completed 06/17/2010 [id number] Mammogram Completed 05/23/2009 [id number] Mammogram Completed Medical Devices Description No Information Available Encounters Type Date Location Provider Dx Diagnosis Office Visit 09/05/2019 [facility] Drew Williamson R06.02 Shortness of 3:00p Anayeli Rogers breath I34.0 Nonrheumatic mitral (valve) insufficiency R29.6 Repeated falls 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 D64.9 Anemia, unspecified I95.2 Hypotension due to drugs Office Visit 07/24/2019 3:20p [facility] Magda Coello, D64.9 Anemia, [employer] unspecified I34.9 Nonrheumatic mitral valve disorder, unspecified 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 M79.10 Myalgia, unspecified site Office Visit 07/21/2019 1:00p [facility] Internal Adelina Li, Z00.00 Encntr for Medicine - Mariia Guadalupe, FACP general adult medical exam w/o abnormal findings 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 K92.1 Melena I34.9 Nonrheumatic mitral valve disorder, unspecified M54.5 Low back pain D64.9 Anemia, unspecified Office Visit 07/11/2019 9:26a [facility] Jono Cowart, D64.9 Anemia, Assoc,pc unspecified Hospitalists K92.1 Melena Office Visit 07/10/2019 3:16p [facility] Memo Allred I25.10 Athscl heart Of [facility] Anayeli Sanford disease of [place] coronary artery w/o ang pctrs I25.2 Old myocardial infarction I34.0 Nonrheumatic mitral (valve) insufficiency Z86.73 Prsnl hx of TIA (TIA), and cereb infrc w/o resid deficits Z98.61 Coronary angioplasty status Office Visit 07/10/2019 9:25a [facility] Jono Cowart, D64.9 Anemia, Assoc,pc unspecified Hospitalists I34.9 Nonrheumatic mitral valve disorder, unspecified 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 I10 Essential (primary) hypertension M54.9 Dorsalgia, unspecified I73.9 Peripheral vascular disease, unspecified Office Visit 07/09/2019 [facility] Gastroenterology Lorne Beyer D64.9 Anemia, 7:00a MD Junior unspecified K92.1 Melena I73.9 Peripheral vascular disease, unspecified Office Visit 07/09/2019 9:25a [facility] Assoc,pc Surekha Church.Andree. K92.1 Melena Hospitalists D64.9 Anemia, unspecified D50.9 Iron deficiency anemia, unspecified Office Visit 07/07/2019 2:20p [facility] Internal Naomy D64.9 Anemia, Medicine - MD Ish unspecified Ccmob I10 Essential (primary) hypertension R53.81 Other malaise R05 Cough Office Visit 07/04/2019 2:40p [facility] Drew Williamson I10 Essential (primary) Anayeli Rogers hypertension D64.9 Anemia, unspecified 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 I21.4 Non-St elevation (Nstemi) myocardial infarction I73.9 Peripheral vascular disease, unspecified I50.9 Heart failure, unspecified I34.0 Nonrheumatic mitral (valve) insufficiency R06.02 Shortness of breath Office Visit 06/30/2019 3:30p [facility] Internal Naomy D64.9 Anemia, Medicine - MD Ish unspecified Ccmob I10 Essential (primary) hypertension Office Visit 05/23/2019 9:40a [facility] Internal Charu Hilliard MD 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 unspecified 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 I73.9 Peripheral vascular disease, unspecified E78.5 Hyperlipidemia, unspecified Office Visit 05/06/2019 [facility] Savita Menjivar, I50.31 Acute diastolic 9:53a cecilia Vargas M.D. (congestive) Hospitalists heart failure I11.0 Hypertensive heart disease with heart failure E78.5 Hyperlipidemia, unspecified Office Visit 04/24/2019 2:00p [facility] Internal Charu Hilliard MD I10 Essential (primary) Medicine - Ccmob hypertension M48.062 Spinal stenosis, lumbar region with neurogenic claudication M25.551 Pain in right hip Office Visit 04/10/2019 1:30p [facility] Emma SMiguel Ángel I34.0 Nonrheumatic mitral Foster, N.P. (valve) insufficiency I10 Essential (primary) hypertension 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 Assessments Date Code Description Provider 09/05/2019 R06.02 Dyspnea on exertion Drew Rogers M.D. 09/05/2019 I34.0 Nonrheumatic mitral (valve) insufficiency Drew Rogers M.D. 09/05/2019 R29.6 Repeated falls Drew Rogers M.D. 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 09/05/2019 I95.2 Hypotension due to drugs Drew Rogers M.D. 08/15/2019 I34.0 Nonrheumatic mitral (valve) insufficiency Drew Rogers M.D. 08/15/2019 I34.0 Nonrheumatic mitral (valve) insufficiency [facility] 08/15/2019 I25.10 Atherosclerotic heart disease of [place] [facility] Schedule coronary artery without angina pectoris 08/15/2019 R06.02 Dyspnea on exertion [facility] Schedule 07/24/2019 D64.9 Anemia, unspecified Magda Coello, [employer] 07/24/2019 I34.9 Nonrheumatic mitral valve disorder, Magda WoodsJUAN irwin unspecified 07/24/2019 I25.10 Atherosclerotic heart disease of [place] Magda CoelloJUAN coronary artery without angina pectoris 07/24/2019 M79.10 Myalgia, unspecified site Magda Coello NP 07/21/2019 Z00.00 Encounter for general adult medical Adelina Li M.D., FACP examination without abnormal findings 07/21/2019 I25.10 Atherosclerotic heart disease of [place] Adelina Li M.D. , FACP coronary artery without angina pectoris 07/21/2019 K92.1 Melsurya Li M.D., FACP 07/21/2019 I34.9 Nonrheumatic mitral valve disorder, Adelina Li M.D., FACP unspecified 07/21/2019 M54.5 Low back pain Adelina Li M.D., FACP 07/21/2019 D64.9 Anemia, unspecified Adelina Li M.D., [facility] 07/11/2019 D64.9 Anemia, unspecified Jono Cowart MD 07/11/2019 K92.1 Belen Cowart MD 07/10/2019 I25.10 Atherosclerotic heart disease of [place] Memo Sanford M.D. coronary artery without angina pectoris 07/10/2019 I25.2 Old myocardial infarction Memo Sanford M.D. 07/10/2019 I34.0 Nonrheumatic mitral (valve) insufficiency Memo Sanford M.D. 07/10/2019 Z86.73 Personal history of transient ischemic Memo Sanford M.D. attack (TIA), and cerebral infarction without residual deficits 07/10/2019 Z98.61 Coronary angioplasty status Memo Sanford M.D. 07/10/2019 D64.9 Anemia, unspecified Jono Cowart MD 07/10/2019 I34.9 Nonrheumatic mitral valve disorder, Jono Cowart MD unspecified 07/10/2019 I25.10 Atherosclerotic heart disease of [place] Jono Cowart MD coronary artery without angina pectoris 07/10/2019 I10 Essential (primary) hypertension Jono Cowart MD 07/10/2019 M54.9 Dorsalgia, unspecified Jono Cowart MD 07/10/2019 I73.9 Peripheral vascular disease, unspecified Jono Cowart MD 07/09/2019 D64.9 Anemia, unspecified Lorne Pacheco MD 07/09/2019 K92.1 Belen Echevarria, N.P. 07/09/2019 K92.1 Belen Pacheco MD 07/09/2019 D64.9 Anemia, unspecified Lily Echevarria, N.P. 07/09/2019 I73.9 Peripheral vascular disease, unspecified Lorne Pacheco MD 07/09/2019 D50.9 Iron deficiency anemia, unspecified Lily Echevarria, N.P. 07/07/2019 D64.9 Anemia, unspecified Naomy Deng MD 07/07/2019 I10 Essential (primary) hypertension Naomy Deng MD 07/07/2019 R53.81 Other malaise Naomy Deng MD 07/07/2019 R05 Cough Naomy Deng MD 07/04/2019 I10 Essential (primary) hypertension Drew Rogers M.D. 07/04/2019 D64.9 Anemia, unspecified Drew Rogers M.D. 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 infarction 07/04/2019 I73.9 Peripheral vascular disease, unspecified Drew Rogers M.D. 07/04/2019 I50.9 Chronic congestive heart failure Drew Rogers M.D. 07/04/2019 I34.0 Non-rheumatic mitral regurgitation Drew Rogers M.D. 07/04/2019 R06.02 Dyspnea on exertion Drew Rogers M.D. 06/30/2019 D64.9 Anemia, unspecified Naomy Deng MD 06/30/2019 I10 Essential (primary) hypertension Naomy Deng MD 05/23/2019 I25.10 Atherosclerotic heart disease of [place] Charu Hilliard MD coronary artery without angina pectoris 05/23/2019 I21.4 Non-St elevation (Nstemi) myocardial Charu Hilliard MD infarction 05/23/2019 Z23 Encounter for immunization Charu Hilliard MD 05/23/2019 A04.72 Enterocolitis due to Clostridium Charu Hilliard MD difficile, not specified as recurrent 05/23/2019 D64.9 Anemia, unspecified Charu Hilliard MD 05/06/2019 R94.31 Abnormal electrocardiogram [ECG] [EKG] Memo Sanford M.D. 05/06/2019 R07.9 Chest pain, unspecified Memo Sanford M.D. 05/06/2019 I25.10 Atherosclerotic heart disease of [place] Memo Sanford M.D. coronary artery without angina pectoris 05/06/2019 I73.9 Peripheral vascular disease, unspecified Memo Sanford M.D. 05/06/2019 E78.5 Hyperlipidemia, unspecified Memo Sanford M.D. 05/06/2019 I50.31 Acute diastolic (congestive) heart Savita Menjivar M.D. failure 05/06/2019 I11.0 Hypertensive heart disease with heart Savita Menjivar M.D. failure 05/06/2019 E78.5 Hyperlipidemia, unspecified Savita Menjivar M.D. 04/24/2019 I10 Essential (primary) hypertension Charu Hilliard MD 04/24/2019 M48.062 Spinal stenosis, lumbar region with Charu Hilliadr MD neurogenic claudication 04/24/2019 M25.551 Pain in right hip Charu Hilliard MD 04/10/2019 I34.0 Nonrheumatic mitral (valve) insufficiency Emma Winslow, N.P. 04/10/2019 I10 Essential (primary) hypertension Emma Winslow, N.P. 04/10/2019 I25.10 Atherosclerotic heart disease of [place] Emma Winslow, N.P. coronary artery with Plan of Treatment Future Appointment(s):12/29/2019 1:00 pm - Drew Rogers M.D. at [facility]09/19/2019 1:20 pm - Magda Coello NP at [facility]2019 - Drew Rogers M.D.R06.02 Dyspnea on sgfkhvsmM00.0 Nonrheumatic mitral (valve) txnpbulzrmdgzX94.6 Repeated rzvaoI28.10 Atherosclerotic heart disease of [place] coronary artery without angina ikrlcdcqK57.9 Anemia, kcxkgkkeqmtS01.2 Hypotension due to drugsFollow up:ov 1-2 weeks with [employer] [facility] ov [facility] 4 m Functional Status Description No Information Available Mental Status Description No Information Available Referrals Refer to Reason for Referral Status Appt Date Created
--- OUTSIDE RECORDS SUMMARY | 2019-09-17 17:41 | XMS REPORT | Continuity of Care Document ---
:1935 External Reference #:[id number] Author Name Bren Miles PA-C Address [address] [place], [place] [address] Care Team Providers Name Role Phone Марина Obando M.D. Care Team Information [employer] [phone] Problems Active Problems Provider Date Essential hypertension Bren Miles PA-C Onset: 01/16/2019 Weight decreased Bren Miles PA-C Onset: 08/29/2019 Loss of appetite Bren Miles PA-C Onset: 08/29/2019 Nausea and vomiting Bren Miles PA-C Onset: 08/29/2019 Iron deficiency anemia Bren Miles PA-C Onset: 08/01/2019 Occult blood in stools Brne Miles PA-C Onset: 01/05/2019 Social History Type Date Description Comments Sex Unknown Tobacco Use Start: Unknown End: Unknown Patient is a former smoker Smoking Status Reviewed: 08/29/19 Patient is a former smoker Allergies, Adverse Reactions, Alerts Active Allergies Reaction Severity Comments Date Lipitor 01/05/2019 Lyrica 01/05/2019 Medications Active Medications SIG Qnty Indications Ordering Date Provider Ondansetron 1 tab by mouth 30tabs R11.2 Arthur DMiguel Ángel 08/29/2019 4mg Tablets every 4-6 hours as MD Eufemia Dispers needed for nausea Pantoprazole Sodium Every Day 30tabs Unknown 07/11/2019 40mg Tablets Ifjimmy 150 Forte Every Day Unknown 07/09/2019 [id number] Capsules Nitroglycerin .as Needed Unknown 07/09/2019 0.4mg Tablets Sub Potassium Chloride Every Day Unknown 07/09/2019 Lucía ER 10Meq Tablets ER Docusate Sodium See Instructions Unknown 07/09/2019 100mg Capsules Losartan Potassium Every Other Day Unknown 02/08/2019 25mg Tablets Labetalol HCL Every Day Unknown 12/15/2016 200mg Tablets Aspirin Every Morning Unknown 05/17/[address] Oxycodone-Acetaminoph Q6H Unknown 05/17/2015 en 5-325mg Tablets Ventolin HFA Inhale 2 Puffs By Unknown Mouth Four Times A 108(90Base) mcg/Act Day as Needed Aerosol Lovastatin take 1 tablet by Unknown 10mg Tablets mouth at bedtime Magnesium Oxide take 1 tablet by Unknown mouth every evening 400(241.3Mg) mg Tablets Trazodone HCL Unknown 50mg Tablets History Medications Guaifenesin ER Twice Daily 0tabs Unknown 07/11/2019 - 08/29/2019 600mg Tablets ER 12HR Amoxicillin/Clavulanate Twice Daily Unknown 07/09/2019 - 08/01/2019 Potassium 875-125mg Tablets Furosemide See Instructions Unknown 07/09/2019 - 08/01/2019 20mg Tablets Amoxicillin/Clavulanate Twice Daily Unknown 07/09/2019 - 08/29/2019 Potassium 875-125mg Tablets Furosemide See Instructions Unknown 07/09/2019 - 08/29/2019 20mg Tablets [place] Q6H Unknown 05/06/2019 - 08/01/2019 [id number] Suspension Atorvastatin Calcium 1700 Unknown 05/06/2019 - 08/01/2019 40mg Tablets [place] Q6H Unknown 05/06/2019 - 08/29/2019 [id number] Suspension Atorvastatin Calcium 1700 Unknown 05/06/2019 - 08/29/2019 40mg Tablets Docusate Sodium Twice Daily 0caps Unknown 05/06/2019 - 07/09/2019 100mg Capsules Immunizations Description No Information Available Vital Signs Date Vital Result Comment 08/29/2019 2:42pm Height 64.5 inches 5'4.50" Weight 122.00 lb BP Systolic 102 mmHg BP Diastolic 58 mmHg Heart Rate 79 /min BMI (Body Mass Index) 20.6 kg/m2 08/01/2019 2:42pm Height 64.5 inches 5'4.50" Weight 135.00 lb BP Systolic 103 mmHg BP Diastolic 58 mmHg Heart Rate 59 /min BMI (Body Mass Index) 22.8 kg/m2 Results Test Acquired Date Facility Test Result H/L Range Note CBC Auto Diff 08[place]23/[place] [facility] [place] Blood 7.1 10^3/uL Normal 3.5-10.8 Count Red Blood Count 4.59 10^6/uL Normal 3.70-4.87 Hemoglobin 12.7 g/dL Normal 12.0-16.0 Hematocrit 38 % Normal 35-47 Mean Corpuscular Volume 84 fL Normal 80-97 Mean Corpuscular Hemoglobin 28 pg Normal 27-31 Mean Corpuscular HGB Conc 33 g/dL Normal 31-36 Red Cell Distribution Width 27 % High 10-15 1 Platelet Count 185 10^3/uL Normal 150-450 Mean Platelet Volume 9.6 fL Normal 7.4-10.4 Abs Neutrophils 5.7 10^3/uL Normal 1.5-7.7 Abs Lymphocytes 0.7 10^3/uL Low 1.0-4.8 Abs Monocytes 0.6 10^3/uL Normal 0-0.8 Abs Eosinophils 0.1 10^3/uL Normal 0-0.6 Abs Basophils 0.0 10^3/uL Normal 0-0.2 Abs Nucleated RBC 0.0 10^3/uL Granulocyte % 80.5 % Lymphocyte % 9.7 % Monocyte % 8.1 % Eosinophil % 1.3 % Basophil % 0.4 % Nucleated Red Blood Cells % 0.0 Comp Metabolic Panel 08/23/2019 [facility] [place] 135 mmol/L Normal 135-145 Potassium 4.2 mmol/L Normal 3.5-5.0 Chloride 98 mmol/L Low 101-111 Co2 Carbon Dioxide 28 mmol/L Normal 22-32 Anion Gap 9 mmol/L Normal 2-11 Glucose 106 mg/dL High 70-100 Blood Urea Nitrogen 12 mg/dL Normal 6-24 Creatinine 0.88 mg/dL Normal 0.51-0.95 BUN/Creatinine Ratio 13.6 Normal 8-20 Calcium 9.1 mg/dL Normal 8.6-10.3 Total Protein 5.9 g/dL Low 6.4-8.9 Albumin 3.7 g/dL Normal 3.2-5.2 Globulin 2.2 g/dL Normal 2-4 Albumin/Globulin Ratio 1.7 Normal 1-3 Total Bilirubin 0.90 mg/dL Normal 0.2-1.0 Alkaline Phosphatase 86 U/L Normal 34-104 Alt 9 U/L Normal 7-52 Ast 17 U/L Normal 13-39 Egfr Non- 61.2 >60 Egfr 74.1 >60 2 Laboratory test finding 08/23/2019 [facility] [place] Direct 0.20 mg/dL High 0.03-0.18 Iron & Iron Binding 08/23/2019 [facility] Iron 91 g/dL Normal 50-212 Capacity Unsaturated Iron Binding < 202 g/dL Total Iron Binding Capacity 217 g/dL Low 250-450 Transferrin 155 mg/dL Low 203-362 % Iron Saturation 42 % Normal 15-55 Laboratory test finding 08/23/2019 [facility] [place] Ferritin 413.7 ng/mL High 11-307 Cell Morphology 08/23/2019 [facility] Anisocytosis 2+ Elliptocyte 2+ Acanthocytes 2+ Serum or plasma urea 08/06/2019 N2N/CCD Import Serum or plasma urea 9.2 8-20 nitrogen/creatinine nitrogen/creatinine ratio ratio Serum or plasma 08/06/2019 N2N/CCD Import Serum or plasma 0.98 mg/dL 0.51-0 creatinine measurement creatinine measurement .95 (mass/volum (mass/volume) Serum or plasma urea 08/06/2019 N2N/CCD Import Serum or plasma urea 9 mg/ dL 6-24 nitrogen measurement nitrogen measurement (mass/vo (mass/volume) Serum glucose 08/06/2019 N2N/CCD Import Serum glucose 115 mg/dL 70-100 measurement measurement (mass/volume) (mass/volume) Serum or plasma anion 08/06/2019 N2N/CCD Import Serum or plasma anion 6 mmol/L 2-11 gap gap Serum or plasma carbon 08/06/2019 N2N/CCD Import Serum or plasma carbon 29 mmol/L 22-32 dioxide, total dioxide, total measurement measurement (moles/volume) Serum or plasma 08/06/2019 N2N/CCD Import Serum or plasma 99 mmol/L 101- 11 chloride measurement chloride measurement 1 (moles/volume (moles/volume) Serum or plasma 08/06/2019 N2N/CCD Import Serum or plasma 4.2 mmol/L 3.5 -5. potassium measurement potassium measurement 0 (moles/volum (moles/volume) Serum or plasma sodium 08/06/2019 N2N/CCD Import Serum or plasma sodium 134 mmol/L 135-14 measurement measurement 5 (moles/volume) (moles/volume) Activated partial 08/06/2019 N2N/CCD Import Activated partial 28.5 26.0- 3 thromboplastin time thromboplastin time seconds 8.0 (aPTT) in pl (aPTT) in platelet poor plasma by coagulation a Whole blood 08/06/2019 N2N/CCD Import Whole blood 1.12 0.82-1 international international .09 normalized ratio (Inr) normalized ratio (Inr) Serum or plasma 08/06/2019 N2N/CCD Import Serum or plasma 9.0 mg/dL 8.6- 10 calcium measurement calcium measurement .3 (mass/volume) (mass/volume) Serum total protein 08/06/2019 N2N/CCD Import Serum total protein 6.3 g/dL 6.4-8. measurement measurement 9 (mass/volume) (mass/volume) Serum or plasma 08/06/2019 N2N/CCD Import Serum or plasma 3.8 g/dL 3.2- 5. albumin measurement by albumin measurement by 2 bromocresol bromocresol green (BCG) dye binding method (ma Lab Results 08/06/2019 N2N/CCD Import Globulin 2.5 g/dL 2-4 Serum or plasma 08/06/2019 N2N/CCD Import Serum or plasma 1.5 1-3 albumin/globulin mass albumin/globulin mass ratio ratio Serum or plasma total 08/06/2019 N2N/CCD Import Serum or plasma total 0.70 mg/dL 0.2-1. bilirubin measurement bilirubin measurement 0 (mass/ (mass/volume) Serum or plasma 08/06/2019 N2N/CCD Import Serum or plasma 94 U/L 34-104 alkaline phosphatase alkaline phosphatase measurement ( measurement (enzymatic activity/volume) Serum or plasma 08/06/2019 N2N/CCD Import Serum or plasma 9 U/L 7-52 alanine alanine aminotransferase aminotransferase measureme measurement (enzymatic activity/volume) Serum or plasma 08/06/2019 N2N/CCD Import Serum or plasma 17 U/L 13-39 aspartate aspartate aminotransferase aminotransferase measure measurement (enzymatic activity/volume) Estimated glomerular 08/06/2019 N2N/CCD Import Estimated glomerular 54.1 filtration rate (GFR) filtration rate (GFR) non-Afr non- Lab Results 08/06/2019 N2N/CCD Import Estimated GFR ( 65.4 [place]) Automated blood 08/06/2019 N2N/CCD Import Automated blood 14.5 3.5-10 leukocytes count leukocytes count 10^3/uL .8 corrected for nuc corrected for nucleated erythrocytes (number/volume) Automated blood 08/06/2019 N2N/CCD Import Automated blood 4.38 3.70-4 erythrocyte count erythrocyte count 10^6/uL .87 (number/volume) (number/volume) Blood hemoglobin 08/06/2019 N2N/CCD Import Blood hemoglobin 11.4 g/dL 12.0-1 measurement measurement 6.0 (mass/volume) (mass/volume) Automated blood 08/06/2019 N2N/CCD Import Automated blood 36 % 35-47 hematocrit hematocrit (percentage) (percentage) Automated erythrocyte 08/06/2019 N2N/CCD Import Automated erythrocyte 81 fL 80-97 mean corpuscular mean corpuscular volume volume Automated erythrocyte 08/06/2019 N2N/CCD Import Automated erythrocyte 26 pg 27-31 mean corpuscular mean corpuscular hemoglobin hemoglobin (mass per erythrocyte) Automated erythrocyte 08/06/2019 N2N/CCD Import Automated erythrocyte 32 g/ dL 31-36 mean corpuscular mean corpuscular hemoglobin hemoglobin concentration measurement (mass/vol Automated erythrocyte 08/06/2019 N2N/CCD Import Automated erythrocyte 28 % 10-15 distribution width distribution width ratio ratio Automated blood 08/06/2019 N2N/CCD Import Automated blood 165 150-45 platelet count platelet count 10^3/uL 0 (number/volume) (number/volume) Automated blood 08/06/2019 N2N/CCD Import Automated blood 9.2 fL 7.4-10 platelet mean volume platelet mean volume .[address] biopsy liver 08/06/2019 N2N/CCD Import CT biopsy liver 12.9 1.5-7. 10^3/ul 7 Blood lymphocytes 08/06/2019 N2N/CCD Import Blood lymphocytes 0.7 1.0- 4. automated count automated count 10^3/ul 8 (number/volume) (number/volume) Blood monocytes 08/06/2019 N2N/CCD Import Blood monocytes 0.7 0-0.8 automated count automated count 10^3/ul (number/volume) (number/volume) Automated blood 08/06/2019 N2N/CCD Import Automated blood 0.1 0-0.6 eosinophil count eosinophil count 10^3/ul (number/volume) (number/volume) Automated blood 08/06/2019 N2N/CCD Import Automated blood 0.1 0-0.2 basophil count basophil count 10^3/ul (number/volume) (number/volume) Blood nucleated 08/06/2019 N2N/CCD Import Blood nucleated 0.0 erythrocytes automated erythrocytes automated 10^3/ul count (numb count (number/volume) Automated blood 08/06/2019 N2N/CCD Import Automated blood 89.1 % neutrophils/100 neutrophils/100 leukocytes leukocytes Automated blood 08/06/2019 N2N/CCD Import Automated blood 4.6 % lymphocytes/100 lymphocytes/100 leukocytes leukocytes Automated blood 08/06/2019 N2N/CCD Import Automated blood 4.8 % monocytes/100 monocytes/100 leukocytes leukocytes Automated blood 08/06/2019 N2N/CCD Import Automated blood 1.0 % eosinophils/100 eosinophils/100 leukocytes leukocytes Automated blood 08/06/2019 N2N/CCD Import Automated blood 0.5 % basophils/100 basophils/100 leukocytes leukocytes Automated blood 08/06/2019 N2N/CCD Import Automated blood 0.1 nucleated erythrocytes nucleated erythrocytes detection detection Automated blood 07/28/2019 N2N/CCD Import Automated blood 63.6 % neutrophils/100 neutrophils/100 leukocytes leukocytes Automated blood 07/28/2019 N2N/CCD Import Automated blood 19.6 % lymphocytes/100 lymphocytes/100 leukocytes leukocytes Automated blood 07/28/2019 N2N/CCD Import Automated blood 13.7 % monocytes/100 monocytes/100 leukocytes leukocytes Automated blood 07/28/2019 N2N/CCD Import Automated blood 2.3 % eosinophils/100 eosinophils/100 leukocytes leukocytes Automated blood 07/28/2019 N2N/CCD Import Automated blood 0.8 % basophils/100 basophils/100 leukocytes leukocytes Automated blood 07/28/2019 N2N/CCD Import Automated blood 0.1 nucleated erythrocytes nucleated erythrocytes detection detection CT biopsy liver 07/28/2019 N2N/CCD Import CT biopsy liver 1+ Lab Results 07/28/2019 N2N/CCD Import Hypochromasia 1+ Anisocytosis 2+ Elliptocyte detection 07/28/2019 N2N/CCD Import Elliptocyte detection 1+ Serum or plasma 07/28/2019 N2N/CCD Import Serum or plasma 139 mmol/L 135 -1 sodium measurement sodium measurement 45 (moles/volume) (moles/volume) Serum or plasma 07/28/2019 N2N/CCD Import Serum or plasma 4.1 mmol/L 3.5 -5 potassium measurement potassium measurement .0 (moles/volum (moles/volume) Blood nucleated 07/28/2019 N2N/CCD Import Blood nucleated 0.0 10^3/ul erythrocytes erythrocytes automated count (numb automated count (number/volume) Automated blood 07/28/2019 N2N/CCD Import Automated blood 0.0 10^3/ul 0- 0.2 basophil count basophil count (number/volume) (number/volume) Automated blood 07/28/2019 N2N/CCD Import Automated blood 0.1 10^3/ul 0- 0.6 eosinophil count eosinophil count (number/volume) (number/volume) Blood monocytes 07/28/2019 N2N/CCD Import Blood monocytes 0.8 10^3/ul 0- 0.8 automated count automated count (number/volume) (number/volume) Blood lymphocytes 07/28/2019 N2N/CCD Import Blood lymphocytes 1.1 10^3/ul 1.0-4 automated count automated count .8 (number/volume) (number/volume) CT biopsy liver 07/28/2019 N2N/CCD Import CT biopsy liver 3.6 10^3/ul 1.5-7 .7 Automated blood 07/28/2019 N2N/CCD Import Automated blood 9.7 fL 7.4-1 platelet mean volume platelet mean volume 0.4 measurement measurement Automated blood 07/28/2019 N2N/CCD Import Automated blood 210 10^3/uL 150-4 platelet count platelet count 50 (number/volume) (number/volume) Automated erythrocyte 07/28/2019 N2N/CCD Import Automated erythrocyte 26 % 10-15 distribution width distribution width ratio ratio Automated erythrocyte 07/28/2019 N2N/CCD Import Automated erythrocyte 32 g/ dL 31-36 mean corpuscular mean corpuscular hemoglobin hemoglobin concentration measurement (mass/vol Automated erythrocyte 07/28/2019 N2N/CCD Import Automated erythrocyte 25 pg 27-31 mean corpuscular mean corpuscular hemoglobin hemoglobin (mass per erythrocyte) Automated erythrocyte 07/28/2019 N2N/CCD Import Automated erythrocyte 77 fL 80-97 mean corpuscular mean corpuscular volume volume Serum or plasma low 07/28/2019 N2N/CCD Import Serum or plasma low 47 mg/dL density lipoprotein density lipoprotein (LDL) chol (LDL) cholesterol measurement (mass/volume) Lab Results 07/28/2019 N2N/CCD Import Estimated GFR 66.2 () Estimated glomerular 07/28/2019 N2N/CCD Import Estimated glomerular 54.7 filtration rate (GFR) filtration rate (GFR) non-Afr non- Serum or plasma 07/28/2019 N2N/CCD Import Serum or plasma 39 U/L 10-22 creatine kinase creatine kinase 3 measurement (enzym measurement (enzymatic activity/volume) Serum or plasma 07/28/2019 N2N/CCD Import Serum or plasma 24 U/L 13-39 aspartate aspartate aminotransferase aminotransferase measure measurement (enzymatic activity/volume) Serum or plasma 07/28/2019 N2N/CCD Import Serum or plasma 11 U/L 7-52 alanine alanine aminotransferase aminotransferase measureme measurement (enzymatic activity/volume) Serum or plasma 07/28/2019 N2N/CCD Import Serum or plasma 104 U/L 34-10 alkaline phosphatase alkaline phosphatase 4 measurement ( measurement (enzymatic activity/volume) Serum or plasma high 07/28/2019 N2N/CCD Import Serum or plasma high 45.5 mg /dL density lipoprotein density lipoprotein (HDL) cho (HDL) cholesterol measurement Serum or plasma 07/28/2019 N2N/CCD Import Serum or plasma 116 mg/dL cholesterol cholesterol measurement measurement (mass/volu (mass/volume) Serum or plasma 07/28/2019 N2N/CCD Import Serum or plasma 117 mg/dL triglyceride triglyceride measurement (mass/vol measurement (mass/volume) Serum or plasma total 07/28/2019 N2N/CCD Import Serum or plasma total 1.20 mg/dL 0.2-1 bilirubin measurement bilirubin measurement .0 (mass/ (mass/volume) Serum or plasma 07/28/2019 N2N/CCD Import Serum or plasma 1.6 1-3 albumin/globulin mass albumin/globulin mass ratio ratio Lab Results 07/28/2019 N2N/CCD Import Globulin 2.4 g/dL 2-4 Serum or plasma 07/28/2019 N2N/CCD Import Serum or plasma 3.8 g/dL 3.2- 5 albumin measurement albumin measurement .2 by bromocresol by bromocresol green (BCG) dye binding method (ma Serum total protein 07/28/2019 N2N/CCD Import Serum total protein 6.2 g/dL 6.4-8 measurement measurement .9 (mass/volume) (mass/volume) Serum or plasma 07/28/2019 N2N/CCD Import Serum or plasma 9.1 mg/dL 8.6- 1 calcium measurement calcium measurement 0.3 (mass/volume) (mass/volume) Serum or plasma urea 07/28/2019 N2N/CCD Import Serum or plasma urea 11.3 8-20 nitrogen/creatinine nitrogen/creatinine ratio ratio Serum or plasma 07/28/2019 N2N/CCD Import Serum or plasma 0.97 mg/dL 0.51- creatinine creatinine 0.95 measurement measurement (mass/volum (mass/volume) Serum or plasma urea 07/28/2019 N2N/CCD Import Serum or plasma urea 11 mg/ dL 6-24 nitrogen measurement nitrogen measurement (mass/vo (mass/volume) Serum glucose 07/28/2019 N2N/CCD Import Serum glucose 113 mg/dL 70-10 measurement measurement 0 (mass/volume) (mass/volume) Serum or plasma anion 07/28/2019 N2N/CCD Import Serum or plasma anion 8 mmol/L 2-11 gap gap Serum or plasma 07/28/2019 N2N/CCD Import Serum or plasma 33 mmol/L 22- 32 carbon dioxide, total carbon dioxide, total measurement measurement (moles/volume) Serum or plasma 07/28/2019 N2N/CCD Import Serum or plasma 98 mmol/L 101- 1 chloride measurement chloride measurement 11 (moles/volume (moles/volume) Whole blood 07/28/2019 N2N/CCD Import Whole blood 1.33 0.82- international international 1.09 normalized ratio normalized ratio (Inr) (Inr) Automated blood 07/28/2019 N2N/CCD Import Automated blood 0.0 nucleated nucleated erythrocytes erythrocytes detection detection Automated blood 07/28/2019 N2N/CCD Import Automated blood 0.8 % basophils/100 basophils/100 leukocytes leukocytes Automated blood 07/28/2019 N2N/CCD Import Automated blood 1.7 % eosinophils/100 eosinophils/100 leukocytes leukocytes Automated blood 07/28/2019 N2N/CCD Import Automated blood 14.2 % monocytes/100 monocytes/100 leukocytes leukocytes Automated blood 07/28/2019 N2N/CCD Import Automated blood 15.4 % lymphocytes/100 lymphocytes/100 leukocytes leukocytes Automated blood 07/28/2019 N2N/CCD Import Automated blood 67.9 % neutrophils/100 neutrophils/100 leukocytes leukocytes Blood nucleated 07/28/2019 N2N/CCD Import Blood nucleated 0.0 10^3/ul erythrocytes erythrocytes automated count (numb automated count (number/volume) Automated blood 07/28/2019 N2N/CCD Import Automated blood 0.1 10^3/ul 0- 0.2 basophil count basophil count (number/volume) (number/volume) Automated blood 07/28/2019 N2N/CCD Import Automated blood 0.1 10^3/ul 0- 0.6 eosinophil count eosinophil count (number/volume) (number/volume) Blood monocytes 07/28/2019 N2N/CCD Import Blood monocytes 0.9 10^3/ul 0- 0.8 automated count automated count (number/volume) (number/volume) Blood lymphocytes 07/28/2019 N2N/CCD Import Blood lymphocytes 1.0 10^3/ul 1.0-4 automated count automated count .8 (number/volume) (number/volume) Lymphocyte 07/28/2019 N2N/CCD Import Lymphocyte 4.2 10^3/ul 1.5-7 proliferation test proliferation test .7 Automated blood 07/28/2019 N2N/CCD Import Automated blood 8.9 fL 7.4-1 platelet mean volume platelet mean volume 0.4 measurement measurement Automated blood 07/28/2019 N2N/CCD Import Automated blood 212 10^3/uL 150-4 platelet count platelet count 50 (number/volume) (number/volume) Automated erythrocyte 07/28/2019 N2N/CCD Import Automated erythrocyte 26 % 10-15 distribution width distribution width ratio ratio Automated erythrocyte 07/28/2019 N2N/CCD Import Automated erythrocyte 33 g/ dL 31-36 mean corpuscular mean corpuscular hemoglobin hemoglobin concentration measurement (mass/vol Automated erythrocyte 07/28/2019 N2N/CCD Import Automated erythrocyte 25 pg 27-31 mean corpuscular mean corpuscular hemoglobin hemoglobin (mass per erythrocyte) Automated erythrocyte 07/28/2019 N2N/CCD Import Automated erythrocyte 77 fL 80-97 mean corpuscular mean corpuscular volume volume Automated blood 07/28/2019 N2N/CCD Import Automated blood 30 % 35-47 hematocrit hematocrit (percentage) (percentage) Blood hemoglobin 07/28/2019 N2N/CCD Import Blood hemoglobin 9.9 g/dL 12.0- measurement measurement 16.0 (mass/volume) (mass/volume) Automated blood 07/28/2019 N2N/CCD Import Automated blood 3.94 3.70- erythrocyte count erythrocyte count 10^6/uL 4.87 (number/volume) (number/volume) Automated blood 07/28/2019 N2N/CCD Import Automated blood 6.2 10^3/uL 3.5-1 leukocytes count leukocytes count 0.8 corrected for nuc corrected for nucleated erythrocytes (number/volume) Automated blood 07/28/2019 N2N/CCD Import Automated blood 33 % 35-47 hematocrit hematocrit (percentage) (percentage) Blood hemoglobin 07/28/2019 N2N/CCD Import Blood hemoglobin 10.6 g/dL 12.0- measurement measurement 16.0 (mass/volume) (mass/volume) Automated blood 07/28/2019 N2N/CCD Import Automated blood 4.25 3.70- erythrocyte count erythrocyte count 10^6/uL 4.87 (number/volume) (number/volume) Automated blood 07/28/2019 N2N/CCD Import Automated blood 5.7 10^3/uL 3.5-1 leukocytes count leukocytes count 0.8 corrected for nuc corrected for nucleated erythrocytes (number/volume) Lab Results 07/28/2019 N2N/CCD Import Estimated GFR 70.4 () Estimated glomerular 07/28/2019 N2N/CCD Import Estimated glomerular 58.2 filtration rate (GFR) filtration rate (GFR) non-Afr non- Serum or plasma 07/28/2019 N2N/CCD Import Serum or plasma 22 U/L 13-39 aspartate aspartate aminotransferase aminotransferase measure measurement (enzymatic activity/volume) Serum or plasma 07/28/2019 N2N/CCD Import Serum or plasma 10 U/L 7-52 alanine alanine aminotransferase aminotransferase measureme measurement (enzymatic activity/volume) Serum or plasma 07/28/2019 N2N/CCD Import Serum or plasma 92 U/L 34-10 alkaline phosphatase alkaline phosphatase 4 measurement ( measurement (enzymatic activity/volume) Serum or plasma total 07/28/2019 N2N/CCD Import Serum or plasma total 1.10 mg/dL 0.2-1 bilirubin measurement bilirubin measurement .0 (mass/ (mass/volume) Serum or plasma 07/28/2019 N2N/CCD Import Serum or plasma 1.5 1-3 albumin/globulin mass albumin/globulin mass ratio ratio Lab Results 07/28/2019 N2N/CCD Import Globulin 2.4 g/dL 2-4 Serum or plasma 07/28/2019 N2N/CCD Import Serum or plasma 135 mmol/L 135 -1 sodium measurement sodium measurement 45 (moles/volume) (moles/volume) Serum or plasma 07/28/2019 N2N/CCD Import Serum or plasma 4.0 mmol/L 3.5 -5 potassium measurement potassium measurement .0 (moles/volum (moles/volume) Serum or plasma 07/28/2019 N2N/CCD Import Serum or plasma 98 mmol/L 101- 1 chloride measurement chloride measurement 11 (moles/volume (moles/volume) Serum or plasma 07/28/2019 N2N/CCD Import Serum or plasma 33 mmol/L 22- 32 carbon dioxide, total carbon dioxide, total measurement measurement (moles/volume) Serum or plasma anion 07/28/2019 N2N/CCD Import Serum or plasma anion 4 mmol/L 2-11 gap gap Serum glucose 07/28/2019 N2N/CCD Import Serum glucose 103 mg/dL 70-10 measurement measurement 0 (mass/volume) (mass/volume) Serum or plasma urea 07/28/2019 N2N/CCD Import Serum or plasma urea 11 mg/ dL 6-24 nitrogen measurement nitrogen measurement (mass/vo (mass/volume) Serum or plasma 07/28/2019 N2N/CCD Import Serum or plasma 0.92 mg/dL 0.51- creatinine creatinine 0.95 measurement measurement (mass/volum (mass/volume) Serum or plasma urea 07/28/2019 N2N/CCD Import Serum or plasma urea 12.0 8-20 nitrogen/creatinine nitrogen/creatinine ratio ratio Serum or plasma 07/28/2019 N2N/CCD Import Serum or plasma 8.5 mg/dL 8.6- 1 calcium measurement calcium measurement 0.3 (mass/volume) (mass/volume) Serum total protein 07/28/2019 N2N/CCD Import Serum total protein 5.9 g/dL 6.4-8 measurement measurement .9 (mass/volume) (mass/volume) Serum or plasma 07/28/2019 N2N/CCD Import Serum or plasma 3.5 g/dL 3.2- 5 albumin measurement albumin measurement .2 by bromocresol by bromocresol green (BCG) dye binding method (ma Blood lymphocytes 07/11/2019 N2N/CCD Import Blood lymphocytes 0.5 10^3/ul 1.0-4 automated count automated count .8 (number/volume) (number/volume) Blood monocytes 07/11/2019 N2N/CCD Import Blood monocytes 1.2 10^3/ul 0- 0.8 automated count automated count (number/volume) (number/volume) Automated blood 07/11/2019 N2N/CCD Import Automated blood 0.1 10^3/ul 0- 0.6 eosinophil count eosinophil count (number/volume) (number/volume) Automated blood 07/11/2019 N2N/CCD Import Automated blood 0.0 10^3/ul 0- 0.2 basophil count basophil count (number/volume) (number/volume) Blood nucleated 07/11/2019 N2N/CCD Import Blood nucleated 0.0 10^3/ul erythrocytes erythrocytes automated count (numb automated count (number/volume) Automated blood 07/11/2019 N2N/CCD Import Automated blood 78.6 % neutrophils/100 neutrophils/100 leukocytes leukocytes Automated blood 07/11/2019 N2N/CCD Import Automated blood 5.6 % lymphocytes/100 lymphocytes/100 leukocytes leukocytes Automated blood 07/11/2019 N2N/CCD Import Automated blood 14.3 % monocytes/100 monocytes/100 leukocytes leukocytes Automated blood 07/11/2019 N2N/CCD Import Automated blood 1.3 % eosinophils/100 eosinophils/100 leukocytes leukocytes Automated blood 07/11/2019 N2N/CCD Import Automated blood 0.2 % basophils/100 basophils/100 leukocytes leukocytes Automated blood 07/11/2019 N2N/CCD Import Automated blood 0.1 nucleated nucleated erythrocytes erythrocytes detection detection Automated blood 07/11/2019 N2N/CCD Import Automated blood 8.4 10^3/uL 3.5-1 leukocytes count leukocytes count 0.8 corrected for nuc corrected for nucleated erythrocytes (number/volume) Automated blood 07/11/2019 N2N/CCD Import Automated blood 3.62 3.70- erythrocyte count erythrocyte count 10^6/uL 4.87 (number/volume) (number/volume) Blood hemoglobin 07/11/2019 N2N/CCD Import Blood hemoglobin 9.1 g/dL 12.0- measurement measurement 16.0 (mass/volume) (mass/volume) Automated blood 07/11/2019 N2N/CCD Import Automated blood 27 % 35-47 hematocrit hematocrit (percentage) (percentage) Automated erythrocyte 07/11/2019 N2N/CCD Import Automated erythrocyte 76 fL 80-97 mean corpuscular mean corpuscular volume volume Automated erythrocyte 07/11/2019 N2N/CCD Import Automated erythrocyte 25 pg 27-31 mean corpuscular mean corpuscular hemoglobin hemoglobin (mass per erythrocyte) Automated erythrocyte 07/11/2019 N2N/CCD Import Automated erythrocyte 33 g/ dL 31-36 mean corpuscular mean corpuscular hemoglobin hemoglobin concentration measurement (mass/vol Automated erythrocyte 07/11/2019 N2N/CCD Import Automated erythrocyte 19 % 10-15 distribution width distribution width ratio ratio Automated blood 07/11/2019 N2N/CCD Import Automated blood 246 10^3/uL 150-4 platelet count platelet count 50 (number/volume) (number/volume) Automated blood 07/11/2019 N2N/CCD Import Automated blood 8.1 fL 7.4-1 platelet mean volume platelet mean volume 0.4 measurement measurement Lymphocyte 07/11/2019 N2N/CCD Import Lymphocyte 6.6 10^3/ul 1.5-7 proliferation test proliferation test .7 Lab Results 07/10/2019 N2N/CCD Import Estimated GFR 99.7 () Estimated glomerular 07/10/2019 N2N/CCD Import Estimated glomerular 82.4 filtration rate (GFR) filtration rate (GFR) non-Afr non- Serum or plasma 07/10/2019 N2N/CCD Import Serum or plasma 8.1 mg/dL 8.6- 1 calcium measurement calcium measurement 0.3 (mass/volume) (mass/volume) Serum or plasma urea 07/10/2019 N2N/CCD Import Serum or plasma urea 10.3 8-20 nitrogen/creatinine nitrogen/creatinine ratio ratio Serum or plasma 07/10/2019 N2N/CCD Import Serum or plasma 0.68 mg/dL 0.51- creatinine creatinine 0.95 measurement measurement (mass/volum (mass/volume) Serum or plasma urea 07/10/2019 N2N/CCD Import Serum or plasma urea 7 mg/ dL 6-24 nitrogen measurement nitrogen measurement (mass/vo (mass/volume) Serum glucose 07/10/2019 N2N/CCD Import Serum glucose 97 mg/dL 70-10 measurement measurement 0 (mass/volume) (mass/volume) Serum or plasma anion 07/10/2019 N2N/CCD Import Serum or plasma anion 5 mmol/L 2-11 gap gap Serum or plasma 07/10/2019 N2N/CCD Import Serum or plasma 26 mmol/L 22- 32 carbon dioxide, total carbon dioxide, total measurement measurement (moles/volume) Serum or plasma 07/10/2019 N2N/CCD Import Serum or plasma 109 mmol/L 101 -1 chloride measurement chloride measurement 11 (moles/volume (moles/volume) Serum or plasma 07/10/2019 N2N/CCD Import Serum or plasma 3.6 mmol/L 3.5 -5 potassium measurement potassium measurement .0 (moles/volum (moles/volume) Serum or plasma 07/10/2019 N2N/CCD Import Serum or plasma 140 mmol/L 135 -1 sodium measurement sodium measurement 45 (moles/volume) (moles/volume) Serum or plasma 07/09/2019 N2N/CCD Import Serum or plasma 16 U/L 13-39 aspartate aspartate aminotransferase aminotransferase measure measurement (enzymatic activity/volume) Serum or plasma 07/09/2019 N2N/CCD Import Serum or plasma 9 U/L 7-52 alanine alanine aminotransferase aminotransferase measureme measurement (enzymatic activity/volume) Serum or plasma 07/09/2019 N2N/CCD Import Serum or plasma 127 U/L 34-10 alkaline phosphatase alkaline phosphatase 4 measurement ( measurement (enzymatic activity/volume) Serum or plasma total 07/09/2019 N2N/CCD Import Serum or plasma total 0.50 mg/dL 0.2-1 bilirubin measurement bilirubin measurement .0 (mass/ (mass/volume) Serum or plasma 07/09/2019 N2N/CCD Import Serum or plasma 1.4 1-3 albumin/globulin mass albumin/globulin mass ratio ratio Lab Results 07/09/2019 N2N/CCD Import Globulin 2.6 g/dL 2-4 Serum or plasma 07/09/2019 N2N/CCD Import Serum or plasma 3.6 g/dL 3.2- 5 albumin measurement albumin measurement .2 by bromocresol by bromocresol green (BCG) dye binding method (ma Serum total protein 07/09/2019 N2N/CCD Import Serum total protein 6.2 g/dL 6.4-8 measurement measurement .9 (mass/volume) (mass/volume) Whole blood 07/09/2019 N2N/CCD Import Whole blood 1.21 0.82- international international 1.09 normalized ratio normalized ratio (Inr) (Inr) Serum or plasma 07/09/2019 N2N/CCD Import Serum or plasma 0.01 ng/mL troponin i.cardiac troponin i.cardiac measurement (ma measurement (mass/volume) Lab Results 07/09/2019 N2N/CCD Import Transfusion Reaction No Growth Culture Day 5 Serum or plasma 07/04/2019 N2N/CCD Import Serum or plasma 1.6 1-3 albumin/globulin mass albumin/globulin mass ratio ratio Lab Results 07/04/2019 N2N/CCD Import Globulin 2.4 g/dL 2-4 Serum or plasma 07/04/2019 N2N/CCD Import Serum or plasma 3.8 g/dL 3.2- 5 albumin measurement albumin measurement .2 by bromocresol by bromocresol green (BCG) dye binding method (ma Serum total protein 07/04/2019 N2N/CCD Import Serum total protein 6.2 g/dL 6.4-8 measurement measurement .9 (mass/volume) (mass/volume) Serum or plasma 07/04/2019 N2N/CCD Import Serum or plasma 8.4 mg/dL 8.6- 1 calcium measurement calcium measurement 0.3 (mass/volume) (mass/volume) Serum or plasma urea 07/04/2019 N2N/CCD Import Serum or plasma urea 12.3 8-20 nitrogen/creatinine nitrogen/creatinine ratio ratio Serum or plasma 07/04/2019 N2N/CCD Import Serum or plasma 0.81 mg/dL 0.51- creatinine creatinine 0.95 measurement measurement (mass/volum (mass/volume) Serum or plasma urea 07/04/2019 N2N/CCD Import Serum or plasma urea 10 mg/ dL 6-24 nitrogen measurement nitrogen measurement (mass/vo (mass/volume) Serum glucose 07/04/2019 N2N/CCD Import Serum glucose 111 mg/dL 70-10 measurement measurement 0 (mass/volume) (mass/volume) Serum or plasma anion 07/04/2019 N2N/CCD Import Serum or plasma anion 6 mmol/L 2-11 gap gap Serum or plasma 07/04/2019 N2N/CCD Import Serum or plasma 28 mmol/L 22- 32 carbon dioxide, total carbon dioxide, total measurement measurement (moles/volume) Serum or plasma 07/04/2019 N2N/CCD Import Serum or plasma 105 mmol/L 101 -1 chloride measurement chloride measurement 11 (moles/volume (moles/volume) Serum or plasma 07/04/2019 N2N/CCD Import Serum or plasma 3.8 mmol/L 3.5 -5 potassium measurement potassium measurement .0 (moles/volum (moles/volume) Serum or plasma total 07/04/2019 N2N/CCD Import Serum or plasma total 0.50 mg/dL 0.2-1 bilirubin measurement bilirubin measurement .0 (mass/ (mass/volume) Serum or plasma 07/04/2019 N2N/CCD Import Serum or plasma 110 U/L 34-10 alkaline phosphatase alkaline phosphatase 4 measurement ( measurement (enzymatic activity/volume) Serum or plasma 07/04/2019 N2N/CCD Import Serum or plasma 10 U/L 7-52 alanine alanine aminotransferase aminotransferase measureme measurement (enzymatic activity/volume) Serum or plasma 07/04/2019 N2N/CCD Import Serum or plasma 18 U/L 13-39 aspartate aspartate aminotransferase aminotransferase measure measurement (enzymatic activity/volume) Estimated glomerular 07/04/2019 N2N/CCD Import Estimated glomerular 67.4 filtration rate (GFR) filtration rate (GFR) non-Afr non- Lab Results 07/04/2019 N2N/CCD Import Estimated GFR 81.5 () Serum or plasma 07/04/2019 N2N/CCD Import Serum or plasma 780 pg/mL < 100 natriuretic peptide B natriuretic peptide B measurement measurement (mass/volume) Serum or plasma iron 07/04/2019 N2N/CCD Import Serum or plasma iron < 20 g/dL 50-21 measurement measurement 2 (mass/volume) (mass/volume) Lab Results 07/04/2019 N2N/CCD Import Unsaturated Iron < 436 Binding g/dL Serum or plasma iron 07/04/2019 N2N/CCD Import Serum or plasma iron 451 g /dL 250-4 binding capacity binding capacity 50 measurement measurement (mass/volume) Serum or plasma 07/04/2019 N2N/CCD Import Serum or plasma 322 mg/dL 203- 3 transferrin transferrin 62 measurement measurement (mass/volu (mass/volume) Lab Results 07/04/2019 N2N/CCD Import Percent Iron 4 % 15-55 Saturation Serum or plasma 07/04/2019 N2N/CCD Import Serum or plasma 200 pg/mL 180- 9 vitamin B12 vitamin B12 14 measurement measurement (mass/volu (mass/volume) Serum or plasma 07/04/2019 N2N/CCD Import Serum or plasma 5.61 ng/mL folate measurement folate measurement (mass/volume) (mass/volume) Automated blood 07/04/2019 N2N/CCD Import Automated blood 5.1 10^3/uL 3.5-1 leukocytes count leukocytes count 0.8 corrected for nuc corrected for nucleated erythrocytes (number/volume) Automated blood 07/04/2019 N2N/CCD Import Automated blood 3.42 3.70- erythrocyte count erythrocyte count 10^6/uL 4.87 (number/volume) (number/volume) Blood hemoglobin 07/04/2019 N2N/CCD Import Blood hemoglobin 7.9 g/dL 12.0- measurement measurement 16.0 (mass/volume) (mass/volume) Automated blood 07/04/2019 N2N/CCD Import Automated blood 25 % 35-47 hematocrit hematocrit (percentage) (percentage) Automated erythrocyte 07/04/2019 N2N/CCD Import Automated erythrocyte 73 fL 80-97 mean corpuscular mean corpuscular volume volume Automated erythrocyte 07/04/2019 N2N/CCD Import Automated erythrocyte 23 pg 27-31 mean corpuscular mean corpuscular hemoglobin hemoglobin (mass per erythrocyte) Automated erythrocyte 07/04/2019 N2N/CCD Import Automated erythrocyte 32 g/ dL 31-36 mean corpuscular mean corpuscular hemoglobin hemoglobin concentration measurement (mass/vol Automated erythrocyte 07/04/2019 N2N/CCD Import Automated erythrocyte 18 % 10-15 distribution width distribution width ratio ratio Automated blood 07/04/2019 N2N/CCD Import Automated blood 281 10^3/uL 150-4 platelet count platelet count 50 (number/volume) (number/volume) Automated blood 07/04/2019 N2N/CCD Import Automated blood 8.2 fL 7.4-1 platelet mean volume platelet mean volume 0.[address] biopsy liver 07/04/2019 N2N/CCD Import CT biopsy liver 3.6 10^3/ul 1.5-7 .7 Blood lymphocytes 07/04/2019 N2N/CCD Import Blood lymphocytes 0.7 10^3/ul 1.0-4 automated count automated count .8 (number/volume) (number/volume) Blood monocytes 07/04/2019 N2N/CCD Import Blood monocytes 0.5 10^3/ul 0- 0.8 automated count automated count (number/volume) (number/volume) Automated blood 07/04/2019 N2N/CCD Import Automated blood 0.2 10^3/ul 0- 0.6 eosinophil count eosinophil count (number/volume) (number/volume) Serum or plasma 07/04/2019 N2N/CCD Import Serum or plasma 139 mmol/L 135 -1 sodium measurement sodium measurement 45 (moles/volume) (moles/volume) Elliptocyte detection 07/04/2019 N2N/CCD Import Elliptocyte detection 2+ Automated blood 07/04/2019 N2N/CCD Import Automated blood 1+ schistocytes schistocytes detection detection Blood polychromasia 07/04/2019 N2N/CCD Import Blood polychromasia 1+ detection by light detection by light microscopy microscopy Lab Results 07/04/2019 N2N/CCD Import Hypochromasia 2+ CT biopsy liver 07/04/2019 N2N/CCD Import CT biopsy liver 2+ Automated blood 07/04/2019 N2N/CCD Import Automated blood 0.1 nucleated nucleated erythrocytes erythrocytes detection detection Automated blood 07/04/2019 N2N/CCD Import Automated blood 0.5 % basophils/100 basophils/100 leukocytes leukocytes Automated blood 07/04/2019 N2N/CCD Import Automated blood 3.7 % eosinophils/100 eosinophils/100 leukocytes leukocytes Automated blood 07/04/2019 N2N/CCD Import Automated blood 10.6 % monocytes/100 monocytes/100 leukocytes leukocytes Automated blood 07/04/2019 N2N/CCD Import Automated blood 13.9 % lymphocytes/100 lymphocytes/100 leukocytes leukocytes Automated blood 07/04/2019 N2N/CCD Import Automated blood 71.3 % neutrophils/100 neutrophils/100 leukocytes leukocytes Blood nucleated 07/04/2019 N2N/CCD Import Blood nucleated 0.0 10^3/ul erythrocytes erythrocytes automated count (numb automated count (number/volume) Automated blood 07/04/2019 N2N/CCD Import Automated blood 0.0 10^3/ul 0- 0.2 basophil count basophil count (number/volume) (number/volume) Automated blood 06/12/2019 N2N/CCD Import Automated blood 0.3 10^3/ul 0- 0.6 eosinophil count eosinophil count (number/volume) (number/volume) Automated blood 06/12/2019 N2N/CCD Import Automated blood 0.1 10^3/ul 0- 0.2 basophil count basophil count (number/volume) (number/volume) Blood nucleated 06/12/2019 N2N/CCD Import Blood nucleated 0.0 10^3/ul erythrocytes erythrocytes automated count (numb automated count (number/volume) Automated blood 06/12/2019 N2N/CCD Import Automated blood 63.0 % neutrophils/100 neutrophils/100 leukocytes leukocytes Automated blood 06/12/2019 N2N/CCD Import Automated blood 19.6 % lymphocytes/100 lymphocytes/100 leukocytes leukocytes Automated blood 06/12/2019 N2N/CCD Import Automated blood 11.3 % monocytes/100 monocytes/100 leukocytes leukocytes Automated blood 06/12/2019 N2N/CCD Import Automated blood 5.2 % eosinophils/100 eosinophils/100 leukocytes leukocytes Automated blood 06/12/2019 N2N/CCD Import Automated blood 0.9 % basophils/100 basophils/100 leukocytes leukocytes Automated blood 06/12/2019 N2N/CCD Import Automated blood 0.1 nucleated nucleated erythrocytes erythrocytes detection detection Serum or plasma 06/12/2019 N2N/CCD Import Serum or plasma 9.4 ng/mL ferritin measurement ferritin measurement 7 (mass/volume) (mass/volume) Laboratory test 06/12/2019 [facility] Ferritin Ser/Plas <pending> finding Mass/Vol(!) CBC W/Auto 06/12/2019 [facility] White Blood Count Ser <pending> Differential(!) Auto CNT RBC Red Blood Count <pending> Hemoglobin Blood <pending> Hematocrit <pending> MCV (Corpuscular Volume) <pending> MCH (Corpuscular Hemoglobin) <pending> MCHC (Corpuscular Hemog Conc) <pending> RDW <pending> Platelet Count Blood Auto CNT <pending> MPV <pending> Lymph% <pending> [place]% <pending> Neutrophil % <pending> Absolute Lymphocytes <pending> Absolute Monocytes <pending> Absolute Neutrophils <pending> Blood monocytes 06/12/2019 N2N/CCD Import Blood monocytes 0.6 10^3/ul 0- 0.8 automated count automated count (number/volume) (number/volume) Blood lymphocytes 06/12/2019 N2N/CCD Import Blood lymphocytes 1.1 10^3/ul 1.0-4.8 automated count automated count (number/volume) (number/volume) Lymphocyte 06/12/2019 N2N/CCD Import Lymphocyte 3.6 10^3/ul 1.5-7.7 proliferation test proliferation test Automated blood 06/12/2019 N2N/CCD Import Automated blood 8.7 fL 7.4- 10.4 platelet mean volume platelet mean measurement volume measurement Automated blood 06/12/2019 N2N/CCD Import Automated blood 291 10^3/uL 150-450 platelet count platelet count (number/volume) (number/volume) Automated 06/12/2019 N2N/CCD Import Automated 17 % 10-15 erythrocyte erythrocyte distribution width distribution width ratio ratio Automated 06/12/2019 N2N/CCD Import Automated 32 g/dL 31-36 erythrocyte mean erythrocyte mean corpuscular corpuscular hemoglobin hemoglobin concentration measurement (mass/vol Automated 06/12/2019 N2N/CCD Import Automated 25 pg 27-31 erythrocyte mean erythrocyte mean corpuscular corpuscular hemoglobin hemoglobin (mass per erythrocyte) Automated 06/12/2019 N2N/CCD Import Automated 80 fL 80-97 erythrocyte mean erythrocyte mean corpuscular volume corpuscular volume Automated blood 06/12/2019 N2N/CCD Import Automated blood 27 % 35-47 hematocrit hematocrit (percentage) (percentage) Blood hemoglobin 06/12/2019 N2N/CCD Import Blood hemoglobin 8.5 g/dL 12.0-16.0 measurement measurement (mass/volume) (mass/volume) Automated blood 06/12/2019 N2N/CCD Import Automated blood 3.39 3.70- 4.87 erythrocyte count erythrocyte count 10^6/uL (number/volume) (number/volume) Automated blood 06/12/2019 N2N/CCD Import Automated blood 5.7 10^3/uL 3.5-10.8 leukocytes count leukocytes count corrected for nuc corrected for nucleated erythrocytes (number/volume) 1 Consistent with Previous Results Reported on 08/06/19 2 Because ethnic data is not always readily [...] 5 Kidney failure <15 (or dialysis) Procedures Description No Information Available Medical Devices Description No Information Available Encounters Type Date Location Provider Dx Diagnosis Office Visit 08/01/2019 Gastroenterology Bren Badillo D50.9 Iron deficiency 2:[facility]p [facility] anemia, unspecified Assessments Date Code Description Provider 08/29/2019 R11.2 Nausea with vomiting, unspecified [facility] Esc[facility] 08/29/2019 R63.0 Anorexia Bren Miles PA-C 08/29/2019 R63.4 Abnormal weight loss Bren Miles PA-C 08/01/2019 D50.9 Iron deficiency anemia, unspecified Bren Miles PA-C 07/10/2019 D64.9 Anemia, unspecified Arthur Fall MD Plan of Treatment 08/29/2019 - [facility]anteCR11.2 Nausea with vomiting, unspecifiedNew Medication:Ondansetron 4 mg - 1 tab by mouth every 4-6 hours as needed for efajbjX89.0 [id number] Abnormal weight loss Functional Status Description No Information Available Mental Status Description No Information Available Referrals Description No Information Available
--- OUTSIDE RECORDS SUMMARY | 2019-09-17 17:41 | XMS REPORT | Continuity of Care Document ---
:1935 External Reference #:[id number] Author Name Adelina Li M.D., FACP (transmitted by agent of provider Vivian Parmar) Address [address] [facility], [place] [address] Care Team Providers Name Role Phone Drew Rogers MD - Cardiovascular Care Team Information Business Project Analyst [phone] Disease Chip Almendarez MD - Vascular Surgery Care Team Information Business Project Analyst Nir Mcmahon MD - Care Team Information Business Project Analyst [phone] Neurological Surgery Charu Hilliard M.D. - Family Medicine Care Team Information Business Project Analyst Problems Active Problems Provider Date Spinal stenosis [...] Use Denies Drug Use Smoking Status Reviewed: 09/12/19 Patient is a former 1ppd X 60 [...] 02/15/2019 0.4mg Tablets as needed for Anayeli Rgoers Sub chest pain Roller Walker roller walker 1units R29.6 Charu Hilliard MD [facility]07[facility] and brakes dx. m48.062 M48.062 [...] 30tabs Charu Hilliard, 10Meq Tablets ER capsule/tablet KeenanDMiguel Ángel daily by mouth History Medications Feraheme [...] 07/03/2019 - every day Anayeli, FACP 09/04/2019 827-8-80lz-mg-mcg Capsules Torsemide 1 by mouth twice 30tabs Magda Coello, 05/23/2019 - 20mg a week FOUNDATION ASSISTANT 09/04/2019 Tablets Oxycontin one by mouth 14tabs [...] Code Status Date Vaccine Reaction Lot # 51241 Given 05/23/2019 Influenza Virus Vaccine, pt. tolerated well. [id number] Quadrivalent ([id number]), Derived From Cell 57976 Given 06/27/2018 Influenza Virus Vaccine, [id number] Quadrivalent, Split, Preservative Free 73309 Given 05/18/2017 Influenza Virus Vaccine, [id number] Quadrivalent, Split, Preservative Free 95761 Given 07/08/2016 Influ Virus Vaccine, [id number] Quadrivalent, Split Virus, [place] [address] Given 04/06/2015 Fluzone High Dose 60361 Given 12/28/2014 Pneumococcal Conjugate [id number] Vaccine 13 Valent For Intramuscular Use 43762 Given 04/25/2014 Fluzone High Dose Q2035 Given 04/02/2013 Afluria Vaccine 33049 Given 06/03/2012 Tdap - [id number] Tetanus/Diptheria/Acellular Pertussis Q2035 Given 04/07/2012 Afluria Vaccine 04674 Given 07/03/2010 Zoster (Zostavax) [id number] 94205 Given 05/10/2010 Influenza Virus 3Yrs & Over 54364 Given 08/28/2009 Influenza Virus Vaccine, [id number] Pandemic Formulation 61300 Given 05/31/2008 Influenza Virus 3Yrs & Over 18275 Given 05/31/2008 Influenza Virus 3Yrs & Over [id number] 24115 Given 05/16/2001 Pneumonia Vaccine Vital Signs Date Vital Result Comment 09/12/2019 2:04pm Height 64.5 inches 5'4.50" Weight 123.00 lb Heart Rate 69 /min BP Systolic Sitting 91 mmHg Lue reg cuff BP Diastolic Sitting 60 mmHg Lue reg cuff Body Temperature 96.8 F O2 % BldC Oximetry 97 % BMI (Body Mass Index) 20.8 kg/m2 09/05/2019 3:20pm Height 64.5 inches 5'4.50" Weight 121.00 lb with shoes/coat Heart Rate 68 /min radial BP Systolic Sitting 108 mmHg LA, reg cuff BP Diastolic Sitting 56 mmHg LA, reg cuff BP Systolic Lying Down 82 mmHg la sitting BP Diastolic Lying Down 51 mmHg la sitting BMI (Body Mass Index) 20.4 kg/m2 Ejection Fraction 60%-65% Echo 08/15/19 Results Test Acquired Date Facility Test Result H/L Range Note Stool Occult 08/06/2019 [facility] Stool Occult SEE RESULT 1 Blood, Screen [address] Blood, [place] [address] Screen [phone] CBC Auto Diff 08/06/2019 [facility] White Blood 14.5 10^3/uL High 3.5-10.[address] [place] [address] [phone] Red Blood Count 4.38 10^6/uL Normal 3.70-4.87 [...] Cells % 0.1 Type & Screen 08/06/2019 [facility] Patient Blood Type O Positive [address] [place] [address] [phone] Antibody Screen POSITIVE Inr/Protime 08/06/2019 [facility] Inr 1.12 High 0.82-1.[address] [place] [address] [phone] Laboratory test 08/06/2019 [facility] Partial 28.5 Normal 26.0 -38.[address] [place] [address] Time PTT [phone] Comp Metabolic 08/06/2019 [facility] Sodium 134 mmol/L Low 135 -145 [place] [address] [phone] Potassium 4.2 mmol/L Normal 3.5-5.0 Chloride 99 [...] Egfr 65.4 >60 5 Laboratory test 08/06/2019 [facility] Antibody SEE RESULTS [address] Identification BELO <[place] [address] NOTE> [phone] Antibody Id Autocontrol 0 Direct Lashonda NEGATIVE Laboratory test 07/28/2019 [facility] Pathologist Review (SEE NOTE) [address] [place] [address] [phone] Cell Morphology 07/28/2019 [facility] Microcytosis 1+ [place] [address] [phone] Hypochromasia 1+ Anisocytosis 2+ Elliptocyte 1+ Laboratory test 07/28/2019 [facility] Creatine 39 U/L Normal 10-223 [address] Kinase(CK) [place] [address] [phone] Lipid Profile 07/28/2019 [facility] Triglycerides 117 9 (Trig/Chol/HDL) [address] mg/[place] [address] [phone] Cholesterol 116 mg/dL 10 HDL Cholesterol 45.5 mg/dL 11 LDL Cholesterol 47 mg/dL 12 Comp Metabolic 07/28/2019 [facility] Sodium 139 mmol/L Normal 135-[address] [place] [address] [phone] Potassium 4.1 mmol/L Normal 3.5-5.0 Chloride 98 [...] Egfr 66.2 >60 13 CBC Auto 07/28/2019 [facility] White Blood 5.7 10^3/uL Normal 3.5-10.[address] [place] [address] [phone] Red Blood Count 4.25 10^6/uL Normal 3.70-4.87 [...] Blood Cells % 0.1 Comp Metabolic 07/28/2019 [facility] Sodium 135 mmol/L Normal 135-[address] [place] [address] [phone] Potassium 4.0 mmol/L Normal 3.5-5.0 Chloride 98 [...] Egfr 70.4 >60 14 CBC Auto 07/28/2019 [facility] White Blood 6.2 10^3/uL Normal 3.5-10.[address] [place] [address] [phone] Red Blood Count 3.94 10^6/uL Normal 3.70-4.87 [...] Red Blood Cells % 0.0 Inr/Protime 07/28/2019 [facility] Inr 1.33 High 0.82-1.[address] [place] [address] [phone] Laboratory test 07/09/2019 [facility] Packed SEE RESULTS [address] Cells BELO <[place] [address] NOTE> [phone] Type & Screen 07/09/2019 [facility] Patient O Positive [address] [place] [place] [address] [phone] Antibody Screen NEGATIVE Laboratory test 07/09/2019 [facility] Troponin-I 0.01 <0.03 [address] (TnI) ng/[place] [address] [phone] Comp Metabolic 07/09/2019 [facility] Sodium 138 Normal 135- [address] mmol/[place] [address] [phone] Potassium 3.5 mmol/L Normal 3.5-5.0 Chloride 104 [...] >60 Egfr 89.1 >60 19 Inr/Protime 07/09/2019 [facility] Inr 1.21 High 0.82-1.[address] [place] [address] [phone] CBC Auto Diff 07/09/2019 [facility] White Blood 6.7 Normal 3.5 -10.[address] Count 10^3/[place] [address] [phone] Red Blood Count 3.25 10^6/uL Low 3.70-4.87 [...] Red Blood Cells % 0.1 Laboratory 07/09/2019 [facility] Troponin-I 0.01 <0.03 22 test finding [address] (TnI) ng/[place] [address] [phone] Order 07/07/2019 [facility] blood <pending> [address] [place] [address] protocol [phone] Laboratory 07/04/2019 [facility] B-Type 780 pg/mL High <=100 test finding [address] [place] [address] Peptide BNP [phone] CBC Auto Diff 07/04/2019 [facility] White Blood 5.1 Normal 3.5 -10.[address] Count 10^3/[place] [address] [phone] Red Blood Count 3.42 10^6/uL Low 3.70-4.87 [...] Blood Cells % 0.1 Comp Metabolic 07/04/2019 [facility] Sodium 139 mmol/L Normal 135-[address] [place] [address] [phone] Potassium 3.8 mmol/L Normal 3.5-5.0 Chloride 105 [...] 81.5 >60 23 Iron & Iron 07/04/2019 [facility] Total Iron 451 g/dL High 250-[address] [place] [address] Capacity [phone] Transferrin 322 mg/dL Normal 203-362 Iron < 20 g/dL Low 50-212 Unsaturated Iron Binding < 436 g/dL % Iron Saturation 4 % Low 15-55 Vitamin B12 07/04/2019 [facility] Vitamin B12 200 pg/mL Normal 180-914 24 [address] Folate [address] [place] [address] [phone] Folic Acid (Folate) 5.61 ng/mL >3.99 Cell Morphology 07/04/2019 [facility] Microcytosis 2+ [address] [place] [address] [phone] Hypochromasia 2+ Polychromasia 1+ Schistocytes 1+ Elliptocyte 2+ Laboratory test 07/04/2019 [facility] Pathologist (SEE NOTE) [address] [place] [address] [phone] Laboratory test 06/12/2019 [facility] Ferritin 9.4 ng/mL Low 11-[address] 07 [place] [address] [phone] CBC Auto Diff 06/12/2019 [facility] White Blood 5.7 Normal 3.5 - [address] Count 10^3/uL 10.8 [place] [address] [phone] Red Blood Count 3.39 10^6/uL Low 3.70-4.87 [...] Blood Cells % 0.1 Urinalysis Profile 05/06/2019 [facility] Urine Color Colorless [address] [place] [address] [phone] Urine Appearance Clear Urine Specific Thompson 1.005 Low 1.010-1.030 Urine pH 7.0 Normal 5-9 Urine Urobilinogen Negative Negative Urine Ketones Negative Negative Urine Protein Negative Negative Urine Leukocytes Negative Negative Urine Blood Negative Negative Urine Nitrite Negative Negative Urine Bilirubin Negative Negative Urine Glucose Negative Negative CBC Auto 05/05/2019 [facility] White Blood 7.5 10^3/uL Normal 3.5-10.[address] [place] [address] [phone] Red Blood Count 4.08 10^6/uL Normal 3.70-4.87 [...] Red Blood Cells % 0.0 Laboratory 05/05/2019 [facility] B-Type 703 pg/mL High <=100 test finding [address] [address] Peptide BNP [phone] Inr/Protime 05/05/2019 [facility] Inr 1.12 High 0.82-1.[address] [place] [address] [phone] Laboratory 05/05/2019 [facility] D Dimer 553 ng/mL High Less Than [address] Quantitative 230 [place], [place] [address] [phone] Lactic Acid 1.2 mmol/L Normal 0.5-2.0 28 Iron & Iron 05/05/2019 [facility] Total Iron 469 g/dL High 250-[address] [place] [address] Capacity [phone] Transferrin 335 mg/dL Normal 203-362 Iron TNP g/dL 50-212 29 % Iron Saturation TNP % 15-55 30 Laboratory test 05/05/2019 [facility] Folic Acid 3.53 ng/mL > 3.[address] (Folate) [place], [place] [address] [phone] Vitamin B12 207 pg/mL Normal 180-914 31 Laboratory 05/05/2019 [facility] Troponin-I 0.05 Critical < 0.04 32 test finding [address] (TnI) ng/[place] [address] [phone] Comp Metabolic 05/05/2019 [facility] Sodium 140 Normal 135- [address] [place] mmol/[place] [address] [phone] Potassium 3.9 mmol/L Normal 3.5-5.0 Chloride 104 [...] >60 33 1 SEE RESULT BELOW Name: ESAU KURTZ : [address]: Washington Guardado Acct: [id number] Unit: [id number] AGE: 84 Location: ED Re08/06/19 SEX: F Status: REG ER SPEC: [id number] KATHERINE: 08/06/19-1124 [facility] DR: Washington Erwin DO REQ: [id number] RECD: 08/06/19 STATUS: KAVON SUAZO DR: Charu Hilliard MD _ SOURCE: STOOL SPDESC: ORDERED: Occult Bl, Scn Procedure Result Reported Site Stool Occult Blood (1) Final 08/06/19- 1234 ML Stool Occult Blood Positive * ML - Main Lab . END OF REPORT DEPARTMENT OF PATHOLOGY, [address] [place] [address] Evan Ruiz M.D. Director [facility] # [id number] 2 ABDOMINAL PAIN AND BLACK TARRY STOOL [...] M.D. 8 Copy Result to: CHARU HILLIARD ([id number]) 9 Desirable: <150 Borderline High: 150-199 High: [...] therapeutic range: 2.5-3.5 17 SEE RESULTS BELOW [id number] OP PC TRANSFUSED 07/09/19 1950 [id number] OP PC TRANSFUSED 07/09/19 1810 [id number] OP PC TRANSFUSED 07/09/19 2323 18 Troponin-I testing on Plasma Separator Tubes (PST) has a known false positive rate of 0.20-0.40%. All positive troponins reflex immediately to secondary confirmatory testing. Using the [facility] DxI 800 Access Immunoassay systems, the 99th [...] immediately to secondary confirmatory testing. Using the [facility] DxI 800 Access Immunoassay systems, the 99th [...] - FDP greater than 20 ug/ml 28 [facility] Severe Sepsis and Septic Shock Management Bundle Measure requires all lactic acids initially measuring >2.0 mmol/L be repeated. 29 Unable to report test result due to hemolysis. 30 Unable to calculate due to hemolysis. 31 Normal Range 180 to 914 Indeterminate Range 145 to 180 Deficient Range <145 32 Result TnIDx:0.05 Called to [id number] at: 01:51:07 by:[id number] Read back by: [id number] Troponin-I testing on Plasma Separator Tubes (PST) has a known false positive rate of 0.20-0.40%. All positive troponins reflex immediately to secondary confirmatory testing. Using the [facility] DxI 800 Access Immunoassay systems, the 99th [...] dialysis) Procedures Date Code Description Status 09/05/2019 96554 EKG Tracing & Interpretation Completed 08/15/2019 57223 ECHO Transthoracic, Real-Time 2D With Doppler And Color Completed Flow 08/15/2019 24868 ECHO Transthoracic, Real-Time 2D With Doppler And Color Completed Flow 07/21/2019 86742 EKG Tracing & Interpretation Completed 07/04/2019 63892 EKG Tracing & Interpretation Completed 05/06/2019 63078 EKG, Interpretation Only Completed 07/14/2010 [id number] Colonoscopy Completed 06/17/2010 [id number] Mammogram Completed 05/23/2009 [id number] Mammogram Completed Medical Devices Description No Information Available Encounters Type Date Location Provider Dx Diagnosis Office Visit 09/05/2019 [facility] Drew Williamson R06.02 Shortness of 3:00p Anayeli Rogers breath I34.0 Nonrheumatic mitral (valve) insufficiency R29.6 Repeated falls I25.10 [facility] heart disease of [place] coronary artery w/o ang pctrs D64.9 Anemia, unspecified I95.2 Hypotension due to drugs Office Visit 07/24/2019 3:20p [facility] Magda Coello, D64.9 Anemia, FOUNDATION ASSISTANT unspecified I34.9 Nonrheumatic mitral valve disorder, unspecified I25.10 Athscl heart disease of [place] coronary artery w/o ang pctrs M79.10 Myalgia, unspecified site Office Visit 07/21/2019 1:00p [facility] Adelinasurya Li, Z00.00 [facility] for Medicine - Mariia Guadalupe, FACP general adult medical exam w/o abnormal findings I25.10 Athscl heart disease of [place] coronary artery w/o ang pctrs K92.1 Melena I34.9 Nonrheumatic mitral valve disorder, unspecified M54.5 Low back pain D64.9 Anemia, unspecified Office Visit 07/11/2019 9:26a [facility] Jono Cowart D64.9 Anemia, Assoc,pc unspecified Hospitalists K92.1 Melena Office Visit 07/10/2019 3:16p [facility] Memo Allred I25.10 Athscl heart Of [facility] France Sanford. disease of [place] coronary artery w/o ang pctrs I25.2 Old myocardial infarction I34.0 Nonrheumatic mitral (valve) insufficiency Z86.73 Prsnl hx of TIA (TIA), and cereb infrc w/o resid deficits Z98.61 Coronary angioplasty status Office Visit 07/10/2019 9:25a [facility] Jono Cowart, D64.9 Anemia, Assoc,pc unspecified Hospitalists I34.9 Nonrheumatic mitral valve disorder, unspecified I25.10 Athscl heart disease of [place] coronary artery w/o ang pctrs I10 Essential (primary) hypertension M54.9 Dorsalgia, unspecified I73.9 Peripheral vascular disease, unspecified Office Visit 07/09/2019 [facility] Lorne Beyer D64.9 Anemia, 7:00a MD Junior unspecified K92.1 Melena I73.9 Peripheral vascular disease, unspecified Office Visit 07/09/2019 9:25a [facility] Assoc,pc Surekha Church.Vee K92.1 [facility] Hospital[facility] D64.9 Anemia, unspecified D50.9 Iron deficiency anemia, unspecified Office Visit 07/07/2019 2:20p [facility] Internal Naomy D64.9 Anemia, Medicine - MD Ish unspecified Ccmob I10 Essential (primary) hypertension R53.81 Other malaise R05 Cough Office Visit 07/04/2019 2:40p [facility] Drew Williamson I10 Essential (primary) Anayeli Rogers hypertension D64.9 Anemia, unspecified I25.10 Athscl heart disease of [place] coronary artery w/o ang pctrs I21.4 Non-St elevation (Nstemi) myocardial infarction I73.9 Peripheral vascular disease, unspecified I50.9 Heart failure, unspecified I34.0 Nonrheumatic mitral (valve) insufficiency R06.02 Shortness of breath Office Visit 06/30/2019 3:30p [facility] Internal Naomy D64.9 Anemia, Medicine - MD Ish unspecified Ccmob I10 Essential (primary) hypertension Office Visit 05/23/2019 9:40a [facility] Charu Hilliard MD I25.10 Athscl heart Medicine - Ccmob disease of [place] coronary artery w/o ang pctrs I21.4 Non-St elevation (Nstemi) myocardial infarction Z23 Encounter for immunization A04.72 Enterocolitis d/t Clostridium difficile, not spcf as recur D64.9 Anemia, unspecified Office Visit 05/06/2019 11:55a [facility] Memo Allred R07.9 Chest pain, Of Ihsan Sanford M.D. unspecified I25.10 Athscl heart disease of [place] coronary artery w/o ang pctrs I73.9 Peripheral vascular disease, unspecified E78.5 Hyperlipidemia, unspecified Office Visit 05/06/2019 [facility] Savita Menjivar, I50.31 Acute diastolic 9:53a cecilia Vargas M.D. (congestive) Hospitalists heart failure I11.0 Hypertensive heart disease with heart failure E78.5 Hyperlipidemia, unspecified Office Visit 04/24/2019 2:00p [facility] Charu Hilliard MD I10 Essential (primary) Medicine - Ccmob hypertension M48.062 Spinal stenosis, lumbar region with neurogenic claudication M25.551 Pain in right hip Office Visit 04/10/2019 1:30p [facility] Emma SMiguel Ángel I34.0 Nonrheumatic mitral Foster, N.P. (valve) insufficiency I10 Essential (primary) hypertension I25.10 Athscl heart disease of [place] coronary artery w/o ang pctrs Assessments Date Code Description Provider 09/12/2019 R29.6 Repeated falls Adelina Li M.D., FACP 09/05/2019 R06.02 Dyspnea on exertion Drew Rogers M.D. 09/05/2019 I34.0 Nonrheumatic mitral (valve) insufficiency Drew Rogers M.D. 09/05/2019 R29.6 Repeated falls Drew Rogers M.D. 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 09/05/2019 I95.2 Hypotension due to drugs Drew Rogers M.D. 08/15/2019 I34.0 Nonrheumatic mitral (valve) insufficiency Drew Rogers M.D. 08/15/2019 I34.0 Nonrheumatic mitral (valve) insufficiency [place] [facility] Schedule 08/15/2019 I25.10 Atherosclerotic heart disease of [place] [facility] Schedule coronary artery without angina pectoris 08/15/2019 R06.02 Dyspnea on exertion [place] [facility] Schedule 07/24/2019 D64.9 Anemia, unspecified Magda Coello, FOUNDATION ASSISTANT 07/24/2019 I34.9 Nonrheumatic mitral valve disorder, Magda Coello, FOUNDATION ASSISTANT unspecified 07/24/2019 I25.10 Atherosclerotic heart disease of [place] Magda Coello FOUNDATION ASSISTANT coronary artery without angina pectoris 07/24/2019 M79.10 Myalgia, unspecified site Magda Coello, FOUNDATION ASSISTANT 07/21/2019 Z00.00 Encounter for general adult medical Adelina Li M.D., FACP examination without abnormal findings 07/21/2019 I25.10 Atherosclerotic heart disease of [place] Adelina Li M.D. , FACP coronary artery without angina pectoris 07/21/2019 K92.1 Belen Li M.D., FACP 07/21/2019 I34.9 Nonrheumatic mitral valve disorder, Adelina Li M.D., FACP unspecified 07/21/2019 M54.5 Low back pain Adelina Li M.D., FACP 07/21/2019 D64.9 Anemia, unspecified Adelina Li M.D., FACP 07/11/2019 D64.9 Anemia, unspecified Jono Cowart MD 07/11/2019 K92.1 Belen Cowart MD 07/10/2019 I25.10 Atherosclerotic heart disease of [place] Memo Sanford M.D. coronary artery without angina [...] unspecified 07/10/2019 I25.10 Atherosclerotic heart disease of [place] Jono Cowart MD coronary artery without angina [...] M.D. 07/04/2019 I25.10 Atherosclerotic heart disease of [place] Drew Rogers M.D. 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 05/06/2019 R07.9 Chest pain, roseified Memo Sanford M.D. 05/06/2019 I25.10 Atherosclerotic heart disease of [place] Memo Sanford M.D. coronary artery without angina pectoris 05/06/2019 I73.9 Peripheral vascular disease, roseified Memo Sanford M.D. 05/06/2019 E78.5 Hyperlipidemia, unspecified Memo Sanford M.D. 05/06/2019 I50.31 Acute diastolic (congestive) heart Savita Menjivar M.D. failure 05/06/2019 I11.0 Hypertensive heart disease with heart Savita Menjivar M.D. failure 05/06/2019 E78.5 Hyperlipidemia, unspecified Savita Menjivar M.D. 04/24/2019 I10 Essential (primary) hypertension Charu Hilliard MD 04/24/2019 M48.062 Spinal stenosis, lumbar region with Charu Hilliard MD neurogenic claudication 04/24/2019 M25.551 Pain in right hip Charu Hilliard MD 04/10/2019 I34.0 Nonrheumatic mitral (valve) insufficiency Emma Winslow, N.P. 04/10/2019 I10 Essential (primary) hypertension Emma Winslow, N.P. 04/10/2019 I25.10 Atherosclerotic heart disease of [place] Emma Winslow N.P. coronary artery with Plan of Treatment Future Appointment(s):10/24/2019 4:30 pm - Adelina Li M.D., FACP at [facility] - Drew Rogers M.D. at [facility]09/19/2019 1:20 pm - Magda Coello NP at [facility] - Adelina Li M.D., FACPR29.6 Repeated fallsComments:FALLS:I understand that you have had 4 recent falls.I am concerned that part of the reason you are falling is that you are dehydrated and malnourished. Additionally, the longer that you are bedridden,the weaker you become. I am also concerned that the narcotics that you are using for pain may be contributing as well.I understand that Dr. Rogers reduced the labetalol dose.Today we talked about a PERS button. This is the number for one [employer]: [employer] [phone].We also discussed the palliative care program at [facility] (I have given you some written information). There are nurses who [facility]for [facility] [phone] and at [facility] who can also help you navigate resouces available in the community. I will contact [facility] to have them schedule an in home evaluation.Follow up:1 month Functional Status Description No Information Available Mental Status Description No Information Available Referrals Refer to Reason for Referral Status Appt Date Created
--- OUTSIDE RECORDS SUMMARY | 2019-09-17 17:42 | XMS REPORT | Continuity of Care Document ---
:1935 External Reference #:[id number] Author Name Bren Miles PA-C Address [address] [place], [place] [id number] Care Team Providers Name Role Phone Марина Oabndo M.D. Care Team Information Supervisor Whipped Topping [phone] Problems Active Problems Provider Date Essential hypertension Bren Miles PA-C Onset: 01/16/2019 Iron deficiency anemia Bren Miles PA-C Onset: 08/01/2019 Occult blood in stools Bren Miles PA-C Onset: 01/05/2019 Social History Type Date Description Comments Sex Unknown Tobacco Use Start: Unknown End: Unknown Patient is a former smoker Smoking Status Reviewed: 08/01/19 Patient is a former smoker Allergies, Adverse Reactions, Alerts Active Allergies Reaction Severity Comments Date Lipitor 01/05/2019 Lyrica 01/05/2019 Medications Active Medications SIG Qnty Indications Ordering Date Provider Guaifenesin ER Twice Daily 0tabs Unknown 07/11/2019 600mg Tablets ER 12HR Pantoprazole Sodium Every Day 30tabs Unknown 07/11/[address] Carrera 150 Forte Every Day Unknown 07/09/2019 [id number]-mcg-mg Capsules Nitroglycerin .as Needed Unknown 07/09/2019 0.4mg Tablets Sub Potassium Chloride Every Day Unknown 07/09/2019 Lucía ER 10Meq Tablets ER Docusate Sodium See Instructions Unknown 07/09/2019 100mg Capsules Amoxicillin/Clavulana Twice Daily Unknown 07/09/2019 te Potassium 875-125mg Tablets Furosemide See Instructions Unknown 07/09/2019 20mg Tablets Almacone Q6H Unknown 05/06/2019 [id number]/5ML Suspension Atorvastatin Calcium 1700 Unknown 05/06/2019 40mg Tablets Losartan Potassium Every Other Day Unknown 02/08/2019 25mg Tablets Labetalol HCL Every Day Unknown 12/15/2016 200mg Tablets Oxycodone-Acetaminoph Q6H Unknown 05/17/2015 en 5-325mg Tablets Mirtazapine Bedtime Unknown 05/17/2015 15mg Tablets Aspirin Every Morning Unknown 05/17/[address] Trazodone HCL Unknown 50mg Tablets Oxycodone-Acetaminoph take 1 tablet by Unknown en mouth every 6 hours 5-325mg Tablets if needed for pain maximum daily dose of 3 Magnesium Oxide take 1 tablet by Unknown mouth every evening 400(241.3Mg) mg Tablets Lovastatin take 1 tablet by Unknown 10mg Tablets mouth at bedtime Ventolin HFA Inhale 2 Puffs By Unknown Mouth Four Times A 108(90Base) mcg/Act Day as Needed Aerosol Torsemide TK 1 T PO D Unknown 20mg Tablets History Medications Amoxicillin/Clavulanate Potassium Twice Daily Unknown 07/09/2019 - 875-125mg 08/01/2019 Tablets Furosemide See Instructions Unknown 07/09/2019 - 20mg Tablets 08/01/2019 [place]one Q6H Unknown 05/06/2019 - [id number]/5ML Suspension 08/01/2019 Atorvastatin Calcium 1700 Unknown 05/06/2019 - 40mg Tablets 08/01/2019 Docusate Sodium Twice Daily 0caps Unknown 05/06/2019 - 100mg Capsules 07/09/2019 Immunizations Description No Information Available Vital Signs Date Vital Result Comment 08/01/2019 2:42pm Height 64.5 inches 5'4.50" Weight 135.00 lb BP Systolic 103 mmHg BP Diastolic 58 mmHg Heart Rate 59 /min BMI (Body Mass Index) 22.8 kg/m2 01/05/2019 1:04pm Height 64.5 inches 5'4.50" Weight 147.00 lb BP Systolic 129 mmHg BP Diastolic 91 mmHg Heart Rate 74 /min BMI (Body Mass Index) 24.8 kg/m2 Results Test Acquired Date Facility Test Result H/L Range Note CBC Auto Diff 08/23/2019 [facility] White Blood 7.1 10^3/uL Normal 3.5-10.8 Count [...] Cells % 0.0 Comp Metabolic Panel 08/23/2019 [facility] Sodium 135 mmol/L Normal 135-145 Potassium 4.2 [...] 74.1 >60 2 Laboratory test finding 08/23/2019 [facility] Bilirubin Direct 0.20 mg/dL High 0.03-0.18 Iron & Iron Binding 08/23/2019 [facility] [place] [place] Iron 91 g/dL Normal 50-212 Capacity Unsaturated Iron Binding < 202 g/dL Total Iron Binding Capacity 217 g/dL Low 250-450 Transferrin 155 mg/dL Low 203-362 % Iron Saturation 42 % Normal 15-55 Laboratory test finding 08/23/2019 [facility] [place] [place] Ferritin 413.7 ng/mL High 11-307 Cell Morphology 08/23/2019 [facility] [place] [place] Anisocytosis 2+ Elliptocyte 2+ Acanthocytes 2+ Serum [...] 08/06/2019 N2N/CCD Import Estimated GFR ( 65.4 Dutch) Automated blood 08/06/2019 N2N/CCD Import Automated blood [...] by bromocresol green (BCG) dye binding method (ok Serum total protein 07/04/2019 N2N/CCD Import Serum [...] Auto CNT <pending> MPV <pending> Lymph% <pending> [place]% <pending> Neutrophil % <pending> Absolute Lymphocytes <pending> [...] Dx Diagnosis Office Visit 08/01/2019 [facility] L. D50.9 Iron deficiency 2:[facility]p [facility] EVE Miles anemia, unspecified Assessments Date Code Description Provider 08/01/2019 D50.9 Iron deficiency anemia, unspecified Bren Miles PA-C 07/10/2019 D64.9 Anemia, unspecified Arthur Fall MD Plan of Treatment Future Appointment(s):08/29/2019 2:30 pm - Bren Miles PA-C at [facility]08/01/2019 - KING Escalante CD50.9 Iron deficiency anemia, unspecified Functional Status Description No Information Available Mental Status Description No Information Available Referrals Description No Information Available
--- OUTSIDE RECORDS SUMMARY | 2019-09-17 17:42 | XMS REPORT | Continuity of Care Document ---
:1935 External Reference #:[id number] Author Name Bren Miles PA-C Address [address] [place], [place] [id number] Care Team Providers Name Role Phone Марина Obando M.D. Care Team Information Grievance Manager [phone] Problems Active Problems Provider Date Essential hypertension [...] Carrera 150 Forte Every Day Unknown 07/09/2019 209-37-5pu-mcg-mg Capsules Nitroglycerin .as Needed Unknown 07/09/2019 0.4mg Tablets Sub Potassium Chloride Every Day Unknown 07/09/2019 Lucía ER 10Meq Tablets ER Docusate Sodium See Instructions Unknown 07/09/2019 100mg Capsules Amoxicillin/Clavulana Twice Daily Unknown 07/09/2019 te Potassium 875-125mg Tablets Furosemide See Instructions Unknown 07/09/2019 20mg Tablets Almacone Q6H Unknown 05/06/2019 923-915-18vg/5ML Suspension Atorvastatin Calcium 1700 Unknown 05/06/2019 40mg [...] Tablets 08/01/2019 [place]one Q6H Unknown 05/06/2019 - 895-393-34hv/5ML Suspension 08/01/2019 Atorvastatin Calcium 1700 Unknown 05/06/2019 [...] Mass Index) 24.8 kg/m2 Results Test Acquired Facility Test Result H/L Range Note Date Whole blood 08/06/2019 N2N/CCD Import Whole blood 1.12 0.82-1. international international 09 normalized ratio normalized ratio (Inr) (Inr) Activated partial 08/06/2019 N2N/CCD Import Activated partial 28.5 26.0- 38 thromboplastin time thromboplastin time seconds .0 (aPTT) in pl (aPTT) in platelet poor plasma by coagulation a Serum or plasma 08/06/2019 N2N/CCD Import Serum or plasma 134 135-145 sodium measurement sodium measurement mmol/L (moles/volume) (moles/volume) Serum or plasma 08/06/2019 N2N/CCD Import Serum or plasma 4.2 3.5-5.0 potassium potassium mmol/L measurement measurement (moles/volum (moles/volume) Serum or plasma 08/06/2019 N2N/CCD Import Serum or plasma 99 mmol/L 101- 111 chloride chloride measurement measurement (moles/volume (moles/volume) Serum or plasma 08/06/2019 N2N/CCD Import Serum or plasma 29 mmol/L 22- 32 carbon dioxide, carbon dioxide, total measurement total measurement (moles/volume) Serum or plasma 08/06/2019 N2N/CCD Import Serum or plasma 6 mmol/L 2-11 anion gap anion gap Serum glucose 08/06/2019 N2N/CCD Import Serum glucose 115 mg/dL 70-100 measurement measurement (mass/volume) (mass/volume) Serum or plasma 08/06/2019 N2N/CCD Import Serum or plasma 9 mg/dL 6-24 urea nitrogen urea nitrogen measurement measurement (mass/vo (mass/volume) Serum or plasma 08/06/2019 N2N/CCD Import Serum or plasma 0.98 0.51-0. creatinine creatinine mg/dL 95 measurement measurement (mass/volum (mass/volume) Serum or plasma 08/06/2019 N2N/CCD Import Serum or plasma 9.2 8-20 urea urea nitrogen/creatinine nitrogen/creatinine ratio ratio Serum or plasma 08/06/2019 N2N/CCD Import Serum or plasma 9.0 mg/dL 8.6- 10. calcium measurement calcium measurement 3 (mass/volume) (mass/volume) Serum total protein 08/06/2019 N2N/CCD Import Serum total protein 6.3 g/dL 6.4-8.9 measurement measurement (mass/volume) (mass/volume) Serum or plasma 08/06/2019 N2N/CCD Import Serum or plasma 3.8 g/dL 3.2- 5.2 albumin measurement albumin measurement by bromocresol by bromocresol green (BCG) dye binding method (ma Lab Results 08/06/2019 N2N/CCD Import Globulin 2.5 g/dL 2-4 Serum or plasma 08/06/2019 N2N/CCD Import Serum or plasma 1.5 1-3 albumin/globulin albumin/globulin mass ratio mass ratio Serum or plasma 08/06/2019 N2N/CCD Import Serum or plasma 0.70 0.2-1.0 total bilirubin total bilirubin mg/dL measurement (mass/ measurement (mass/volume) Serum or plasma 08/06/2019 N2N/CCD Import Serum or plasma 94 U/L 34-104 alkaline alkaline phosphatase phosphatase measurement ( measurement (enzymatic activity/volume) Serum or plasma 08/06/2019 N2N/CCD Import Serum or plasma 9 U/L 7-52 alanine alanine aminotransferase aminotransferase measureme measurement (enzymatic activity/volume) Serum or plasma 08/06/2019 N2N/CCD Import Serum or plasma 17 U/L 13-39 aspartate aspartate aminotransferase aminotransferase measure measurement (enzymatic activity/volume) Estimated 08/06/2019 N2N/CCD Import Estimated 54.1 glomerular glomerular filtration rate filtration rate (GFR) non-Afr (GFR) non- Lab Results 08/06/2019 N2N/CCD Import Estimated GFR 65.4 () Automated blood 08/06/2019 N2N/CCD Import Automated blood 14.5 3.5-10. leukocytes count leukocytes count 10^3/uL 8 corrected for nuc corrected for nucleated erythrocytes (number/volume) Automated blood 08/06/2019 N2N/CCD Import Automated blood 4.38 3.70-4. erythrocyte count erythrocyte count 10^6/uL 87 (number/volume) (number/volume) Blood hemoglobin 08/06/2019 N2N/CCD Import Blood hemoglobin 11.4 g/dL 12.0-16 measurement measurement .0 (mass/volume) (mass/volume) Automated blood 08/06/2019 N2N/CCD Import Automated blood 36 % 35-47 hematocrit hematocrit (percentage) (percentage) Automated 08/06/2019 N2N/CCD Import Automated 81 fL 80-97 erythrocyte mean erythrocyte mean corpuscular volume corpuscular volume Automated 08/06/2019 N2N/CCD Import Automated 26 pg 27-31 erythrocyte mean erythrocyte mean corpuscular corpuscular hemoglobin hemoglobin (mass per erythrocyte) Automated 08/06/2019 N2N/CCD Import Automated 32 g/dL 31-36 erythrocyte mean erythrocyte mean corpuscular corpuscular hemoglobin hemoglobin concentration measurement (mass/vol Automated 08/06/2019 N2N/CCD Import Automated 28 % 10-15 erythrocyte erythrocyte distribution width distribution width ratio ratio Automated blood 08/06/2019 N2N/CCD Import Automated blood 165 150-450 platelet count platelet count 10^3/uL (number/volume) (number/volume) Automated blood 08/06/2019 N2N/CCD Import Automated blood 9.2 fL 7.4- 10. platelet mean platelet mean 4 volume measurement volume measurement CT biopsy liver 08/06/2019 N2N/CCD Import CT biopsy liver 12.9 1.5-7.7 10^3/ul Blood lymphocytes 08/06/2019 N2N/CCD Import Blood lymphocytes 0.7 1.0- 4.8 automated count automated count 10^3/ul (number/volume) (number/volume) Blood monocytes 08/06/2019 N2N/CCD Import Blood monocytes 0.7 0-0.8 automated count automated count 10^3/ul (number/volume) (number/volume) Automated blood 08/06/2019 N2N/CCD Import Automated blood 0.1 0-0.6 eosinophil count eosinophil count 10^3/ul (number/volume) (number/volume) Automated blood 08/06/2019 N2N/CCD Import Automated blood 0.1 0-0.2 basophil count basophil count 10^3/ul (number/volume) (number/volume) Blood nucleated 08/06/2019 N2N/CCD Import Blood nucleated 0.0 erythrocytes erythrocytes 10^3/ul automated count automated count (numb (number/volume) Automated blood 08/06/2019 N2N/CCD Import Automated [...] 08/06/2019 N2N/CCD Import Automated blood 0.1 nucleated nucleated [...] 07/28/2019 N2N/CCD Import Automated blood 0.1 nucleated nucleated erythrocytes erythrocytes detection detection CT biopsy liver 07/28/2019 [...] N2N/CCD Import Serum or plasma 9.4 ng/mL 11- 30 ferritin measurement ferritin measurement 7 (mass/volume) (mass/volume) [...] Auto CNT <pending> MPV <pending> Lymph% <pending> [place]% <pending> Neutrophil % <pending> Absolute Lymphocytes <pending> [...] for nuc corrected for nucleated erythrocytes (number/volume) Procedures Description No Information Available Medical Devices Description No Information Available Encounters Description No Information Available Assessments Date Code Description Provider 08/01/2019 D50.9 Iron deficiency anemia, unspecified Bren Miles PA-C 07/10/2019 D64.9 Anemia, unspecified Arthur Fall MD Plan of Treatment 08/01/2019 - KING EscalanteCD50.9 Iron deficiency anemia, unspecifiedNew Labs:CBC Auto Diff, Ordered: 08/01/19Comp Metabolic Panel, Ordered: 08/01/19Bilirubin Direct, Ordered: 08/01/19Iron & Iron Binding Capacity, Ordered: 08/01/19Ferritin, Ordered: 08/01/19 Functional Status Description No Information Available Mental Status Description No Information Available Referrals Description No Information Available
--- NOTE | 2019-09-17 17:49 | ED ---
Complex/Multi-Sys Presentation - HPI Summary HPI Summary: 84 y/o female presented to [facility] for weakness and inability to walk present for weeks. She notes that she has been sick for weeks and that it has gotten worse; she cannot walk, stating she feels like her "legs aren't there." Pt notes no abd pain. She has been treated for bloody stools recently and family notes she has fallen 6-8 times in the past 2-3 weeks. She drinks but does not eat, noting that she spits up anything she tries to swallow. Pt needs to urinate often but family notes it takes about [address] Rogers suggested she get an endoscopy, for which she will see Dr. Fall. She had a heart stent in 2019 and was briefly on Brilinta, but Dr. Rogers instructed her to stop taking it and take baby aspirin instead, which she now does every morning. She has received 2L of blood and an Fe transfusion, but is producing blood on her own. She also has spinal stenosis. - History Of Current Complaint Chief Complaint: EDUrogenitalProblems Time Seen by Provider: 09/17/19 17:25 Hx Obtained From: Patient Onset/Duration: Lasting Weeks, Still Present Timing: Constant Location: Negative Associated Signs And Symptoms: Positive: Weakness, Melena, Decreased Oral Intake , Other - difficulty urinating - Allergies/Home Medications Allergies/Adverse Reactions: Allergies Allergy/AdvReac Type Severity Reaction Status Date / Time No Known Allergies Allergy Verified 09/17/19 17:23 Home Medications: Home Medications Aspirin [Aspirin Adult Low Dose 81 MG] 81 mg PO QAM 05/17/15 [History Confirmed 09/17/19] oxyCODONE/Acetamin 5/325 MG* [Percocet 5/325 TAB*] 1 tab PO Q6H PRN 05/17/15 [ History Confirmed 09/17/19] Labetalol TAB* [Trandate TAB*] 100 mg PO DAILY 12/15/16 [History Confirmed 09/17] Magnesium Oxide 400 mg PO QPM 12/15/16 [History Confirmed 09/17/19] Acetaminophen TAB* [Tylenol TAB*] 650 mg PO Q4H PRN tab 05/06/19 [Rx Confirmed 09/17/19] Al Hydrox/Mg Hydrox/Simet LIQ* [Maalox Plus*] 30 ml PO Q6H PRN udc 05/06/19 [ Rx Confirmed 09/17/19] Docusate CAP* [Colace Cap*] 100 mg PO SEE INSTRUCTIONS PRN 07/09/19 [History Confirmed 09/17/19] Nitroglycerin TAB 0.4 MG* 0.4 mg SL . NEEDED PRN 07/09/19 [History Confirmed 09/17/19] Potassium Chlor TAB* [Klor Con ER TAB 10 MEQ*] 10 meq PO DAILY 07/09/19 [ History Confirmed 09/17/19] traZODone TAB* [Desyrel TAB*] 50 mg PO BEDTIME 07/09/19 [History Confirmed 09/17] Pantoprazole TAB * [Protonix TAB*] 40 mg PO DAILY #30 tab 07/11/19 [Rx Confirmed 09/17/19] PMH/Surg Hx/FS Hx/Imm Hx Endocrine/Hematology History: Reports: Hx Anemia, Other Endocrine/Hematological Disorders - anemia Denies: Hx Diabetes Cardiovascular History: Reports: Hx Coronary Artery Disease, Hx Hypercholesterolemia, Hx Hypertension - ON DAILY MEDS, Hx Peripheral Vascular Disease - BILATERAL Denies: Hx Angina, Hx Pacemaker/ICD Comment Only: Other Cardiovascular Problems/Disorders - DR ROGERS FOLLOWS Respiratory History: Reports: Hx Pneumonia Denies: Hx Asthma, Hx Chronic Obstructive Pulmonary Disease (COPD), Hx Pulmonary Embolism GI History: Reports: Hx Irritable Bowel - Hx OF FREQUENT LOOSE BOWEL MOVEMENTS WITHOUT CONTROL, Other GI Disorders - c-diff Denies: Hx Gastrointestinal Bleed History: Denies: Hx Chronic Renal Failure, Hx Renal Disease Musculoskeletal History: Reports: Hx Arthritis, Hx Back Problems Denies: Hx Rheumatoid Arthritis, Hx Osteoporosis, Hx Scoliosis Sensory History: Reports: Hx Cataracts - BILATERAL- removed, Hx Contacts or Glasses, 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 Denies: Hx Hearing Aid Opthamlomology History: Reports: Hx Cataracts - BILATERAL- removed, Hx Contacts or Glasses Neurological History: Reports: Hx Migraine, Hx Transient Ischemic Attacks (TIA) - possible 05/08/2017, Other Neuro Impairments/Disorders - PAIN CLINIC PATIENT Denies: Hx CVA, Hx Dementia, Hx Headaches, Hx Seizures, Hx Spinal Cord Injury Psychiatric History: Reports: Other Psychiatric Issues/Disorders - trazodone and remeron HS Denies: Hx Panic Disorder - Surgical History Surgery Procedure, Year, and Place: [id number] [place] [facility] [place] stents [place]- 3 palmaz stent- ok to 1.5, 2 [facility] renal-ok to 1.5 or 3 T)(all these surgeries completed at [facility] [place] 1999 [place] [facility] [place] [facility] [place] BILATERAL CATARACT SURGERY. cardiac stent placed 05/14/19 Hx Anesthesia Reactions: No Infectious Disease History: No Infectious Disease History: Reports: Hx Clostridium Difficile Denies: Traveled Outside the [place] in Last 30 Days - Family History Known Family History: Positive: Cardiac Disease, Hypertension Family History: No family history of malignant hyperthermia and anesthesia reaction. - Social History Alcohol Use: None Hx Substance Use: No Substance Use Type: Reports: None Hx Tobacco Use: Yes Smoking Status (MU): Former Smoker Type: Cigarettes Amount Used/How Often: 1PPD 50+ YEARS Have You Smoked in the Last Year: No Review of Systems Positive: Other - decreased oral intake, melena Positive: other - difficulty urinating Positive: Bruising Positive: Weakness All Other Systems Reviewed And Are Negative: Yes Physical Exam - Summary Physical Exam Summary: Constitutional: Well-developed, Well-nourished, Alert. (-) Distressed Skin: Warm, Dry, Pale, multiple bruises noted over bilat LE HENT: Normocephalic; Atraumatic Eyes: Conjunctiva normal Neck: Musculoskeletal ROM normal neck. (-) JVD, (-) Stridor, (-) Tracheal deviation Cardio: Rhythm regular, rate normal; Intact distal pulses; The pedal pulses are 2+ and symmetric. Radial pulses are 2+ and symmetric. (+) Murmur noted Pulmonary/Chest wall: Effort normal. (-) Respiratory distress, (-) Wheezes, (-) Rales Abd: Soft, (-) tenderness, (-) Distension, (-) Guarding, (-) Rebound Musculoskeletal: (-) Edema, Left leg weakness, no neurological deficits Lymph: (-) Cervical adenopathy Neuro: Alert, Oriented x3 Psych: Mood and affect Normal Rectal exam: black tarry stool; no gross blood; chaperoned by female nurse's aide Triage Information Reviewed: Yes Vital Signs On Initial Exam: Initial Vitals Temp Pulse Resp BP Pulse Ox 97.5 F 74 17 133/75 97 09/17/19 17:19 09/17/19 17:19 09/17/19 17:19 09/17/19 17:19 09/17/19 17:19 Vital Signs Reviewed: Yes Procedures - Sedation Patient Received Moderate/Deep Sedation with Procedure: No Diagnostics - Vital Signs Vital Signs Temp Pulse Resp BP Pulse Ox 09/17/19 17:19 97.5 F 74 17 133/75 97 - Laboratory Result Diagrams: 09/17/19 17:49 09/17/19 17:49 Lab Statement: Any lab studies that have been ordered have been reviewed, and results considered in the medical decision making process. - EKG 1750 Cardiac Rate: NL EKG Rhythm: Sinus Rhythm Summary of EKG Findings: EKG at 1750 shows NSR 69bpm. Non-specific t-wave abnormalities in lateral leads. This EKG was reviewed and interpreted by Dr. Erwin. Complex Multi-Symp Course/Dx Course Of Treatment: 84 y/o [place] [facility] [place] and inability to walk present for weeks. She notes that she has been sick for weeks and that it has gotten worse; she cannot walk, stating she feels like her "legs aren't there." Pt notes no abd pain. She has been treated for bloody stools recently and family notes she has fallen 6-8 times in the past 2-3 weeks. She drinks but does not eat, noting that she spits up anything she tries to swallow. Pt needs to urinate often but family notes it takes about 30 minutes. Exam showed murmur; black tarry stool; and multiple bruises noted over bilat LE. Bloodwork showed RDW H, lymphs L, Na L, Cl L, Glc H, Mg L, BNP H, total protein L, TSH L. EKG at 1750 shows NSR 69bpm. Non-specific t-wave abnormalities in lateral leads. Pt was given 1g IV MgSO4 and 1L NaCl. At 1905 pt case was discussed with the hospitalist, who agrees to admit the pt. Pt was diagnosed with generalized weakness and recurrent falls, and [place] [facility] [place] - Diagnoses Provider Diagnoses: Generalized weakness, Recurrent falls - Physician Notifications Discussed Care Of Patient With: Hospitalist Time Discussed With Above Provider: 19:05 Instructed by Provider To: Other - Pt case was discussed with the hospitalist, who agrees to admit the pt. Discharge ED - Sign-Out/Discharge Documenting (check all that apply): Patient Departure - admit - Discharge Plan Condition: Stable Disposition: ADMITTED TO [facility] Referrals: Марина Obando MD [Primary Care Provider] - - Billing Disposition and Condition Condition: STABLE Disposition: Admitted to [facility] - Attestation Statements Document Initiated by Shahrzad: Yes Documenting Scribe: Bartolo Charlton Provider For Whom Shahrzad is Documenting (Include Credential): Washington Erwin DO Scribe Attestation: Bartolo Maya scribed for Washington Erwin DO on 09/17/19 at 2025. Scribe Documentation Reviewed: Yes Provider Attestation: The documentation as recorded by the Bartolo marks accurately reflects the service I personally performed and the decisions made by Washington reed DO Status of Scribnic Document: Viewed
[2019-09-17 18:04] LABS: ABS Basophils 0.1 10^3/ul (0-0.2); ABS Eosinophils 0.1 10^3/ul (0-0.6); ABS Lymphocytes 0.8 10^3/ul (1.0-4.8); ABS Monocytes 0.6 10^3/ul (0-0.8); ABS Neutrophils 6.2 10^3/ul (1.5-7.7); Eosinophil % 0.9 %; Hematocrit 40 % (35-47); Hemoglobin 13.5 g/dL (12.0-16.0); Lymphocyte % 10.1 %; Mean Corpuscular HGB Conc 34 g/dL (31-36); Mean Corpuscular Hemoglobin 29 pg (27-31); Mean Corpuscular Volume 86 fL (80-97); Mean Platelet Volume 8.7 fL (7.4-10.4); Platelet Count 217 10^3/uL (150-450); Red Blood Count 4.71 10^6 /uL (3.70-4.87); Red Cell Distribution Width 24 % (10-15); White Blood Count 7.7 10^3/uL (3.5-10.8)
[2019-09-17 18:14] LABS: Albumin 3.8 g/dL (3.2-5.2); Albumin/Globulin Ratio 1.7 (1-3); BUN/Creatinine Ratio 13.8 (8-20); EGFR African American 75.1 (>60); Globulin 2.2 g/dL (2-4); Magnesium 1.6 mg/dL (1.9-2.7); Total Bilirubin 0.9 mg/dL (0.2-1.0)
[2019-09-17] MEDS ORDERED: Magnesium Sulfate 1 GM IV* 1 GM/100 ML BAG IV ONE (18:44)
[2019-09-17 18:56] LABS: TSH (Thyroid Stimulating Horm) 0.18 mcIU/mL (0.34-5.60)
[2019-09-17] MEDS ORDERED: Ondansetron INJ* 2 MG/ML VIAL IV PRN (19:51)
[2019-09-17] MEDS ORDERED: Acetaminophen TAB* 325 MG PO PRN (19:51)
[2019-09-17 19:54] LABS: Free T3 3.7 pg/mL (2.5-3.9)
[2019-09-17 19:55] LABS: Free T4 1.07 ng/dL (0.61-1.12)
[2019-09-17] MEDS ORDERED: oxyCODONE/Acetamin 5/325 MG* TAB PO PRN (20:00)
[2019-09-17] MEDS ORDERED: Nitroglycerin TAB 0.4 MG* 0.4 MG TAB SL PRN (20:00)
[2019-09-17] MEDS ORDERED: traZODone TAB* 50 MG TAB PO SCH (21:00)
[2019-09-17 21:20] LABS: Urine Appearance Clear; Urine Bilirubin Negative (Negative); Urine Blood Negative (Negative); Urine Color Yellow; Urine Glucose Negative (Negative); Urine Ketones Negative (Negative); Urine Nitrite Negative (Negative); Urine Protein Negative (Negative); Urine Specific Gravity 1.006 (1.010-1.030); Urine Urobilinogen Negative (Negative)
--- NOTE | 2019-09-17 23:10 | HP ---
CC: Dr. Марина Obando; Dr. Arthur Fall; Dr. Drew Rogers * ADMISSION HISTORY AND PHYSICAL: DATE OF ADMISSION: 09/17/19 PRIMARY CARE PROVIDER: Dr. Марина Obando. OUTPATIENT TARE WEIGHER: Dr. Drew Rogers. PATIENT'S ISSUE CLERK: Dr. Arthur Fall. MY ATTENDING WHILE IN THE HOSPITAL: Dr. Tadeo Light.* (DICTATED BY SAHIL LANDAVERDE) CHIEF COMPLAINT: Poor oral intake, weakness. HISTORY OF PRESENT ILLNESS: Ms. Saba is an 84-year-old female with a past medical history of coronary artery disease, recurrent GI bleeding, severe mitral valve regurgitation, who presented to the emergency department because today she was feeling very poorly; this has been part of a steady downward decline in her functional status and oral intake to the point that she is able to take in approximately 1 bottle of regular john kieran a day, not able to take in any oral intake. She has been working with Dr. Fall of Gastroenterology to address this, but has not had an EGD yet. She states she had an esophagram last Wednesday, which she believes was unremarkable. The patient has no pain when swallowing, but is not able to keep any food down and immediately it comes back up. The patient has to drink fluids very slowly as well. This has been coming on slowly and she has never had any issues like this before. The patient occasionally also has a band like sensation in her upper abdomen which she describes as a tightness, but is not associated with any other GI symptoms. The patient denies fever or chills. The patient has lost 50 pounds in the past year. The patient also had a VT in April 2019, which required a stent and then GI bleed in June 2019. The patient has recently cut back on many of her medications including her oral iron, which has improved her oral intake somewhat, mainly by decreasing nausea and vomiting. She is still taking very little by mouth. The patient has not had any chest pain, shortness of breath. No swelling in her legs. The patient sleeps propped up due to back pain. The patient did not get short of breath, but the patient is not able to walk at this point. The patient is able to transfer only with a very strong assist from her son. The patient feels whenever she stands up, her legs give out. The patient has chronic numbness and tingling in her bilateral legs and arms, but has no other focal weakness. This patient has chronic back pain which has not changed. The patient has been on chronic opiates. Again, this is not changed. The patient has had several bowel movements over the past couple of weeks interspersed with long periods of constipation. The patient has been having difficulty urinating, but has not been taking in much fluid by mouth at all. Due to concern for very poor oral intake, inability to ambulate, we were asked to evaluate the patient for admission to the hospital. PAST MEDICAL HISTORY: Coronary artery disease, peripheral vascular disease, renal artery stenosis, recurrent C. diff infection, recurrent GI bleed x3, hypertension, hyperlipidemia, lumbar stenosis, sciatica, severe mitral valve regurgitation. PAST SURGICAL HISTORY: Stent to LAD in 2019, catheterization in 2002 and 2019, fem- pop bypass, laminectomy, renal artery bypass. MEDICATIONS: 1. Aspirin 81 mg p.o. daily. 2. Labetalol 100 mg p.o. daily. 3. Magnesium oxide 400 mg p.o. daily. 4. Nitroglycerin 0.4 mg sublingually as needed. 5. Percocet 5/325 one tab p.o. q. 6 hours as needed. 6. Trazodone 200 mg p.o. daily. 7. Ventolin inhaler as needed. ALLERGIES: No known drug allergies. FAMILY HISTORY: The patient's mother of old age. The patient's father of VT at 45. The patient has several siblings who of complications of alcoholism. SOCIAL HISTORY: The patient smoked for approximately 40 to 50 years but quit 23 years ago. The patient denies drinking ever, any illicit drugs. 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 The patient is and has 1 son. The patient's surrogate decision maker will be her son, Rashi Saba. REVIEW OF SYSTEMS: A 10-point review of systems was reviewed and is negative, except as above in the HPI. PHYSICAL EXAMINATION GENERAL: The patient is an 84-year-old female who appears very pale, sitting in bed, in no acute distress. VITAL SIGNS: At the time of evaluation, temperature 97.5, pulse rate 74, respiratory rate 17, oxygen saturation 97% on room air, blood pressure 133/75. HEENT: Head: Normocephalic, atraumatic. Sclerae anicteric. No conjunctival injection. Nasal mucosa moist. Oral mucosa moist. No pharyngeal erythema, discharge, or exudate. NECK: Supple, nontender. No lymphadenopathy. No carotid bruits auscultated. No JVD. RESPIRATORY: Clear to auscultation bilaterally. No wheezes, rales, or rhonchi. Good air exchange bilaterally. CARDIAC: Regular rate and rhythm. Parvus and tardus pulse. Grade 4/6 holosystolic murmur heard best at the apex. No adventitious lung sounds. Pulses 1+ in the bilateral dorsalis pedis, posterior tibialis and radial areas. No bilateral lower extremity edema noted. No bilateral calf tenderness. ABDOMEN: Soft, nontender, nondistended. Bowel sounds present and normoactive in all 4 quadrants. No hepatosplenomegaly. No abdominal bruits auscultated. No hepatojugular reflux. GENITOURINARY: No suprapubic or CVA tenderness. NEURO: Cranial nerves II through XII intact. No focal deficits. Alert and oriented x3. SKIN: Clean, dry, and intact. No rash. PSYCHIATRIC: Pleasant and cooperative. DIAGNOSTIC STUDIES/LAB DATA: White blood cell count 7.7, hemoglobin 13.5. Sodium 133, potassium 4.0, chloride 98, carbon dioxide 27, anion gap 8, BUN 12, creatinine 0.87, glucose 120, calcium 9.0, magnesium 1.6. Bilirubin 0.9, AST 22 , ALT 19, alkaline phosphatase 80. Troponin 0.0. Protein 6.0, albumin 3.9, globulin 2.2, TSH 1.98. EKG shows normal sinus rhythm. No ST-segment elevation or depression, no hypertrophy or enlargement, normal R-way progression, borderline right axis deviation. ASSESSMENT AND PLAN: Impression: Ms. Saba is an 84-year-old female with a past medical history significant for coronary artery disease, peripheral vascular disease, recurrent gastrointestinal bleeding and a several months history of worsening difficulty swallowing and weakness in her lower extremities , who is admitted to the hospital for addressing these problems. 1. Dysphagia, weight loss. The patient has had over 50 pounds of weight loss in the past year. The patient is now taking in only approximately 1 bottle of john kieran a day. The patient is not able to drink Ensure very quickly and not able to take anything in to eat. The patient states when she swallows, she just regurgitates it backup. The patient had an esophagogram which was limited , showed presbyesophagus and small hiatal hernia; however, the patient has not had an EGD and this has been requested through Dr. Fall tomorrow, who will also see the patient in consultation. The patient received 1 L of fluids while in the emergency department. This will not be continued at this time as the patient has severe mitral valve regurgitation and is at high risk for heart failure. Most of the patient's stomach upsetting medications have been stopped. She is unlikely to be able to stop her oxycodone and her aspirin will not be stopped due to recent stent. Continue the patient's pantoprazole. This could be related to gastric ulcer, gastroesophagitis. Given her vasculopathy could also be related to mesenteric ischemia and food fear, other things such as Zenker's diverticulum and eosinophilic esophagitis could be further clarified with an EGD as well. No empiric treatment will be attempted at this time. Nutrition consult will be ordered as well as Speech Therapy consult. It could be the patient's just early satiety and due to cardiac disease as the patient does have severe mitral regurgitation which she is not interested in fixing at this point, though this is less likely given this did improve on the patient's most echocardiogram. We will repeat echocardiogram this time. 2. Weakness. The patient does not have radiculopathy or other concerning findings for lower extremity weakness. Being neurological in origin, it is likely related to muscle wasting and possibly poor cardiac output related to mitral stenosis, but it is very likely multifactorial, particularly given her very poor oral intake. The patient will be seen by Physical Therapy and very likely will need rehab for a long time. The patient does have pulse in her legs , but it is unlikely related to peripheral arterial disease. She has not complained of pain in her legs nor shortness of breath on exertion making this unlikely related to claudication or particularly severe congestive heart failure. 3. Coronary artery disease. Continue the patient's aspirin. The patient's Brilinta was held in the setting of recent GI bleeding. Continue the patient's labetalol. 4. Severe mitral valve regurgitation. See above discussion. Repeat echocardiogram, avoid dehydration or fluid overload. 5. FEN: The patient will have a regular unrestricted diet. N.p.o. after midnight for possible EGD. 6. DVT prophylaxis in the setting of recent GI bleeding. Continue just SCDs. 7. Disposition: The patient is admitted to observation to the hospital. TIME SPENT: Approximately 60 minutes was spent on the admission of this patient , 30 of which was spent [id number] with the patient obtaining history and physical and discussing treatment plan. This plan was discussed with my attending, Dr. Tadeo Light, and he is in agreement. SAHIL LANDAVERDE [id number]/[facility] #: [id number] DAISY
[2019-09-18 05:46] LABS: Hematocrit 37 % (35-47); Hemoglobin 12.4 g/dL (12.0-16.0); Mean Corpuscular HGB Conc 34 g/dL (31-36); Mean Corpuscular Hemoglobin 29 pg (27-31); Mean Corpuscular Volume 86 fL (80-97); Mean Platelet Volume 9.1 fL (7.4-10.4); Platelet Count 172 10^3/uL (150-450); Red Blood Count 4.28 10^6 /uL (3.70-4.87); Red Cell Distribution Width 24 % (10-15); White Blood Count 7.2 10^3/uL (3.5-10.8)
[2019-09-18 06:00] LABS: BUN/Creatinine Ratio 16.4 (8-20); Calcium 8.2 mg/dL (8.6-10.3); EGFR African American 101.5 (>60); EGFR Non-African American 83.9 (>60); Magnesium 1.7 mg/dL (1.9-2.7); Potassium 3.5 mmol/L (3.5-5.0)
[2019-09-18 06:19] LABS: ABS Eosinophils 0.1 10^3/ul (0-0.6); ABS Lymphocytes 0.9 10^3/ul (1.0-4.8); ABS Monocytes 0.6 10^3/ul (0-0.8); ABS Neutrophils 5.5 10^3/ul (1.5-7.7); Eosinophil % 1.2 %; Lymphocyte % 12.8 %; Nucleated Red Blood Cells % 0.1
[2019-09-18 06:22] LABS: Acanthocytes 1+
[2019-09-18 06:24] LABS: Burr Cells 1+
--- NOTE | 2019-09-18 07:52 | PN ---
Progress Note - Progress Note Date of Service: 09/18/19 Note: came in early to see pt; unfortunately, she is currently having ECHO; unable to interview pt; pt wants to know when she can go home......? will try to get back to see pt as soon as I can Arthur Fall MD
[2019-09-18] MEDS: Labetalol TAB* 200 MG PO SCH (09:00)
[2019-09-18] MEDS: Pantoprazole TAB * 40 MG TAB PO SCH (09:00)
[2019-09-18] MEDS: Aspirin EC TAB* 81 MG TAB.EC PO SCH (09:00)
--- NOTE | 2019-09-18 09:53 | ECHO ---
*[facility]* [place] [id number] Fax #: [phone] Transthoracic Echocardiogram Patient: Kasie Saba : 1935 Study Date: 09/18/2019 Age: 84 Gender: F HR: 64 bpm Height: 67 in /170.2 cm BSA: 1.6 m^2 Weight: 119.7 lb /54.4 kg BMI: 18.8 kg/m^2 *[employer]visor [employer]: * Telma Sood *Referring Physician: * Tomás Valladares *Reading Physician: * Memo Sanford MD Indications: Mitral lnsufficiency. History: Coronary artery disease. Mitral regurgitation. Risk factors: Hypertension. Dyslipidemia. Conclusions Summary: - Left ventricle: Systolic function is normal. The estimated ejection fraction is 55-60%. Wall motion is normal; there are no regional wall motion abnormalities. - Atrial septum: No defect or patent foramen ovale is identified. - Mitral valve: Moderate prolapse of both the anterior and posterior middle scallop There is no evidence of stenosis. There is severe regurgitation. - Aortic valve: There is no evidence of stenosis. - Tricuspid valve: There is moderate-severe regurgitation. - Pericardium, extracardiac: There is no significant pericardial effusion. - Compared to report of 05/06/19, the left ventricle function is the same. The mitral regurgitation is slightly worse. Study data: Transthoracic echocardiogram. Procedure: Transthoracic echocardiography was performed. Image quality was good. Complete 2D, spectral Doppler, and color flow Doppler. Location: Bedside. Patient status: Inpatient. Patient room number: 414-02. Rhythm: Normal sinus rhythm with PAC's. Findings Left ventricle: The cavity size is normal. Wall thickness is mildly to moderately increased. Systolic function is normal. The estimated ejection fraction is 55-60%. Wall motion is normal; there are no regional wall motion abnormalities. Left ventricular diastolic function parameters are normal. Right ventricle: The cavity size is at the upper limits of normal. Systolic function is normal. Ventricular septum: The ventricular septum is normal. Left atrium: The atrium is dilated. Right atrium: The atrium is dilated. Atrial septum: No defect or patent foramen ovale is identified. Mitral valve: The leaflets are normal thickness. Moderate prolapse of both the anterior and posterior middle scallop There is no evidence of stenosis. There is severe regurgitation. Aortic valve: The valve is trileaflet. The leaflets are mildly calcified. There is no evidence of stenosis. There is no significant regurgitation. Tricuspid valve: The valve is structurally normal. There is no evidence of stenosis. There is moderate-severe regurgitation. Pulmonic valve: The valve is structurally normal. There is no evidence of stenosis. There is moderate regurgitation. Aorta: The aortic root appears normal. Pericardium: There is no significant pericardial effusion. Pulmonary arteries: Systolic pressure is mildly increased, estimated to be 45 mm Hg. Systemic veins: Inferior vena cava: The vessel is normal in size. There is (>= 50%) respiratory change in the IVC dimension. Pulmonary veins: The Pulmonary veins appear normal. Measurements Left ventricle Value Ref Left atrium continued Value Ref RADHA, LAX 4.8 cm 3.8 - 5.2 SI dim, A4C 6.6 cm ------- ESD, LAX 2.9 cm 2.2 - 3.5 Vol, ES, 2-p 105 ml ------- FS, LAX 33 % 27 - 45 Vol/bsa, ES, 2-p (H) 66 ml/m^2 16 - 34 PW, ED, LAX (H) 1.3 cm 0.6 - 0.9 FS 33 % 27 - 45 Right atrium Value Ref Mid-wall FS 14 % --------- SI dim, ES 5.2 cm 3.4 - PW, ED (H) 1.3 cm 0.6 - 0.9 5.3 PW/ID, ED 0.28 --------- ML dim, ES, A4C 4.2 cm 2.6 - 4.4 LVOT Value Ref SI dim, ES, A4C 5.2 cm 3.4 - Diam, S 1.95 cm --------- 5.3 Area 3.0 cm^2 --------- SI dim/bsa, ES, (H) 3.2 cm/m^2 1.9 - A4C 3.1 Ventricular septum Value Ref IVS, ED (H) 1.5 cm 0.6 - 0.9 Mitral valve Value Ref MR peak v 6.75 m/sec ------- Right ventricle Value Ref ERO, PISA 0.5 cm^2 ------- AW thickness, ED (H) 3.9 cm 0.1 - 0.5 MR vol, PISA 102 ml ------- AW thickness, ES 3.9 cm --------- RADHA, LAX 3.1 cm --------- Tricuspid valve Value Ref RADHA major ax, A4C (L) 4.2 cm 5.9 - 8.3 TR peak v (H) 3.1 m/sec <=2.8 Peak RV-RA grad, S 39 mm Hg ------- Left atrium Value Ref LA ID 6.5 cm --------- Ascending aorta Value Ref SI dim ES, LAX 6.5 cm --------- AAo AP diam, S 3.0 cm ------- ML dim, A4C 5.5 cm --------- AAo AP diam/bsa, S 1.9 cm/m^2 ------- Inferior vena cava Value Ref Diam 2.3 cm ------- Legend: (L) and (H) brian values outside specified reference range. Prepared and electronically signed by Memo Sanford MD 09/18/2019 09:53
--- NOTE | 2019-09-18 14:10 | PN ---
Subjective Date of Service: 09/18/19 Interval History: Reports dysphagia regurgitating food mostly solids. weight loss of 50 pounds over 1 year.Also worsening LE weakness with inability to walk over last 2 weeks. Also has developed urinary incontinence now and noted to have decreased sensation over the vaginal/bladder/perineal area Family History: Unchanged from Admission Social History: Unchanged from Admission Past Medical History: Unchanged from Admission Objective Active Medications: Acetaminophen (Tylenol Tab*) 650 mg PO Q6H PRN PRN Reason: MILD PAIN or TEMP > 100.4 Aspirin (Aspirin Ec Tab*) 81 mg PO QAM [facility] Last Admin: 09/18/19 09:00 Dose: 81 mg Labetalol HCl (Trandate Tab*) 100 mg PO DAILY [facility] Last Admin: 09/18/19 09:00 Dose: 100 mg Nitroglycerin (Nitroglycerin Tab 0.4 Mg*) 0.4 mg SL Q5M PRN PRN Reason: chest pain Ondansetron HCl (Zofran Inj*) 4 mg IV Q6H PRN PRN Reason: NAUSEA Oxycodone/Acetaminophen (Percocet 5/325 Tab*) 1 tab PO Q6H PRN PRN Reason: PAIN Pantoprazole Sodium (Protonix Tab*) 40 mg PO DAILY [facility] Last Admin: 09/18/19 09:00 Dose: 40 mg Vital Signs - 8 hr 09/18/19 09/18/19 09/18/19 07:22 08:00 11:30 Temperature 98.0 F 97.8 F Pulse Rate 63 64 Respiratory 16 16 18 Rate Blood Pressure 142/54 119/50 (mmHg) O2 Sat by Pulse 99 98 Oximetry Oxygen Devices in Use Now: None Eyes: No Scleral Icterus Ears/Nose/Mouth/Throat: NL Teeth, Lips, Gums Neck: NL Appearance and Movements; NL JVP Respiratory: Symmetrical Chest Expansion and Respiratory Effort Cardiovascular: NL Sounds; No Murmurs; No JVD Abdominal: NL Sounds; No Tenderness; No Distention Extremities: No Edema Neurological: Alert and Oriented x 3, - - Dec sensation on palpation area over bladder and some numbness in perineal area. Pt holding legs to lift and unable to lift bilateral legs to over 30 degrees. No back pain. Cranial nerves intact on exam. Some speech slurring/delirium at times Result Diagrams: 09/18/19 05:23 09/18/19 05:23 Microbiology and Other Data: Microbiology 09/17/19 17:57 Stool Occult Blood (SID) - Final Stool Assess/Plan/Problems-Billing Assessment: - Patient Problems (1) Dysphagia Current Visit: Yes Status: Acute Code(s): R13.10 - DYSPHAGIA, UNSPECIFIED SNOMED Code(s): 61559243 Comment: Appreciate GI input Plan for Imaging Poss EGD to r/o stricture and other pathology Swallow eval by speech Pl see below to eval for neurologic causes also (2) Lower extremity weakness Current Visit: Yes Status: Acute Code(s): R29.898 - OTH SYMPTOMS AND SIGNS INVOLVING THE MUSCULOSKELETAL SYSTEM SNOMED Code(s): 610267885 Comment: Worsening over 2 weeks with inability to lift legs and now reported urinary incontinence and subjective saddle anasthesia?/ dec perineal sensation concerning for cauda equina/cord compression. however unexplained dyphagia and other symptoms with progressive weakness also concerning for progressive neurodegenerative disorder with broad differential. Will request neurology evaluation for further input May need MRI spine for further evaluation As rec by Neuro, will start with MRI brain and will wait on further imaging or evaluation till Neuro evaluates pt. In the mean time, will also assess bedside swallow per speech and pursue GI evaluation for dysphagia. PT/OT eval to check Gait (3) Hypertension Current Visit: Yes Status: Acute Code(s): I10 - ESSENTIAL (PRIMARY) HYPERTENSION SNOMED Code(s): 05190644 Comment: Continue current medications Status and Disposition: Inpatient,PT?OT
[2019-09-18] MEDS ORDERED: Lorazepam PYXIS KEY PRN (15:13)
[2019-09-18] MEDS ORDERED: LORazepam INJ* 2 MG/ML 1 ML VIAL IV PUSH ONE (15:13)
--- NOTE | 2019-09-18 16:37 | CONS ---
CONSULTATION REPORT: DATE OF CONSULT: 09/18/19 INDICATION: ___difficulty swallowing, anemia, weakness___. NARRATIVE: Ms. Saba is an 84-year-old female whom I had seen once back in June of last year, the day of her discharge from hospitalization for anemia. She was admitted to the hospital for worsening anemia back on 07/09/19 and was seen in consultation by Dr. Lorne Pacheco. He had a long discussion with the patient and her family and they elected for conservative treatment i.e , no endoscopy. The patient was being discharged the next day and I went by to confirm that they still were opting for conservative care, they were. Somehow, the patient then had followup arranged with our office. She did see our nurse practitioner to follow up anemia. The anemia had resolved once her Brilinta was stopped. She does have a history of severe MR, pulmonary hypertension. She sees Dr. Rogers for all of this. Dr. Rogers did call me approximately 2 weeks ago and said that he felt her clinical condition from a cardiac standpoint had improved that pursuing an endoscopy could be safer at that point. The reason to pursue the endoscopy previously was because of her anemia , however, her hemoglobin had totally resolved and she was no longer anemic. Given the fact that she remained a high risk candidate for sedation we opted to pursue a upper GI barium swallow due to the fact the patient was having anorexia , nausea, weight loss, and emesis. The barium swallow was performed on Wednesday, unfortunately, the patient did vomit some of the barium, however, some did go down and it was a fairly unremarkable and normal upper GI series, however, technically was suboptimal due to some lack of barium. The patient was admitted last night to the hospital for weakness. She was unable to stand. She was unable to use her legs. She also has been telling her providers and caregivers that she is unable to eat. I did go by twice this morning to see her. I went by early in the morning to initially see her and she was having an echocardiogram at that time. I came back an hour later and I spent approximately 50 minutes talking to both the patient and her [id number], Maral. The patient does tell me that she has a difficult time swallowing everything except for john kieran. She states that it gets into the back of her mouth and then oftentimes she spits it back up. She does not describe true dysphagia, nor any odynophagia. She denies any lack of taste. She does have some abdominal pain after eating. The motghzcg-kz-sgo tells me that the patient is able to swallow small amounts of pretty much any type of food, for instance she did have a meatball just a couple of days ago, but after one meatball she felt full and did not want to eat anymore. She has been losing weight. PAST MEDICAL HISTORY: Significant for severe MR, coronary artery disease, peripheral vascular disease, renal artery stenosis, history of C. difficile, anemia. PAST SURGICAL HISTORY: Includes stents back in 2019, lower extremity bypass. MEDICATIONS UPON ADMISSION: Include: 1. Trazodone. 2. Percocet. 3. Nitroglycerin. 4. Labetalol. 5. Aspirin. ALLERGIES: None. FAMILY HISTORY: Coronary artery disease and alcoholism. SOCIAL HISTORY: She does not smoke tobacco. No alcohol. Her [id number] Maral was present. REVIEW OF SYSTEMS: Twelve systems were reviewed, other than mentioned in the HPI were unremarkable. PHYSICAL EXAM: Temperature is 98.0, blood pressure is 142/54, pulse is 63, respiratory rate of 16. General: Elderly appearing female in no apparent distress. Alert, oriented, pleasant and fluent. HEENT: Mucous membranes are moist without lesions, ulcers, or exudate. Neck is supple. Trachea is midline. Heart: Regular rate and rhythm. Positive holosystolic murmur. Lungs : Coarse breath sounds bilaterally. Abdomen: Positive bowel sounds, soft, nontender, nondistended. No hepatosplenomegaly, masses, rebound or guarding. Skin is warm and dry. DIAGNOSTIC STUDIES/LAB DATA: Of note, white count is 7.2, hemoglobin is 12.4, platelets of 172, BUN is 11. ASSESSMENT AND PLAN: This is a pleasant 84-year-old female with severe cardiac disease, who presents with failure to thrive. She also tells her providers that she has a difficult time swallowing. I really cannot tease out from the patient nor her [id number] whether or not this is true dysphagia or not. The patient did have a recent barium swallow from just the couple of days ago, which did not show any esophageal masses, strictures, or rings. The patient and [id number]-[id number] tell me that she is able to eat at times such as a meatball , however, if she gets full and/or has pain thus I wonder if there is some other etiology for her lack of wanting to eat and resulting weight loss. I do wonder about mesenteric ischemia I would like to get a mesenteric Doppler ultrasound. I would also like to get a swallowing evaluation. We did discuss performing an upper endoscopy. Given her cardiac issues, I offered her an unsedated upper endoscopy as I feel that the sedation is likely riskier than the actual procedure. The patient adamantly refused this. I did tell her then next we would have to ask for an anesthesiology consult to determine whether or not they would be willing to sedate her. She states at this point she does not want to pursue an endoscopy and would like to try a less invasive measures at this point. We will plan on getting the mesenteric Doppler ultrasound swallowing evaluation and regroup after that. [id number]/[facility] #: [id number] DAISY
--- NOTE | 2019-09-18 17:19 | CONS ---
NEUROLOGY CONSULTATION: DATE OF CONSULT: 09/18/19 HOSPITALIST: Dr. Aguila. LOCATION: She is an inpatient, 414. CHIEF COMPLAINT: Weakness. HISTORY OF PRESENT ILLNESS: Kasie Saba is an 84-year-old woman who was admitted to the hospital yesterday for inability to walk. She has been having problems with swallowing, going back at least a year and has lost at least 50 pounds this past year. She has developed difficulty walking, which is hard to get the exact timeframe of but it is worse in the last couple of months. She was not able to ambulate at all prior to this admission. She was in the emergency room on 07/28/19 when she fell at home. She suffered a hematoma to her frontal scalp. She had an MRI of the cervical spine, which I reviewed the images of. It was interpreted as showing [id number] central canal stenosis at multiple levels. I reviewed the images and I agreed. Specifically at C5-6 and C6-7, there is pretty severe stenosis with deformation of the spinal cord. She notes weakness in her arms as well as her legs. She thinks her left arm was weaker, but now they are both weak. She notes she is unable to empty her bladder. She says it just comes out when it wants to. She has chronic back pain and has had a lumbar surgery before. She denies neck pain currently. 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 MEDICATIONS AT ADMISSION: Consisted of: 1. Aspirin 81 mg p.o. daily. 2. Labetalol 100 mg p.o. daily. 3. Percocet 5/325 one every 6 hours as needed. 4. Trazodone 200 mg p.o. daily. 5. Ventolin inhaler. Additional medications here in the hospital include Protonix 40 mg p.o. daily. ALLERGIES: He does not have any drug allergies. REVIEW OF SYSTEMS: Negative for double vision, slurred speech, or ongoing headache. She notes problems with bowel control as well. She has lost a lot of weight as mentioned in the history of present illness. PHYSICAL EXAMINATION: She is thin and pale. Temperature is 97.8, blood pressure 119/50, heart rate is in the 60s. She has a loud holosystolic murmur. Head is currently atraumatic. Neurological exam pupils react equally from 3 down to 2 mm. Eye movements and visual ortiz are normal. Funduscopic exam is unremarkable. Facial musculature is symmetric. Palate and tongue appear normal and speech is clear without dysarthria. There are no tongue fasciculations. Palate raises symmetrically. She is a bit hard of hearing bilaterally. Motor exam reveals a spastic catch in the right triceps. There is no spasticity in the legs. She has less than antigravity proximal lower extremity and quadriceps weakness bilaterally. She has a grade 4- ankle dorsiflexor weakness bilaterally. In the upper extremities, she has grade 4 biceps and deltoid weakness and grade 4- right triceps and grade 4 left triceps weakness. Wrist extensors are grade 4 bilaterally. Hand intrinsics are grade 4- bilaterally. Reflexes are trace at the biceps and otherwise absent. She has a left Babinski sign. She is alert and oriented, but a very poor historian. She does not recall much of recent history. She loses her train of thought easily. Language is generally fluent. DIAGNOSTIC STUDIES/LAB DATA: Includes an unremarkable CBC today and on admission. Chemistry profile notable for mildly low magnesium at 1.7 today and calcium mildly low at 8.2. The rest of the chemistry profile is unremarkable. Her TSH yesterday was low at 0.18 and free T4 and free T3 were both within normal limits. MRI of the cervical spine from 07/28/19 as mentioned in the history of present illness. Impression is that of a possible cervical myelopathy. She has paraplegia and urinary retention. She had an abnormal MRI of the cervical spine on 07/28/19, but it was marred by motion artifact. I recommended the patient we get an MRI of the cervical spine today. She expressed reluctance, but her son Dirk Saba came in and convinced her to go ahead with it. I premedicated her with lorazepam. I follow up with her after the MRI is complete. I have discussed my impression with Dr. Aguila as well as Kasie Saba and her son Dirk. [id number]/[facility] #: [id number] [facility]ER CENTERDebby
--- NOTE | 2019-09-18 20:36 | PN ---
Progress Note - Progress Note Date of Service: 09/18/19 Note: spoke with Dr Lima at 1800 tonight; mesenteric US suggestive of ischemia; he will see pt as Inpt consultation to determine potential treatment options Arthur Fall MD [facility], [phone]
[2019-09-18] MEDS ORDERED: Haloperidol INJ IV/IM* 5 MG/ML AMP ONE (23:34)
[2019-09-19] MEDS ORDERED: Lorazepam PYXIS KEY PRN (01:56)
[2019-09-19] MEDS ORDERED: LORazepam INJ* 2 MG/ML 1 ML VIAL IV PUSH ONE (01:56)
[2019-09-19 06:24] LABS: ABS Eosinophils 0.1 10^3/ul (0-0.6); ABS Lymphocytes 0.8 10^3/ul (1.0-4.8); ABS Monocytes 0.7 10^3/ul (0-0.8); ABS Neutrophils 5.8 10^3/ul (1.5-7.7); Eosinophil % 1.5 %; Hematocrit 36 % (35-47); Hemoglobin 12.2 g/dL (12.0-16.0); Mean Corpuscular HGB Conc 34 g/dL (31-36); Mean Corpuscular Hemoglobin 29 pg (27-31); Mean Corpuscular Volume 85 fL (80-97); Mean Platelet Volume 9.1 fL (7.4-10.4); Platelet Count 174 10^3/uL (150-450); Red Blood Count 4.28 10^6 /uL (3.70-4.87); Red Cell Distribution Width 24 % (10-15); White Blood Count 7.5 10^3/uL (3.5-10.8)
[2019-09-19 06:39] LABS: BUN/Creatinine Ratio 15.8 (8-20); EGFR African American 122.3 (>60); Potassium 2.9 mmol/L (3.5-5.0)
[2019-09-19] MEDS: Pantoprazole TAB * 40 MG TAB PO SCH (08:54)
[2019-09-19] MEDS: Aspirin EC TAB* 81 MG TAB.EC PO SCH (08:54)
[2019-09-19] MEDS: Labetalol TAB* 200 MG PO SCH (08:54)
[2019-09-19] MEDS: KCL 20 MEQ/100 ML IVPREMIX* 20 MEQ/100 ML BAG IV SCH ×3 (09:47→19:25)
[2019-09-19] MEDS ORDERED: Nystatin CREAM* 15 GM TUBE TOPICAL SCH (10:00)
--- NOTE | 2019-09-19 10:04 | PN ---
Subjective Date of Service: 09/19/19 Interval History: Pt is delirious this AM, this started last night after receiving ativan for the ordered MRI. She reportedly has been pulling at everything. Nursing also reports the patient has been oozing stool almost continuously. The stool is very dark green in color. The skin around her anus is very excoriated and oozing some blood. Objective Active Medications: Acetaminophen (Tylenol Tab*) 650 mg PO Q6H PRN PRN Reason: MILD PAIN or TEMP > 100.4 Aspirin (Aspirin Ec Tab*) 81 mg PO QAM REPLACED BY [facility] Last Admin: 09/19/19 08:54 Dose: Not Given Potassium Chloride (Potassium Chloride 20 Meq/100 Ml Ivpremix*) 20 meq in 100 mls @ 50 mls/hr IV Q2H REPLACED BY [facility] Stop: 09/19/19 14:59 Last Admin: 09/19/19 09:47 Dose: 50 mls/hr Labetalol HCl (Trandate Tab*) 100 mg PO DAILY REPLACED BY [facility] Last Admin: 09/19/19 08:54 Dose: Not Given Miscellaneous (Ativan Pyxis Casanova) 1 ea N/A .ATIVAN IV CASANOVA PRN PRN Reason: PYXIS CASANOVA Nitroglycerin (Nitroglycerin Tab 0.4 Mg*) 0.4 mg SL Q5M PRN PRN Reason: chest pain Nystatin (Nystatin Cream*) 1 applic TOPICAL TID REPLACED BY [facility] Ondansetron HCl (Zofran Inj*) 4 mg IV Q6H PRN PRN Reason: NAUSEA Oxycodone/Acetaminophen (Percocet 5/325 Tab*) 1 tab PO Q6H PRN PRN Reason: PAIN Pantoprazole Sodium (Protonix Tab*) 40 mg PO DAILY REPLACED BY [facility] Last Admin: 09/19/19 08:54 Dose: Not Given Zinc Oxide (Zinc Oxide 40% (Topical)*) 1 applic TOPICAL .EVERY CLEANING REPLACED BY [facility] Vital Signs - 8 hr 09/19/19 09/19/19 03:45 07:02 Temperature 97.5 F 98.3 F Pulse Rate 73 69 Respiratory 20 16 Rate Blood Pressure 152/56 138/55 (mmHg) O2 Sat by Pulse 20 98 Oximetry Oxygen Devices in Use Now: None Appearance: Elderly female lying in bed, resting but becomes agitated when I evaluate her. Eyes: No Scleral Icterus Ears/Nose/Mouth/Throat: Mucous Membranes Moist Respiratory: Symmetrical Chest Expansion and Respiratory Effort, Clear to Auscultation Cardiovascular: NL Sounds; No Murmurs; No JVD, RRR, No Edema Abdominal: NL Sounds; No Tenderness; No Distention Extremities: No Clubbing, Cyanosis Skin: - - circular area of skin around the anus is beefy red and excoriated, there is slight oozing of blood around the anus Neurological: - - agitated - Nutrition: Malnutrition Diagnosis/Plan Malnutrition Assessment by Registered Dietitian: Malnutrition Assessment Clinical Characteristics Chronic,Severe Malnutrition Assessment: Muscle Wasting - Temporal (severe) Criteria Inadequate Oral Intake - 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, though could not go into specifics beyond only tolerating light foods; currently on full liquid diet - Anticipate meeting <75% nutrient needs >1 mo (severe) Unintentional Weight Loss - Pt reports 50lb wt loss x1 yr; current wt 124lb, UBW 175 (06/2018) , prev wt on record 142lb (06/2019) - 12.7% loss x2 mos (severe) Malnutrition Assessment: Nutritional Supplementals/Nourishments - Will Interventions trial Ensure Enlive (350kcal, 20g prot/serv) at B and D daily to optimize kcal/prot intake; will monitor acceptance GI Related - Recommend continuing antiemetic PRN and giving antidiarrheal as indicated; will monitor GI s/sx for ability to advance diet and impact on intake Texture Modifications - SHIFT SUPERINTENDENT CAUSTIC CRESYLATE recommending thin liquids until further GI work-up is completed; will monitor tolerance and recommend SHIFT SUPERINTENDENT CAUSTIC CRESYLATE f/u as indicated Malnutrition Assessment: Goals 1) Recommend advancing diet as able 2) Pt will tolerate diet advancement w/o exac/ development of GI s/sx 3) Adequate po intake to replete lean body mass and support hydration status 4) Improve fluid/electrolyte balance w/ adequate po intake and repletion PRN 5) Maintain bowel regularity w/ adequate po intake and bowel meds w/o exac of diarrhea/ development of constipation Result Diagrams: 09/19/19 05:20 09/19/19 05:20 Microbiology and Other Data: Microbiology 09/17/19 17:57 Stool Occult Blood (SID) - Final Stool Assess/Plan/Problems-Billing Ms Saba is an 84 yo F who has a h/o CAD, severe MR, PVD and renal artery stenosis who presented to the ER with c/o weight loss, weakness and poor oral intake. - Patient Problems (1) Dysphagia Current Visit: Yes Status: Acute Code(s): R13.10 - DYSPHAGIA, UNSPECIFIED SNOMED Code(s): 29660673 Comment: Pt is refusing unsedated EGD. May need anesthesia assisted EGD. She has been evaluated by speech and been granted a full liquid diet. Currently NPO for possible procedure/further evaluation. She does have prolonged mastication with solids. It is unclear if she has true dysphagia or fear of eating due to abdominal pain (per Dr. Fall). 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 (2) Lower extremity weakness Current Visit: Yes Status: Acute Code(s): R29.898 - OTH SYMPTOMS AND SIGNS INVOLVING THE MUSCULOSKELETAL SYSTEM SNOMED Code(s): 516278701 Comment: Worsening over 2 weeks with inability to lift legs and now urinary incontinence and today she has had incontinence of stool. She previously reported saddle anesthesia. Neuro saw the patient yesterday and recommended MRI of the C spine for concerns of cervical myelopathy. MRI was attempted yesterday but after receiving IV ativan she became delirious and would not cooperate with the study. Once her mental status improves will need to try to see what patient is able to cooperate with. (3) CAD (coronary artery disease) Current Visit: Yes Status: Acute Code(s): I25.10 - ATHSCL HEART DISEASE OF [place] CORONARY ARTERY W/O ANG PCTRS SNOMED Code(s): 04624888 Comment: Continue ASA. No reported c/o chest pain. (4) HTN (hypertension) Current Visit: Yes Status: Acute Code(s): I10 - ESSENTIAL (PRIMARY) HYPERTENSION SNOMED Code(s): 07921156 Comment: BP is under fair control. Holding labetolol for now as she is NPO but will resume as soon as her diet is reinstated. (5) PAD (peripheral artery disease) Current Visit: Yes Status: Acute Code(s): I73.9 - PERIPHERAL VASCULAR DISEASE, UNSPECIFIED SNOMED Code(s): 892188144 Comment: Continue ASA. Given severe PAD it is not surprising she may have superior mesenteric artery stenosis. (6) Depression Current Visit: Yes Status: Acute Code(s): F32.9 - MAJOR DEPRESSIVE DISORDER , SINGLE EPISODE, UNSPECIFIED SNOMED Code(s): 25477433 Comment: Pt is typically on trazodone at bedtime- currently on hold. (7) DVT prophylaxis Current Visit: Yes Status: Acute Code(s): JVR7354 - SNOMED Code(s): 070351018 Comment: start SQ heparin as GI bleed was in 06/2019 and H/H is stable (8) DNR (do not resuscitate) Current Visit: Yes Status: Acute Status and Disposition: .
[2019-09-19] MEDS: Zinc Oxide 40% (TOPICAL)* TUBE TOPICAL SCH (12:14)
[2019-09-19] MEDS ORDERED: KCL 20 MEQ/100 ML IVPREMIX* 20 MEQ/100 ML BAG IV ONE (17:00)
[2019-09-19] MEDS ORDERED: Potassium Chloride* LIQUID 20 MEQ/15 ML UDC PO ONE (23:45)
[2019-09-20] MEDS: Pantoprazole TAB * 40 MG TAB PO SCH (10:16)
[2019-09-20] MEDS: Aspirin EC TAB* 81 MG TAB.EC PO SCH (10:16)
[2019-09-20] MEDS: Labetalol TAB* 200 MG PO SCH (10:17)
--- NOTE | 2019-09-20 12:11 | CONSULT ---
Palliative / Hospice Consult Ordering Provider: Beverley Castro - PCP-Jen Referal Reason: Goals of care/no bowel meds-having frequent stools/oxycodone - Subjective Code Status: DNR Advance Directives Location: [facility] [place] EMR MOLST Part A Completed: Yes - on chart MOLST Part E Completed:: Yes - on chart - History or Present Illness History or Present Illness: 84yo female with severe mitral regurge presents with feeling poorly, not eating and weakness in both legs. PMH is significant for CAD IL in 04/2019 with stent, recurrent GI bleed 06/2019 related to Brilinta, severe MR declining surgery, PVD , renal a.stenosis, recurrent C.Diff, HTN, hyperlipidemia and lumbar stenosis with sciatica. 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 Studies ekg-nsr, echo-EF 55-60%, MV prolapse with severe regurge , TV with mod-severe regurge, abd arterial study-proximal superior mesenteric 71 % stenosis, cervical spine MRI-spondilosis severe spinal stenosis, study ended prematurely due to pt discomfort, brain CT-chronic small vessel ischemia, upper GI barium swallow limited study but normal, H/H 12.2/36, BUN/Cr 9/.57, egfr 101 , Ca 8, Mg 1.7, alb 3.8, BNP 304 and TSH .18. Pt admitted with wt loss and difficulty eating. In last year pt has been in ER twice, one overnight hospitalization and one 23 hr obv stay. All history is from family and medical records, pt slept through interview. Lab Values: Laboratory Last Values WBC 7.5 10^3/uL (3.5-10.8) 09/19/19 05:20 RBC 4.28 10^6 /uL (3.70-4.87) 09/19/19 05:20 Hgb 12.2 g/dL (12.0-16.0) 09/19/19 05:20 Hct 36 % (35-47) 09/19/19 05:20 MCV 85 fL (80-97) 09/19/19 05:20 MCH 29 pg (27-31) 09/19/19 05:20 MCHC 34 g/dL (31-36) 09/19/19 05:20 RDW 24 % (10-15) H 09/19/19 05:20 Plt Count 174 10^3/uL (150-450) 09/19/19 05:20 MPV 9.1 fL (7.4-10.4) 09/19/19 05:20 Neut % (Auto) 77.2 % 09/19/19 05:20 Lymph % (Auto) 11.0 % 09/19/19 05:20 [place] % (Auto) 9.8 % 09/19/19 05:20 Eos % (Auto) 1.5 % 09/19/19 05:20 Baso % (Auto) 0.5 % 09/19/19 05:20 Absolute Neuts (auto) 5.8 10^3/ul (1.5-7.7) 09/19/19 05:20 Absolute Lymphs (auto) 0.8 10^3/ul (1.0-4.8) L 09/19/19 05:20 Absolute Monos (auto) 0.7 10^3/ul (0-0.8) 09/19/19 05:20 Absolute Eos (auto) 0.1 10^3/ul (0-0.6) 09/19/19 05:20 Absolute Basos (auto) 0.0 10^3/ul (0-0.2) 09/19/19 05:20 Absolute Nucleated RBC 0.0 10^3/ul 09/19/19 05:20 Nucleated RBC % 0.0 09/19/19 05:20 Anisocytosis 2+ 09/18/19 05:23 Bindu Cells 1+ 09/18/19 05:23 Elliptocytes 1+ 09/19/19 05:20 Acanthocytes (Spur) 1+ 09/18/19 05:23 Sodium 134 mmol/L (135-145) L 09/19/19 05:20 Potassium 2.9 mmol/L (3.5-5.0) L 09/19/19 05:20 Chloride 100 mmol/L (101-111) L 09/19/19 05:20 Carbon Dioxide 25 mmol/L (22-32) 09/19/19 05:20 Anion Gap 9 mmol/L (2-11) 09/19/19 05:20 BUN 9 mg/dL (6-24) 09/19/19 05:20 Creatinine 0.57 mg/dL (0.51-0.95) 09/19/19 05:20 Est GFR ( Amer) 122.3 (>60) 09/19/19 05:20 Est GFR (Non-Af Amer) 101.0 (>60) 09/19/19 05:20 BUN/Creatinine Ratio 15.8 (8-20) 09/19/19 05:20 Glucose 87 mg/dL (70-100) 09/19/19 05:20 Calcium 8.0 mg/dL (8.6-10.3) L 09/19/19 05:20 Magnesium 1.7 mg/dL (1.9-2.7) L 09/18/19 05:23 Total Bilirubin 0.90 mg/dL (0.2-1.0) 09/17/19 17:49 AST 22 U/L (13-39) 09/17/19 17:49 ALT 19 U/L (7-52) 09/17/19 17:49 Alkaline Phosphatase 80 U/L (34-104) 09/17/19 17:49 Troponin I 0.00 ng/mL (<0.03) 09/17/19 17:49 B-Natriuretic Peptide 304 pg/mL (<=100) H 09/17/19 17:49 Total Protein 6.0 g/dL (6.4-8.9) L 09/17/19 17:49 Albumin 3.8 g/dL (3.2-5.2) 09/17/19 17:49 Globulin 2.2 g/dL (2-4) 09/17/19 17:49 Albumin/Globulin Ratio 1.7 (1-3) 09/17/19 17:49 TSH 0.18 mcIU/mL (0.34-5.60) L 09/17/19 17:49 Free T4 1.07 ng/dL (0.61-1.12) 09/17/19 17:49 Free T3 3.70 pg/mL (2.5-3.9) 09/17/19 17:49 Urine Color Yellow 09/17/19 21:05 Urine Appearance Clear 09/17/19 21:05 Urine pH 6.0 (5-9) 09/17/19 21:05 Ur Specific [place] 1.006 (1.010-1.030) L 09/17/19 21:05 Urine Protein Negative (Negative) 09/17/19 21:05 Urine Ketones Negative (Negative) 09/17/19 21:05 Urine Blood Negative (Negative) 09/17/19 21:05 Urine Nitrate Negative (Negative) 09/17/19 21:05 Urine Bilirubin Negative (Negative) 09/17/19 21:05 Urine Urobilinogen Negative (Negative) 09/17/19 21:05 Ur Leukocyte Esterase Negative (Negative) 09/17/19 21:05 Urine Glucose Negative (Negative) 09/17/19 21:05 - Objective Active Medications: Acetaminophen (Tylenol Tab*) 650 mg PO Q6H PRN PRN Reason: MILD PAIN or TEMP > 100.4 Aspirin (Aspirin Ec Tab*) 81 mg PO QAM [facility] Last Admin: 09/20/19 10:16 Dose: 81 mg Labetalol HCl (Trandate Tab*) 100 mg PO DAILY [facility] Last Admin: 09/20/19 10:17 Dose: 100 mg Miscellaneous (Ativan Pyxis Casanova) 1 ea N/A .ATIVAN IV CASANOVA PRN PRN Reason: PYXIS CASANOVA Nitroglycerin (Nitroglycerin Tab 0.4 Mg*) 0.4 mg SL Q5M PRN PRN Reason: chest pain Ondansetron HCl (Zofran Inj*) 4 mg IV Q6H PRN PRN Reason: NAUSEA Oxycodone/Acetaminophen (Percocet 5/325 Tab*) 1 tab PO Q6H PRN PRN Reason: PAIN Pantoprazole Sodium (Protonix Tab*) 40 mg PO DAILY [facility] Last Admin: 09/20/19 10:16 Dose: 40 mg Zinc Oxide (Zinc Oxide 40% (Topical)*) 1 applic TOPICAL .EVERY CLEANING [facility] Last Admin: 09/19/19 12:14 Dose: 1 applic Vital Signs: Vital Signs: Temp Pulse Resp BP Pulse Ox 97.1 F 56 16 117/45 95 09/20/19 11:15 09/20/19 11:15 09/20/19 11:15 09/20/19 11:15 09/20/19 11:15 Patient Weight: Weight 55.656 kg Intake and Output: Intake & Output 02/2409/19/19 09/20/19 09/21/19 06:59 06:59 06:59 06:59 Intake Total 1100 300 0 120 Output Total 794 677 2909 Balance 700 150 -1078 120 Weight 56.427 kg 58.559 kg 55.656 kg Intake: IV Fluids 1100 Oral 0 300 0 120 Output: Urine 150 1000 Straight Cath 400 Post Void Residual 78 Other: Estimated Void Large Small # Bowel Movements 2 0 several 1 Estimated Stool Amount Medium Small Small Small # Voids 0 0 0 ADLs: Meal Record Start: 09/17/19 22: 13 Freq: DAILY@0900,1400,1800 Status: Active Protocol: Created 09/17/19 22:13 System (Rec: 09/17/19 22:13 System MED-M22) Document 09/18/19 08:59 [id number] (Rec: 09/18/19 08:59 [id number] MED-C11) Document 09/18/19 14:00 [id number] (Rec: 09/18/19 14:38 [id number] MED-C11) Document 09/18/19 18:00 [id number] (Rec: 09/18/19 23:18 [id number] MED-C14) Document 09/19/19 09:00 [id number] (Rec: 09/19/19 09:47 [id number] MED-C09) Document 09/19/19 13:17 [id number] (Rec: 09/19/19 13:19 [id number] MED-C09) Document 09/19/19 18:00 [id number] (Rec: 09/19/19 18:19 [id number] MED-C09) Document 09/20/19 09:00 [id number] (Rec: 09/20/19 09:53 [id number] MED-C09) Intake and Output Start: 09/17/19 17: 23 Freq: Status: Active Protocol: Created 09/17/19 17:23 System (Rec: 09/17/19 17:23 System ED-C24) Intake and Output Start: 09/17/19 22: 13 Freq: DAILY@0600,1400,2200 Status: Active Protocol: Created 09/17/19 22:13 System (Rec: 09/17/19 22:13 System MED-M22) Document 09/18/19 04:42 [id number] (Rec: 09/18/19 04:43 [id number] MED-M22) Document 09/18/19 05:38 [id number] (Rec: 09/18/19 05:47 [id number] MED-C02) Document 09/18/19 14:00 [id number] (Rec: 09/18/19 14:39 [id number] MED-C11) Document 09/18/19 22:00 [id number] (Rec: 09/18/19 23:26 [id number] MED-C14) Document 09/19/19 05:36 [id number] (Rec: 09/19/19 05:38 [id number] MED-C09) Document 09/19/19 13:17 [id number] (Rec: 09/19/19 13:19 [id number] MED-C09) Document 09/19/19 22:00 [id number] (Rec: 09/19/19 22:30 [id number] MED-C15) Document 09/20/19 06:00 [id number] (Rec: 09/20/19 06:32 [id number] MED-C15) Eyes: No Scleral Icterus Ears/Nose/Mouth/Throat: Mucous Membranes Moist Neck: NL Appearance and Movements; NL JVP Cardiovascular: NL Sounds; No Murmurs; No JVD, RRR, No Edema Respiratory: Clear to Auscultation Abdominal: NL Sounds; No Tenderness; No Distention Extremities: No Clubbing, Cyanosis Neurological: - - agitated - Assessment Assessment: 84yo female with severe mitral valve regurge, CAD presents with failure to thrive and bilateral leg weakness - Plan Consult Plan (MU): Palliative Plan: Long discussion with family about goals of care. Family describes that pt has been losing weight because she gets full quickly or has no appetite. She has also lost the ability to ambulate in last 2 weeks. In addition, she has been having trouble urinating, frequent stooling and has declined several interventions like repairing her mitral valve. Family states that pt has mentioned that she is okay with going to [facility] after hospitalization. Pt' s had dementia and was at [facility] for 4 years, but pt has no interest in going there. We discussed going to SNF for CHARANJIT and what it entails. I also discussed the difference between CHARANJIT and placement. Hospice information/ brochure was given and explained it can be received in home, SNF or residence. Family is interested in CHARANJIT at [facility] as of now. After CHARANJIT, family leaning toward hospice either at home or at [facility] if she continues to decline. Will update case management. Hospice eligibility is based on severe mitral valve regurge declining intervention with CAD, ischemia mesenteric a, not eating causing 50 pd weight loss, inability to ambulate and overall general decline. KPS 50%, PPS 50% - Time On Unit Date of Evaluation: 09/20/19 Hospice Consult Time in: 11:00 Hospice Consult Time Out: 12:00 Hospice Consult Time Total: 60 > 50% of Time Spend In Counseling or Coordinating Care: Yes
--- NOTE | 2019-09-20 14:34 | CONS ---
NEUROLOGY CONSULT FOLLOWUP: DATE OF FOLLOWUP: 09/20/19 LOCATION: She is an inpatient in room 405. HOSPITALIST: Dr. Starr. CHIEF COMPLAINT: Weakness, incontinence. INTERVAL HISTORY: Since 09/18/19, Ms. Saba did have an MRI scan of her cervical spine after some lorazepam sedation. However, she was still very agitated and not able to hold still. The interpretation of the MRI scan showed severe spinal stenosis at C3-4 and C4-5 with at least moderate spinal stenosis at C5-6 and C6-7. I reviewed the images, although they are limited, I agreed there is severe spinal stenosis at least at the C4-5 level, if not at both levels. Because of the motion artifact, it is hard to tell if there are any intraaxial abnormalities. Her [id number], Maral is present this afternoon. She said she was able to sit up and eat some today. She was pretty sleepy and delirious after the MRI scan and the associated sedation, but that seems to be improved today. MEDICATIONS: Reviewed and she is on: 1. Aspirin 81 mg p.o. daily. 2. Labetalol 100 mg p.o. daily. 3. Zofran 4 mg IV q.6 hours as needed for nausea. 4. Oxycodone/acetaminophen 5/325 one p.o. q.6 hours as needed for pain. 5. Protonix 40 mg p.o. daily. PHYSICAL EXAM: Other than to ask how she is feeling, Ms. Saba was not examined today. She is afebrile. Her blood pressure most recently recorded as 117/45. IMPRESSION AND PLAN: My impression is that Ms. 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 She is also cognitively impaired with a suspicion of an underlying dementia. Dr. Flores has been consulted for palliative and hospice consult. I discussed with Maral and her friend who is present my impression regarding Kasie's weakness and the cervical spinal pathology. I told them that cervical spine decompressive surgery would be needed to give her some hopes of recovering lower extremity function in my opinion. I told them there was no guarantee that she would recover lower extremity function and the surgery could be fairly traumatic to her with postoperative delirium likely. I also explained that she probably need a better neuro imaging procedure, which might require anesthesia. After some discussion, they are going to discuss the situation internally with the family and decide whether they would like to proceed with neurosurgical consultation. Therefore, I have withdrawn the consultation to Dr. Mcmahon of Neurosurgery until we hear back from the family. I have discussed my impression with Dr. Starr who is her hospitalist currently as well. [id number]/[facility] #: [id number] MTDD
--- NOTE | 2019-09-20 15:09 | CONSULT ---
Consult Consult: Date of Service: 09/20/19 Patient: KASIE KURTZ /Age: 08 1935 84 Medical Record#: [id number] Admission Date: 09/18/19 Reason for consultation: 50 pound unintentional weight loss over 12 months secondary to food aversion. Requesting provider: Arthur Fall MD HPI: Her [id number] "Maral" was present for the entire bedside consultation and largely supplemented her clinical history. Ms. Kurtz is an 84-year-old female with a complicated medical history including a recent diagnosis of anemia secondary to GI bleed. She has a history of peripheral vasculopathy requiring a left femoropopliteal bypass graft at [facility]. The GI bleed and anemia had resolved once her Brilinta was stopped. She does have a history of severe MR, pulmonary hypertension. The patient had a planned upper endoscopy but since the GI bleed resolved this was canceled. The patient underwent a suboptimal upper GI barium swallow that reveals only a small hiatal hernia. The patient does tell me that she has a difficult time swallowing everything because "most food is disgusting". She states that it gets into the back of her mouth and then oftentimes she spits it back up. She denies any lack of taste. She does have some abdominal pain after eating. She and her daughter a lot described a "tight band-like sensation" around the abdomen that is worse after she has eaten. The patient and her evxbjdke-um-nul report approximately 50 pound weight loss over the past one year. She also reports lower extremity weakness and an inability to walk. Her upper extremities also feel "weak and wobbly". PAST MEDICAL HISTORY: Severe MR Coronary artery disease Peripheral vascular disease Renal artery stenosis History of C. difficile Anemia. PAST SURGICAL HISTORY: Includes cardiac stents (LAD) in 2019, Left fem-pop bypass Renal artery bypass MEDICATIONS UPON ADMISSION: 1. Aspirin 81 mg p.o. daily. 2. Labetalol 100 mg p.o. daily. 3. Magnesium oxide 400 mg p.o. daily. 4. Nitroglycerin 0.4 mg sublingually as needed. 5. Percocet 5/325 one tab p.o. q. 6 hours as needed. 6. Trazodone 200 mg p.o. daily. 7. Ventolin inhaler as needed. ALLERGIES: No known drug allergies. FAMILY HISTORY: The patient's mother of old age. The patient's father of OR at 45. The patient has several siblings who of complications of alcoholism. SOCIAL HISTORY: The patient smoked for approximately 40 to 50 years but quit 23 years ago. The patient denies drinking ever, any illicit drugs. 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 The patient is and has 1 son. REVIEW OF SYSTEMS: A 10-point review of systems was reviewed and is negative, except as above in the HPI. Physical Examination: Selected Entries 09/20/19 11:15 Temperature 97.1 F Temperature Temporal Artery Source Scan Pulse Rate 56 Respiratory 16 Rate Blood Pressure 117/45 (mmHg) Blood Pressure 69 Mean O2 Sat by Pulse 95 Oximetry GENERAL: The patient is an 84-year-old female who appears very pale, sitting in bed, in no acute distress. HEENT: Head: Normocephalic, atraumatic. Sclerae anicteric. No conjunctival injection. Nasal mucosa moist. Oral mucosa moist. No pharyngeal erythema, discharge, or exudate. Dentures. NECK: Supple, nontender. No lymphadenopathy. No JVD. RESPIRATORY: Clear to auscultation bilaterally. No wheezes, rales, or rhonchi. Good air exchange bilaterally. CARDIOVASCULAR: Regular rate and rhythm. Grade 4/6 holosystolic murmur heard best at the apex. 1+ pulses palpated at bilateral FURNITURE REFINISHER, left pop Difficult to confidently palpate pedal pulses or right pop + bruit ausculated over the midline supraumbilical abdomen ABDOMEN: Soft, nontender, nondistended. Bowel sounds present and normoactive in all 4 quadrants. No hepatosplenomegaly. GENITOURINARY: No suprapubic or CVA tenderness. NEURO: Cranial nerves II through XII intact. No focal deficits. Responsive to voice. Oriented to person, time, family members, but she thinks she is at home. SKIN: Clean, dry, and intact. No rash. Labs: Laboratory Tests 09/17/19 09/19/19 09/19/19 17:49 05:20 05:20 Hgb 12.2 Hct 36 Plt Count 174 BUN 9 Creatinine 0.57 Est GFR (Non-Af Amer) 101.0 B-Natriuretic Peptide 304 H Relevant Imaging: Patient Name: KASIE KURTZ Medical Record#: [id number] Ordering Physician: Arthur Fall MD Acct.#: [id number] : 1935 Age: 84 Sex: F Location: [address] [place] [address] Exam Date: 09/18/19 1009 ADM Status: ADM IN Order Information: VL MESENTERIC ART DOPPLER Accession Number: [id number] CPT: 64998 INDICATION: Postprandial pain COMPARISON: None. TECHNIQUE: Montoya scale, color Doppler, and spectral analysis of the abdominal aorta and mesenteric arteries was performed. REPORT: All velocities are measured in centimeters per second unless otherwise specified Aortic velocities: Proximal: 72 cm/s Mid: 72 cm/s Distal: 56 cm/s Celiac axis velocities: Peak Systolic Velocity / End Diastolic Velocity Artery/Aorta Velocity Ration Trunk: 159 / 24 2.2 Splenic A: 86 / 21 1.2 Hepatic A: 82 / 10 1.1 The celiac access is patent and morphologically normal. Superior mesenteric artery velocities: Peak Systolic Velocity / End Diastolic Velocity Artery/Aorta Velocity Ration Origin: 239 / 43 3.3 Proximal: 280 / 45 3.9 Distal: 233 / 15 3.2 There is coarse atherosclerotic calcification scattered in the visualized portions of the superior mesenteric artery. Inferior mesenteric artery velocities: The inferior mesenteric artery cannot be discretely visualized partially due to overlying bowel gas. IMPRESSION: 1. Flow velocities and ratio to the aorta at the proximal superior mesenteric artery are consistent with a greater than 70% degree stenosis. Without an alternative etiology for postprandial pain and unintentional weight loss, further vascular work up is likely appropriate. 2. No flow can be identified in the inferior mesenteric artery. <Electronically signed by Bari Lima MD in OV> 09/18/191754 Dictated By: Bari Lima MD Dictated Date/Time: 09/18/19 5639 *[facility]* [place] [address] Fax #: [phone] Transthoracic Echocardiogram Patient: Kasie Kurtz : 1935 Study Date: 09/18/2019 Age: 84 Gender: F HR: 64 bpm Height: 67 in /170.2 cm BSA: 1.6 m^2 Weight: 119.7 lb /54.4 kg BMI: 18.8 kg/m^2 *Infant And Toddler Teacher: Telma Wheat *Referring Physician: * Tomás Valladares *Reading Physician: * Memo Sanford MD Indications: Mitral lnsufficiency. History: Coronary artery disease. Mitral regurgitation. Risk factors: Hypertension. Dyslipidemia. Conclusions Summary: - Left ventricle: Systolic function is normal. The estimated ejection fraction is 55-60%. Wall motion is normal; there are no regional wall motion abnormalities. - Atrial septum: No defect or patent foramen ovale is identified. - Mitral valve: Moderate prolapse of both the anterior and posterior middle scallop There is no evidence of stenosis. There is severe regurgitation. - Aortic valve: There is no evidence of stenosis. - Tricuspid valve: There is moderate-severe regurgitation. - Pericardium, extracardiac: There is no significant pericardial effusion. - Compared to report of 05/06/19, the left ventricle function is the same. The mitral regurgitation is slightly worse. Study data: Transthoracic echocardiogram. Procedure: This report is only to be considered final once signed by the Provider(s) as displayed in the "<Electronically Signed by >" field (s). Absence of a signature indicates the report is in a draft status and still needs to be finalized. In the event this document was created by someone other than the signing Provider, the individual initiating the document will be listed in the "Entered by:" or "Dictated by:" ortiz. Assessment: 84-year-old vasculopathic woman with a 1 year history of food aversion, postprandial abdominal pain and 50 pound unintentional weight loss. I have a high clinical suspicion that the patient's weight loss and abdominal symptoms are at least partially, if not mostly, due to mesenteric ischemia. Plan: 1. Catheter directed diagnostic aortography and mesenteric angiography. 2. Possible mesenteric endovascular intervention in the near future should the diagnostic aortogram/arteriogram demonstrate flow-limiting disease that is amenable to stenting.
[2019-09-20] MEDS ORDERED: Lidocaine 1% INJ* 10 MG/ML 30 ML SDV ONE (15:51)
[2019-09-20] MEDS ORDERED: Iohexol 350 (CONTRAST) 200 ML MDV IV ONE (15:51)
[2019-09-20] MEDS ORDERED: Heparin 2 UNITS/ML IVPREMIX* 2,000 ML IV ONE (15:52)
[2019-09-20] MEDS ORDERED: fentaNYL* 50 MCG/ML 2 ML VIAL (100 MCG VIAL) ONE (16:10)
[2019-09-20] MEDS ORDERED: Midazolam* 1 MG/ML 5 ML VIAL (5 MG) ONE (16:11)
--- NOTE | 2019-09-20 16:18 | PN ---
Subjective Date of Service: 09/20/19 Interval History: Patient seen today, doing the same, I appreciate the input from neurology, Interventional and palliative care. I did meet with the daughter in law at bedside and explained her current clinical condition. She is aware that patient has cervical stenosis and contributing to her weakness. she continue to have increase pain with diet and food-phobia. Social History: Unchanged from Admission Past Medical History: Unchanged from Admission Objective Active Medications: Acetaminophen (Tylenol Tab*) 650 mg PO Q6H PRN PRN Reason: MILD PAIN or TEMP > 100.4 Aspirin (Aspirin Ec Tab*) 81 mg PO QAM [facility] Last Admin: 09/20/19 10:16 Dose: 81 mg Labetalol HCl (Trandate Tab*) 100 mg PO DAILY [facility] Last Admin: 09/20/19 10:17 Dose: 100 mg Miscellaneous (Ativan Pyxis Guzman) 1 ea N/A .ATIVAN IV GUZMAN PRN PRN Reason: PYXIS GUZMAN Nitroglycerin (Nitroglycerin Tab 0.4 Mg*) 0.4 mg SL Q5M PRN PRN Reason: chest pain Ondansetron HCl (Zofran Inj*) 4 mg IV Q6H PRN PRN Reason: NAUSEA Oxycodone/Acetaminophen (Percocet 5/325 Tab*) 1 tab PO Q6H PRN PRN Reason: PAIN Pantoprazole Sodium (Protonix Tab*) 40 mg PO DAILY [facility] Last Admin: 09/20/19 10:16 Dose: 40 mg Zinc Oxide (Zinc Oxide 40% (Topical)*) 1 applic TOPICAL .EVERY CLEANING [facility] Last Admin: 09/19/19 12:14 Dose: 1 applic Vital Signs - 8 hr 09/20/19 11:15 Temperature 97.1 F Pulse Rate 56 Respiratory 16 Rate Blood Pressure 117/45 (mmHg) O2 Sat by Pulse 95 Oximetry Oxygen Devices in Use Now: None Appearance: awake, alert, no distress Eyes: No Scleral Icterus Ears/Nose/Mouth/Throat: Mucous Membranes Moist Neck: Trachea Midline Respiratory: Clear to Auscultation Cardiovascular: NL Sounds; No Murmurs; No JVD, No Edema Neurological: - - lower extremety weakness bilateral left worse than right. 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, though could not go into specifics beyond only tolerating light foods; currently on full liquid diet - Anticipate meeting <75% nutrient needs >1 mo (severe) Unintentional Weight Loss - Pt reports 50lb wt loss x1 yr; current wt 124lb, UBW 175 (06/2018) , prev wt on record 142lb (06/2019) - 12.7% loss x2 mos (severe) Malnutrition Assessment: Nutritional Supplementals/Nourishments - Will Interventions trial Ensure Enlive (350kcal, 20g prot/serv) at B and D daily to optimize kcal/prot intake; will monitor acceptance GI Related - Recommend continuing antiemetic PRN and giving antidiarrheal as indicated; will monitor GI s/sx for ability to advance diet and impact on intake Texture Modifications - SALES REPRESENTATIVE MALT LIQUORS recommending thin liquids until further GI work-up is completed; will monitor tolerance and recommend SALES REPRESENTATIVE MALT LIQUORS f/u as indicated Malnutrition Assessment: Goals 1) Recommend advancing diet as able 2) Pt will tolerate diet advancement w/o exac/ development of GI s/sx 3) Adequate po intake to replete lean body mass and support hydration status 4) Improve fluid/electrolyte balance w/ adequate po intake and repletion PRN 5) Maintain bowel regularity w/ adequate po intake and bowel meds w/o exac of diarrhea/ development of constipation Result Diagrams: 09/19/19 05:20 09/19/19 05:20 Microbiology and Other Data: Microbiology 09/17/19 17:57 Stool Occult Blood (SID) - Final Stool Assess/Plan/Problems-Billing Ms Saba is an 84 yo F who has a h/o CAD, severe MR, PVD and renal artery stenosis who presented to the ER with c/o weight loss, weakness and poor oral intake. - Patient Problems (1) Cervical stenosis of spinal canal Current Visit: Yes Status: Acute Code(s): M48.02 - SPINAL STENOSIS, CERVICAL REGION SNOMED Code(s): 76833545 Comment: - appreicate Neurology input. - MRI althought poor study due to motion artificat it did shows evidence of cervical stenosis which can explain her weakness and dysphagia as well - Family at bedside updated. At this time they are in process of deciding regarding aggressive approach versus palliative care approach (2) Dysphagia Current Visit: Yes Status: Acute Code(s): R13.10 - DYSPHAGIA, UNSPECIFIED SNOMED Code(s): 61303563 Comment: - Pt did refuse unsedated EGD. - She has been evaluated by speech and been granted a full liquid diet. - Abdominal artery ultrasound reveals possible 70% stenosis of the superior mesenteric artery. Dr. Clarke has been consulted and in the process of evaluating patient if she is candidate for mesenteric artery angioplasty and stent placement (3) Lower extremity weakness Current Visit: Yes Status: Acute Code(s): R29.898 - OTH SYMPTOMS AND SIGNS INVOLVING THE MUSCULOSKELETAL SYSTEM SNOMED Code(s): 863339945 Comment: - Worsening over past several weeks with inability to lift legs and now urinary incontinence and incontinence of stool. - Neuro saw the patient and recommended MRI of the C spine for concerns of cervical myelopathy. - MRI was attempted was not adequate images due to motion artifact. Nonetheless I reviwed images with Dr. Anderson and it did reveals cervical stenosis. - Family aware and they are in the process of deciding for aggressive intervention versus palliative care approach. Neurosurgery has not been consulted as of yet. (4) DVT prophylaxis Current Visit: Yes Status: Acute Code(s): UEV6521 - SNOMED Code(s): 885988535 Comment: start SQ heparin as GI bleed was in 06/2019 and H/H is stable Status and Disposition: .
[2019-09-20] MEDS: Zinc Oxide 40% (TOPICAL)* TUBE TOPICAL SCH (18:40)
[2019-09-20] MEDS ORDERED: NS 0.9% 1000 ML** 1,000 ML IV SCH (19:15)
[2019-09-21 08:01] LABS: ABS Eosinophils 0.2 10^3/ul (0-0.6); ABS Lymphocytes 0.7 10^3/ul (1.0-4.8); ABS Monocytes 0.7 10^3/ul (0-0.8); ABS Neutrophils 6.3 10^3/ul (1.5-7.7); Eosinophil % 1.9 %; Hematocrit 37 % (35-47); Hemoglobin 12.9 g/dL (12.0-16.0); Mean Corpuscular HGB Conc 35 g/dL (31-36); Mean Corpuscular Hemoglobin 30 pg (27-31); Mean Corpuscular Volume 85 fL (80-97); Mean Platelet Volume 9.1 fL (7.4-10.4); Nucleated Red Blood Cells % 0.1; Platelet Count 174 10^3/uL (150-450); Red Blood Count 4.37 10^6 /uL (3.70-4.87); Red Cell Distribution Width 24 % (10-15); White Blood Count 7.9 10^3/uL (3.5-10.8)
[2019-09-21 08:09] LABS: BUN/Creatinine Ratio 14.8 (8-20); Calcium 7.9 mg/dL (8.6-10.3); EGFR African American 130.1 (>60); EGFR Non-African American 107.6 (>60); Magnesium 1.4 mg/dL (1.9-2.7); Phosphorus 2.5 mg/dL (2.5-5.0); Potassium 3.3 mmol/L (3.5-5.0)
[2019-09-21] MEDS: Aspirin EC TAB* 81 MG TAB.EC PO SCH (09:35)
[2019-09-21] MEDS: Pantoprazole TAB * 40 MG TAB PO SCH (09:35)
[2019-09-21] MEDS: Labetalol TAB* 200 MG PO SCH (09:36)
[2019-09-21] MEDS ORDERED: Magnesium Sulfate 2 GM IV* 2 GM/50 ML BAG IVPB ONE (10:36)
[2019-09-21] MEDS: Potassium Chloride* LIQUID 20 MEQ/15 ML UDC PO SCH ×2 (10:42→21:40)
[2019-09-21] MEDS: NS 0.9% 1000 ML** 1,000 ML IV SCH (10:42)
--- NOTE | 2019-09-21 10:59 | PN ---
Subjective Date of Service: 09/21/19 Interval History: seen this morning. remain flat affect. awake with conversations. poor appetite. poor oral intake. IVF @ 125 cc. Labs reviewed mag and potassium supplemented. I ordered to decrease fluid rate to help appetite. Remeron 7.5 mg HS ordered. calorie count and nutrition consult ordered Past Medical History: Unchanged from Admission Objective Active Medications: Acetaminophen (Tylenol Tab*) 650 mg PO Q6H PRN PRN Reason: MILD PAIN or TEMP > 100.4 Aspirin (Aspirin Ec Tab*) 81 mg PO QAM [facility] Last Admin: 09/21/19 09:35 Dose: 81 mg Sodium Chloride (Ns 0.9% 1000 Ml) 1,000 mls @ 80 mls/hr IV PER RATE [facility] Last Admin: 09/21/19 10:42 Dose: 80 mls/hr Magnesium Sulfate (Magnesium Sulfate 2 Gm Iv*) 2 gm in 50 mls @ 50 mls/hr IVPB ONCE ONE Stop: 09/21/19 11:35 Last Admin: 09/21/19 10:42 Dose: 50 mls/hr Labetalol HCl (Trandate Tab*) 100 mg PO DAILY [facility] Last Admin: 09/21/19 09:36 Dose: 100 mg Magnesium Oxide (Magox 400 Tab*) 400 mg PO BID [facility] Mirtazapine (Remeron Tab*) 7.5 mg PO BEDTIME [facility] Miscellaneous (Ativan Pyxis Guzman) 1 ea N/A .ATIVAN IV GUZMAN PRN PRN Reason: PYXIS GUZMAN Nitroglycerin (Nitroglycerin Tab 0.4 Mg*) 0.4 mg SL Q5M PRN PRN Reason: chest pain Ondansetron HCl (Zofran Inj*) 4 mg IV Q6H PRN PRN Reason: NAUSEA Oxycodone/Acetaminophen (Percocet 5/325 Tab*) 1 tab PO Q6H PRN PRN Reason: PAIN Pantoprazole Sodium (Protonix Tab*) 40 mg PO DAILY [facility] Last Admin: 09/21/19 09:35 Dose: 40 mg Potassium Chloride (Potassium Chloride Liquid) 20 meq PO BID [facility] Last Admin: 09/21/19 10:42 Dose: 20 meq Zinc Oxide (Zinc Oxide 40% (Topical)*) 1 applic TOPICAL .EVERY CLEANING [facility] Last Admin: 09/20/19 18:40 Dose: 1 applic Vital Signs - 8 hr 09/21/19 09/21/19 09/21/19 03:31 04:44 07:10 Temperature 98.8 F 98.1 F Pulse Rate 68 85 Respiratory 16 18 Rate Blood Pressure 182/80 155/82 159/77 (mmHg) O2 Sat by Pulse 98 98 Oximetry 09/21/19 08:00 Temperature Pulse Rate Respiratory 18 Rate Blood Pressure (mmHg) O2 Sat by Pulse Oximetry Oxygen Devices in Use Now: None Appearance: awake, alert no distress. Flat affect. follows command. respond appropriately to questions Eyes: No Scleral Icterus, - - EOMI Ears/Nose/Mouth/Throat: NL Teeth, Lips, Gums, Mucous Membranes Moist Neck: NL Appearance and Movements; NL JVP, Trachea Midline Respiratory: Symmetrical Chest Expansion and Respiratory Effort, Clear to Auscultation Cardiovascular: NL Sounds; No Murmurs; No JVD, No Edema Abdominal: NL Sounds; No Tenderness; No Distention Extremities: No Edema Skin: No Rash or Ulcers Neurological: - - signficant decrease weakness LLE 2/5; RLE 3/5 - Nutrition: Malnutrition Diagnosis/Plan Malnutrition Assessment by Registered Dietitian: Malnutrition Assessment Clinical Characteristics Chronic,Severe Malnutrition Assessment: Muscle Wasting - Temporal (severe) Criteria Inadequate Oral Intake - 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, 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 could not go into specifics beyond only tolerating light foods; currently on full liquid diet - Anticipate meeting <75% nutrient needs >1 mo (severe) Unintentional Weight Loss - Pt reports 50lb wt loss x1 yr; current wt 124lb, UBW 175 (06/2018) , prev wt on record 142lb (06/2019) - 12.7% loss x2 mos (severe) Malnutrition Assessment: Nutritional Supplementals/Nourishments - Will Interventions trial Ensure Enlive (350kcal, 20g prot/serv) at B and D daily to optimize kcal/prot intake; will monitor acceptance GI Related - Recommend continuing antiemetic PRN and giving antidiarrheal as indicated; will monitor GI s/sx for ability to advance diet and impact on intake Texture Modifications - SMALL CRAFT OPERATOR recommending thin liquids until further GI work-up is completed; will monitor tolerance and recommend SMALL CRAFT OPERATOR f/u as indicated Malnutrition Assessment: Goals 1) Recommend advancing diet as able 2) Pt will tolerate diet advancement w/o exac/ development of GI s/sx 3) Adequate po intake to replete lean body mass and support hydration status 4) Improve fluid/electrolyte balance w/ adequate po intake and repletion PRN 5) Maintain bowel regularity w/ adequate po intake and bowel meds w/o exac of diarrhea/ development of constipation Result Diagrams: 09/21/19 07:41 09/21/19 07:41 Microbiology and Other Data: Microbiology 09/17/19 17:57 Stool Occult Blood (SID) - Final Stool Assess/Plan/Problems-Billing Ms Saba is an 84 yo F who has a h/o CAD, severe MR, PVD and renal artery stenosis who presented to the ER with c/o weight loss, weakness and poor oral intake. - Patient Problems (1) Cervical stenosis of spinal canal Current Visit: Yes Status: Acute Code(s): M48.02 - SPINAL STENOSIS, CERVICAL REGION SNOMED Code(s): 06695135 Comment: - appreicate Neurology input. - MRI althought poor study due to motion artificat it did shows evidence of cervical stenosis, which can explain her weakness and dysphagia as well - Family at bedside updated last night. At this time they are in process of deciding regarding aggressive approach versus palliative care approach (2) Dysphagia Current Visit: Yes Status: Acute Code(s): R13.10 - DYSPHAGIA, UNSPECIFIED SNOMED Code(s): 32617048 Comment: - Pt did refuse unsedated EGD. - She has been evaluated by speech and been granted a full liquid diet. - Abdominal artery ultrasound reveals possible 70% stenosis of the superior mesenteric artery. Dr. Clarke has been consulted and in the process of evaluating patient if she is candidate for mesenteric artery angioplasty and stent placement - Possible depression is also a factor. Will add zoloft 25 mg now and increase to 50 mg in a week. remeron 7.5 mg HS to help with appetite. Will place nutrition consult and calorie count (3) Lower extremity weakness Current Visit: Yes Status: Acute Code(s): R29.898 - OTH SYMPTOMS AND SIGNS INVOLVING THE MUSCULOSKELETAL SYSTEM SNOMED Code(s): 415578300 Comment: - Worsening over past several weeks with inability to lift legs and now urinary incontinence and incontinence of stool. - Neuro saw the patient and recommended MRI of the C spine for concerns of cervical myelopathy. - MRI was attempted was not adequate images due to motion artifact. Nonetheless I reviwed images with Dr. Anderson and it did reveals cervical stenosis. - Family aware and they are in the process of deciding for aggressive intervention versus palliative care approach. Neurosurgery has not been consulted as of yet. (4) DVT prophylaxis Current Visit: Yes Status: Acute Code(s): JWE3701 - SNOMED Code(s): 063527433 Comment: start SQ heparin as GI bleed was in 06/2019 and H/H is stable Status and Disposition: .
[2019-09-21] MEDS: Sertraline* 25 MG TAB PO SCH (12:20)
--- NOTE | 2019-09-21 16:03 | CONS ---
NEUROLOGY CONSULTATION FOLLOWUP: DATE OF FOLLOWUP: 09/21/19 LOCATION: She is an inpatient in room 405. HOSPITALIST: Dr. Starr. CHIEF COMPLAINT: Weakness, incontinence. INTERVAL HISTORY: I spoke with Kasie's [id number], Maral. They are deciding whether or not to have an interventional procedure for possible intestinal ischemia with Dr. Lima. They have talked about possible cervical decompression of her probable cervical stenosis and at this point are not willing to move forward with that. I told them that I am available to talk to if they have other questions, but I agree that it would make more sense to pursue the intestinal issues first because if she continues to decline from a nutritional aspect it is not likely she would benefit from cervical decompression and the need for wound healing and rehabilitation. Please contact me if you would like Neurology to get involved again, otherwise I will sign out. [id number]/CPS #: [id number] DAISY
--- NOTE | 2019-09-21 16:09 | PN ---
Progress Note - Progress Note Date of Service: 09/21/19 Note: pt seen and examined; dtr in law, Maral present still c/o abd pain, trying to eat more VS; 97.6, 132/53, 52 nad +bs, soft Hgb 12.9 abd pain--->possibly mesenteric ischemia contributing, s/p angio to eval ? occlusion/stenosis? anemia--->resolved, Arthur Fall MD
[2019-09-21] MEDS ORDERED: Mirtazapine TAB* 15 MG PO SCH (21:00)
[2019-09-21] MEDS: Magnesium Oxide TAB* 400 MG PO SCH (21:40)
[2019-09-22] MEDS: Pantoprazole TAB * 40 MG TAB PO SCH (09:39)
[2019-09-22] MEDS: Labetalol TAB* 200 MG PO SCH (09:40)
[2019-09-22] MEDS: Magnesium Oxide TAB* 400 MG PO SCH (09:40)
[2019-09-22] MEDS: Aspirin EC TAB* 81 MG TAB.EC PO SCH (09:41)
[2019-09-22] MEDS: Potassium Chloride* LIQUID 20 MEQ/15 ML UDC PO SCH (09:41)
[2019-09-22] MEDS: Sertraline* 25 MG TAB PO SCH (09:41)
[2019-09-22] MEDS: NS 0.9% 1000 ML** 1,000 ML IV SCH (12:56)
--- NOTE | 2019-09-22 15:44 | DS ---
CC: Dr. Марина Obando; Dr. Arthur Fall; Dr. Drew Rogers DATE OF ADMISSION: 09/18/2019. DATE OF DISCHARGE: 09/22/2019. FINAL DISCHARGE DIAGNOSES: 1. Anemia, chronic, resolved. 2. Anorexia unrelated to abdominal pain. 3. Cervical stenosis. 4. Lower extremity weakness. 5. Depression and apathy. 6. History of coronary artery disease. 7. Hypertension. 8. Hyperlipidemia. 9. Severe mitral regurg. HOSPITAL COURSE: The patient presented to [facility] on September 18 secondary to decreased oral intake and lower extremity weakness associated with weight loss and difficulty ambulating and moving lower leg. She was seen and evaluated by GI, Neurology, and Interventional Radiology while in the hospital. On presentation, her diagnostic work-up was fairly unremarkable with the exception of chronic anemia and some mild electrolyte disturbance, were appropriately supplemented and replaced and over the course of several days she was seen by GI, Neurology, and Interventional Radiology. 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 Regarding her lower extremity, she was seen and evaluated by Neurology, Dr. Anderson, and he ordered a cervical MRI which shows significant spinal stenosis at least moderate, but it was obscured by severe motion artifact. I reviewed the case with Dr. Anderson and he still believes that stenosis is more severe than indicated on the MRI due to her motion artifact. She was maintained on full liquid and Speech Pathology evaluated the patient and actually she was cleared to have a soft diet. We had a discussion with the family, son and [id number], and explained that potential mesenteric ischemic could lead to food phobia, weight loss and progressive weakness and regarding her cervical stenosis which could be causing the lower extremity weakness. After discussion and weighing the benefits and risks, the last 24 to 48 hours, they elected not to pursue cervical intervention given the risk of noncompliance postoperatively given her underlying dementia and noncompliance which could led to worse complications postoperative, including infection, loosening of the hardware, they opted not to pursue. However, they did want to pursue treatment for the mesenteric ischemia. Interventional Radiology, Dr. Lima, was consulted and the patient underwent mesenteric angiogram. I did speak with him personally over the phone and reviewed the mesenteric arteriogram and apparently it did not show significant disease as initially was thought by the ultrasound. Therefore, there was no indication or any need for any angioplasty or intervention. With that information, I revisited with the family and furthered my belief we need to focus on her anorexia which probably could be related to depression and apathy given her cervical stenosis, decreased mobility, becoming bed bound to wheelchair bound which could effect her affect and they seem to be agreeable to pursue that course for the next couple of weeks with some pharmacotherapy to help subside her symptoms such as antidepressant and appetite stimulant. I started her on Zoloft 25 in the morning which needs to be titrated upward, along with Remeron 7.5 at night. At this time, the patient is medically stable to pursue medical therapy rehab at [facility] with the goal of care focused on comfort and palliative in the event she does not improve. On the other hand she can improve and maintain adequate diet and nutrition, then she would benefit from physical therapy. She was offered and accepted at [facility] and awaiting final disposition and transport. INPATIENT DIAGNOSTIC STUDIES: 1. 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 2. Cervical MRI shows cervical stenosis, moderate but it is obscured by motion artifact. 3. Brain CT did not reveal any acute intracranial pathology. No bleed. Chronic ischemic vessel disease. 4. 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 Otherwise no significant abnormality DISCHARGE MEDICATIONS: 1. Magnesium 400 mg twice a day. 2. Remeron 7.5 at night. 3. Potassium liquid 20 mEq daily. 4. Zoloft 25 daily, recommendation increase to 50 in one week, then 100 in a month. 5. Zinc Oxide topically. 6. Aspirin 81 daily. 7. Percocet as needed. 8. Labetalol 100 mg daily. 9. Tylenol prn. 10. Nitroglycerin prn. 11. Colace 100 as needed. 12. Pantoprazole 40 daily. DISCHARGE PHYSICAL EXAMINATION: General: He is awake, alert, oriented and pleasant. Vital Signs: Temperature 97.3, pulse 62, respiratory rate 18, satting 97, blood pressure 125/45. HEENT: Normocephalic, atraumatic. Neck: Supple. Lungs: Clear to auscultation bilaterally. Abdomen: Positive bowel sounds, soft. She does have a slight bruit in the right renal artery. Extremity : No pedal edema. She has significant weakness in the left lower extremity. Her motor strength is approximately 2/5 on the left and 3/5 on the right. 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 DISCHARGE INSTRUCTIONS: The patient to take all medications as prescribed. She will benefit from PT/OT. Fall precaution out of bed to chair. DISCHARGE CONDITION: Stable DISCHARGE DISPOSITION: [facility] [id number]/[facility] #: [id number] [facility]
[2019-09-22 15:58] VITALS: BP 128/40
== END 2019-09-22 16:25 | DRG 552 ==
LOC: ED 17:17 → MED 19:51 → OBSVTOIN 09-18 10:19 → MED 09-18 21:48
PROVIDERS: ADMIT Family Medicine; ATTEND Internal Medicine
PROC: B41J1ZZ Fluoroscopy of Other Lower Arteries using Low Osmolar Contrast (ICD-10-PCS; 2019-09-20)
PROC: B4181ZZ Fluoroscopy of Bilateral Renal Arteries using Low Osmolar Contrast (ICD-10-PCS; 2019-09-20)
PROC: B4151ZZ Fluoroscopy of Inferior Mesenteric Artery using Low Osmolar Contrast (ICD-10-PCS; 2019-09-20)
PROC: B41F1ZZ Fluoroscopy of Right Lower Extremity Arteries using Low Osmolar Contrast (ICD-10-PCS; 2019-09-20)
PROC: B4141ZZ Fluoroscopy of Superior Mesenteric Artery using Low Osmolar Contrast (ICD-10-PCS; 2019-09-20)
PROC: B4101ZZ Fluoroscopy of Abdominal Aorta using Low Osmolar Contrast (ICD-10-PCS; principal; 2019-09-20 15:00)
DX: M48.02 Spinal stenosis, cervical region (principal); Z68.1 Body mass index [BMI] 19.9 or less, adult; F32.9 Major depressive disorder, single episode, unspecified; R63.0 Anorexia; K22.8 Other specified diseases of esophagus; R62.7 Adult failure to thrive; D64.9 Anemia, unspecified; I25.10 Atherosclerotic heart disease of native coronary artery without angina pectoris; E78.00 Pure hypercholesterolemia, unspecified; I10 Essential (primary) hypertension; I73.9 Peripheral vascular disease, unspecified; K58.9 Irritable bowel syndrome, unspecified; M19.90 Unspecified osteoarthritis, unspecified site; H91.92 Unspecified hearing loss, left ear; G43.909 Migraine, unspecified, not intractable, without status migrainosus; I34.0 Nonrheumatic mitral (valve) insufficiency; E78.5 Hyperlipidemia, unspecified; M48.061 Spinal stenosis, lumbar region without neurogenic claudication; R33.9 Retention of urine, unspecified; K44.9 Diaphragmatic hernia without obstruction or gangrene; I70.1 Atherosclerosis of renal artery; R13.10 Dysphagia, unspecified; R32 Unspecified urinary incontinence; Z66 Do not resuscitate; Z87.891 Personal history of nicotine dependence; Z86.73 Personal history of transient ischemic attack (TIA), and cerebral infarction without residual deficits; Z95.5 Presence of coronary angioplasty implant and graft; Z79.82 Long term (current) use of aspirin
CPT/HCPCS: 36415; 70450; 72141; 75625; 75726; 76937; 80048; 80053; 81003; 82270; 83735; 83880; 84100; 84439; 84443; 84481; 84484; 85025; 93005; 93306; 93975; 96365; 99156; 99157; 99284; A9270-GY; C1769; C1887; C1894; J1630; J1644; J2060; J2250; J3010; J3475; J3480

== ENCOUNTER 2019-10-19 09:11 | Emergency (ER) | payer MEDICARE ==
[2019-10-19] MEDS ORDERED: Naloxone* 0.4 MG/ML 1 ML VIAL IV PUSH ONE (09:14)
--- NOTE | 2019-10-19 09:21 | ED ---
Neurological HPI - HPI Summary HPI Summary: 84 year old F presenting to [facility] from [facility] via EMS with a chief complaint of unresponsiveness since this morning. Per EMS the patient was FaceTiming with her family yesterday. Medication list reviewed. Allergy list reviewed. THE HPI IS LIMITED DUE TO LEVEL 5 CAVEAT - Unresponsive. Home Medications Medication Instructions Recorded Confirmed Type Aspirin [Aspirin Adult Low Dose 81 81 mg PO QAM 05/17/15 09/17/19 History MG] oxyCODONE/Acetamin 5/325 MG* 1 tab PO Q6H PRN 05/17/15 09/17/19 History [Percocet 5/325 TAB*] Labetalol TAB* [Trandate TAB*] 100 mg PO DAILY 12/15/16 09/17/19 History Acetaminophen TAB* [Tylenol TAB*] 650 mg PO Q4H PRN tab 05/06/19 09/17/19 Rx Al Hydrox/Mg Hydrox/Simet LIQ* 30 ml PO Q6H PRN udc 05/06/19 09/17/19 Rx [Maalox Plus*] Docusate CAP* [Colace Cap*] 100 mg PO SEE INSTRUCTIONS PRN 07/09/19 09/17/19 History Nitroglycerin TAB 0.4 MG* 0.4 mg SL . NEEDED PRN 07/09/19 09/17/19 History Pantoprazole TAB * [Protonix TAB*] 40 mg PO DAILY #30 tab 07/11/19 09/17/19 Rx Magnesium Oxide TAB* [MagOx 400 400 mg PO BID tab 09/22/19 Rx TAB*] Mirtazapine TAB* [Remeron TAB*] 7.5 mg PO BEDTIME tab 09/22/19 Rx Potassium Chloride* LIQUID 20 meq PO DAILY 30 Days #30 liquid 09/22/19 Rx [Potassium Chloride LIQUID] Sertraline* [Zoloft*] 25 mg PO DAILY tab 09/22/19 Rx Zinc Oxide 40% (TOPICAL)* 1 applic TOPICAL .EVERY CLEANING 09/22/19 Rx tube - History of Current Complaint Stated Complaint: UNRESPONSIVE Time Seen by Provider: 10/19/19 09:13 Hx Obtained From: EMS Timing: Constant - Additional Pertinent History Primary Care Physician: [id number] - Allergy/Home Medications Allergies/Adverse Reactions: Allergies Allergy/AdvReac Type Severity Reaction Status Date / Time No Known Allergies Allergy Verified 09/17/19 17:23 Home Medications: Home Medications Aspirin [Aspirin Adult Low Dose 81 MG] 81 mg PO QAM 05/17/15 [History Confirmed 10/19/19] oxyCODONE/Acetamin 5/325 MG* [Percocet 5/325 TAB*] 1 tab PO Q6H PRN 05/17/15 [ History Confirmed 10/19/19] Labetalol TAB* [Trandate TAB*] 100 mg PO DAILY 12/15/16 [History Confirmed 10/18] Al Hydrox/Mg Hydrox/Simet LIQ* [Maalox Plus*] 30 ml PO Q6H PRN udc 05/06/19 [ Rx Confirmed 10/19/19] Pantoprazole TAB * [Protonix TAB*] 40 mg PO DAILY #30 tab 07/11/19 [Rx Confirmed 10/19/19] Mirtazapine TAB* [Remeron TAB*] 7.5 mg PO BEDTIME tab 09/22/19 [Rx Confirmed ] Potassium Chloride* LIQUID [Potassium Chloride LIQUID] 20 meq PO DAILY 30 Days # 30 liquid 09/22/19 [Rx Confirmed 10/19/19] Sertraline* [Zoloft*] 25 mg PO DAILY tab 09/22/19 [Rx Confirmed 10/19/19] Acetaminophen TAB* [Tylenol TAB*] 650 mg PO Q6H PRN 10/19/19 [History Confirmed 10/19/19] Calazime Skin Protectant Paste 1 applic TOPICAL BID 10/19/19 [History Confirmed 10/19/19] Gel Base No.41 [Hydrogel] 1 applic TOPICAL DAILY 10/19/19 [History Confirmed ] Magnesium Oxide TAB* [MagOx 400 TAB*] 400 mg PO DAILY 10/19/19 [History Confirmed 10/19/19] Nitroglycerin TAB 0.4 MG* 0.4 mg SL Q5M PRN 10/19/19 [History Confirmed 10/19/19 ] Sennosides [Senna] 8.6 mg PO BEDTIME 10/19/19 [History Confirmed 10/19/19] PMH/Surg Hx/FS Hx/Imm Hx Endocrine/Hematology History: Reports: Hx Anemia, Other Endocrine/Hematological Disorders - anemia Denies: Hx Diabetes Cardiovascular History: Reports: Hx Coronary Artery Disease, Hx Hypercholesterolemia, Hx Hypertension, Hx Peripheral Vascular Disease - BILATERAL Denies: Hx Angina, Hx Pacemaker/ICD Comment Only: Other Cardiovascular Problems/Disorders - DR PEREZ FOLLOWS Respiratory History: Reports: Hx Pneumonia Denies: Hx Asthma, Hx Chronic Obstructive Pulmonary Disease (COPD), Hx Pulmonary Embolism GI History: Reports: Hx Irritable Bowel - Hx OF FREQUENT LOOSE BOWEL MOVEMENTS WITHOUT CONTROL, Other GI Disorders - c-diff Denies: Hx Gastrointestinal Bleed History: Denies: Hx Chronic Renal Failure, Hx Dialysis, Hx Renal Disease Musculoskeletal History: Reports: Hx Arthritis, Hx Back Problems Denies: Hx Rheumatoid Arthritis, Hx Osteoporosis, Hx Scoliosis Sensory History: Reports: Hx Cataracts - BILATERAL- removed, Hx Contacts or Glasses, 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 Denies: Hx Hearing Aid Opthamlomology History: Reports: Hx Cataracts - BILATERAL- removed, Hx Contacts or Glasses Neurological History: Reports: Hx Migraine, Hx Transient Ischemic Attacks (TIA) - possible 05/08/2017, Other Neuro Impairments/Disorders - PAIN CLINIC PATIENT Denies: Hx CVA, Hx Dementia, Hx Headaches, Hx Seizures, Hx Spinal Cord Injury Psychiatric History: Reports: Hx Eating Disorder, Hx Depression, Other Psychiatric Issues/Disorders - trazodone and remeron HS Denies: Hx Panic Disorder - Surgical History Surgery Procedure, Year, and Place: [id number] LEFT LEG BYPASS/ANGIOPLASTY [facility] [place]( multiple stents placed- 3 palmaz stent- ok to 1.5, 2 express sd renal-ok to 1.5 or 3 T)(all these surgeries completed at [facility] [place]). 1999 LUMBAR SURGERY - DECOMPRESSION [facility] [place]. BILATERAL CATARACT SURGERY. cardiac stent placed 05/14/19 Hx Anesthesia Reactions: No Infectious Disease History: Reports: Hx Clostridium Difficile - Family History Known Family History: Positive: Cardiac Disease, Hypertension Family History: No family history of malignant hyperthermia and anesthesia reaction. - Social History Alcohol Use: None Hx Substance Use: No Substance Use Type: Reports: None Hx Tobacco Use: Yes Smoking Status (MU): Former Smoker Type: Cigarettes Amount Used/How Often: 1PPD 50+ YEARS Have You Smoked in the Last Year: No - Additional Comments History Additional Comments: LIMITED DUE TO LEVEL 5 CAVEAT - Unresponsive. Review of Systems - ROS Summary Review of Systems Summary: THE ROS IS LIMITED DUE TO LEVEL 5 CAVEAT - Unresponsive. Negative: Fever Neurological/Mental Status: Other - Unresponsive All Other Systems Reviewed And Are Negative: No Physical Exam - Summary Physical Exam Summary: THE Physical Exam IS LIMITED DUE TO LEVEL 5 CAVEAT - Unresponsive. Constitutional: Well-developed, Well-nourished, Alert. (-) Distressed Skin: Warm, Dry, old ecchymosis to right anterior chest wall. HENT: Normocephalic; Atraumatic Eyes: Pinpoint pupils bilaterally Neck: Musculoskeletal ROM normal neck. (-) JVD, (-) Stridor, (-) Tracheal deviation Cardio: Rhythm regular, rate normal, Heart sounds normal; Intact distal pulses; Radial pulses are 2+ and symmetric. (-) Murmur Pulmonary/Chest wall: Effort normal. (-) Respiratory distress, (-) Wheezes, (-) Rales Abd: Soft, (-) tenderness, (-) Distension, (-) Guarding, (-) Rebound Musculoskeletal: (-) Edema, does spontaneously move all 4 extremities. Lymph: (-) Cervical adenopathy Neuro: Withdraws to painful stimuli, GCS 7 Triage Information Reviewed: Yes Vital Signs Reviewed: Yes - [place] Coma Scale Best Eye Response: 2 - To Pain Best Motor Response: 4 - Withdraws Best Verbal Response: 1 - None Coma Scale Total: 7 Procedures - Sedation Patient Received Moderate/Deep Sedation with Procedure: No Diagnostics - Laboratory Result Diagrams: 10/19/19 09:20 10/19/19 11:33 Lab Statement: Any lab studies that have been ordered have been reviewed, and results considered in the medical decision making process. - Radiology Chest x-ray Radiology Interpretation Completed By: Radiologist Summary of Radiographic Findings: HYPERINFLATION. NO ACTIVE CARDIOPULMONARY DISEASE. ED physician has reviewed this report. - CT Brain CT CT Interpretation Completed By: Radiologist Summary of CT Findings: Chronic ischemic change without definite intracranial mass or hemorrhage. ED physician has reviewed this report. Abdomen/pelvis CT CT Interpretation Completed By: Radiologist Summary of CT Findings: No evidence of obstructive uropathy is noted. There is diffuse wall thickening of the urinary bladder which is lobulated in nature. Underlying infection should BE considered. Underlying mass is not totally excluded. Inferior to the coccyx posteriorly there is increased soft tissue swelling and a decubitus ulcer BE considered. Left renal cyst with suggestion of a small left hyperdense cyst. ED physician has reviewed this report. - EKG 10:29 Cardiac Rate: Tachycardia - 100 BPM EKG Rhythm: Sinus Tachycardia Summary of EKG Findings: QTC appears prolonged, no obvious ischemic changes. ED physician has reviewed and interpreted this EKG. Re-Evaluation - Re-Evaluation First Eval Re-Evaluation Time: 10:17 Change: Worse Comment: Multiple attempts made at getting IV access, initially 2 IVs were obtained, none drawing blood. Multiple attempts at drawing blood due to low blood return, due to this we prioritized blood tests, no cultures were obtained. We will attempt to get cultures in the future if needed. Second Eval Re-Evaluation Time: 13:10 Change: Unchanged Comment: Discussed with the patient's daughter who would like Vapotherm started. Third Eval Re-Evaluation Time: 14:30 Change: Unchanged Comment: Dr. Padgett discussed with the patient's family who wants comfort care. Will do the comfort care in the ED due to visitor restrictions. Fourth Eval Re-Evaluation Time: 15:05 Comment: Time of is 15:05. No medications were given. Fifth Eval Re-Evaluation Time: 15:34 Comment: Discussed with Ms. Roy at the [employer] office who does not want to do an autopsy. Course/Dx - Course Course Of Treatment: Patient is here with worsening mental status. Patient only conversational but only withdraws to painful stimuli here. Patient had immediate IV access obtained by nursing staff which was difficult. Patient did receive intranasal Narcan by myself as she is on Percocet at home and her pupils were pinpoint. Patient did have some response to intranasal Narcan but was never verbal. Patient had a CT scan of her brain which showed no acute abnormality. Patient had blood performed which showed an elevated lactate, leukocytosis, thrombocytopenia, history of present illness, hypernatremia, elevated bilirubin. Patient had a straight catheter which showed purulent urine. Patient is treated empirically with Zosyn. Patient is given 2 L of fluid. Patient was CT scan of her abdomen/pelvis to evaluate for kidney stone which was negative for stone. Family was called after patient started having gasping breaths and they wanted to start her on Vapotherm. Family came to the emergency department and decided to make her comfort care. Patient at 1505 just prior to receiving a bolus of morphine for comfort. The medical assistant float was called and they do not want to accept the case - Diagnoses Provider Diagnoses: Sepsis, Pyelonephritis, Elevated serum lactate dehydrogenase, Altered mental status - Physician Notifications Discussed Care Of Patient With: Savita Menjivar Time Discussed With Above Provider: 12:04 Instructed by Provider To: Other - Discussed with Dr. Menjivar who accepts the patient for admission. - Critical Care Time Critical Care Time: 30-74 min - 60 minutes Discharge ED - Sign-Out/Discharge Documenting (check all that apply): Patient Departure - Discharge Plan Condition: Referrals: Марина Obando MD [Medical Doctor] - - Attestation Statements Document Initiated by Scribe: Yes Documenting Scribe: Meredith Ray Provider For Whom Scribe is Documenting (Include Credential): aNun Ramires MD Scribe Attestation: Meredith Maya, scribed for Naun Ramires MD on 10/19/19 at 1540.
--- OUTSIDE RECORDS SUMMARY | 2019-10-19 09:24 | XMS REPORT ---
:1935 Author Organization [facility] Care Team Providers Name Role Phone Unavailable Unavailable Unavailable Problems This patient has no known problems. Allergies, Adverse Reactions, Alerts Allergy Allergy Status Severity Reaction(s) Onset Inactive Treating Comments Name Type Date Date Clinician Unknown None Active Unknown None Unknown No Known Allergies For This Patient Medications Ordered Filled Start Stop Current Ordering Indication Dosage Frequency Signature Comments Components Medication Medication Date Date Medication? Clinician (SIG) Name Name No Known No Known No None None None Medications Medications For This For This Patient Patient Procedures This patient has no known procedures. Results This patient has no known results.
--- OUTSIDE RECORDS SUMMARY | 2019-10-19 09:24 | XMS REPORT ---
:1935 Author Organization [facility] Care Team Providers Name Role Phone Unavailable [...]
--- OUTSIDE RECORDS SUMMARY | 2019-10-19 09:24 | XMS REPORT ---
:1935 Author Organization [facility] Care Team Providers Name Role Phone Unavailable [...]
--- OUTSIDE RECORDS SUMMARY | 2019-10-19 09:24 | XMS REPORT ---
:1935 Author Organization [facility] Care Team Providers Name Role Phone Unavailable [...]
--- OUTSIDE RECORDS SUMMARY | 2019-10-19 09:24 | XMS REPORT ---
:1935 Author Organization [facility] Care Team Providers Name Role Phone Unavailable [...]
--- OUTSIDE RECORDS SUMMARY | 2019-10-19 09:24 | XMS REPORT ---
:1935 Author Organization [facility] Care Team Providers Name Role Phone Unavailable [...]
--- OUTSIDE RECORDS SUMMARY | 2019-10-19 09:24 | XMS REPORT ---
:1935 Author Organization [facility] Care Team Providers Name Role Phone Unavailable [...]
--- OUTSIDE RECORDS SUMMARY | 2019-10-19 09:24 | XMS REPORT ---
:1935 Author Organization [facility] Care Team Providers Name Role Phone Unavailable [...]
--- OUTSIDE RECORDS SUMMARY | 2019-10-19 09:25 | XMS REPORT ---
:1935 Author Organization [facility] Care Team Providers Name Role Phone Unavailable [...]
--- OUTSIDE RECORDS SUMMARY | 2019-10-19 09:25 | XMS REPORT ---
:1935 Author Organization [facility] Care Team Providers Name Role Phone Unavailable [...]
--- OUTSIDE RECORDS SUMMARY | 2019-10-19 09:25 | XMS REPORT ---
:1935 Author Organization [facility] Care Team Providers Name Role Phone Unavailable [...]
--- OUTSIDE RECORDS SUMMARY | 2019-10-19 09:25 | XMS REPORT ---
:1935 Author Organization [facility] Care Team Providers Name Role Phone Unavailable [...]
--- OUTSIDE RECORDS SUMMARY | 2019-10-19 09:25 | XMS REPORT | Continuity of Care Document ---
:1935 External Reference #:[id number] Author Name Lela Flores MD (transmitted by agent of provider Lesley Cam) Address [address] [place] [address] Care Team Providers Name Role Phone Drew Rogers MD - Cardiovascular Care Team Information [employer] Specialist Disease Chip Almendarez MD - Vascular Surgery Care Team Information [employer] Specialist [phone] Nir Mcmahon MD - Care Team Information [employer] Specialist [phone] Neurological Surgery Charu Hilliard M.D. - Family Medicine Care Team Information [employer] Specialist [phone] Problems Active Problems Provider Date Spinal stenosis [...] walker 1units R29.6 Charu Hilliard [facility] dx. m48.062 M48.062 [...] 30tabs Charu Hilliard, 10Meq Tablets ER capsule/tablet M.DMiguel Ángel daily by mouth History Medications Feraheme feraheme infusion 2doses Drew Williamson 07/13/2019 - 510mg/17ML 510 mg 2 doses Anayeli Rogers 07/23/2019 Solution total first infusion followed by a second infusion in a week Amoxicillin/Clavula take 1 tab by 10tabs R05 Naomy Deng 07/07/2019 - guillermina Potassium mouth every 12 MD 07/23/2019 hours for 5 days 875-125mg Tablets Venofer 200 mg iv five 1000mg Drew Williamson 07/05/2019 - 20mg/ml times over 14 Anayeli Rogers 07/13/2019 Solution days Losartan Potassium 1 by mouth every 90tabs I10 Drew Williamson 07/04/2019 - other day Anayeli Rogers 09/05/2019 25mg Tablets Ferrex 150 Forte 1 cap by mouth 30caps Adelina Li, 07/03/2019 - every day Anayeli, FACP 09/04/2019 043-2-95od-mg-mcg Capsules Torsemide 1 by mouth twice 30tabs Magda Coello, 05/23/2019 - 20mg a week PRESIDING JUDGE 09/04/2019 Tablets Oxycontin one by mouth 14tabs M48.062 Charu Hilliard MD 04/24/2019 - 10mg Tab every 12 hours 05/11/2019 ER 12H Abuse-Det Medications Administered in Office Medication SIG Qnty Indications Ordering Provider Date B-12 Injection Jerrod Lopez, 08/26/2017 Injection Anayeli,FACP B-12 Injection Jerrod Lopez, 07/14/2017 [facility] In[facility] Nurse Visit A 06/08/2017 Injection B-12 Injection Nurse Visit A 06/01/2017 Injection B-12 Injection Nurse Visit A 05/25/2017 Injection B-12 Injection Jerrod Lopez, 05/18/2017 Injection Anayeli,FACP Inj, Regadenoson, 0.1 MG Memo Sanford M.D. 12/31/2016 Injection Technetium TC 99M Memo Sanford M.D. 12/31/2016 Tetrofosmin, Per Unit Dose Up To 40 Millicuries Injection Immunizations CPT Code Status Date Vaccine Reaction Lot # [id number] Given 05/23/2019 Influenza Virus Vaccine, pt. tolerated well. [id number] Quadrivalent ([id number]), Derived From Cell 60399 Given 06/27/2018 Influenza Virus Vaccine, [id number] Quadrivalent, Split, Preservative Free 57390 Given 05/18/2017 Influenza Virus Vaccine, [id number] Quadrivalent, Split, Preservative Free 65335 Given 07/08/2016 Influ Virus Vaccine, [id number] Quadrivalent, Split Virus, [place] [address] Given 04/06/2015 Fluzone High Dose 52184 Given 12/28/2014 Pneumococcal Conjugate [id number] Vaccine 13 Valent For Intramuscular Use 64192 Given 04/25/2014 Fluzone High Dose Q2035 Given 04/02/2013 Afluria Vaccine 14988 Given 06/03/2012 Tdap - [id number] Tetanus/Diptheria/Acellular Pertussis Q2035 Given 04/07/2012 Afluria Vaccine 98327 Given 07/03/2010 Zoster (Zostavax) [id number] 98607 Given 05/10/2010 Influenza Virus 3Yrs & Over 99049 Given 08/28/2009 Influenza Virus Vaccine, [id number] Pandemic Formulation 42360 Given 05/31/2008 Influenza Virus 3Yrs & Over 73874 Given 05/31/2008 Influenza Virus 3Yrs & Over 53772 35293 Given 05/16/2001 Pneumonia Vaccine Vital Signs Date [...] Test Result H/L Range Note Stool Occult 09/17/2019 [facility] Stool Occult SEE RESULT 1 Blood, [address] Blood, [place] [address] Screen [phone] CBC Auto 09/17/2019 [facility] White Blood 7.7 10^3/uL Normal 3.5-10.[address] [place] [address] [phone] Red Blood Count 4.71 10^6/uL Normal 3.70-4.87 Hemoglobin 13.5 g/dL Normal 12.0-16.0 Hematocrit 40 % Normal 35-47 Mean Corpuscular Volume 86 fL Normal 80-97 Mean Corpuscular Hemoglobin 29 pg Normal 27-31 Mean Corpuscular HGB Conc 34 g/dL Normal 31-36 Red Cell Distribution Width 24 % High 10-15 2 Platelet Count 217 10^3/uL Normal 150-450 Mean Platelet Volume 8.7 fL Normal 7.4-10.4 Abs Neutrophils 6.2 10^3/uL Normal 1.5-7.7 Abs Lymphocytes 0.8 10^3/uL Low 1.0-4.8 Abs Monocytes 0.6 10^3/uL Normal 0-0.8 Abs Eosinophils 0.1 10^3/uL Normal 0-0.6 Abs Basophils 0.1 10^3/uL Normal 0-0.2 Abs Nucleated RBC 0.0 10^3/uL Granulocyte % 80.7 % Lymphocyte % 10.1 % Monocyte % 7.5 % Eosinophil % 0.9 % Basophil % 0.8 % Nucleated Red Blood Cells % 0.0 Comp Metabolic Panel 09/17/2019 [facility] Sodium 133 mmol/L Low 135-[address] [place] [address] [phone] Potassium 4.0 mmol/L Normal 3.5-5.0 Chloride 98 mmol/L Low 101-111 Co2 Carbon Dioxide 27 mmol/L Normal 22-32 Anion Gap 8 mmol/L Normal 2-11 Glucose 120 mg/dL High 70-100 Blood Urea Nitrogen 12 mg/dL Normal 6-24 Creatinine 0.87 mg/dL Normal 0.51-0.95 BUN/Creatinine Ratio 13.8 Normal 8-20 Calcium 9.0 mg/dL Normal 8.6-10.3 Total Protein 6.0 g/dL Low 6.4-8.9 Albumin 3.8 g/dL Normal 3.2-5.2 Globulin 2.2 g/dL Normal 2-4 Albumin/Globulin Ratio 1.7 Normal 1-3 Total Bilirubin 0.90 mg/dL Normal 0.2-1.0 Alkaline Phosphatase 80 U/L Normal 34-104 Alt 19 U/L Normal 7-52 Ast 22 U/L Normal 13-39 Egfr Non- 62.0 >60 Egfr 75.1 >60 3 Laboratory test 09/17/2019 [facility] Magnesium 1.6 mg/dL Low 1.9-2.[address] [place] [address] [phone] Troponin-I (TnI) 0.00 ng/mL <0.03 4 TSH (Thyroid Stim Horm) 0.18 mcIU/mL Low 0.34-5.60 B-Type Natriuretic Peptide BNP 304 pg/mL High <=100 T3 Free 3.70 pg/mL Normal 2.5-3.9 Free T4 (Free Thyroxine) 1.07 ng/dL Normal 0.61-1.12 Urinalysis Profile 09/17/2019 [facility] Urine Color Yellow [address] [place], [place] [id number] [phone] Urine Appearance Clear Urine Specific [place] 1.006 Low 1.010-1.030 Urine pH 6.0 Normal 5-9 Urine Urobilinogen Negative Negative Urine Ketones Negative Negative Urine Protein Negative Negative Urine Leukocytes Negative Negative Urine Blood Negative Negative Urine Nitrite Negative Negative Urine Bilirubin Negative Negative Urine Glucose Negative Negative Laboratory test 08/06/2019 [facility] Antibody SEE RESULTS 5, [address] Identification BELO <[place] [address] NOTE> [phone] Antibody Id [employer] 0 Direct Lashonda NEGATIVE Comp Metabolic Panel 08/06/2019 [facility] Sodium 134 mmol/L Low 135-145 [facility] [address] [phone] Potassium 4.2 mmol/L Normal 3.5-5.0 Chloride 99 [...] Egfr Non- 54.1 >60 Egfr 65.4 >60 7 Laboratory 08/06/2019 [facility] Partial 28.5 seconds Normal 26.0-38.0 test finding [facility] [place] [place] [address] Time PTT [phone] Inr/Protime 08/06/2019 [facility] Inr 1.12 High 0.82-1.[address] [place] [address] [phone] Type & Screen 08/06/2019 [facility] Patient O Positive [facility] [place] [place] [address] [phone] Antibody Screen POSITIVE CBC Auto 08/06/2019 [facility] White Blood 14.5 10^3/uL High 3.5-10.8 Diff [facility] [place] [address] [phone] Red Blood Count 4.38 10^6/uL Normal 3.70-4.87 Hemoglobin 11.4 g/dL Low 12.0-16.0 Hematocrit 36 % Normal 35-47 Mean Corpuscular Volume 81 fL Normal 80-97 Mean Corpuscular Hemoglobin 26 pg Low 27-31 Mean Corpuscular HGB Conc 32 g/dL Normal 31-36 Red Cell Distribution Width 28 % High 10-15 9 Platelet Count 165 10^3/uL Normal 150-450 Mean [...] % Nucleated Red Blood Cells % 0.1 Stool Occult 08/06/2019 [facility] Stool Occult SEE RESULT 10 Blood, Screen [address] [facility] Blood, [place] [address] [phone] Laboratory test 07/28/2019 [facility] Pathologist Review (SEE NOTE) 11 finding [address] [place] [address] [phone] Cell Morphology 07/28/2019 [facility] Microcytosis 1+ [address] [place] [phone] Hypochromasia 1+ Anisocytosis 2+ Elliptocyte 1+ Laboratory test 07/28/2019 [facility] Creatine 39 U/L Normal 10-223 12 finding 101 [facility] Kinase(CK) [place] [address] [phone] Lipid Profile 07/28/2019 [facility] Triglycerides 117 13 (Trig/Chol/HDL) [address] [place] [address] mg/[place] [address] [phone] Cholesterol 116 mg/dL 14 HDL Cholesterol 45.5 mg/dL 15 LDL Cholesterol 47 mg/dL 16 Comp Metabolic 07/28/2019 [facility] Sodium 139 mmol/L Normal 135-145 Panel [address] [place] [address] [phone] Potassium 4.1 mmol/L Normal 3.5-5.0 Chloride 98 [...] Egfr Non- 54.7 >60 Egfr 66.2 >60 17 CBC Auto 07/28/2019 [facility] White Blood 5.7 10^3/uL Normal 3.5-10.[address] [place] [address] [phone] Red Blood Count 4.25 10^6/uL Normal 3.70-4.87 [...] Blood Cells % 0.1 Comp Metabolic 07/28/2019 [facility] Sodium 135 mmol/L Normal 135-[address] [place] [address] [phone] Potassium 4.0 mmol/L Normal 3.5-5.0 Chloride 98 [...] Egfr Non- 58.2 >60 Egfr 70.4 >60 18 Inr/Protime 07/28/2019 [facility] Inr 1.33 High 0.82-1.[address] [place] [address] [phone] CBC Auto Diff 07/28/2019 [facility] White Blood 6.2 Normal 3.5 -10.[address] Count 10^3/[place] [address] [phone] Red Blood Count 3.94 10^6/uL Normal 3.70-4.87 Hemoglobin 9.9 g/dL Low 12.0-16.0 Hematocrit 30 % Low 35-47 Mean Corpuscular Volume 77 fL Low 80-97 Mean Corpuscular Hemoglobin 25 pg Low 27-31 Mean Corpuscular HGB Conc 33 g/dL Normal 31-36 Red Cell Distribution Width 26 % High 10-15 20 Platelet Count 212 10^3/uL Normal 150-450 Mean [...] Red Blood Cells % 0.0 Laboratory test 07/09/2019 [facility] Packed Cells SEE RESULTS [address] BELO <SEE NOTE> [place] [address] [phone] Type & Screen 07/09/2019 [facility] Patient Blood O Positive [address] [place] [address] [phone] Antibody Screen NEGATIVE Laboratory test 07/09/2019 [facility] Troponin-I 0.01 <0.03 [address] (TnI) ng/[place] [address] [phone] Comp Metabolic 07/09/2019 [facility] Sodium 138 Normal 135- [address] mmol/[place] [address] [phone] Potassium 3.5 mmol/L Normal 3.5-5.0 Chloride 104 [...] Egfr Non- 73.6 >60 Egfr 89.1 >60 23 Laboratory 07/09/2019 [facility] Troponin-I 0.01 <0.03 24 test finding [address] (TnI) ng/[place] [address] [phone] CBC Auto Diff 07/09/2019 [facility] White Blood 6.7 Normal 3.5 -10.[address] Count 10^3/[place] [address] [phone] Red Blood Count 3.25 10^6/uL Low 3.70-4.87 Hemoglobin 7.5 g/dL Low 12.0-16.0 Hematocrit 24 % Low 35-47 Mean Corpuscular Volume 72 fL Low 80-97 25 Mean Corpuscular Hemoglobin 23 pg Low 27-31 [...] Red Blood Cells % 0.1 Inr/Protime 07/09/2019 [facility] Inr 1.21 High 0.82-1.[address] [place], [place] [address] [phone] Order 07/07/2019 [facility] blood <pendin [address] transfusion g> [place] [address] per protocol [phone] Laboratory test 07/04/2019 [facility] B-Type 780 High <=[address] Natriuretic pg/[place] [address] Peptide BNP [phone] CBC Auto Diff 07/04/2019 [facility] White Blood 5.1 Normal 3.5 -10.[address] Count 10^3/[place] [address] [phone] Red Blood Count 3.42 10^6/uL Low 3.70-4.87 [...] Blood Cells % 0.1 Comp Metabolic 07/04/2019 [facility] Sodium 139 mmol/L Normal 135-[address] [place] [address] [phone] Potassium 3.8 mmol/L Normal 3.5-5.0 Chloride 105 [...] Egfr Non- 67.4 >60 Egfr 81.5 >60 27 Iron & Iron 07/04/2019 [facility] Total Iron 451 g/dL High 250-[address] [place] [address] Capacity [phone] Transferrin 322 mg/dL Normal 203-362 Iron < 20 g/dL Low 50-212 Unsaturated Iron Binding < 436 g/dL % Iron Saturation 4 % Low 15-55 Vitamin B12 07/04/2019 [facility] Vitamin B12 200 pg/mL Normal 180-914 [address] F[address] Serum [place], [place] [address] [phone] Folic Acid (Folate) 5.61 ng/mL >3.99 Cell Morphology 07/04/2019 [facility] Microcytosis 2+ [address] [place] [address] [phone] Hypochromasia 2+ Polychromasia 1+ Schistocytes 1+ Elliptocyte 2+ Laboratory test 07/04/2019 [facility] Pathologist (SEE NOTE) [address] [place] [address] [phone] Laboratory test 06/12/2019 [facility] Ferritin 9.4 ng/mL Low 11-[address] 07 [place] [address] [phone] CBC Auto Diff 06/12/2019 [facility] White Blood 5.7 Normal 3.5 - [address] Count 10^3/uL 10.8 [place], [place] [address] [phone] Red Blood Count 3.39 10^6/uL Low 3.70-4.87 [...] Blood Cells % 0.1 Urinalysis Profile 05/06/2019 [facility] Urine Color Colorless [address] [place] [address] [phone] Urine Appearance Clear Urine Specific [place] 1.005 Low 1.010-1.030 Urine pH 7.0 Normal 5-9 Urine Urobilinogen Negative Negative Urine Ketones Negative Negative Urine Protein Negative Negative Urine Leukocytes Negative Negative Urine Blood Negative Negative Urine Nitrite Negative Negative Urine Bilirubin Negative Negative Urine Glucose Negative Negative CBC Auto 05/05/2019 [facility] White Blood 7.5 10^3/uL Normal 3.5-10.[address] [place] [address] [phone] Red Blood Count 4.08 10^6/uL Normal 3.70-4.87 [...] Red Blood Cells % 0.0 Laboratory 05/05/2019 [facility] B-Type 703 pg/mL High <=100 test finding [address] [place] [address] Peptide BNP [phone] Inr/Protime 05/05/2019 [facility] Inr 1.12 High 0.82-1.[address] [place] [address] [phone] Laboratory 05/05/2019 [facility] D Dimer 553 ng/mL High Less Than [address] Quantitative 230 [place], [place] [address] [phone] Lactic Acid 1.2 mmol/L Normal 0.5-2.0 32 Iron & Iron 05/05/2019 [facility] Total Iron 469 g/dL High 250-[address] [place] [address] Capacity [phone] Transferrin 335 mg/dL Normal 203-362 Iron TNP g/dL 50-212 33 % Iron Saturation TNP % 15-55 34 Laboratory test 05/05/2019 [facility] Folic Acid 3.53 ng/mL > 3.[address] (Folate) [place] [address] [phone] Vitamin B12 207 pg/mL Normal 180-914 35 Laboratory 05/05/2019 [facility] Troponin-I 0.05 Critical < 0.04 [address] (TnI) ng/[place] [address] [phone] Comp Metabolic 05/05/2019 [facility] Sodium 140 Normal 135- [address] mmol/L [place], [place] [address] [phone] Potassium 3.9 mmol/L Normal 3.5-5.0 Chloride 104 [...] Egfr Non- 79.7 >60 Egfr 96.5 >60 37 1 SEE RESULT BELOW Name: ESAU KURTZ : [address]: Washington Guardado Acct: [id number] Unit: [id number] AGE: 84 Location: ED Re09/17/19 SEX: F Status: REG ER SPEC: [id number] KATHERINE: 09/17/19-[address]: Washington Erwin DO REQ: [id number] RECD: 09/17/19 STATUS: KAVON SUAZO DR: Charu Hilliard MD _ SOURCE: STOOL SPDESC: ORDERED: Occult Bl, Scn Procedure Result Reported Site Stool Occult Blood (1) Final 09/17/19- 1811 ML Stool Occult Blood Negative Collection Date (1) 09/17/19 * ML - Main Lab . END OF REPORT DEPARTMENT OF PATHOLOGY, [address] [place] [address] Evan Ruiz M.D. Director [facility] # [id number] 2 Consistent with Previous Results Reported on 08/23/19 3 Because ethnic data is not always readily [...] 15-29 5 Kidney failure <15 (or dialysis) 4 Troponin-I testing on Plasma Separator Tubes (PST) has a known false positive rate of 0.20-0.40%. All positive troponins reflex immediately to secondary confirmatory testing. Using the [employer] DxI 800 Access Immunoassay systems, the 99th percentile upper reference limit was demonstrated to be < 0.03 ng/mL. 5 ABDOMINAL PAIN AND BLACK TARRY STOOL PER DAUGHTER 6 SEE RESULTS BELOW E K 7 Because ethnic data is not always [...] 5 Kidney failure <15 (or dialysis) 8 Standard intensity warfarin therapeutic range: 2.0-3.0 High intensity warfarin therapeutic range: 2.5-3.5 9 Consistent with Previous Results Reported on 07/28/19 10 SEE RESULT BELOW Name: ESAU KURTZ : [address]: Washington Guardado Acct: [id number] Unit: [id number] AGE: 84 Location: ED Re08/06/19 SEX: F Status: REG ER SPEC: [id number] KATHERINE: 08/06/[address] [facility] [address]: Washington Erwin DO REQ: [id number] RECD: 08/06/19 STATUS: KAVON SUAZO DR: Charu Hilliard MD _ SOURCE: STOOL SPDESC: ORDERED: Occult Bl, Scn Procedure Result Reported Site Stool Occult Blood (1) Final 08/06/19- 1234 ML Stool Occult Blood Positive * ML - Main Lab . END OF REPORT DEPARTMENT OF PATHOLOGY, [address] [place] [address] Evan Ruiz M.D. Director [facility] # [id number] 11 Microcytic anemia. Reviewed by Mora Traore M.D. 12 Copy Result to: CHARU HILLIARD ([id number]) 13 Desirable: <150 Borderline High: 150-199 High: 200-499 Very High: >500 14 Desirable: <200 Borderline High: 200-239 High: >239 15 Low: <40 Desirable: 40-60 High: >60 16 Desirable: <100 Near Optimal: 100-129 Borderline High: 130-159 High: 160-189 Very High: >189 17 Because ethnic data is not always [...] 15-29 5 Kidney failure <15 (or dialysis) 18 Because ethnic data is not always readily [...] 15-29 5 Kidney failure <15 (or dialysis) 19 Standard intensity warfarin therapeutic range: 2.0-3.0 High intensity warfarin therapeutic range: 2.5-3.5 20 Consistent with Previous Results Reported on 07/28/2019. 21 SEE RESULTS BELOW [id number] OP PC TRANSFUSED 07/09/19 1950 [id number] OP PC TRANSFUSED 07/09/19 1810 [id number] OP PC TRANSFUSED 07/09/19 2323 22 Troponin-I testing on Plasma Separator Tubes (PST) has a known false positive rate of 0.20-0.40%. All positive troponins reflex immediately to secondary confirmatory testing. Using the [employer] DxI 800 Access Immunoassay systems, the 99th [...] 5 Kidney failure <15 (or dialysis) 24 Troponin-I testing on Plasma Separator Tubes (PST) has a known false positive rate of 0.20-0.40%. All positive troponins reflex immediately to secondary confirmatory testing. Using the [employer] 800 Access Immunoassay systems, the 99th percentile upper reference limit was demonstrated to be < 0.03 ng/mL. 25 Consistent with Previous Results Reported on 07/04/19 26 Standard intensity warfarin therapeutic range: 2.0-3.0 High intensity warfarin therapeutic range: 2.5-3.5 27 Because ethnic data is not always readily [...] 15-29 5 Kidney failure <15 (or dialysis) 28 Normal Range 180 to 914 Indeterminate Range 145 to 180 Deficient Range <145 29 Microcytic anemia with red cell indices suggestive of iron deficiency. Additional studies as clinically warranted. Reviewed by Dr. Ruiz 30 Standard intensity warfarin therapeutic range: 2.0-3.0 High intensity warfarin therapeutic range: 2.5-3.5 31 Please note: The following may produce a false positive D Dimer test: - Rheumatoid factor greater than 60 IU/ml - Plasma hemoglobin greater than 0.05 gm/dl - Bilirubin greater than 50 mg/dl - Lipids greater than 1000 mg/dl - FDP greater than 20 ug/ml 32 [facility] Severe Sepsis and Septic Shock Management Bundle Measure requires all lactic acids initially measuring >2.0 mmol/L be repeated. 33 Unable to report test result due to hemolysis. 34 Unable to calculate due to hemolysis. 35 Normal Range 180 to 914 Indeterminate Range 145 to 180 Deficient Range <145 36 Result TnIDx:0.05 Called to [id number] at: 01:51:07 by:[id number] Read back by: [id number] Troponin-I testing on Plasma Separator Tubes (PST) has a known false positive rate of 0.20-0.40%. All positive troponins reflex immediately to secondary confirmatory testing. Using the [employer] DxI 800 Access Immunoassay systems, the 99th percentile upper reference limit was demonstrated to be < 0.03 ng/mL. 37 Because ethnic data is not always readily [...] (or dialysis) Procedures Date Code Description Status 09/18/2019 13271 ECHO Transthorasic Realtime 2D W Doppler & Color Flow Completed Hosp 09/05/2019 48624 EKG Tracing & Interpretation Completed 08/15/2019 49915 ECHO Transthoracic, Real-Time 2D With Doppler And Color Completed Flow 08/15/2019 03968 ECHO Transthoracic, Real-Time 2D With Doppler And Color Completed Flow 07/21/2019 96686 EKG Tracing & Interpretation Completed 07/04/2019 80434 EKG Tracing & Interpretation Completed 05/06/2019 51645 EKG, Interpretation Only Completed 07/14/2010 [id number] Colonoscopy Completed 06/17/2010 [id number] Mammogram Completed 05/23/2009 [id number] Mammogram Completed Medical Devices Description No Information Available Encounters Type Date Location Provider Dx Diagnosis Office Visit 09/22/2019 [facility] M48.02 Spinal stenosis, 2:50p Asscecilia gamez M.D. cervical region Hospitalists R63.0 Anorexia R53.1 Weakness R26.2 Difficulty in walking, not elsewhere classified Office Visit 09/21/2019 [facility] M48.02 Spinal 2:50p Asscecilia gamez M.D. stenosis, Hospitalists cervical region R13.10 Dysphagia, unspecified R53.1 Weakness R29.898 Oth symptoms and signs involving the musculoskeletal system Office Visit 09/20/2019 2:49p Palliative Care Lela Flores, R62.7 Adult failure [facility] to thrive I34.0 Nonrheumatic mitral (valve) insufficiency Office Visit 09/20/2019 [facility] M48.02 Spinal 2:49p Asscecilia gamez M.D. stenosis, Hospitalists cervical region R13.10 Dysphagia, unspecified R53.1 Weakness R29.898 Oth symptoms and signs involving the musculoskeletal system Office Visit 09/19/2019 2:48p [facility] Beverley R13.10 Dysphagia, Assoc,pc Yanira Castro unspecified Hospitalists R53.1 Weakness R29.898 Oth symptoms and signs involving the musculoskeletal system I73.9 Peripheral vascular disease, unspecified Office Visit 09/18/2019 [facility] Tamika R13.10 Dysphagia, 2:48p Assoc,pc MD Ayla unspecified Hospitalists R53.1 Weakness R32 Unspecified urinary incontinence R29.898 Oth symptoms and signs involving the musculoskeletal system Office Visit 09/17/2019 2:48p [facility] Tomás R13.10 Dysphagia, Assoc,pc SAHIL Valladares unspecified Hospitalists R63.4 Abnormal weight loss R53.1 Weakness R26.2 Difficulty in walking, not elsewhere classified Office Visit 09/12/2019 2:00p [facility] Adelina Jen, R29.6 Repeated falls Medicine - Mariia Guadalupe, FACP Office Visit 09/05/2019 3:00p [facility] Drew Williamson R06.02 Shortness of [place] Rogers. 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 M79.10 Myalgia, unspecified site Office Visit 07/21/2019 1:00p [facility] Adelina Li, Z00.00 Encntr for Medicine - Mariia Guadalupe, FACP general adult medical exam w/o abnormal findings I25.10 Athscl heart disease of [place] coronary artery w/o ang pctrs K92.1 Melena I34.9 Nonrheumatic mitral valve disorder, unspecified M54.5 Low back pain D64.9 Anemia, unspecified Office Visit 07/11/2019 9:26a [facility] Jono Cowart, D64.9 Anemia, Assoc,pc unspecified Hospitalists K92.1 Melena Office Visit 07/10/2019 3:16p [facility] Memo Allred I25.10 [facility]scl [facility] Anayeli San[place] disease of [place] coronary artery w/o ang pctrs I25.2 Old myocardial infarction I34.0 Nonrheumatic mitral (valve) insufficiency Z86.73 Prsnl hx of TIA (TIA), and cereb infrc w/o resid deficits Z98.61 Coronary angioplasty status Office Visit 07/10/2019 9:25a [facility] Jono Cowart, D64.9 Anemia, Assoc,pc unspecified Hospitalists I34.9 Nonrheumatic mitral valve disorder, unspecified 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 K92.1 Melena Hospitalists D64.9 Anemia, unspecified D50.9 Iron deficiency anemia, unspecified Office Visit 07/09/2019 [facility] Lorne Beyer D64.9 Anemia, 7:00a MD Junior unspecified K92.1 Melena I73.9 Peripheral vascular disease, unspecified Office Visit 07/07/2019 2:20p [facility] Naomy D64.9 Anemia, Juan Manuel Deng MD unspecified [facility] I10 Essential (primary) hypertension R53.81 Other malaise R05 Cough Office Visit 07/04/2019 2:40p [facility] Drew Williamson I10 Essential (primary) Anayeli Rogers hypertension D64.9 Anemia, unspecified I25.10 Athscl heart disease [place] coronary artery w/o ang pctrs I21.4 Non-St elevation (Nstemi) myocardial infarction I73.9 Peripheral vascular disease, unspecified I50.9 Heart failure, unspecified I34.0 Nonrheumatic mitral (valve) insufficiency R06.02 Shortness of breath Office Visit 06/30/2019 3:30p [facility] Naomy D64.9 Anemia, Juan Manuel Deng MD unspecified [facility] I10 Essential (primary) hypertension Office Visit 05/23/2019 9:40a [facility]u [facility].10 [facility] [place] coronary artery w/o ang pctrs I21.4 Non-St elevation (Nstemi) myocardial infarction Z23 Encounter for immunization A04.72 Enterocolitis d/t Clostridium difficile, not spcf as recur D64.9 Anemia, unspecified Office Visit 05/06/2019 11:55a [facility] Memo Allred R07.9 Chest pain, Of Ihsan Sanford M.D. 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 I34.0 Nonrheumatic mitral Foster, N.P. (valve) insufficiency I10 Essential (primary) hypertension I25.10 Athscl heart disease [place] coronary artery w/o ang pctrs Assessments Date Code Description Provider 09/22/2019 M48.02 Spinal stenosis, cervical region Antoni Starr M.D. 09/22/2019 R63.0 Anorexia Antoni Starr M.D. 09/22/2019 R53.1 Weakness Antoni Starr M.D. 09/22/2019 R26.2 Difficulty in walking, not elsewhere Antoni Starr M.D. classified 09/21/2019 M48.02 Spinal stenosis, cervical region Antoni Starr M.D. 09/21/2019 R13.10 Dysphagia, unspecified Antoni Starr M.D. 09/21/2019 R53.1 Weakness Antoni Starr M.D. 09/21/2019 R29.898 Other symptoms and signs involving the Antoni Starr M.D. musculoskeletal system 09/20/2019 R62.7 Adult failure to thrive Lela Flores MD 09/20/2019 M48.02 Spinal stenosis, cervical region Antoni Starr M.D. 09/20/2019 I34.0 Nonrheumatic mitral (valve) insufficiency Lela Flores MD 09/20/2019 R13.10 Dysphagia, unspecified Antoni Starr M.D. 09/20/2019 R53.1 Weakness Antoni Starr M.D. 09/20/2019 R29.898 Other symptoms and signs involving the Antoni Starr M.D. musculoskeletal system 09/19/2019 R13.10 Dysphagia, unspecified Brigida GranadosO. 09/19/2019 R53.1 Weakness Debby Granados.O. 09/19/2019 R29.898 Other symptoms and signs involving the Beverley Castro D.O. musculoskeletal system 09/19/2019 I73.9 Peripheral vascular disease, unspecified Debby Granados.O. 09/18/2019 I34.0 Nonrheumatic mitral (valve) insufficiency Memo Sanford M.D. 09/18/2019 R13.10 Dysphagia, unspecified Tamika Aguila MD 09/18/2019 R53.1 Weakness Tamika Aguila MD 09/18/2019 R32 Unspecified urinary incontinence Tamika Aguila MD 09/18/2019 R29.898 Other symptoms and signs involving the Tamika Aguila MD musculoskeletal system 09/17/2019 R13.10 Dysphagia, unspecified SAHIL Barnes 09/17/2019 R63.4 Abnormal weight loss SAHIL Barnes 09/17/2019 R53.1 Weakness SAHIL Barnes 09/17/2019 R26.2 Difficulty in walking, not elsewhere SAHIL Barnes classified 09/12/2019 R29.6 Repeated falls Adelina Li M.D., FACP 09/05/2019 R06.02 Dyspnea on exertion Drew Rogers M.D. 09/05/2019 I34.0 Nonrheumatic mitral (valve) insufficiency Drew Rogers M.D. 09/05/2019 R29.6 Repeated falls Drew Rogers M.D. 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 09/05/2019 I95.2 Hypotension due to drugs Drew Rogers M.D. 08/15/2019 I34.0 Nonrheumatic mitral (valve) insufficiency Drew Rogers M.D. 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 08/15/2019 R06.02 Dyspnea on exertion [facility] 07/24/2019 D64.9 Anemia, unspecified Magda Coello, PRESIDING JUDGE 07/24/2019 I34.9 Nonrheumatic mitral valve disorder, Magda Coello, PRESIDING JUDGE unspecified 07/24/2019 I25.10 Atherosclerotic heart disease [place] Magda Coello, PRESIDING JUDGE coronary artery without angina pectoris 07/24/2019 M79.10 Myalgia, unspecified site Magda Coello, PRESIDING JUDGE 07/21/2019 Z00.00 Encounter for general adult medical Adelina Li M.D., FACP examination without abnormal findings 07/21/2019 I25.10 Atherosclerotic heart disease [place] Adelina Li M.D. , FACP coronary artery without angina pectoris 07/21/2019 K92.1 Melsurya Li M.D., FACP 07/21/2019 I34.9 Nonrheumatic mitral valve disorder, Adelina Li M.D., FACP unspecified 07/21/2019 M54.5 Low back pain Adelina Li M.D., FACP 07/21/2019 D64.9 Anemia, unspecified Adelina Li M.D., FACP 07/11/2019 D64.9 Anemia, unspecified Jono Cowart MD 07/11/2019 K92.1 Belen Cowart MD 07/10/2019 I25.10 Atherosclerotic heart disease [place] Memo Sanford M.D. coronary artery without angina [...] unspecified 07/10/2019 I25.10 Atherosclerotic heart disease [place] Jono Cowart MD coronary artery without angina [...] M.D. 07/04/2019 I25.10 Atherosclerotic heart disease [place] Drew Rogers M.D. coronary artery without angina [...] MD 05/23/2019 I25.10 Atherosclerotic heart disease [place] Charu Hilliard MD coronary artery without angina [...] M.D. 05/06/2019 I25.10 Atherosclerotic heart disease [place] Memo Sanford M.D. coronary artery without angina [...] 04/24/2019 M48.062 Spinal stenosis, lumbar region with Chaur Hilliard MD neurogenic claudication 04/24/2019 M25.551 Pain in right hip Charu Hilliard MD 04/10/2019 I34.0 Nonrheumatic mitral (valve) insufficiency Emma Winslow, N.P. 04/10/2019 I10 Essential (primary) hypertension Emmamundo Winslow N.P. 04/10/2019 I25.10 Atherosclerotic heart disease [place] Emma Rosa Winslow N.P. coronary artery with Plan of Treatment Future Appointment(s):12/27/2019 1:00 pm - Drew Rogers M.D. at [facility]10/24/2019 4:30 pm - Adelina Li M.D., FACP at [facility]09/12/2019 - Adelina Li M.D., FACPR29.6 Repeated fallsComments :FALLS:I understand that you have had 4 recent [...] button. This is the number for one [employer]!: [employer] [phone].We also discussed the palliative care program at [facility] (I have given you some written information). There are nurses who workfor [facility] ([phone] [address] and at [facility] who can also help you navigate resouces available in the community. I will contact S to have them schedule an in home evaluation.Follow up:1 month Functional Status Description No Information Available Mental Status Description No Information Available Referrals Refer to Reason for Referral Status Appt Date [facility] Sent [address] [place] [address] [phone] Created
--- OUTSIDE RECORDS SUMMARY | 2019-10-19 09:25 | XMS REPORT | Continuity of Care Document ---
:1935 External Reference #:[id number] Author Name Memo Sanford M.D. (transmitted by agent of provider Mora Roberts) Address [address] [place] [address] Care Team Providers Name Role Phone Drew Rogers MD - Cardiovascular Care Team Information Space Engineer Disease Chip Almendarez MD - Vascular Surgery Care Team Information Space Engineer Nir Mcmahon MD - Care Team Information Space Engineer [phone] Neurological Surgery Charu Hilliard M.D. - Family Medicine Care Team Information Space Engineer Problems Active Problems Provider Date Spinal stenosis [...] walker 1units R29.6 [facility]. 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 MANAGER 09/04/2019 Tablets Oxycontin one by mouth 14tabs M48.062 Charu Hilliard MD 04/24/2019 - 10mg Tab every 12 hours 05/11/2019 ER 12H Abuse-Det Medications Administered in Office Medication SIG Qnty Indications Ordering Provider Date B-12 Injection Jerrod Lopez, 08/26/2017 Injection Anayeli,FACP B-12 Injection Jerrod Lopez, 07/14/2017 [facility] Nurse Visit A 06/08/2017 Injection B-12 Injection Nurse Visit A 06/01/2017 Injection B-12 Injection Nurse Visit A 05/25/2017 Injection B-12 Injection Jerrod Lopez, 05/18/2017 Injection Anayeli,FACP Inj, Regadenoson, 0.1 MG Memo Sanford M.D. 12/31/2016 Injection Technetium TC 99M Memo Sanford M.D. 12/31/2016 Tetrofosmin, Per Unit Dose Up To 40 Millicuries Injection Immunizations CPT Code Status Date Vaccine Reaction Lot # [id number] Given 05/23/2019 Influenza Virus Vaccine, pt. tolerated well. dg [id number] Quadrivalent ([id number]), Derived From Cell 34581 Given 06/27/2018 Influenza Virus Vaccine, [id number] Quadrivalent, Split, Preservative Free 24679 Given 05/18/2017 Influenza Virus Vaccine, [id number] Quadrivalent, Split, Preservative Free 45746 Given 07/08/2016 Influ Virus Vaccine, [id number] Quadrivalent, Split Virus, [place] [address] Given 04/06/2015 Fluzone High Dose 90001 Given 12/28/2014 Pneumococcal Conjugate [id number] Vaccine 13 Valent For Intramuscular Use 72506 Given 04/25/2014 Fluzone High Dose Q2035 Given 04/02/2013 Afluria Vaccine 19574 Given 06/03/2012 Tdap - [id number] Tetanus/Diptheria/Acellular Pertussis Q2035 Given 04/07/2012 Afluria Vaccine 77919 Given 07/03/2010 Zoster (Zostavax) [id number] 23978 Given 05/10/2010 Influenza Virus 3Yrs & Over 05069 Given 08/28/2009 Influenza Virus Vaccine, [id number] Pandemic Formulation 64054 Given 05/31/2008 Influenza Virus 3Yrs & Over 51726 Given 05/31/2008 Influenza Virus 3Yrs & Over 04983 93455 Given 05/16/2001 Pneumonia Vaccine Vital Signs Date [...] Result H/L Range Note Stool Occult 09/17/2019 [facility] Stool Occult SEE RESULT 1 Blood, [address] Blood, [place] [address] Screen [phone] CBC Auto 09/17/2019 [facility] White Blood 7.7 10^3/uL Normal 3.5-10.[address] [place] [address] [phone] Red Blood Count 4.71 10^6/uL Normal 3.70-4.87 [...] Cells % 0.0 Comp Metabolic Panel 09/17/2019 [facility] Sodium 133 mmol/L Low 135-[address] [place] [address] [phone] Potassium 4.0 mmol/L Normal 3.5-5.0 Chloride 98 [...] Egfr 75.1 >60 3 Laboratory test 09/17/2019 [facility] Magnesium 1.6 mg/dL Low 1.9-2.[address] [place] [address] [phone] Troponin-I (TnI) 0.00 ng/mL <0.03 4 TSH (Thyroid Stim Horm) 0.18 mcIU/mL Low 0.34-5.60 B-Type Natriuretic Peptide BNP 304 pg/mL High <=100 T3 Free 3.70 pg/mL Normal 2.5-3.9 Free T4 (Free Thyroxine) 1.07 ng/dL Normal 0.61-1.12 Urinalysis Profile 09/17/2019 [facility] Urine Color Yellow [address] [place] [address] [phone] Urine Appearance Clear Urine Specific [place] 1.006 Low 1.010-1.030 Urine pH 6.0 Normal 5-9 Urine Urobilinogen Negative Negative Urine Ketones Negative Negative Urine Protein Negative Negative Urine Leukocytes Negative Negative Urine Blood Negative Negative Urine Nitrite Negative Negative Urine Bilirubin Negative Negative Urine Glucose Negative Negative Laboratory test 08/06/2019 [facility] Antibody SEE RESULTS 5, [address] Identification BELO <[place] [address] NOTE> [phone] Antibody Id Autocontrol 0 Direct Lashonda NEGATIVE Comp Metabolic Panel 08/06/2019 [facility] Sodium 134 mmol/L Low 135-145 [address] [place] [address] [phone] Potassium 4.2 mmol/L Normal 3.5-5.0 Chloride 99 [...] >60 Egfr 65.4 >60 7 Laboratory 08/06/2019 [facility] Partial 28.5 seconds Normal 26.0-38.0 test finding 101 [facility] [place] [place] [address] Time PTT [phone] Inr/Protime 08/06/2019 [facility] Inr 1.12 High 0.82-1.[address] [place] [address] [phone] Type & Screen 08/06/2019 [facility] Patient O Positive 101 [facility] [place] [address] [phone] Antibody Screen POSITIVE CBC Auto 08/06/2019 [facility] White Blood 14.5 10^3/uL High 3.5-10.[address] [place] [address] [phone] Red Blood Count 4.38 10^6/uL Normal 3.70-4.87 [...] Blood Cells % 0.1 Stool Occult 08/06/2019 [facility] Stool Occult SEE RESULT 10 Blood, Screen 101 [facility] Blood, [place] [address] [phone] Laboratory test 07/28/2019 [facility] Pathologist Review (SEE NOTE) 11 finding [address] [place] [address] [phone] Cell Morphology 07/28/2019 [facility] Microcytosis 1+ [address] [place] [address] [phone] Hypochromasia 1+ Anisocytosis 2+ Elliptocyte 1+ Laboratory test 07/28/2019 [facility] Creatine 39 U/L Normal 10-223 12 finding 101 [facility] Kinase(CK) [place] [address] [phone] Lipid Profile 07/28/2019 [facility] Triglycerides 117 13 (Trig/Chol/HDL) [address] [place] [address] mg/[place] [address] [phone] Cholesterol 116 mg/dL 14 HDL Cholesterol 45.5 mg/dL 15 LDL Cholesterol 47 mg/dL 16 Comp Metabolic 07/28/2019 [facility] Sodium 139 mmol/L Normal 135-145 Panel [address] [place] [address] [phone] Potassium 4.1 mmol/L Normal 3.5-5.0 Chloride 98 [...] Egfr 66.2 >60 17 CBC Auto 07/28/2019 [facility] White Blood 5.7 10^3/uL Normal 3.5-10.[address] [place] [address] [phone] Red Blood Count 4.25 10^6/uL Normal 3.70-4.87 [...] Blood Cells % 0.1 Comp Metabolic 07/28/2019 [facility] Sodium 135 mmol/L Normal 135-[address] [place] [address] [phone] Potassium 4.0 mmol/L Normal 3.5-5.0 Chloride 98 [...] >60 Egfr 70.4 >60 18 Inr/Protime 07/28/2019 [facility] Inr 1.33 High 0.82-1.[address] [place] [address] [phone] CBC Auto Diff 07/28/2019 [facility] White Blood 6.2 Normal 3.5 -10.[address] Count 10^3/[place] [address] [phone] Red Blood Count 3.94 10^6/uL Normal 3.70-4.87 [...] Blood Cells % 0.0 Laboratory test 07/09/2019 [facility] Packed Cells SEE RESULTS [address] BELO <SEE NOTE> [place] [address] [phone] Type & Screen 07/09/2019 [facility] Patient Blood O Positive [address] [place] [address] [phone] Antibody Screen NEGATIVE Laboratory test 07/09/2019 [facility] Troponin-I 0.01 <0.03 [address] (TnI) ng/[place] [address] [phone] Comp Metabolic 07/09/2019 [facility] Sodium 138 Normal 135- [address] mmol/[place] [address] [phone] Potassium 3.5 mmol/L Normal 3.5-5.0 Chloride 104 [...] >60 Egfr 89.1 >60 23 Laboratory 07/09/2019 [facility] Troponin-I 0.01 <0.03 24 test finding [address] (TnI) ng/[place] [address] [phone] CBC Auto Diff 07/09/2019 [facility] White Blood 6.7 Normal 3.5 -10.[address] Count 10^3/[place] [address] [phone] Red Blood Count 3.25 10^6/uL Low 3.70-4.87 [...] Red Blood Cells % 0.1 Inr/Protime 07/09/2019 [facility] Inr 1.21 High 0.82-1.[address] [place] [address] [phone] Order 07/07/2019 [facility] blood <pendin [address] transfusion g> [place] [address] per protocol [phone] Laboratory test 07/04/2019 [facility] B-Type 780 High <=[address] Natriuretic pg/[place] [address] Peptide BNP [phone] CBC Auto Diff 07/04/2019 [facility] White Blood 5.1 Normal 3.5 -10.[address] Count 10^3/uL [place], [place] [address] [phone] Red Blood Count 3.42 10^6/uL Low 3.70-4.87 [...] Blood Cells % 0.1 Comp Metabolic 07/04/2019 [facility] Sodium 139 mmol/L Normal 135-[address] [place], [place] [address] [phone] Potassium 3.8 mmol/L Normal 3.5-5.0 Chloride 105 [...] 81.5 >60 27 Iron & Iron 07/04/2019 [facility] Total Iron 451 g/dL High 250-[address] [place] [address] Capacity [phone] Transferrin 322 mg/dL Normal 203-362 Iron < 20 g/dL Low 50-212 Unsaturated Iron Binding < 436 g/dL % Iron Saturation 4 % Low 15-55 Vitamin B12 07/04/2019 [facility] Vitamin B12 200 pg/mL Normal 180-914 28 And Folate [address] Serum [place], [place] [address] [phone] Folic Acid (Folate) 5.61 ng/mL >3.99 Cell Morphology 07/04/2019 [facility] Microcytosis 2+ [address] [place] [address] [phone] Hypochromasia 2+ Polychromasia 1+ Schistocytes 1+ Elliptocyte 2+ Laboratory test 07/04/2019 [facility] Pathologist (SEE NOTE) [address] [place] [address] [phone] Laboratory test 06/12/2019 [facility] Ferritin 9.4 ng/mL Low 11-[address] 07 [place] [address] [phone] CBC Auto Diff 06/12/2019 [facility] White Blood 5.7 Normal 3.5 - [address] Count 10^3/uL 10.8 [place] [address] [phone] Red Blood Count 3.39 10^6/uL Low 3.70-4.87 [...] Blood Cells % 0.1 Urinalysis Profile 05/06/2019 [facility] Urine Color Colorless [address] [place] [address] [phone] Urine Appearance Clear Urine Specific [place] 1.005 Low 1.010-1.030 Urine pH 7.0 Normal 5-9 Urine Urobilinogen Negative Negative Urine Ketones Negative Negative Urine Protein Negative Negative Urine Leukocytes Negative Negative Urine Blood Negative Negative Urine Nitrite Negative Negative Urine Bilirubin Negative Negative Urine Glucose Negative Negative CBC Auto 05/05/2019 [facility] White Blood 7.5 10^3/uL Normal 3.5-10.[address] [place] [address] [phone] Red Blood Count 4.08 10^6/uL Normal 3.70-4.87 [...] Red Blood Cells % 0.0 Laboratory 05/05/2019 [facility] B-Type 703 pg/mL High <=100 test finding [address] [address] Peptide BNP [phone] Inr/Protime 05/05/2019 [facility] Inr 1.12 High 0.82-1.[address] [place] [address] [phone] Laboratory 05/05/2019 [facility] D Dimer 553 ng/mL High Less Than [address] Quantitative 230 [place] [address] [phone] Lactic Acid 1.2 mmol/L Normal 0.5-2.0 32 Iron & Iron 05/05/2019 [facility] Total Iron 469 g/dL High 250-[address] [place] [address] Capacity [phone] Transferrin 335 mg/dL Normal 203-362 Iron TNP g/dL 50-212 33 % Iron Saturation TNP % 15-55 34 Laboratory test 05/05/2019 [facility] Folic Acid 3.53 ng/mL > 3.[address] (Folate) [place], [place] [address] [phone] Vitamin B12 207 pg/mL Normal 180-914 35 Laboratory 05/05/2019 [facility] Troponin-I 0.05 Critical < 0.04 [address] (TnI) ng/[place] [address] [phone] Comp Metabolic 05/05/2019 [facility] Sodium 140 Normal 135- [address] mmol/L [place], [place] [address] [phone] Potassium 3.9 mmol/L Normal 3.5-5.0 Chloride 104 [...] : [address]: Washington Guardado Acct: [id number] Unit: [id number] AGE: 84 Location: ED Re09/17/19 SEX: F Status: REG ER SPEC: [id number] KATHERINE: 09/17/[address]: Washington Erwin DO REQ: [id number] RECD: 09/17/19 STATUS: KAVON SUAZO DR: Charu Hilliard MD _ SOURCE: STOOL SPDESC: ORDERED: Occult Bl, Scn Procedure Result Reported Site Stool Occult Blood (1) Final 09/17/19- 1811 ML Stool Occult Blood Negative Collection Date (1) 09/17/19 * ML - Main Lab . END OF REPORT DEPARTMENT OF PATHOLOGY, [address] [place] [address] Evan Ruiz M.D. Director [facility] # [id number] 2 Consistent with Previous Results Reported on [...] immediately to secondary confirmatory testing. Using the Gnip DxI 800 Access Immunoassay systems, the 99th [...] : [address]: Washington Guardado Acct: [id number] Unit: [id number] AGE: 84 Location: ED Re08/06/19 SEX: F Status: REG ER SPEC: [id number] KATHERINE: 08/06/19-1125 [facility] DR: Washington Erwin DO REQ: [id number] RECD: 08/06/19 STATUS: KAVON SUAZO DR: Charu Hilliard MD _ SOURCE: STOOL SPDESC: ORDERED: Occult Bl, Scn Procedure Result Reported Site Stool Occult Blood (1) Final 08/06/19- 1234 ML Stool Occult Blood Positive * ML - Main Lab . END OF REPORT DEPARTMENT OF PATHOLOGY, [address] [place] [address] Evan Ruiz M.D. Director [facility] # [id number] 11 Microcytic anemia. Reviewed by Mora Traore M.D. 12 Copy Result to: HILLIARD CHARU ([id number]) 13 Desirable: <150 Borderline High: 150-199 High: [...] Reported on 07/28/2019. 21 SEE RESULTS BELOW [id number] OP PC TRANSFUSED 07/09/19 1950 [id number] OP PC TRANSFUSED 07/09/19 1810 [id number] OP PC TRANSFUSED 07/09/19 2323 22 Troponin-I testing on Plasma Separator Tubes (PST) has a known false positive rate of 0.20-0.40%. All positive troponins reflex immediately to secondary confirmatory testing. Using the Gnip DxI 800 Access Immunoassay systems, the 99th [...] immediately to secondary confirmatory testing. Using the Luxoft Access Immunoassay systems, the 99th percentile upper [...] - FDP greater than 20 ug/ml 32 [facility] Severe Sepsis and Septic Shock Management Bundle Measure requires all lactic acids initially measuring >2.0 mmol/L be repeated. 33 Unable to report test result due to hemolysis. 34 Unable to calculate due to hemolysis. 35 Normal Range 180 to 914 Indeterminate Range 145 to 180 Deficient Range <145 36 Result TnIDx:0.05 Called to [id number] at: 01:51:07 by:[id number] Read back by: [id number] Troponin-I testing on Plasma Separator Tubes (PST) has a known false positive rate of 0.20-0.40%. All positive troponins reflex immediately to secondary confirmatory testing. Using the Gnip DxI 800 Access Immunoassay systems, the 99th [...] dialysis) Procedures Date Code Description Status 09/18/2019 39582 ECHO Transthorasic Realtime 2D W Doppler & Color Flow Completed Hosp 09/05/2019 43137 EKG Tracing & Interpretation Completed 08/15/2019 60039 ECHO Transthoracic, Real-Time 2D With Doppler And Color Completed Flow 08/15/2019 09151 ECHO Transthoracic, Real-Time 2D With Doppler And Color Completed Flow 07/21/2019 00573 EKG Tracing & Interpretation Completed 07/04/2019 91135 EKG Tracing & Interpretation Completed 05/06/2019 09857 EKG, Interpretation Only Completed 07/14/2010 [id number] Colonoscopy Completed 06/17/2010 [id number] Mammogram Completed 05/23/2009 [id number] Mammogram Completed Medical Devices Description No Information Available Encounters Type Date Location Provider Dx Diagnosis Office Visit 09/22/2019 [facility] M48.02 Spinal stenosis, 2:50p cecilia Vargas M.D. cervical region Hospitalists R63.0 Anorexia R53.1 Weakness R26.2 Difficulty in walking, not elsewhere classified Office Visit 09/21/2019 [facility] M48.02 Spinal 2:50p cecilia Vargas M.D. stenosis, Hospitalists cervical region R13.10 Dysphagia, unspecified R53.1 Weakness R29.898 Oth symptoms and signs involving the musculoskeletal system Office Visit 09/20/2019 [facility] M48.02 Spinal 2:49p cecilia Vargas M.D. stenosis, Hospitalists cervical region R13.10 Dysphagia, unspecified R53.1 Weakness R29.898 Oth symptoms and signs involving the musculoskeletal system Office Visit 09/19/2019 2:48p [facility] Beverley R13.10 Dysphagia, Assoc,cecilia Castro D.O. unspecified Hospitalists R53.1 Weakness R29.898 Oth symptoms and signs involving the musculoskeletal system I73.9 Peripheral vascular disease, unspecified Office Visit 09/18/2019 [facility] Tamika R13.10 Dysphagia, 2:48p Assoccecilia MD unspecified Hospitalists R53.1 Weakness R32 Unspecified urinary incontinence R29.898 Oth symptoms and signs involving the musculoskeletal system Office Visit 09/17/2019 2:48p [facility] Tomás R13.10 Dysphagia, Assoc,SAHIL Galeano unspecified Hospitalists R63.4 Abnormal weight loss R53.1 Weakness R26.2 Difficulty in walking, not elsewhere classified Office Visit 09/12/2019 2:00p [facility] Adelina Li, R29.6 Repeated falls Medicine - Mariia Guadalupe, FACP Office Visit 09/05/2019 3:00p [facility] [place] R06.02 Shortness of Anayeli Rogers breath I34.0 Nonrheumatic mitral (valve) insufficiency R29.6 Repeated falls I25.10 [facility] heart disease of [place] coronary artery w/o ang pctrs D64.9 Anemia, unspecified I95.2 Hypotension due to drugs Office Visit 07/24/2019 3:20p [facility] Magda Coello, D64.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, 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 I34.9 Nonrheumatic mitral valve disorder, unspecified I25.10 [facility] heart disease of [place] coronary artery w/o ang pctrs M79.10 Myalgia, unspecified site Office Visit 07/21/2019 1:00p [facility] Internal Adelina Li, Z00.00 [facility] for Medicine - Mairia Guadalupe, FACP general adult medical exam w/o abnormal findings I25.10 [facility] heart disease of [place] coronary artery w/o ang pctrs K92.1 Melena I34.9 Nonrheumatic mitral valve disorder, unspecified M54.5 Low back pain D64.9 Anemia, unspecified Office Visit 07/11/2019 9:26a [facility] Jono Cowart, D64.9 Anemia, Assoc,pc unspecified Hospitalists K92.1 [facility] Office Visit 07/10/2019 3:16p [facility] Memo Allred I25.10 [facility] Anayeli Sanford disease of [place] coronary artery w/o ang pctrs I25.2 Old myocardial infarction I34.0 Nonrheumatic mitral (valve) insufficiency Z86.73 Prsnl hx of TIA (TIA), and cereb infrc w/o resid deficits Z98.61 Coronary angioplasty status Office Visit 07/10/2019 9:25a [facility] Jono Cowart, D64.9 Anemia, Assoc,pc unspecified Hospitalists I34.9 Nonrheumatic mitral valve disorder, unspecified I25.10 [facility] heart disease of [place] coronary artery w/o ang pctrs I10 Essential (primary) hypertension M54.9 Dorsalgia, unspecified I73.9 Peripheral vascular disease, unspecified Office Visit 07/09/2019 9:25a [facility] Assoc,pc Lily Echevarria N.P. K92.1 Melena Hospitalists D64.9 Anemia, unspecified D50.9 Iron deficiency anemia, unspecified Office Visit 07/09/2019 [facility] Gastroenterology Lorne Beyer D64.9 Anemia, 7:00a MD Junior unspecified K92.1 Melena I73.9 Peripheral vascular disease, unspecified Office Visit 07/07/2019 2:20p [facility] Internal Naomy D64.9 Anemia, Juan Manuel Deng MD unspecified [facility] I10 Essential (primary) hypertension R53.81 Other malaise R05 Cough Office Visit 07/04/2019 2:40p [facility] Drew [place] I10 Essential (primary) Anayeli Rogers hypertension D64.9 Anemia, unspecified I25.10 [facility] heart disease of [place] coronary artery w/o ang pctrs I21.4 Non-St elevation (Nstemi) myocardial infarction I73.9 Peripheral vascular disease, unspecified I50.9 Heart failure, unspecified I34.0 Nonrheumatic mitral (valve) insufficiency R06.02 Shortness of breath Office Visit 06/30/2019 3:30p [facility] Internal Naomy D64.9 Anemia, Juan Manuel Deng MD unspecified [facility]cm[facility] I10 Essential (primary) hypertension Office Visit 05/23/2019 9:40a [facility] Internal Charu Hilliard MD I25.10 [facility] - [place] disease of [place] coronary artery w/o ang pctrs I21.4 Non-St elevation (Nstemi) myocardial infarction Z23 Encounter for immunization A04.72 Enterocolitis d/t Clostridium difficile, not spcf as recur D64.9 Anemia, unspecified Office Visit 05/06/2019 11:55a [facility] Memo Allred R07.9 Chest pain, Of Ihsan Sanford M.D. unspecified I25.10 [facility]scl heart disease of [place] coronary artery w/o ang pctrs I73.9 Peripheral vascular disease, unspecified E78.5 Hyperlipidemia, unspecified Office Visit 05/06/2019 [facility] Savita Menjivar, I50.31 Acute diastolic 9:53a cecilia Vargas M.D. (congestive) Hospitalists heart failure I11.0 Hypertensive heart disease with heart failure E78.5 Hyperlipidemia, unspecified Office Visit 04/24/2019 2:00p [facility] Internal Charu Hilliard MD I10 Essential (primary) Medicine - Ccmob hypertension M48.062 Spinal stenosis, lumbar region with neurogenic claudication M25.551 Pain in right hip Office Visit 04/10/2019 1:30p [facility] Emma Lee I34.0 Nonrheumatic mitral Foster, N.P. (valve) insufficiency I10 Essential (primary) hypertension I25.10 [facility] heart disease of [place] coronary artery w/o ang pctrs Assessments Date Code Description Provider 09/22/2019 M48.02 Spinal stenosis, cervical region Antoni Starr M.D. 09/22/2019 R63.0 Anorexia Antoni Starr M.D. 09/22/2019 R53.1 Weakness Antoni Starr M.D. 09/22/2019 R26.2 Difficulty in walking, not elsewhere Antoni Starr M.D. classified 09/21/2019 M48.02 Spinal stenosis, cervical region Antoni Starr M.D. 09/21/2019 R13.10 Dysphagia, unspecified Sulma Huang.DMiguel Ángel 09/21/2019 R53.1 Weakness Antoni Starr M.D. 09/21/2019 R29.898 Other symptoms and signs involving the Antoni Starr M.D. musculoskeletal system 09/20/2019 M48.02 Spinal stenosis, cervical region Antoni Starr M.D. 09/20/2019 R13.10 Dysphagia, unspecified Keenan HuangDMiguel Ángel 09/20/2019 R53.1 Weakness Antoni Starr M.D. 09/20/2019 R29.898 Other symptoms and signs involving the Antoni Starr M.D. musculoskeletal system 09/19/2019 R13.10 Dysphagia, unspecified Beverley Matthew, D.O. 09/19/2019 R53.1 Weakness Beverley Matthew, D.O. 09/19/2019 R29.898 Other symptoms and signs involving the Beverley Matthew, D.O. musculoskeletal system 09/19/2019 I73.9 Peripheral vascular disease, unspecified Beverley Matthew, D.O. 09/18/2019 I34.0 Nonrheumatic mitral (valve) insufficiency Memo [...] M.D. 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 09/05/2019 I95.2 Hypotension due to drugs Drew Rogers M.D. 08/15/2019 I34.0 Nonrheumatic mitral (valve) insufficiency Drew Rogers M.D. 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 , FACP coronary artery without angina pectoris 07/21/2019 K92.1 Melsurya Adelina Li M.D., FACP 07/21/2019 I34.9 Nonrheumatic mitral valve disorder, Adelina Li M.D., FACP unspecified 07/21/2019 M54.5 Low back pain Adelina Li M.D., FACP 07/21/2019 D64.9 Anemia, unspecified Adelina Li M.D., FACP 07/11/2019 D64.9 Anemia, unspecified Jono Cowart MD 07/11/2019 K92.1 Melsurya Cowart MD 07/10/2019 I25.10 Atherosclerotic heart disease of [place] Memo Sanford M.D. coronary artery without angina [...] unspecified 07/10/2019 I25.10 Atherosclerotic heart disease of [place] Jono Cowart MD coronary artery without angina [...] M.D. 07/04/2019 I25.10 Atherosclerotic heart disease of [place] Drew Rogers M.D. coronary artery without angina [...] MD 05/23/2019 I25.10 Atherosclerotic heart disease of [place] Charu Hilliard MD coronary artery without angina [...] M.D. 05/06/2019 I25.10 Atherosclerotic heart disease of [place] Memo Sanford M.D. coronary artery without angina pectoris 05/06/2019 I73.9 Peripheral vascular disease, unspecaubrey Sanford M.D. 05/06/2019 E78.5 Hyperlipidemia, unspecified Memo Sanford M.D. 05/06/2019 I50.31 Acute diastolic (congestive) heart Savita Menjivar M.D. failure 05/06/2019 I11.0 Hypertensive heart disease with heart Savita Menjivar M.D. failure 05/06/2019 E78.5 Hyperlipidemia, roseified Savita Menjivar M.D. 04/24/2019 I10 Essential (primary) hypertension Charu Hilliard MD 04/24/2019 M48.062 Spinal stenosis, lumbar region with Charu Hilliard MD neurogenic claudication 04/24/2019 M25.551 Pain in right hip Charu Hilliard MD 04/10/2019 I34.0 Nonrheumatic mitral (valve) insufficiency Emma Winslow, N.P. 04/10/2019 I10 Essential (primary) hypertension Emma Winslow N.P. 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 at [facility]10/24/2019 4:30 pm - Adelina Li M.D., FACP at [facility] Internal Medicine - [id number] - Adelina Li M.D., FACPR29.6 Repeated fallsComments [...] button. This is the number for one [facility]: [employer] [phone].We also discussed the palliative care program at [facility] (I have given you some written information). There are nurses who workfor [facility] [phone] [address] and at [facility] who can also help you navigate resouces available in the community. I will contact [facility] to have them schedule an in home evaluation.Follow up:1 month Functional Status Description No Information Available Mental Status Description No Information Available Referrals Refer to Reason for Referral Status Appt Date [facility] [facility] Sent [address] [place] [address] [phone] Created
--- OUTSIDE RECORDS SUMMARY | 2019-10-19 09:25 | XMS REPORT ---
:1935 Author Organization [facility] Care Team Providers Name Role Phone Unavailable [...]
--- OUTSIDE RECORDS SUMMARY | 2019-10-19 09:25 | XMS REPORT ---
:1935 Author Organization [facility] Care Team Providers Name Role Phone Unavailable [...]
--- OUTSIDE RECORDS SUMMARY | 2019-10-19 09:25 | XMS REPORT ---
:1935 Author Organization [facility] Care Team Providers Name Role Phone Unavailable [...]
--- OUTSIDE RECORDS SUMMARY | 2019-10-19 09:25 | XMS REPORT ---
:1935 Author Organization [facility] Care Team Providers Name Role Phone Unavailable [...]
--- OUTSIDE RECORDS SUMMARY | 2019-10-19 09:25 | XMS REPORT ---
:1935 Author Organization [facility] Care Team Providers Name Role Phone Unavailable [...]
[2019-10-19 09:29] LABS: Hematocrit 46 % (35-47); Hemoglobin 14.9 g/dL (12.0-16.0); Mean Corpuscular HGB Conc 33 g/dL (31-36); Mean Corpuscular Hemoglobin 30 pg (27-31); Mean Corpuscular Volume 92 fL (80-97); Mean Platelet Volume 9.9 fL (7.4-10.4); Platelet Count 145 10^3/uL (150-450); Red Blood Count 4.95 10^6 /uL (3.70-4.87); Red Cell Distribution Width 18 % (10-15); White Blood Count 13.2 10^3/uL (3.5-10.8)
[2019-10-19] MEDS ORDERED: Naloxone Nasal Spray* 4 MG/0.1 ML NASAL.SPR INTRANASAL ONE ×2 (09:31→09:40)
[2019-10-19 09:33] LABS: ABS Lymphocytes 0.5 10^3/ul (1.0-4.8); ABS Monocytes 0.5 10^3/ul (0-0.8); ABS Neutrophils 12.2 10^3/ul (1.5-7.7); ABS Nucleated RBC 0.1 10^3/ul; Lymphocyte % 3.7 %; Nucleated Red Blood Cells % 0.4
[2019-10-19] MEDS ORDERED: NS 0.9% 1000 ML** 1,000 ML IV ONE ×2 (10:52→10:57)
[2019-10-19] MEDS ORDERED: Piperacillin/Tazobac ADVAN(*) 3.375 GM in NS 0.9% 100 ML* 100 ML IVPB ONE (10:53)
[2019-10-19 10:56] LABS: Troponin I 0.05 ng/mL (<0.03)
[2019-10-19 11:37] LABS: Urine Appearance Cloudy; Urine Color Red; Urine Specific Gravity 1.015 (1.010-1.030)
[2019-10-19 11:57] LABS: Urine Red Blood Cell 3+(>10/hpf) (Absent); Urine White Blood Cell 1+(6-10/hpf) (Absent)
[2019-10-19 12:00] LABS: Urine Benzodiazepine Screen None Detected (None Detect); Urine Opiates Screen None Detected (None Detect)
[2019-10-19 12:49] LABS: EGFR African American 39.1 (>60); EGFR Non-African American 32.3 (>60); Potassium 5.6 mmol/L (3.5-5.0); Total Bilirubin 1.6 mg/dL (0.2-1.0)
[2019-10-19 13:19] LABS: Globulin 2.9 g/dL (2-4); Total Protein 5.9 g/dL (6.4-8.9)
[2019-10-19 13:55] LABS: Troponin I 0.07 ng/mL (<0.03)
[2019-10-19] MEDS ORDERED: Lorazepam PYXIS KEY PRN (14:26)
[2019-10-19] MEDS ORDERED: Morphine 10 MG/ML VIAL (1 ml) IV ONE (14:26)
[2019-10-19] MEDS ORDERED: LORazepam INJ* 2 MG/ML 1 ML VIAL IV PUSH ONE (14:26)
[2019-10-19] MEDS ORDERED: Naloxone* 0.4 MG/ML 1 ML VIAL IV PUSH PRN (14:34)
[2019-10-19] MEDS ORDERED: Lorazepam PYXIS KEY ONE (14:48)
[2019-10-19] MEDS ORDERED: Morphine PCA ADULT* 5 MG/ML 30 ML PCA SCH (15:00)
[2019-10-19] MEDS ORDERED: LORazepam VIAL (for drip)* 100 MG in D5W 50 ML BAG* 50 ML IV SCH (15:00)
[2019-10-19 15:02] VITALS: BP 60/37
--- NOTE | 2019-10-23 07:25 | ED ---
Imaging and Labs Follow Up Follow Up Type: Labs/Cultures Labs/Culture Result: Urine culture prelim shows >100,000 Klebsiella Variicola and >100,000 Morganella Morganii. Patient Communication/Plan: Pt . Nothing further at this time. Provider Diagnoses: Sepsis, Pyelonephritis, Elevated serum lactate dehydrogenase, Altered mental status
== END 2019-10-19 15:05 | disposition expired ==
LOC: ED 09:11
DX: A41.9 Sepsis, unspecified organism (principal); N12 Tubulo-interstitial nephritis, not specified as acute or chronic; R41.82 Altered mental status, unspecified; R74.0 Nonspecific elevation of levels of transaminase and lactic acid dehydrogenase [LDH]; I25.10 Atherosclerotic heart disease of native coronary artery without angina pectoris; R94.31 Abnormal electrocardiogram [ECG] [EKG]; E78.00 Pure hypercholesterolemia, unspecified; I10 Essential (primary) hypertension; I73.9 Peripheral vascular disease, unspecified; Z79.899 Other long term (current) drug therapy; Z87.891 Personal history of nicotine dependence; Z79.82 Long term (current) use of aspirin; Z95.5 Presence of coronary angioplasty implant and graft
CPT/HCPCS: 36415; 70450; 71045; 74176; 80053; 80307; 81003; 82803; 83605; 83880; 84484; 85025; 87040; 87077; 87086; 87150; 87186; 87205; 93005; 96361; 96365; 99285; A9270-GY; G0480; J2060; J2270; J2543